=== PATIENT | male | born 1945 | race American Indian/Alaskan Native ===

== ENCOUNTER 2017-07-09 09:11 | Day surgery (SDC) | payer MEDICARE ==
--- NOTE | 2017-07-09 09:22 | Short Stay Summary ---
Short Stay Documentation Date of service: 07/09/17 Narrative H&P: 71 year old presents for colonoscopy for average risk colon screening. - History Principal diagnosis: colon screening H&P: obtained from office Past Medical History: cancer (prostate), diabetes, hypertension, stroke Past Surgical History: Other (prostate surgery, colonoscopy ~2006) Social history: other (chews tobacco) - Allergies and Medications Current Medications: Allergies No Known Allergies Allergy (Verified 07/06/17 11:30) Home Medications Medication Instructions Recorded Confirmed Last Taken Type Adult Low Dose Aspirin EC 81 mg PO DAILY 07/06/17 07/06/17 Unknown History AtorvaSTATin 1 tab PO DAILY 07/06/17 07/06/17 Unknown History Carvedilol 1 tab PO DAILY 07/06/17 07/06/17 Unknown History Latanoprost 0.005% 1 drop INTRAOCULA DAILY 07/06/17 07/06/17 Unknown History Lisinopril 1 tab PO DAILY 07/06/17 07/06/17 Unknown History amLODIPine 1 tab PO DAILY 07/06/17 07/06/17 Unknown History metFORMIN 500 mg PO DAILY 07/06/17 07/06/17 Unknown History - Physical exam General appearance: no acute distress, well-nourished Integumentary: no rash HEENT: PERRLA, EOMI Lungs: Clear to auscultation Heart: Regular rate, Normal S1, Normal S2 Gastrointestinal: normal Neurological: Normal speech - Hospital course Hospital course: Unsuccessful colonoscopy due to poor prep. - Disposition Condition at discharge: Good Disposition: DC-01 TO HOME OR SELFCARE - Discharge Diagnoses (1) Encounter for screening colonoscopy for [id number] patient Status: Acute Short Stay Discharge Plan Activity: other (no driving today) Diet: other (may resume usual diet) Additional Instructions: Patient to call to reschedule colonoscopy using an enhanced prep. Follow up with: EDINSON TOWNSEND MD [Primary Care Provider] - 7 Days
--- NOTE | 2017-07-09 11:15 | Anesthesia Day of Surgery ---
Anesthesia Day of Surgery - Day of Surgery Patient Examined: Yes Patient H&P Reviewed: Yes Patient is NPO: Yes
--- NOTE | 2017-07-09 11:15 | Anesthesia Consultation ---
Anesthesia Consult and Med Hx Date of service: 07/09/17 - Airway Anesthetic Teeth Evaluation: Poor ROM Head & Neck: Adequate Mental/Hyoid Distance: Adequate Mallampati Class: Class I Intubation Access Assessment: Good - Pulmonary Exam CTA: Yes - Cardiac Exam Cardiac Exam: RRR - Pre-Operative Health Status ASA Pre-Surgery Classification: ASA3 Proposed Anesthetic Plan: MAC - Cardiovascular System Hx Hypertension: Yes - Central Nervous System CVA: Yes (WITH LEFT SIDE WEAKNESS) - Endocrine Hx Non-Insulin Dependent Diabetes: Yes - Other Systems Hx Cancer: Yes
[2017-07-09] MEDS ORDERED: NACL 0.9% 1000 ML 1,000 ML IV SCH (12:00)
[2017-07-09] MEDS ORDERED: DIPRIVAN 10 MG/ML IV ONE (12:11)
--- NOTE | 2017-07-09 12:28 | Operative Report ---
Operative Report Operative Report: Date of procedure: 07/09/2017 Preprocedure diagnosis: Average risk colon screening Post procedure diagnosis: Inadequate prep Procedure name(s): Intended colonoscopy to the cecum, reduced to fiberoptic sigmoidoscopy Surgeon: Jamey Jason MD Anesthesia: Monitored anesthesia care EBL: None Procedure: The indications, techniques, potential complications and alternatives , had been discussed in full detail prior to the date of the exam, and once again on the day of the exam. Questions were encouraged and answered, and consent was thereby obtained. The patient was placed in the left lateral decubitus position, and was medicated by anesthesia services. See the anesthesia records for details. The anal sphincter was digitally dilated. The digital exam was unremarkable. The tip of a [employer] video colonoscope was inserted through the anal sphincter and into the rectal vault. It was then advanced proximally under continuous visualization of the lumen with the intention of it advancing to the cecum. However, the rfectum and distal sigmoid colon contained copious opaque stool flowing down from above and completely coating all mucosa, with no visible mucosa. It was elected to terminate the procedure at this point as the likelihood of being able to sufficiently lavage the colon to obtain an adequate exam was minimal. The instrument was therefore withdrawn. The abbreviated procedure was well-tolerated. He was then monitored in the recovery area of the GI lab to ensure stability prior to his release. See the outpatient record for details regarding instructions to patient, medications, and plans for follow -up which include instruction to the patient to contact the office to reschedule colonoscopy using an enhanced prep. Final diagnosis: Inadequate prep, unable to perform colonoscopy Colon screening information: Previous colonoscopy approximately 10 years ago. Jamey Jason M.D. Dictated 07/09/2017 at 12:25 PM
[2017-07-09 13:00] VITALS: BP 170/99
--- NOTE | 2017-07-09 13:04 | Post Anesthesia Evaluation ---
- Post Anesthesia Evaluation Patient Participated: Yes Airway Patent: Yes Stable Respiratory Function: Yes Temp > 96.8F: Yes Pain Manageable: Yes Adequeate Hydration: Yes Anesthesia Complications: No
[2017-07-09] MEDS ORDERED: XYLOCAINE MPF 2% ONE (13:30)
== END 2017-07-09 09:12 | disposition home or self-care (01) ==
LOC: GIO 09:11
PROVIDERS: ATTEND Internal Medicine Gastroenterology
DX: Z12.11 Encounter for screening for malignant neoplasm of colon (principal); I10 Essential (primary) hypertension; E11.9 Type 2 diabetes mellitus without complications; F17.220 Nicotine dependence, chewing tobacco, uncomplicated; Z79.899 Other long term (current) drug therapy; Z79.82 Long term (current) use of aspirin; Z85.46 Personal history of malignant neoplasm of prostate; Z86.73 Personal history of transient ischemic attack (TIA), and cerebral infarction without residual deficits; Z98.890 Other specified postprocedural states
CPT/HCPCS: 82962; G0104; J2704; J7030

== ENCOUNTER 2017-10-22 08:28 | Day surgery (SDC) | payer MEDICARE ==
[~2017-10-22 08:28] MED LIST: WATER FOR IRRIG STERILE IR ONE
[2017-10-22] MEDS ORDERED: NACL 0.9% 1000 ML 1,000 ML IV SCH (09:00)
--- NOTE | 2017-10-22 09:03 | Anesthesia Consultation ---
Anesthesia Consult and Med Hx Date of service: 10/22/17 - Airway Anesthetic Teeth Evaluation: Poor (multiple missing teeth) ROM Head & Neck: Adequate Mental/Hyoid Distance: Adequate Mallampati Class: Class II Intubation Access Assessment: Probably Good - Pre-Operative Health Status ASA Pre-Surgery Classification: ASA3 Proposed Anesthetic Plan: MAC - Cardiovascular System Hx Hypertension: Yes Hx Angina: No (high cholesterol) - Central Nervous System CVA: Yes (left side weakness) Hx Psychiatric Problems: Yes (dementia) - Endocrine Hx Non-Insulin Dependent Diabetes: Yes - Other Systems Hx Cancer: Yes (prostate CA)
--- NOTE | 2017-10-22 09:03 | Anesthesia Day of Surgery ---
Anesthesia Day of Surgery - Day of Surgery Patient Examined: Yes Patient H&P Reviewed: Yes Patient is NPO: Yes Beta Blockers: Yes
--- NOTE | 2017-10-22 09:16 | Short Stay Summary ---
Short Stay Documentation Date of service: 10/22/17 Narrative H&P: 72 year old presents for colonoscopy for colon screening. Attempt at colonoscopy 06/2017 was unsuccessful due to poor prep. - History Principal diagnosis: colon screening Past Medical History: diabetes, hypertension, stroke Past Surgical History: Other (prostate, colonoscopy > 10 years ago) - Allergies and Medications Current Medications: Allergies No Known Allergies Allergy (Verified 07/06/17 11:30) Home Medications Medication Instructions Recorded Confirmed Last Taken Type Adult Low Dose Aspirin EC 81 mg PO DAILY 07/06/17 07/09/17 07/07/17 History AtorvaSTATin 1 tab PO DAILY 07/06/17 07/09/17 07/07/17 History Carvedilol 1 tab PO BID 07/06/17 07/09/17 07/07/17 History Latanoprost 0.005% 1 drop INTRAOCULA DAILY 07/06/17 07/09/17 07/07/17 History Lisinopril 1 tab PO DAILY 07/06/17 07/06/17 Unknown History amLODIPine 1 tab PO DAILY 07/06/17 07/09/17 07/09/17 History metFORMIN 500 mg PO BID 07/06/17 07/09/17 07/07/17 History Active Medications Sodium Chloride (Nacl 0.9% 1000 Ml) 1,000 mls @ 50 mls/hr IV DIRECT ALLEN Last Admin: 10/22/17 09:05 Dose: 50 mls/hr - Physical exam General appearance: no acute distress, well-nourished HEENT: PERRLA, EOMI Lungs: Clear to auscultation Heart: Regular rate, Normal S1, Normal S2 Gastrointestinal: normal Neurological: Normal speech - Hospital course Hospital course: Unsuccessful attempt at colonoscopy again, due to poor prep. - Disposition Condition at discharge: Good Disposition: DC-01 TO HOME OR SELFCARE - Discharge Diagnoses (1) Encounter for screening colonoscopy for [id number] patient Status: Acute Short Stay Discharge Plan Activity: other (no driving today) Diet: other (may resume usual diet) Additional Instructions: If patient so desires, attempt colonoscopy again using enhanced prep with full compliance. Have discussed with patient and his accompanying responsible family member. If he does not wish to pursue colonoscopy for a third time, consider Cologuard, or virtual colonography. He should discuss with his primary physician. Follow up with: EDINSON TOWNSEND MD [Primary Care Provider] - 7 Days
[2017-10-22] MEDS ORDERED: DIPRIVAN 10 MG/ML IV ONE (09:17)
--- NOTE | 2017-10-22 09:56 | Operative Report ---
Operative Report Operative Report: `Date of procedure: 10/22/2017 Preprocedure diagnosis: Average risk colon screening Post procedure diagnosis: Inadequate prep Procedure name(s): Intended colonoscopy, reduced to fiberoptic sigmoidoscopy Surgeon: Jamey Jason MD Anesthesia: Monitored anesthesia care EBL: None Procedure: The indications, techniques, potential complications and alternatives , had been discussed in full detail prior to the date of the exam, and once again on the day of the exam. Questions were encouraged and answered, and consent was thereby obtained. The patient was placed in the left lateral decubitus position, and was medicated by anesthesia services. See the anesthesia records for details. The anal sphincter was digitally dilated. The digital exam was unremarkable. The tip of a [employer] [facility] adult video colonoscope was inserted through the anal sphincter and into the rectal vault. The entire rectal mucosa was coated with thick opaque retained stool extending several centimeters into the distal sigmoid at which point the instrument was withdrawn. Retained content was diffuse and too thick to enable successful lavage to adequately reveal underlying mucosa. The abbreviated procedure was well-tolerated. Post-procedure he was monitored in the recovery area of the GI lab to ensure stability prior to his release. See the outpatient record for details regarding instructions to patient, medications and plans for follow-up. His last colonoscopy was ~2006. His June 2017 attempt at colonoscopy was unsuccessful due to poor prep. As this is his second failed attempt at colonoscopy because of inadequate prep, I discussed with him and his daughter Sandie in detail the need to comply with enhanced prep instructions in order to obtain adequate cleansing to permit mucosal visualization. From discussion with his daughter, he did not follow the instructions for enhanced prep prior to today's procedure. He is to contact us if he wishes to reschedule; if he does, then his daughter or another family member will need to be clearly instructed in enhanced prep and supervise Mr. Navarro to ensure compliance. If he decides not to go through another bowel prep to attempt colonoscopy, he will discuss with his primary physician non-endoscopic means of colon screening ( Cologuard, virtual colonography, etc.) Both he and his daughter expressed a good understanding of this discussion. Final diagnosis: []
[2017-10-22 10:13] VITALS: BP 152/80
== END 2017-10-22 10:19 | disposition home or self-care (01) ==
LOC: GIO 08:28
PROVIDERS: ATTEND Internal Medicine Gastroenterology
DX: Z12.11 Encounter for screening for malignant neoplasm of colon (principal); I10 Essential (primary) hypertension; E11.9 Type 2 diabetes mellitus without complications; Z86.73 Personal history of transient ischemic attack (TIA), and cerebral infarction without residual deficits; Z79.899 Other long term (current) drug therapy; Z79.84 Long term (current) use of oral hypoglycemic drugs
CPT/HCPCS: 82962; G0121; J2704; J7030

== ENCOUNTER 2018-07-18 07:32 | Day surgery (SDC) | payer MEDICARE ==
[~2018-07-18 07:32] MED LIST changes: +TETRACAINE 0.5% OD PRN; -WATER FOR IRRIG STERILE IR ONE
[2018-07-18] MEDS: VIGAMOX OD SCH ×3 (08:15→08:25)
[2018-07-18] MEDS: MYDRIACYL OD SCH ×3 (08:15→08:25)
[2018-07-18] MEDS: AK-Dilate OD SCH ×3 (08:15→08:25)
[2018-07-18] MEDS ORDERED: VERSED ONE ×2 (09:41→10:07)
[2018-07-18] MEDS ORDERED: SUBLIMAZE ONE ×2 (09:41→10:07)
[2018-07-18] MEDS ORDERED: TETRACAINE 0.5% OS ONE ×2 (09:43)
[2018-07-18] MEDS ORDERED: LOPRESSOR IV ONE (10:00)
[2018-07-18] MEDS ORDERED: DIAMOX PO ONE (10:00)
[2018-07-18] MEDS ORDERED: PRED FORTE 1% OS SCH (10:00)
--- NOTE | 2018-07-18 10:28 | Operative Report ---
Operative Report Operative Report: PATIENT'S NAME: DATE OF : DATE OF SURGERY: 07/18/2018 PREOPERATIVE DIAGNOSIS: Cataract left eye POSTOPERATIVE DIAGNOSIS: Same OPERATIVE PROCEDURE: Phacoemulsification with intraocular lens implantation, left eye SURGEON: Etelvina eDng M.D. STAFFING CONSULTANT SURGEON: Henry Lens: [id number] 20.0 D ANESTHESIA: Monitored anesthesia care in combination with topical and intracameral anesthesia because of the established specific risk of reflux, arrhythmias, or anxiety attacks associated with ocular manipulation, as well as the difficulty of the secretary specialist to manage such potentially catastrophic events while simultaneously attempting to complete the surgical procedure and was deemed necessary for the patient's safety to have an Main Line Assembler present during the procedure whenever possible. An Main Line Assembler was utilized to regulate the intravenous sedation of the patient so the patient was cooperative yet not asleep in order for the patient to successfully maintain fixation of the eye on the operating light of the microscope. COMPLICATIONS: No surgical complications No blood loss. ALLERGIES: No known drug allergies PROGNOSIS: Excellent INDICATIONS FOR SURGERY: The patient is undergoing surgery in the hopes of eliminating or improving these visual difficulties. PROCEDURE: After arriving at the surgery center, the patient was given topical anesthetic and dilating drops, as noted in the record. The patient was then taken into the operating room and given more anesthetic drops. The eyelids, lashes, and lid margins were scrubbed with Betadine solution, and the patient was draped. The Nurse Main Line Assembler administered IV sedation and monitored the patient during the procedure. The eye was then fixated with a 0.12, and a stab incision was made in the peripheral clear cornea into the anterior chamber. This was made on my left side. Viscoelastic was next used to fill the anterior chamber. The eye was once again fixated with the 0.12 forceps and a keratome was used make an incision in clear cornea peripherally on my right hand side temporally. The capsule forceps were used to open the central anterior capsule and then make a continuous round capsulotomy. Hydrodissection was carried out utilizing a cannula and balanced salt solution to delineate the cortical material from the capsule and the nucleus from the cortical material. The phaco tip was introduced into the eye and used to remove the anterior cortical material in the area of the capsulotomy. Then the phaco tip was buried into the nucleus, and a chopping instrument was introduced into the eye and used to provide countertraction in the nucleus between this instrument and the phaco tip fracturing the nucleus. This procedure was repeated multiple times, providing multiple small segments of the lens, and then the phaco tip was used to remove each of these segments. An I/A tip was then used to remove the remaining cortex. The anterior chamber was refilled with viscoelastic. An one-piece, acrylic intraocular lens was then placed into an inserting cartridge. The tip of the inserting cartridge was introduced into the keratome incision and into the anterior chamber. The implant was gently advanced through the cartridge and into the eye, where it unfolded, and both haptics were placed in the capsular bag, where it centered nicely and appeared to be well fixated. After placement of the intraocular lens, the I~and~A handpiece was placed back into the eye and used to remove the viscoelastic, including viscoelastic that was behind the optic of the intraocular lens. The anterior chamber was then filled with balanced salt solution, and hydration of the wound was used to cause swelling of the wound and more appropriate watertight closure. When the wound was found to be firm, the patient was asked to comment on how bright the light was. If there was no light perception at all or if the light was substantially dimmer than during the rest of the surgery, the amount of fluid in the eye was decompressed to lower the intraocular pressure until the patient could see the bright light again. This was done to avoid any damage or decreased blood flow to the optic nerve. MEDICATIONS APPLIED AT END OF SURGERY: One drop of Pred Forte and Vigamox The patient was given a shield to wear at night and was instructed not to rub or push on the eye. DISCHARGE SUMMARY: The patient was released in stable condition. The patient and those with the patient were given a written sheet of postoperative instructions and counseling on any abnormal laboratory studies. The patient is to see us tomorrow for follow-up in the office and is to call immediately for any difficulties. Etelvina Deng M.D. Date
--- NOTE | 2018-07-18 10:29 | Short Stay Summary ---
Short Stay Documentation Date of service: 07/18/18 - History H&P: obtained from office - Allergies and Medications Current Medications: Allergies No Known Allergies Allergy (Verified 07/10/18 08:17) Home Medications Medication Instructions Recorded Confirmed Last Taken Type AtorvaSTATin 1 tab PO DAILY 07/06/17 07/10/18 10/21/17 History Latanoprost 0.005% 1 drop INTRAOCULA DAILY 07/06/17 07/10/18 10/21/17 History Lisinopril 1 tab PO DAILY 07/06/17 07/10/18 10/21/17 History metFORMIN 500 mg PO BID 07/06/17 07/10/18 10/21/17 History Active Medications Moxifloxacin HCl (Vigamox) 1 drops OD Q5M ALLEN Phenylephrine HCl (Ak-Dilate) 1 drops OD Q5M ALLEN Prednisolone Acetate (Pred Forte 1%) 1 drops OS QID ALLEN Tetracaine HCl (Tetracaine 0.5%) 1 drops OD Q5M PRN PRN Reason: analgesia Tropicamide (Mydriacyl) 1 drops OD Q5M ALLEN - Brief post op/procedure progress note Date of procedure: 07/18/18 Pre-op diagnosis: left cataract Post-op diagnosis: same Procedure: Phacoemulsification with intraocular lens insertion left eye Anesthesia: MAC, local Surgeon: MAINOR DAMON Estimated blood loss: none Pathology: none Specimen disposition: to lab Condition: stable - Disposition Condition at discharge: Good Disposition: DC-01 TO HOME OR SELFCARE - Discharge Diagnoses (1) Cortical age-related cataract of left eye Status: Resolved Short Stay Discharge Plan Follow up with: EDINSON TOWNSEND MD [Primary Care Provider] - 7 Days
[2018-07-18 11:46] VITALS: BP 148/86
--- NOTE | 2018-07-18 12:35 | Anesthesia Consultation ---
Anesthesia Consult and Med Hx Date of service: 07/18/18 - Airway Anesthetic Teeth Evaluation: Poor ROM Head & Neck: Adequate Mental/Hyoid Distance: Adequate Mallampati Class: Class III Intubation Access Assessment: Possibly Difficult - Pulmonary Exam CTA: Yes - Cardiac Exam Cardiac Exam: RRR - Pre-Operative Health Status ASA Pre-Surgery Classification: ASA3 Proposed Anesthetic Plan: MAC - Cardiovascular System Hx Hypertension: Yes Hx Coronary Artery Disease: Yes Hx Angina: No (high cholesterol) - Central Nervous System CVA: Yes (2017) Hx Psychiatric Problems: No - Endocrine Hx Non-Insulin Dependent Diabetes: Yes - Other Systems Hx Cancer: Yes
--- NOTE | 2018-07-18 12:35 | Anesthesia Day of Surgery ---
Anesthesia Day of Surgery - Day of Surgery Patient Examined: Yes Patient H&P Reviewed: Yes Patient is NPO: Yes
--- NOTE | 2018-07-18 12:36 | Post Anesthesia Evaluation ---
- Post Anesthesia Evaluation Patient Participated: Yes Airway Patent: Yes Stable Respiratory Function: Yes Nausea/Vomiting: No Temp > 96.8F: Yes Pain Manageable: Yes Adequeate Hydration: Yes Anesthesia Complications: No
== END 2018-07-18 07:33 | disposition home or self-care (01) ==
LOC: OR 07:32
DX: H25.012 Cortical age-related cataract, left eye (principal); I25.10 Atherosclerotic heart disease of native coronary artery without angina pectoris; E78.00 Pure hypercholesterolemia, unspecified; I10 Essential (primary) hypertension; E11.39 Type 2 diabetes mellitus with other diabetic ophthalmic complication; H40.9 Unspecified glaucoma; Z98.890 Other specified postprocedural states; Z85.89 Personal history of malignant neoplasm of other organs and systems; Z87.891 Personal history of nicotine dependence; Z79.84 Long term (current) use of oral hypoglycemic drugs; Z79.899 Other long term (current) drug therapy; Z98.49 Cataract extraction status, unspecified eye; Z85.46 Personal history of malignant neoplasm of prostate; Z86.73 Personal history of transient ischemic attack (TIA), and cerebral infarction without residual deficits
CPT/HCPCS: 66984; 82962; J2250; J3010; V2632

== ENCOUNTER 2018-08-15 06:10 | Inpatient (IN) | payer MEDICARE ==
[2018-08-15] MEDS ORDERED: NACL 0.9% 500 ML 500 ML IV ONE (08:04)
[2018-08-15 08:30] LABS: Basophils % (Auto) 0.4 % (0.0-1.8); Eosinophils % (Auto) 0.3 % (0.0-4.3); Hematocrit 31.9 % (35.5-45.6); Hemoglobin 10.4 gm/dl (11.8-15.2); Lymphocytes # (Auto) 1.4 K/mm3 (1.2-5.4); Lymphocytes % (Auto) 14.1 % (13.4-35.0); Mean Corpuscular HGB Conc 32 % (32-34); Mean Corpuscular Volume 88 fl (84-94); Monocytes % (Auto) 9.8 % (0.0-7.3); Platelet Count 392 K/mm3 (140-440); Red Blood Count 3.65 M/mm3 (3.65-5.03); Red Cell Distribution Width 13.4 % (13.2-15.2)
[2018-08-15 08:44] LABS: Albumin 3.2 g/dL (3.9-5); Calcium 9.4 mg/dL (8.4-10.2)
[2018-08-15] MEDS: CLEOCIN 600 MG/50 mL 600 MG/50 ML BAG IV SCH ×4 (09:05→21:40)
--- NOTE | 2018-08-15 09:32 | XRay Report ---
AP CHEST: HISTORY: Cough AP view of the chest demonstrates a normal mediastinal and cardiac contour with clear lungs and normal bony and soft tissue structures. IMPRESSION: Unremarkable AP chest.
--- NOTE | 2018-08-15 09:41 | XRay Report ---
LEFT FEMUR, ONE VIEW RIGHT FEMUR, ONE VIEW LEFT FOOT, 2 VIEWS History: Pain, wound. Findings: Mild osteopenia is suspected. The bilateral femurs are intact on one view. No evidence for fracture or bony lesion. Anatomic articulation of the hips and knees. Vascular stent is noted the left thigh soft tissues, correlate with history. Views of the left foot demonstrate a moderate sized area of soft tissue ulceration on the heel of the foot which nearly extends to the calcaneal surface. There is no obvious bony destruction or periostitis on x-ray. Mild arthritic changes are noted throughout the left foot. Mild soft tissue swelling is also noted. IMPRESSION: Osteopenia. Unremarkable femurs. Soft tissue ulceration on the heel of the foot as described. No obvious findings of osteomyelitis on x-ray. If further evaluation is needed MRI with contrast or triple phase bone scan could be obtained.
--- NOTE | 2018-08-15 10:52 | Emergency Department Report ---
ED General Adult HPI - General Chief complaint: Fall Stated complaint: LEG PAIN Time Seen by Provider: 08/15/18 07:32 Source: patient, family Mode of arrival: Wheelchair Limitations: Physical Limitation - History of Present Illness Initial comments: Patient presents to emergency department with his daughter for bilateral leg pain status post a fall yesterday. Patient states he tripped on something and did not pass out. Patient also denies hitting his head or been on blood thinners. Patient is also concerned about an ulcer of the left heal -: Sudden Location: lower extremity Radiation: non-radiation Severity scale (0 -10): 3 Quality: aching Consistency: constant Improves with: none Worsens with: none Associated Symptoms: denies other symptoms Treatments Prior to Arrival: none - Related Data Home Medications Medication Instructions Recorded Confirmed Last Taken AtorvaSTATin 1 tab PO DAILY 07/06/17 07/18/18 07/17/18 09:00 Latanoprost 0.005% 1 drop INTRAOCULA DAILY 07/06/17 07/18/18 07/17/18 09:00 Lisinopril 1 tab PO DAILY 07/06/17 07/18/18 07/17/18 09:00 metFORMIN 500 mg PO BID 07/06/17 07/18/18 07/17/18 17:00 Allergies Allergy/AdvReac Type Severity Reaction Status Date / Time No Known Allergies Allergy Verified 07/10/18 08:17 ED Review of Systems ROS: Stated complaint: LEG PAIN Other details as noted in HPI Comment: All other systems reviewed and negative Constitutional: denies: chills, fever Eyes: denies: eye pain, eye discharge, vision change ENT: denies: ear pain, throat pain Respiratory: denies: cough, shortness of breath, wheezing Cardiovascular: denies: chest pain, palpitations Endocrine: no symptoms reported Gastrointestinal: denies: abdominal pain, nausea, diarrhea Genitourinary: denies: urgency, dysuria Musculoskeletal: denies: back pain, joint swelling, arthralgia Skin: other (foot ulcer). denies: rash, lesions Neurological: denies: headache, weakness, paresthesias Psychiatric: denies: anxiety, depression Hematological/Lymphatic: denies: easy bleeding, easy bruising ED Past Medical Hx - Past Medical History Previous Medical History?: Yes Hx Hypertension: Yes Hx CVA: Yes (2017 left side deficits) Hx Diabetes: Yes Additional medical history: prostate CA - Surgical History Past Surgical History?: Yes Additional Surgical History: catarack - Social History Smoking Status: Never Smoker Substance Use Type: None - Medications Home Medications: Home Medications Medication Instructions Recorded Confirmed Last Taken Type AtorvaSTATin 1 tab PO DAILY 07/06/17 07/18/18 07/17/18 09:00 History Latanoprost 0.005% 1 drop INTRAOCULA DAILY 07/06/17 07/18/18 07/17/18 09:00 History Lisinopril 1 tab PO DAILY 07/06/17 07/18/18 07/17/18 09:00 History metFORMIN 500 mg PO BID 07/06/17 07/18/18 07/17/18 17:00 History ED Physical Exam - General Limitations: Physical Limitation General appearance: alert, in no apparent distress - Head Head exam: Present: atraumatic, normocephalic - Eye Eye exam: Present: normal appearance, PERRL, EOMI - ENT ENT exam: Present: mucous membranes moist - Neck Neck exam: Present: normal inspection - Respiratory Respiratory exam: Present: normal lung sounds bilaterally. Absent: respiratory distress, wheezes, rales - Cardiovascular Cardiovascular Exam: Present: regular rate, normal rhythm. Absent: systolic murmur, diastolic murmur, rubs, gallop - GI/Abdominal GI/Abdominal exam: Present: soft, normal bowel sounds. Absent: distended, tenderness - Rectal Rectal exam: Present: deferred - Extremities Exam Extremities exam: Present: normal inspection - Back Exam Back exam: Present: normal inspection - Neurological Exam Neurological exam: Present: alert, oriented X3, CN II-XII intact. Absent: motor sensory deficit - Psychiatric Psychiatric exam: Present: normal affect, normal mood - Skin Skin exam: Present: warm, dry, intact, other (patient has a left heel ulcer with surrounding cellulitis that is malodorous). Absent: rash ED Course Vital Signs 08/15/18 08/15/18 08/15/18 06:13 06:57 10:30 Temperature 98.5 F 97.7 F Pulse Rate 103 H 102 H 89 Respiratory 18 19 16 Rate Blood Pressure 92/52 144/91 Blood Pressure 141/80 [Left] O2 Sat by Pulse 97 100 100 Oximetry 08/15/18 08/15/18 11:30 11:38 Temperature Pulse Rate 92 H Respiratory 11 L 17 Rate Blood Pressure 143/84 Blood Pressure [Left] O2 Sat by Pulse 100 100 Oximetry ED Medical Decision Making - Lab Data Result diagrams: 08/15/18 08:13 08/15/18 08:58 Lab Results 08/15/18 08/15/18 08/15/18 Range/Units 08:13 08:13 08:13 WBC 10.1 (4.5-11.0) K/mm3 RBC 3.65 (3.65-5.03) M/mm3 Hgb 10.4 L (11.8-15.2) gm/dl Hct 31.9 L (35.5-45.6) % MCV 88 (84-94) fl MCH 28 (28-32) pg MCHC 32 (32-34) % RDW 13.4 (13.2-15.2) % Plt Count 392 (140-440) K/mm3 Lymph % (Auto) 14.1 (13.4-35.0) % [place] % (Auto) 9.8 H (0.0-7.3) % Eos % (Auto) 0.3 (0.0-4.3) % Baso % (Auto) 0.4 (0.0-1.8) % Lymph # 1.4 (1.2-5.4) K/mm3 [place] # 1.0 H (0.0-0.8) K/mm3 Eos # 0.0 (0.0-0.4) K/mm3 Baso # 0.0 (0.0-0.1) K/mm3 Seg Neutrophils % 75.4 H (40.0-70.0) % Seg Neutrophils # 7.6 (1.8-7.7) K/mm3 APTT (24.2-36.6) Sec. Sodium 135 L (137-145) mmol/L Potassium 6.2 H* (3.6-5.0) mmol/L Chloride 97.4 L (98-107) mmol/L Carbon Dioxide 25 (22-30) mmol/L Anion Gap 19 mmol/L BUN 29 H (9-20) mg/dL Creatinine 1.8 H (0.8-1.5) mg/dL Estimated GFR 45 ml/min BUN/Creatinine Ratio 16 % Glucose 257 H (75-100) mg/dL Lactic Acid 0.90 (0.7-2.0) mmol/L Calcium 9.4 (8.4-10.2) mg/dL Total Bilirubin 0.40 (0.1-1.2) mg/dL AST 56 H (5-40) units/L ALT 20 (7-56) units/L Alkaline Phosphatase 82 (35-129) units/L Total Protein 8.3 H (6.3-8.2) g/dL Albumin 3.2 L (3.9-5) g/dL Albumin/Globulin Ratio 0.6 % 08/15/18 08/15/18 Range/Units 08:13 08:58 WBC (4.5-11.0) K/mm3 RBC (3.65-5.03) M/mm3 Hgb (11.8-15.2) gm/dl Hct (35.5-45.6) % MCV (84-94) fl MCH (28-32) pg MCHC (32-34) % RDW (13.2-15.2) % Plt Count (140-440) K/mm3 Lymph % (Auto) (13.4-35.0) % [place] % (Auto) (0.0-7.3) % Eos % (Auto) (0.0-4.3) % Baso % (Auto) (0.0-1.8) % Lymph # (1.2-5.4) K/mm3 [place] # (0.0-0.8) K/mm3 Eos # (0.0-0.4) K/mm3 Baso # (0.0-0.1) K/mm3 Seg Neutrophils % (40.0-70.0) % Seg Neutrophils # (1.8-7.7) K/mm3 APTT 31.5 (24.2-36.6) Sec. Sodium (137-145) mmol/L Potassium 5.1 H (3.6-5.0) mmol/L Chloride (98-107) mmol/L Carbon Dioxide (22-30) mmol/L Anion Gap mmol/L BUN (9-20) mg/dL Creatinine (0.8-1.5) mg/dL Estimated GFR ml/min BUN/Creatinine Ratio % Glucose (75-100) mg/dL Lactic Acid (0.7-2.0) mmol/L Calcium (8.4-10.2) mg/dL Total Bilirubin (0.1-1.2) mg/dL AST (5-40) units/L ALT (7-56) units/L Alkaline Phosphatase (35-129) units/L Total Protein (6.3-8.2) g/dL Albumin (3.9-5) g/dL Albumin/Globulin Ratio % - Radiology Data Radiology results: report reviewed Critical care attestation.: If time is entered above; I have spent that time in minutes in the direct care of this critically ill patient, excluding procedure time. ED Disposition Clinical Impression: Foot ulcer, Cellulitis Disposition: OP ADMIT IP TO THIS HOSP Is pt being admited?: Yes Does the pt Need Aspirin: No Condition: Stable Referrals: QUINTON ARIZMENDI MD [Primary Care Provider] - 3-5 Days
[2018-08-15] MEDS ORDERED: TYLENOL PO PRN (12:24)
[2018-08-15] MEDS ORDERED: ZOFRAN IV PRN (12:24)
[2018-08-15] MEDS ORDERED: PERCOCET 5/325 PO PRN (12:24)
[2018-08-15] MEDS ORDERED: PROVENTIL IH PRN (12:24)
--- NOTE | 2018-08-15 12:24 | History and Physical Report ---
History of Present Illness Chief complaint: My foot hurts History of present illness: 73 YO Male with DM, CVA with Dysarthria and LHP, HTN, CaP presents to ED for evaluation. Pt states that he has experienced leg pain over the past several months. Pt acknowledges burning sensation in his feet and legs. Pt acknowledges left foot pain with ambulation. Pt acknowledges tripping and falling down today. Pt transported to [facility] for further care and evaluation. Pt seen and evaluated in ED and found to have Left foot cellulitis complicated by a diabetic foot ulcer. Pt admitted to medical floor. wound care consulted in ED. Pt denies fever, chills, CP, palpitations, NVD, Trauma, BRBPR, unintentional weight loss, unilateral leg swelling, calf pain, or recent ill contacts. Past History Past Medical History: cancer, diabetes, hypertension, stroke Past Surgical History: cataract removal Social history: single. denies: smoking, alcohol abuse, prescription drug abuse Family history: diabetes, hypertension Medications and Allergies Allergies Allergy/AdvReac Type Severity Reaction Status Date / Time No Known Allergies Allergy Verified 07/10/18 08:17 Home Medications Medication Instructions Recorded Confirmed Last Taken Type Amlodipine Besylate [Norvasc] 5 mg PO DAILY 08/15/18 08/15/18 Unknown History Atorvastatin Calcium [Lipitor] 40 mg PO DAILY 08/15/18 08/15/18 Unknown History Calcium Carbonate [Ban-Acid] 300 mg PO DAILY 08/15/18 08/15/18 Unknown History Lisinopril [Zestril TAB] 2.5 mg PO QDAY 08/15/18 08/15/18 Unknown History metFORMIN [Glucophage] 500 mg PO QDAY 08/15/18 08/15/18 Unknown History Active Meds: Active Medications Clindamycin HCl (Cleocin 600 Mg/50 Ml) 600 mg in 50 mls @ 100 mls/hr IV Q8HR [facility]; Protocol Last Admin: 08/15/18 09:05 Dose: 100 mls/hr Documented by: Review of Systems Constitutional: no weight loss, no weight gain, no fever, no chills Ears, nose, mouth and throat: no ear pain, no ear discharge, no tinnitis, no decreased hearing, no nose pain Cardiovascular: no chest pain, no orthopnea, no palpitations, no rapid/irregular heart beat, no edema Respiratory: no cough, no cough with sputum, no excessive sputum, no hemoptysis Gastrointestinal: no nausea, no vomiting, no diarrhea, no constipation Genitourinary Male: no hematuria, no flank pain, no discharge, no urinary frequency, no urinary hesitancy Rectal: no pain, no incontinence, no bleeding Musculoskeletal: no neck stiffness, no neck pain, no shooting arm pain, no arm numbness/tingling Integumentary: no rash, no pruritis, no redness, no sores, no wounds Neurological: no transient paralysis, no paralysis, no weakness, no parathesias, no numbness, no tingling Psychiatric: no anxiety, no memory loss, no change in sleep habits, no sleep disturbances, no hypersomnia, no change in appetite, no change in libido Endocrine: no cold intolerance, no heat intolerance, no polyphagia, no excessive thirst, no polydipsia, no polyuria Hematologic/Lymphatic: no easy bruising, no easy bleeding, no lymphadenopathy, no lymphedema Allergic/Immunologic: no urticaria, no allergic rhinitis, no wheezing, no persistent infections, no anaphylaxis Exam - Constitutional Vitals: Temp Pulse Resp BP Pulse Ox 97.7 F 92 H 17 143/84 100 08/15/18 06:57 08/15/18 11:30 08/15/18 11:38 08/15/18 11:30 08/15/18 11:38 General appearance: Present: mild distress - EENT Eyes: Present: PERRL ENT: hearing intact, clear oral mucosa - Neck Neck: Present: supple, normal ROM - Respiratory Respiratory effort: normal Respiratory: bilateral: CTA - Cardiovascular Heart Sounds: Present: S1 & S2. Absent: rub, click - Extremities Extremities: pulses symmetrical Extremity abnormal: edema, ulceration, tenderness, other (Left heel) Peripheral Pulses: within normal limits - Abdominal General gastrointestinal: Present: soft, non-tender, non-distended, normal bowel sounds Male genitourinary: Present: normal - Integumentary Integumentary: Present: clear, warm, dry - Musculoskeletal Musculoskeletal: gait normal, strength equal bilaterally - Psychiatric Psychiatric: appropriate mood/affect, intact judgment & insight - Neurologic Neurologic: CNII-XII intact, moves all extremities Results - Labs CBC & Chem 7: 08/15/18 08:13 08/15/18 08:58 Labs: Abnormal lab results 08/15/18 08/15/18 08/15/18 Range/Units 08:13 08:13 08:58 Hgb 10.4 L (11.8-15.2) gm/dl Hct 31.9 L (35.5-45.6) % [place] % (Auto) 9.8 H (0.0-7.3) % [place] # 1.0 H (0.0-0.8) K/mm3 Seg Neutrophils % 75.4 H (40.0-70.0) % Sodium 135 L (137-145) mmol/L Potassium 6.2 H* 5.1 H (3.6-5.0) mmol/L Chloride 97.4 L (98-107) mmol/L BUN 29 H (9-20) mg/dL Creatinine 1.8 H (0.8-1.5) mg/dL Glucose 257 H (75-100) mg/dL AST 56 H (5-40) units/L Total Protein 8.3 H (6.3-8.2) g/dL Albumin 3.2 L (3.9-5) g/dL Assessment and Plan - Patient Problems (1) Cellulitis Current Visit: Yes Status: Acute Qualifiers: Site of cellulitis of extremity: lower extremity Laterality: left Plan to address problem: Admit to surgical floor, IV antibiotics, IVF resuscitation, pain control, wound care consulted, MRI LLE to evaluate for osteo. (2) Diabetes Current Visit: Yes Status: Acute Plan to address problem: ADA diet, insulin, accu check (3) HTN (hypertension) Current Visit: Yes Status: Acute Qualifiers: Hypertension type: essential hypertension Qualified Code(s): I10 - Essential (primary) hypertension Plan to address problem: Monitor bp q shift, continue medical management (4) Foot ulcer Current Visit: Yes Status: Acute Plan to address problem: MRI LLE, wound care, X ray left foot, (5) DVT prophylaxis Current Visit: Yes Status: Acute Plan to address problem: SCD to BLE while in bed.
[2018-08-15] MEDS ORDERED: VANCOMYCIN/NS 1 GM/250 ML 1 GM/250 ML BAG IV ONE (12:26)
[2018-08-15] MEDS ORDERED: VANCOMYCIN PHARMACY TO DOSE IV SCH (13:00)
[2018-08-15 13:23] LABS: Bilirubin,Urine NEG (Negative); Blood,Urine MOD (Negative); Color,Urine Yellow (Yellow); Mucus,Urine FEW /HPF
[2018-08-15] MEDS: VANCOMYCIN 1,250 MG in NACL 0.9% 250ML 250 ML IV SCH (14:30)
[2018-08-15] MEDS: SODIUM CHLORIDE FLUSH SYRINGE 10 ML IV PRN (14:38)
[2018-08-15] MEDS: HumaLOG SUB-Q SCH ×2 (17:08→22:40)
[2018-08-15] MEDS: SODIUM CHLORIDE FLUSH SYRINGE 10 ML IV SCH (21:42)
[2018-08-15] MEDS: DAKIN'S FULL STRENGTH TP SCH (21:42)
[2018-08-16] MEDS: CLEOCIN 600 MG/50 mL 600 MG/50 ML BAG IV SCH ×3 (06:32→21:31)
[2018-08-16] MEDS: DAKIN'S FULL STRENGTH TP SCH ×3 (07:13→21:33)
[2018-08-16] MEDS: SODIUM CHLORIDE FLUSH SYRINGE 10 ML IV SCH ×2 (09:27→21:33)
[2018-08-16] MEDS: HumaLOG SUB-Q SCH ×4 (09:27→22:51)
[2018-08-16 10:53] LABS: BUN/Creatinine Ratio 20; Blood Urea Nitrogen 26 mg/dL (9-20); Calcium 9.1 mg/dL (8.4-10.2); Hemolysis Index 2
--- NOTE | 2018-08-16 12:55 | Vascular Lab Report ---
FINAL REPORT EXAM: VL VENOUS DUPLEX LE LT HISTORY: dvt TECHNIQUE: Chang scale with color flow and spectral waveform Doppler imaging of left lower extremity veins. PRIORS: None. FINDINGS: There is no evidence of deep venous thrombosis in the left lower extremity. Flow is demonstrated by color flow and spectral waveform Doppler imaging. There is appropriate augmentation and wall compression. Left GSV is patent without evidence of superficial venous thrombus. There is also no DVT seen in the right groin area. There remainder of right lower extremity not evalu ated. IMPRESSION: There is no evidence for DVT in the left lower extremity.
[2018-08-16] MEDS ORDERED: KIONEX PO NR (13:22)
--- NOTE | 2018-08-16 13:30 | Progress Note ---
Assessment and Plan Assessment and plan: 73 YO Male with DM, CVA with Dysarthria and LHP, HTN, CaP presents to ED for evaluation. Pt states that he has experienced leg pain over the past several months. Pt acknowledges burning sensation in his feet and legs. Pt acknowledges left foot pain with ambulation. Pt acknowledges tripping and falling down today. Pt transported to [facility] for further care and evaluation. Pt seen and evaluated in ED and found to have Left foot cellulitis complicated by a diabetic foot ulcer. Pt admitted to medical floor. wound care consulted in ED. Pt denies fever, chills, CP, palpitations, NVD, Trauma, BRBPR, unintentional weight loss, unilateral leg swelling, calf pain, or recent ill contacts. Cellulitis Current Visit: Yes Status: Acute Qualifiers: Site of cellulitis of extremity: lower extremity Laterality: left Plan to address problem: Continue supportive care IV antibiotics, IVF resuscitation, pain control, wound care consulted, MRI LLE to evaluate for osteo. Acute kidney injury on chronic kidney disease attributed to visible deformity Continue gentle hydration monitor for renal improvement. Recurrent falls PT OT evaluate and treat Diabetes Mellitus Current Visit: Yes Status: Acute Plan to address problem: ADA diet, insulin, accu check HTN (hypertension) Current Visit: Yes Status: Acute Qualifiers: Hypertension type: essential hypertension Qualified Code(s): I10 - Essential (primary) hypertension Plan to address problem: Monitor bp q shift, continue medical management Foot ulcer Current Visit: Yes Status: Acute Plan to address problem: MRI LLE, wound care, X ray left foot, Anemia of chronic disease Stable continue to monitor Hyperkalemia We'll give a dose of Kayexalate and monitor DVT prophylaxis Current Visit: Yes Status: Acute Plan to address problem: SCD to BLE while in bed. Patient will likely benefit from Rehab on discharge considering falls. History Interval history: Patient is seen today for: Left heel ulcer repeated falls Seen and examined at bedside; 24hour events reviewed; nursing staff ; no adverse overnight events reported to me; Denies any chest pain, nausea, vomiting, diarrhea. Complains of pain of the left heel area. No fever noted blood pressure controlled Hospitalist Physical - Physical exam Narrative exam: VITAL SIGNS: Reviewed. GENERAL: The patient appeared well nourished and normally developed. Vital signs as documented. HEAD: No signs of head trauma. EYES: Pupils are equal. Extraocular motions intact. EARS: Hearing grossly intact. MOUTH: Oropharynx is normal. NECK: No adenopathy, no JVD. CHEST: Chest with clear breath sounds bilaterally. No wheezes, rales, or rhonchi. CARDIAC: Regular rate and rhythm. S1 and S2, without murmurs, gallops, or rubs. VASCULAR: No Edema. Peripheral pulses normal and equal in all extremities. ABDOMEN: Soft, without detectable tenderness. No sign of distention. No rebound or guarding, and no masses palpated. Bowel Sounds normal. MUSCULOSKELETAL: Good range of motion of all major joints. Extremities without clubbing, cyanosis or edema. NEUROLOGIC EXAM: Alert and oriented x 3. No focal sensory or strength deficits. Speech normal. Follows commands. PSYCHIATRIC: Mood normal. SKIN: Left heel ulceration with edema and erythema. - Constitutional Vitals: Temp Pulse Resp BP Pulse Ox 98.5 F 85 18 152/94 99 08/16/18 07:43 08/16/18 07:43 08/16/18 07:43 08/16/18 07:43 08/16/18 07:43 General appearance: Present: mild distress Results - Labs CBC & Chem 7: 08/15/18 08:13 08/16/18 09:58 Labs: Laboratory Last Values WBC 10.1 K/mm3 (4.5-11.0) 08/15/18 08:13 RBC 3.65 M/mm3 (3.65-5.03) 08/15/18 08:13 Hgb 10.4 gm/dl (11.8-15.2) L 08/15/18 08:13 Hct 31.9 % (35.5-45.6) L 08/15/18 08:13 MCV 88 fl (84-94) 08/15/18 08:13 MCH 28 pg (28-32) 08/15/18 08:13 MCHC 32 % (32-34) 08/15/18 08:13 RDW 13.4 % (13.2-15.2) 08/15/18 08:13 Plt Count 392 K/mm3 (140-440) 08/15/18 08:13 Lymph % (Auto) 14.1 % (13.4-35.0) 08/15/18 08:13 [place] % (Auto) 9.8 % (0.0-7.3) H 08/15/18 08:13 Eos % (Auto) 0.3 % (0.0-4.3) 08/15/18 08:13 Baso % (Auto) 0.4 % (0.0-1.8) 08/15/18 08:13 Lymph # 1.4 K/mm3 (1.2-5.4) 08/15/18 08:13 [place] # 1.0 K/mm3 (0.0-0.8) H 08/15/18 08:13 Eos # 0.0 K/mm3 (0.0-0.4) 08/15/18 08:13 Baso # 0.0 K/mm3 (0.0-0.1) 08/15/18 08:13 Seg Neutrophils % 75.4 % (40.0-70.0) H 08/15/18 08:13 Seg Neutrophils # 7.6 K/mm3 (1.8-7.7) 08/15/18 08:13 APTT 31.5 Sec. (24.2-36.6) 08/15/18 08:13 Sodium 136 mmol/L (137-145) L 08/16/18 09:58 Potassium 5.3 mmol/L (3.6-5.0) H 08/16/18 09:58 Chloride 99.6 mmol/L (98-107) 08/16/18 09:58 Carbon Dioxide 25 mmol/L (22-30) 08/16/18 09:58 Anion Gap 17 mmol/L 08/16/18 09:58 BUN 26 mg/dL (9-20) H 08/16/18 09:58 Creatinine 1.3 mg/dL (0.8-1.5) 08/16/18 09:58 Estimated GFR > 60 ml/min 08/16/18 09:58 BUN/Creatinine Ratio 20 % 08/16/18 09:58 Glucose 244 mg/dL (75-100) H 08/16/18 09:58 POC Glucose 185 (70-105) H 08/16/18 07:43 Lactic Acid 0.90 mmol/L (0.7-2.0) 08/15/18 08:13 Calcium 9.1 mg/dL (8.4-10.2) 08/16/18 09:58 Total Bilirubin 0.40 mg/dL (0.1-1.2) 08/15/18 08:13 AST 56 units/L (5-40) H 08/15/18 08:13 ALT 20 units/L (7-56) 08/15/18 08:13 Alkaline Phosphatase 82 units/L (35-129) 08/15/18 08:13 Total Protein 8.3 g/dL (6.3-8.2) H 08/15/18 08:13 Albumin 3.2 g/dL (3.9-5) L 08/15/18 08:13 Albumin/Globulin Ratio 0.6 % 08/15/18 08:13 Urine Color Yellow (Yellow) 08/15/18 13:02 Urine Turbidity Clear (Clear) 08/15/18 13:02 Urine pH 5.0 (5.0-7.0) 08/15/18 13:02 Ur Specific [place] 1.016 (1.003-1.030) 08/15/18 13:02 Urine Protein 30 mg/dl mg/dL (Negative) 08/15/18 13:02 Urine Glucose (UA) 150 mg/dL (Negative) 08/15/18 13:02 Urine Ketones Tr mg/dL (Negative) 08/15/18 13:02 Urine Blood Mod (Negative) 08/15/18 13:02 Urine Nitrite Neg (Negative) 08/15/18 13:02 Urine Bilirubin Neg (Negative) 08/15/18 13:02 Urine Urobilinogen 2.0 mg/dL (<2.0) 08/15/18 13:02 Ur Leukocyte Esterase Neg (Negative) 08/15/18 13:02 Urine WBC (Auto) 8.0 /HPF (0.0-6.0) H 08/15/18 13:02 Urine RBC (Auto) 4.0 /HPF (0.0-6.0) 08/15/18 13:02 U Epithel Cells (Auto) 1.0 /HPF (0-13.0) 08/15/18 13:02 Urine Mucus Few /HPF 08/15/18 13:02 - Imaging and Cardiology Imaging and Cardiology: Fluids x-ray with cellulitis and no evidence of osteomyelitis.
[2018-08-16] MEDS: VANCOMYCIN 1,250 MG in NACL 0.9% 250ML 250 ML IV SCH (13:50)
--- NOTE | 2018-08-16 20:15 | Magnetic Resonance Report ---
FINAL REPORT PROCEDURE: MR LE NONJOINT LT WO/W CON TECHNIQUE: Magnetic resonance imaging of the LEFT foot was performed using standard pulse sequences before and after the IV injection of paramagnetic contrast. HISTORY: left heel ulcerinpatientMultihance 16mL COMPARISON: No prior studies are available for comparison. FINDINGS: There is a large ulceration of the soft tissues at the plantar surface of the calcaneus. There is sub cutaneous edema of the surrounding soft tissues indicating cellulitis. There is no discrete abscess. The There are destructive changes of the inferior aspect of the calcaneus with bone marrow edema and cyst ic changes consistent with osteomyelitis. There is no evidence of fracture. There is degenerative arthrosis of the tibiotalar joint and the tarsal joints. There is no fracture o r malalignment. The Achilles tendon is intact. The anterior posterior tibial tendons, the peroneus longus brevis tendons and ligaments are intact. IMPRESSION: Ulceration of the soft tissues along the plantar surface of the calcaneus with surrounding cellulitis . There is no soft tissue abscess. There are destructive changes and bone marrow edema of the inferio r aspect of the calcaneus consistent with osteomyelitis. There are no acute fractures or malalignments. There is no acute ligamentous or tendinous injury.
[2018-08-16] MEDS: NACL 0.9% 1000 ML 1,000 ML IV SCH (21:46)
[2018-08-17] MEDS: CLEOCIN 600 MG/50 mL 600 MG/50 ML BAG IV SCH ×3 (06:00→22:59)
[2018-08-17] MEDS: HumaLOG SUB-Q SCH ×3 (07:58→16:57)
[2018-08-17] MEDS: DAKIN'S FULL STRENGTH TP SCH ×2 (09:23→23:00)
[2018-08-17] MEDS: SODIUM CHLORIDE FLUSH SYRINGE 10 ML IV SCH ×2 (09:23→23:01)
--- NOTE | 2018-08-17 11:31 | Progress Note ---
Assessment and Plan Assessment and plan: 73 YO Male with DM, CVA with Dysarthria and LHP, HTN, CaP presents to ED for evaluation. Pt states that he has experienced leg pain over the past several months. Pt acknowledges burning sensation in his feet and legs. Pt acknowledges left foot pain with ambulation. Pt acknowledges tripping and falling down today. Pt transported to [facility] for further care and evaluation. Pt seen and evaluated in ED and found to have Left foot cellulitis complicated by a diabetic foot ulcer. Pt admitted to medical floor. wound care consulted in ED. Pt denies fever, chills, CP, palpitations, NVD, Trauma, BRBPR, unintentional weight loss, unilateral leg swelling, calf pain, or recent ill contacts. Cellulitis Current Visit: Yes Status: Acute Qualifiers: Site of cellulitis of extremity: lower extremity Laterality: left Plan to address problem: Continue supportive care IV antibiotics, IVF resuscitation, pain control, wound care consulted, MRI CONSISTENT WITH OSTEO OBTAIN ID CONSULT FOR DURATION OF ABX CONTINUE VANCOMYCIN Acute kidney injury on chronic kidney disease attributed to visible deformity Continue gentle hydration monitor for renal improvement. Resolved Recurrent falls PT OT evaluate and treat Diabetes Mellitus Current Visit: Yes Status: Acute Plan to address problem: ADA diet, insulin, accu check HTN (hypertension) Current Visit: Yes Status: Acute Qualifiers: Hypertension type: essential hypertension Qualified Code(s): I10 - Essential (primary) hypertension Plan to address problem: Monitor bp q shift, continue medical management Foot ulcer Current Visit: Yes Status: Acute Plan to address problem: MRI LLE, wound care, X ray left foot, Anemia of chronic disease Stable continue to monitor Hyperkalemia We'll give a dose of Kayexalate and monitor DVT prophylaxis Current Visit: Yes Status: Acute Plan to address problem: SCD to BLE while in bed. Patient will likely benefit from Rehab on discharge considering falls. History Interval history: Patient is seen today for: Left heel ulcer repeated falls Seen and examined at bedside; 24hour events reviewed; nursing staff ; no adverse overnight events reported to me; Denies any chest pain, nausea, vomiting, diarrhea. Complains of pain of the left heel area. NO ADDITIONAL COMPLAINTS. No fever noted blood pressure controlled Hospitalist Physical - Physical exam Narrative exam: VITAL SIGNS: Reviewed. GENERAL: The patient appeared well nourished and normally developed. Vital si gns as documented. HEAD: No signs of head trauma. EYES: Pupils are equal. Extraocular motions intact. EARS: Hearing grossly intact. MOUTH: Oropharynx is normal. NECK: No adenopathy, no JVD. CHEST: Chest with clear breath sounds bilaterally. No wheezes, rales, or rhonchi. CARDIAC: Regular rate and rhythm. S1 and S2, without murmurs, gallops, or rubs. VASCULAR: No Edema. Peripheral pulses normal and equal in all extremities. ABDOMEN: Soft, without detectable tenderness. No sign of distention. No rebound or guarding, and no masses palpated. Bowel Sounds normal. MUSCULOSKELETAL: Good range of motion of all major joints. Extremities without clubbing, cyanosis or edema. NEUROLOGIC EXAM: Alert and oriented x 3. No focal sensory or strength deficits. Speech normal. Follows commands. PSYCHIATRIC: Mood normal. SKIN: Left heel ulceration with edema and erythema. - Constitutional Vitals: Temp Pulse Resp BP Pulse Ox 98.9 F 83 20 151/92 100 08/17/18 07:40 08/17/18 10:00 08/17/18 10:00 08/17/18 07:40 08/17/18 10:00 General appearance: Present: mild distress Results - Labs CBC & Chem 7: 08/15/18 08:13 08/16/18 09:58 Labs: Laboratory Last Values WBC 10.1 K/mm3 (4.5-11.0) 08/15/18 08:13 RBC 3.65 M/mm3 (3.65-5.03) 08/15/18 08:13 Hgb 10.4 gm/dl (11.8-15.2) L 08/15/18 08:13 Hct 31.9 % (35.5-45.6) L 08/15/18 08:13 MCV 88 fl (84-94) 08/15/18 08:13 MCH 28 pg (28-32) 08/15/18 08:13 MCHC 32 % (32-34) 08/15/18 08:13 RDW 13.4 % (13.2-15.2) 08/15/18 08:13 Plt Count 392 K/mm3 (140-440) 08/15/18 08:13 Lymph % (Auto) 14.1 % (13.4-35.0) 08/15/18 08:13 [place] % (Auto) 9.8 % (0.0-7.3) H 08/15/18 08:13 Eos % (Auto) 0.3 % (0.0-4.3) 08/15/18 08:13 Baso % (Auto) 0.4 % (0.0-1.8) 08/15/18 08:13 Lymph # 1.4 K/mm3 (1.2-5.4) 08/15/18 08:13 [place] # 1.0 K/mm3 (0.0-0.8) H 08/15/18 08:13 Eos # 0.0 K/mm3 (0.0-0.4) 08/15/18 08:13 Baso # 0.0 K/mm3 (0.0-0.1) 08/15/18 08:13 Seg Neutrophils % 75.4 % (40.0-70.0) H 08/15/18 08:13 Seg Neutrophils # 7.6 K/mm3 (1.8-7.7) 08/15/18 08:13 APTT 31.5 Sec. (24.2-36.6) 08/15/18 08:13 Sodium 136 mmol/L (137-145) L 08/16/18 09:58 Potassium 5.3 mmol/L (3.6-5.0) H 08/16/18 09:58 Chloride 99.6 mmol/L (98-107) 08/16/18 09:58 Carbon Dioxide 25 mmol/L (22-30) 08/16/18 09:58 Anion Gap 17 mmol/L 08/16/18 09:58 BUN 26 mg/dL (9-20) H 08/16/18 09:58 Creatinine 1.3 mg/dL (0.8-1.5) 08/16/18 09:58 Estimated GFR > 60 ml/min 08/16/18 09:58 BUN/Creatinine Ratio 20 % 08/16/18 09:58 Glucose 244 mg/dL (75-100) H 08/16/18 09:58 POC Glucose 135 (70-105) H 08/17/18 07:51 Lactic Acid 0.90 mmol/L (0.7-2.0) 08/15/18 08:13 Calcium 9.1 mg/dL (8.4-10.2) 08/16/18 09:58 Total Bilirubin 0.40 mg/dL (0.1-1.2) 08/15/18 08:13 AST 56 units/L (5-40) H 08/15/18 08:13 ALT 20 units/L (7-56) 08/15/18 08:13 Alkaline Phosphatase 82 units/L (35-129) 08/15/18 08:13 Total Protein 8.3 g/dL (6.3-8.2) H 08/15/18 08:13 Albumin 3.2 g/dL (3.9-5) L 08/15/18 08:13 Albumin/Globulin Ratio 0.6 % 08/15/18 08:13 Urine Color Yellow (Yellow) 08/15/18 13:02 Urine Turbidity Clear (Clear) 08/15/18 13:02 Urine pH 5.0 (5.0-7.0) 08/15/18 13:02 Ur Specific [place] 1.016 (1.003-1.030) 08/15/18 13:02 Urine Protein 30 mg/dl mg/dL (Negative) 08/15/18 13:02 Urine Glucose (UA) 150 mg/dL (Negative) 08/15/18 13:02 Urine Ketones Tr mg/dL (Negative) 08/15/18 13:02 Urine Blood Mod (Negative) 08/15/18 13:02 Urine Nitrite Neg (Negative) 08/15/18 13:02 Urine Bilirubin Neg (Negative) 08/15/18 13:02 Urine Urobilinogen 2.0 mg/dL (<2.0) 08/15/18 13:02 Ur Leukocyte Esterase Neg (Negative) 08/15/18 13:02 Urine WBC (Auto) 8.0 /HPF (0.0-6.0) H 08/15/18 13:02 Urine RBC (Auto) 4.0 /HPF (0.0-6.0) 08/15/18 13:02 U Epithel Cells (Auto) 1.0 /HPF (0-13.0) 08/15/18 13:02 Urine Mucus Few /HPF 08/15/18 13:02
[2018-08-17] MEDS: NACL 0.9% 1000 ML 1,000 ML IV SCH (11:53)
[2018-08-17] MEDS: VANCOMYCIN 1,250 MG in NACL 0.9% 250ML 250 ML IV SCH (14:20)
[2018-08-18] MEDS: HumaLOG SUB-Q SCH ×5 (00:11→21:53)
[2018-08-18 04:52] LABS: Hematocrit 26.1 % (35.5-45.6); Hemoglobin 8.4 gm/dl (11.8-15.2); Mean Corpuscular HGB Conc 32 % (32-34); Mean Corpuscular Volume 86 fl (84-94); Platelet Count 342 K/mm3 (140-440); Red Blood Count 3.02 M/mm3 (3.65-5.03); Red Cell Distribution Width 13.4 % (13.2-15.2)
[2018-08-18 05:03] LABS: BUN/Creatinine Ratio 23; Blood Urea Nitrogen 18 mg/dL (9-20); Calcium 7.1 mg/dL (8.4-10.2); Hemolysis Index 0
[2018-08-18] MEDS: CLEOCIN 600 MG/50 mL 600 MG/50 ML BAG IV SCH (05:35)
[2018-08-18] MEDS ORDERED: APRESOLINE IV PRN (08:37)
--- NOTE | 2018-08-18 08:40 | Progress Note ---
Assessment and Plan Assessment and plan: 73 YO Male with DM, CVA with Dysarthria and LHP, HTN, CaP presents to ED for evaluation. Pt states that he has experienced leg pain over the past several months. Pt acknowledges burning sensation in his feet and legs. Pt acknowledges left foot pain with ambulation. Pt acknowledges tripping and falling down today. Pt transported to [facility] for further care and evaluation. Pt seen and evaluated in ED and found to have Left foot cellulitis complicated by a diabetic foot ulcer. Pt admitted to medical floor. wound care consulted in ED. Pt denies fever, chills, CP, palpitations, NVD, Trauma, BRBPR, unintentional weight loss, unilateral leg swelling, calf pain, or recent ill contacts. Cellulitis-Left Continue supportive care IV antibiotics, IVF resuscitation, pain control, wound care consulted, MRI CONSISTENT WITH OSTEO OBTAIN ID CONSULT FOR DURATION OF ABX CONTINUE VANCOMYCIN Acute kidney injury on chronic kidney disease attributed to visible deformity Continue gentle hydration monitor for renal improvement.-Change fluids to KVO Resolved Recurrent falls PT OT evaluate and treat Diabetes Mellitus Current Visit: Yes Status: Acute Plan to address problem: ADA diet, insulin, accu check HTN (hypertension)-Urgency Monitor bp q shift, continue medical management Start Hydralazine PRN Discussed with NURSING STAFF to obtain appropriate home meds Foot ulcer Current Visit: Yes Status: Acute Plan to address problem: MRI LLE, - Osteomylitis Wound care, X ray left foot, Anemia of chronic disease Stable continue to monitor Hyperkalemia Resolved DVT prophylaxis Current Visit: Yes Status: Acute Plan to address problem: SCD to BLE while in bed. Patient will likely benefit from Rehab on discharge considering falls. History Interval history: Patient is seen today for: Left heel ulcer repeated falls Seen and examined at bedside; 24hour events reviewed; nursing staff ; no adverse overnight events reported to me; Denies any chest pain, nausea, vomiting, diarrhea. Complains of pain of the left heel area. Family at bedside, updated. No fever noted blood pressure controlled Hospitalist Physical - Physical exam Narrative exam: VITAL SIGNS: Reviewed. GENERAL: The patient appeared well nourished and normally developed. Vital signs as documented. HEAD: No signs of head trauma. EYES: Pupils are equal. Extraocular motions intact. EARS: Hearing grossly intact. MOUTH: Oropharynx is normal. NECK: No adenopathy, no JVD. CHEST: Chest with clear breath sounds bilaterally. No wheezes, rales, or rhonchi. CARDIAC: Regular rate and rhythm. S1 and S2, without murmurs, gallops, or rubs. VASCULAR: No Edema. Peripheral pulses normal and equal in all extremities. ABDOMEN: Soft, without detectable tenderness. No sign of distention. No rebound or guarding, and no masses palpated. Bowel Sounds normal. MUSCULOSKELETAL: Good range of motion of all major joints. Extremities without clubbing, cyanosis or edema. NEUROLOGIC EXAM: Alert and oriented x 3. No focal sensory or strength deficits. Speech normal. Follows commands. PSYCHIATRIC: Mood normal. SKIN: Left heel ulceration with edema and erythema. dressing in place. - Constitutional Vitals: Temp Pulse Resp BP Pulse Ox 98.7 F 83 18 171/107 99 08/18/18 07:12 08/18/18 07:12 08/18/18 07:12 08/18/18 07:12 08/18/18 07:12 General appearance: Present: mild distress Results - Labs CBC & Chem 7: 08/18/18 04:25 08/18/18 04:25 Labs: Laboratory Last Values WBC 8.2 K/mm3 (4.5-11.0) 08/18/18 04:25 RBC 3.02 M/mm3 (3.65-5.03) L 08/18/18 04:25 Hgb 8.4 gm/dl (11.8-15.2) L 08/18/18 04:25 Hct 26.1 % (35.5-45.6) L 08/18/18 04:25 MCV 86 fl (84-94) 08/18/18 04:25 MCH 28 pg (28-32) 08/18/18 04:25 MCHC 32 % (32-34) 08/18/18 04:25 RDW 13.4 % (13.2-15.2) 08/18/18 04:25 Plt Count 342 K/mm3 (140-440) 08/18/18 04:25 Lymph % (Auto) 14.1 % (13.4-35.0) 08/15/18 08:13 [place] % (Auto) 9.8 % (0.0-7.3) H 08/15/18 08:13 Eos % (Auto) 0.3 % (0.0-4.3) 08/15/18 08:13 Baso % (Auto) 0.4 % (0.0-1.8) 08/15/18 08:13 Lymph # 1.4 K/mm3 (1.2-5.4) 08/15/18 08:13 [place] # 1.0 K/mm3 (0.0-0.8) H 08/15/18 08:13 Eos # 0.0 K/mm3 (0.0-0.4) 08/15/18 08:13 Baso # 0.0 K/mm3 (0.0-0.1) 08/15/18 08:13 Seg Neutrophils % 75.4 % (40.0-70.0) H 08/15/18 08:13 Seg Neutrophils # 7.6 K/mm3 (1.8-7.7) 08/15/18 08:13 APTT 31.5 Sec. (24.2-36.6) 08/15/18 08:13 Sodium 134 mmol/L (137-145) L 08/18/18 04:25 Potassium 3.8 mmol/L (3.6-5.0) D 08/18/18 04:25 Chloride 107.0 mmol/L (98-107) 08/18/18 04:25 Carbon Dioxide 21 mmol/L (22-30) L 08/18/18 04:25 Anion Gap 10 mmol/L 08/18/18 04:25 BUN 18 mg/dL (9-20) 08/18/18 04:25 Creatinine 0.8 mg/dL (0.8-1.5) 08/18/18 04:25 Estimated GFR > 60 ml/min 08/18/18 04:25 BUN/Creatinine Ratio 23 % 08/18/18 04:25 Glucose 108 mg/dL (75-100) H 08/18/18 04:25 POC Glucose 122 (70-105) H 08/18/18 07:17 Lactic Acid 0.90 mmol/L (0.7-2.0) 08/15/18 08:13 Calcium 7.1 mg/dL (8.4-10.2) L D 08/18/18 04:25 Total Bilirubin 0.40 mg/dL (0.1-1.2) 08/15/18 08:13 AST 56 units/L (5-40) H 08/15/18 08:13 ALT 20 units/L (7-56) 08/15/18 08:13 Alkaline Phosphatase 82 units/L (35-129) 08/15/18 08:13 Total Protein 8.3 g/dL (6.3-8.2) H 08/15/18 08:13 Albumin 3.2 g/dL (3.9-5) L 08/15/18 08:13 Albumin/Globulin Ratio 0.6 % 08/15/18 08:13 Urine Color Yellow (Yellow) 08/15/18 13:02 Urine Turbidity Clear (Clear) 08/15/18 13:02 Urine pH 5.0 (5.0-7.0) 08/15/18 13:02 Ur Specific [place] 1.016 (1.003-1.030) 08/15/18 13:02 Urine Protein 30 mg/dl mg/dL (Negative) 08/15/18 13:02 Urine Glucose (UA) 150 mg/dL (Negative) 08/15/18 13:02 Urine Ketones Tr mg/dL (Negative) 08/15/18 13:02 Urine Blood Mod (Negative) 08/15/18 13:02 Urine Nitrite Neg (Negative) 08/15/18 13:02 Urine Bilirubin Neg (Negative) 08/15/18 13:02 Urine Urobilinogen 2.0 mg/dL (<2.0) 08/15/18 13:02 Ur Leukocyte Esterase Neg (Negative) 08/15/18 13:02 Urine WBC (Auto) 8.0 /HPF (0.0-6.0) H 08/15/18 13:02 Urine RBC (Auto) 4.0 /HPF (0.0-6.0) 08/15/18 13:02 U Epithel Cells (Auto) 1.0 /HPF (0-13.0) 08/15/18 13:02 Urine Mucus Few /HPF 08/15/18 13:02
[2018-08-18] MEDS: ZESTRIL PO SCH (09:04)
[2018-08-18] MEDS: NORVASC PO SCH (09:05)
[2018-08-18] MEDS: SODIUM CHLORIDE FLUSH SYRINGE 10 ML IV SCH ×2 (09:06→21:34)
[2018-08-18] MEDS: VANCOMYCIN/NS 1 GM/250 ML 1 GM/250 ML BAG IV SCH ×2 (09:41→21:33)
--- NOTE | 2018-08-18 09:42 | Consultation ---
History of Present Illness - Reason for Consult Consult date: 08/18/18 Lower extremity Osteomylitis Requesting physician: KELSI CAMPBELL - History of Present Illness This patient is a 73 yearold males with a past medical history of DM, CVA with dysarthia and LHP, HTN and CAP presents in the ED on 08/15/18, c/o left foot pain with ambulation. He acknowledges tripping and falling down. Upon further evaluation, he was found to have left foot cellulitis, complicated by a diabetic foot ulcer. On admission WBC 10.1, HGB 8.4, Creatinie 1.8, Temperature 98.5, HR 103, BP 92/52, U/A was inconsitent with a UTI, Chest xray show no consolidation, Lower extremity MRI shows ulceration of the soft tissue along the plantar surface of the calcaneous with surrounding cellulitis. There are also destructive changes and bone marrow edema of the inferior aspect of the ca lcaneous consistent with osteomylitis. Duplex scan of the lower extremity artery shows no evidence fpr DVT. Patient states that he noticed an wound on his heel 2 years ago that has gotten progressively worse. He lives with his daughter. Denies alcohol, tobacco or substance abuse. Review of Systems: General: no fever, +chills, nightsweats, unintentional weight change, or change in appetite Cutaneous: no rash, pruritus Head: no headaches or injury Eyes: no changes in vision, eye pain, double vision Ears: no ear pain, ear discharge, ringing or hearing loss Nose: no nose bleeding, stuffiness Mouth & throat: no bleeding gums, no horseness, no dental problems, or swollen glands Neck: no pain, node enlargement/lumps, tyroid enlargement or tenderness Respiratory: no cough, wheezing, sputum, hemoptysis, pleuritic chest pain Cardiovascular: no chest pain, leg edema, cyanosis, [place], orthopnea Musculoskeletal: Left heel ulceration, +odor Gastrointestinal: no nausea, vomiting, hematemesis, diarrhea, constipation, melena, bright red blood in stools, fecal incontinence, jaundice Genitourinary/Reproductive: + frequent urination. + condom cath Neurogical: no seizures, no headaches, no weakness, Left foot neuropathy Psychiatric: stable mood; no excessive anxiety, sadness or moodiness Past History Past Medical History: cancer, diabetes, hypertension, stroke Past Surgical History: cataract removal Social history: single. denies: smoking, alcohol abuse, prescription drug abuse Family history: diabetes, hypertension Medications and Allergies Allergies Allergy/AdvReac Type Severity Reaction Status Date / Time No Known Allergies Allergy Verified 07/10/18 08:17 Home Medications Medication Instructions Recorded Confirmed Last Taken Type Amlodipine Besylate [Norvasc] 5 mg PO DAILY 08/15/18 08/18/18 08/12/18 09:00 History Atorvastatin Calcium [Lipitor] 40 mg PO DAILY 08/15/18 08/18/18 08/12/18 09:00 History Calcium Carbonate [Ban-Acid] 300 mg PO DAILY 08/15/18 08/18/18 08/12/18 09:00 History Lisinopril [Zestril TAB] 2.5 mg PO QDAY 08/15/18 08/18/18 08/12/18 09:00 History metFORMIN [Glucophage] 500 mg PO QDAY 08/15/18 08/18/18 08/12/18 History Active Meds: Active Medications Acetaminophen (Tylenol) 650 mg PO Q4H PRN PRN Reason: Pain MILD(1-3)/Fever >100.5/[place] Albuterol (Proventil) 2.5 mg IH Q4HRT PRN PRN Reason: Shortness Of Breath Amlodipine Besylate (Norvasc) 5 mg PO DAILY [facility] Last Admin: 08/18/18 09:05 Dose: 5 mg Documented by: Atorvastatin Calcium (Lipitor) 40 mg PO DAILY [facility] Last Admin: 08/18/18 09:05 Dose: 40 mg Documented by: Hydralazine HCl (Apresoline) 10 mg IV Q4HR PRN PRN Reason: Hypertension Vancomycin HCl (Vancomycin/Ns 1 Gm/250 Ml) 1 gm in 250 mls @ 166.667 mls/hr IV Q12HR [facility] Insulin Human Lispro (Humalog) 0 unit SUB-Q ACHS [facility]; Protocol Last Admin: 08/18/18 08:17 Dose: Not Given Documented by: Lisinopril (Zestril) 2.5 mg PO QDAY [facility] Last Admin: 08/18/18 09:04 Dose: 2.5 mg Documented by: Ondansetron HCl (Zofran) 4 mg IV Q8H PRN PRN Reason: Nausea And Vomiting Oxycodone/Acetaminophen (Percocet 5/325) 1 tab PO Q6H PRN PRN Reason: Pain, Moderate (4-6) Sodium Chloride (Sodium Chloride Flush Syringe 10 Ml) 10 ml IV BID [facility] Last Admin: 08/18/18 09:06 Dose: 10 ml Documented by: Sodium Chloride (Sodium Chloride Flush Syringe 10 Ml) 10 ml IV PRN PRN PRN Reason: LINE FLUSH Last Admin: 08/15/18 14:38 Dose: 10 ml Documented by: Sodium Hypochlorite (Dakin's Full Strength) 1 applic TP Q12H [facility] Last Admin: 08/17/18 23:00 Dose: 1 applicatio Documented by: Physical Examination - Physical Exam Narrative exam: Constitutional: Alert, cooperative. No acute distress Head, Ears, Nose: Normocephalic, atraumatic. External ears, nose normal Eyes: Conjunctivae/corneas clear. No icterus. No ptosis. Neck: Supple, no meningeal signs Oral: dentition poor. no thrush Cardiovascular: S1, S2 normal. Respiratory: Good air entry, clear to auscultation bilaterally GI: Soft, non-tender; bowel sounds normal. No peritoneal signs Musculoskeletal: left plantar, heel ulceration , Skin: Left heel + eschar, +drainage, + warmth Hem/Lymphatic: No palpable cervical or supraclavicular nodes. No lymphangitis Psych: Mood ok. Affect normal Neurological: Awake, alert, oriented. - Constitutional Vitals: Vital Signs Temp Pulse Resp BP Pulse Ox 98.7 F 83 18 171/107 99 08/18/18 07:12 08/18/18 09:05 08/18/18 07:12 08/18/18 09:05 08/18/18 07:12 Temperature -Last 24 Hours Temperature 98.7 F Temperature 98.1 F Temperature 98.7 F Temperature 97.6 F Results - Labs CBC & Chem 7: 08/18/18 04:25 08/18/18 04:25 Labs: Abnormal lab results 08/17/18 08/17/18 08/17/18 Range/Units 11:29 16:29 21:45 RBC (3.65-5.03) M/mm3 Hgb (11.8-15.2) gm/dl Hct (35.5-45.6) % Sodium (137-145) mmol/L Carbon Dioxide (22-30) mmol/L Glucose (75-100) mg/dL POC Glucose 198 H 193 H 249 H (70-105) Calcium (8.4-10.2) mg/dL 08/18/18 08/18/18 08/18/18 Range/Units 04:25 04:25 07:17 RBC 3.02 L (3.65-5.03) M/mm3 Hgb 8.4 L (11.8-15.2) gm/dl Hct 26.1 L (35.5-45.6) % Sodium 134 L (137-145) mmol/L Carbon Dioxide 21 L (22-30) mmol/L Glucose 108 H (75-100) mg/dL POC Glucose 122 H (70-105) Calcium 7.1 L D (8.4-10.2) mg/dL - Imaging and Cardiology Chest x-ray: report reviewed (No consolidation) Assessment and Plan Cultures 08/15/2018 Blood: CcNS 1 out of 4 bottles 08/15/2018: Urine: less than 10,00 Cfu/ml A/P: 73--year-old resident with a histoy of medical history of DM, CVA with dysarthia and LHP, HTN and CAP. admitted with: 1. Left diabetic Foot ulcer: with surrounding cellulitis and left calcaneous osteomyelitis On exam left plantar surface heel, eschar, warm with purulent drainage and odor. 1+ pulses. wound culutre collected. Currently being treated with Vancomycin. -Lower Extremity MRI: uulceration of the sof tissues along the plantar surface of the calcaneous with surrounding celluliti. No soft tissue abscess. There are destructive changes and bone marrow edema of the inferior aspect of the calcaneous consistent with osteomylitis -Duplex scan of lower extremity artery show no evidence of DVT. 2. CoNS Bacteremia; 1 out of 4 bottles, likely containment. No prostatic or implants, +condom cath. 3. Type 2 DM- Uncontrolled 4. [place]: on admission, now resolved. - Plan -Contnue Vancomycin -order CRP and ESR -Wound culture obtained and sent -Surgical consult -Start Cefepime and Flagyl -Arterial duplex doppler ordered [facility] M: [phone] O:[phone] -
[2018-08-18] MEDS: DAKIN'S FULL STRENGTH TP SCH ×2 (09:54→21:38)
[2018-08-18] MEDS: MAXIPIME/NS 2 GM/100 ML 2 GM/100 ML BAG IV SCH (15:16)
[2018-08-18] MEDS: FLAGYL PO SCH (21:32)
[2018-08-19] MEDS: MAXIPIME/NS 2 GM/100 ML 2 GM/100 ML BAG IV SCH ×2 (02:39→14:13)
[2018-08-19] MEDS: FLAGYL PO SCH ×3 (05:42→21:30)
[2018-08-19 06:28] LABS: Hematocrit 26.9 % (35.5-45.6); Hemoglobin 8.9 gm/dl (11.8-15.2); Mean Corpuscular HGB Conc 33 % (32-34); Mean Corpuscular Volume 86 fl (84-94); Platelet Count 365 K/mm3 (140-440); Red Blood Count 3.15 M/mm3 (3.65-5.03); Red Cell Distribution Width 13.2 % (13.2-15.2)
[2018-08-19] MEDS: HumaLOG SUB-Q SCH ×4 (07:46→22:19)
--- NOTE | 2018-08-19 08:33 | Progress Note ---
Assessment and Plan Assessment and plan: 73 YO Male with DM, CVA with Dysarthria and LHP, HTN, CaP presents to ED for evaluation. Pt states that he has experienced leg pain over the past several months. Pt acknowledges burning sensation in his feet and legs. Pt acknowledges left foot pain with ambulation. Pt acknowledges tripping and falling down today. Pt transported to [facility] for further care and evaluation. Pt seen and evaluated in ED and found to have Left foot cellulitis complicated by a diabetic foot ulcer. Pt admitted to medical floor. wound care consulted in ED. Pt denies fever, chills, CP, palpitations, NVD, Trauma, BRBPR, unintentional weight loss, unilateral leg swelling, calf pain, or recent ill contacts. * MRI Imaging studies concerning for osteomylitis. ID consulted. Vancomycin continued with addition of cefepime and flagyl * Vascular consulted due to concern for PVD/PAD and high risk of limb loss * wound cultures pending Cellulitis-Left- with osteomylitis. SEPSIS SECONDARY TO ABOVE. Continue supportive care IV antibiotics, IVF resuscitation, pain control, wound care consulted, MRI CONSISTENT WITH OSTEO ID input noted CONTINUE VANCOMYCIN Vascular studies pending Acute kidney injury on chronic kidney disease attributed to vasomotor nephropathy Continue gentle hydration monitor for renal improvement.-Changed fluids to KVO Resolved Recurrent falls PT OT evaluate and treat Discussed placement for Rehab with family and they are agreeable if needed Diabetes Mellitus Current Visit: Yes Status: Acute Plan to address problem: ADA diet, insulin, accu check HTN (hypertension)-Urgency Monitor bp q shift, continue medical management Continue Hydralazine PRN Discussed with NURSING STAFF to obtain appropriate home meds Foot ulcer Current Visit: Yes Status: Acute Plan to address problem: MRI LLE, - Osteomylitis Wound care, X ray left foot, Anemia of chronic disease Stable continue to monitor Hyperkalemia Resolved DVT prophylaxis Current Visit: Yes Status: Acute Plan to address problem: SCD to BLE while in bed. Patient will likely benefit from Rehab on discharge considering falls. History Interval history: Patient is seen today for: Left heel ulcer repeated falls Seen and examined at bedside; 24hour events reviewed; nursing staff ; no adverse overnight events reported to me; Denies any chest pain, nausea, vomiting, diarrhea. Complains of pain of the left heel area, No fever noted blood pressure controlled Hospitalist Physical - Physical exam Narrative exam: VITAL SIGNS: Reviewed. GENERAL: The patient appeared well nourished and normally developed. Vital signs as documented. HEAD: No signs of head trauma. EYES: Pupils are equal. Extraocular motions intact. EARS: Hearing grossly intact. MOUTH: Oropharynx is normal. NECK: No adenopathy, no JVD. CHEST: Chest with clear breath sounds bilaterally. No wheezes, rales, or rhonchi. CARDIAC: Regular rate and rhythm. S1 and S2, without murmurs, gallops, or rubs. VASCULAR: No Edema. Peripheral pulses normal and equal in all extremities. ABDOMEN: Soft, without detectable tenderness. No sign of distention. No rebound or guarding, and no masses palpated. Bowel Sounds normal. MUSCULOSKELETAL: Good range of motion of all major joints. Extremities without clubbing, cyanosis or edema. NEUROLOGIC EXAM: Alert and oriented x 3. No focal sensory or strength deficits. Speech normal. Follows commands. PSYCHIATRIC: Mood normal. SKIN: Left heel ulceration with edema and erythema. dressing in place. - Constitutional Vitals: Temp Pulse Resp BP Pulse Ox 97.8 F 80 20 141/78 99 08/19/18 07:18 08/19/18 05:42 08/19/18 07:18 08/19/18 07:18 08/19/18 05:42 General appearance: Present: mild distress Results - Labs CBC & Chem 7: 08/19/18 05:00 08/18/18 04:25 Labs: Laboratory Last Values WBC 7.7 K/mm3 (4.5-11.0) 08/19/18 05:00 RBC 3.15 M/mm3 (3.65-5.03) L 08/19/18 05:00 Hgb 8.9 gm/dl (11.8-15.2) L 08/19/18 05:00 Hct 26.9 % (35.5-45.6) L 08/19/18 05:00 MCV 86 fl (84-94) 08/19/18 05:00 MCH 28 pg (28-32) 08/19/18 05:00 MCHC 33 % (32-34) 08/19/18 05:00 RDW 13.2 % (13.2-15.2) 08/19/18 05:00 Plt Count 365 K/mm3 (140-440) 08/19/18 05:00 Lymph % (Auto) 14.1 % (13.4-35.0) 08/15/18 08:13 [place] % (Auto) 9.8 % (0.0-7.3) H 08/15/18 08:13 Eos % (Auto) 0.3 % (0.0-4.3) 08/15/18 08:13 Baso % (Auto) 0.4 % (0.0-1.8) 08/15/18 08:13 Lymph # 1.4 K/mm3 (1.2-5.4) 08/15/18 08:13 [place] # 1.0 K/mm3 (0.0-0.8) H 08/15/18 08:13 Eos # 0.0 K/mm3 (0.0-0.4) 08/15/18 08:13 Baso # 0.0 K/mm3 (0.0-0.1) 08/15/18 08:13 Seg Neutrophils % 75.4 % (40.0-70.0) H 08/15/18 08:13 Seg Neutrophils # 7.6 K/mm3 (1.8-7.7) 08/15/18 08:13 ESR 85 mm/Hr (0-20) 08/19/18 00:34 APTT 31.5 Sec. (24.2-36.6) 08/15/18 08:13 Sodium 134 mmol/L (137-145) L 08/18/18 04:25 Potassium 3.8 mmol/L (3.6-5.0) D 08/18/18 04:25 Chloride 107.0 mmol/L (98-107) 08/18/18 04:25 Carbon Dioxide 21 mmol/L (22-30) L 08/18/18 04:25 Anion Gap 10 mmol/L 08/18/18 04:25 BUN 18 mg/dL (9-20) 08/18/18 04:25 Creatinine 0.8 mg/dL (0.8-1.5) 08/18/18 04:25 Estimated GFR > 60 ml/min 08/18/18 04:25 BUN/Creatinine Ratio 23 % 08/18/18 04:25 Glucose 108 mg/dL (75-100) H 08/18/18 04:25 POC Glucose 146 (70-105) H 08/19/18 07:22 Lactic Acid 0.90 mmol/L (0.7-2.0) 08/15/18 08:13 Calcium 7.1 mg/dL (8.4-10.2) L D 08/18/18 04:25 Total Bilirubin 0.40 mg/dL (0.1-1.2) 08/15/18 08:13 AST 56 units/L (5-40) H 08/15/18 08:13 ALT 20 units/L (7-56) 08/15/18 08:13 Alkaline Phosphatase 82 units/L (35-129) 08/15/18 08:13 C-Reactive Protein 4.00 mg/dL (0.00-1.30) H 08/19/18 00:34 Total Protein 8.3 g/dL (6.3-8.2) H 08/15/18 08:13 Albumin 3.2 g/dL (3.9-5) L 08/15/18 08:13 Albumin/Globulin Ratio 0.6 % 08/15/18 08:13 Urine Color Yellow (Yellow) 08/15/18 13:02 Urine Turbidity Clear (Clear) 08/15/18 13:02 Urine pH 5.0 (5.0-7.0) 08/15/18 13:02 Ur Specific [place] 1.016 (1.003-1.030) 08/15/18 13:02 Urine Protein 30 mg/dl mg/dL (Negative) 08/15/18 13:02 Urine Glucose (UA) 150 mg/dL (Negative) 08/15/18 13:02 Urine Ketones Tr mg/dL (Negative) 08/15/18 13:02 Urine Blood Mod (Negative) 08/15/18 13:02 Urine Nitrite Neg (Negative) 08/15/18 13:02 Urine Bilirubin Neg (Negative) 08/15/18 13:02 Urine Urobilinogen 2.0 mg/dL (<2.0) 08/15/18 13:02 Ur Leukocyte Esterase Neg (Negative) 08/15/18 13:02 Urine WBC (Auto) 8.0 /HPF (0.0-6.0) H 08/15/18 13:02 Urine RBC (Auto) 4.0 /HPF (0.0-6.0) 08/15/18 13:02 U Epithel Cells (Auto) 1.0 /HPF (0-13.0) 08/15/18 13:02 Urine Mucus Few /HPF 08/15/18 13:02
[2018-08-19] MEDS: NORVASC PO SCH (09:20)
[2018-08-19] MEDS: ZESTRIL PO SCH (09:21)
[2018-08-19] MEDS: SODIUM CHLORIDE FLUSH SYRINGE 10 ML IV SCH ×2 (09:22→21:30)
[2018-08-19] MEDS: VANCOMYCIN/NS 1 GM/250 ML 1 GM/250 ML BAG IV SCH (09:23)
[2018-08-19] MEDS: DAKIN'S FULL STRENGTH TP SCH ×2 (10:10→21:29)
--- NOTE | 2018-08-19 12:51 | Consultation ---
History of Present Illness - Reason for Consult Consult date: 08/19/18 PVD with left heel ulcer - History of Present Illness Patient with a history of peripheral vascular disease who presented following a fall with a complaint of leg pain. He was noted to have a heel ulcer on his left foot. 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 His left foot is warm with nonpalpable pulses. His right foot is cool with nonpalpable pulses. It is non-ambulatory and uses a wheelchair for mobility Past History Past Medical History: cancer, diabetes, hypertension, stroke Past Surgical History: cataract removal Social history: single. denies: smoking, alcohol abuse, prescription drug abuse Family history: diabetes, hypertension Medications and Allergies Allergies Allergy/AdvReac Type Severity Reaction Status Date / Time No Known Allergies Allergy Verified 07/10/18 08:17 Home Medications Medication Instructions Recorded Confirmed Last Taken Type Amlodipine Besylate [Norvasc] 5 mg PO DAILY 08/15/18 08/18/18 08/12/18 09:00 History Atorvastatin Calcium [Lipitor] 40 mg PO DAILY 08/15/18 08/18/18 08/12/18 09:00 History Calcium Carbonate [Ban-Acid] 300 mg PO DAILY 08/15/18 08/18/18 08/12/18 09:00 History Lisinopril [Zestril TAB] 2.5 mg PO QDAY 08/15/18 08/18/18 08/12/18 09:00 History metFORMIN [Glucophage] 500 mg PO QDAY 08/15/18 08/18/18 08/12/18 History Active Meds: Active Medications Acetaminophen (Tylenol) 650 mg PO Q4H PRN PRN Reason: Pain MILD(1-3)/Fever >100.5/[place] Albuterol (Proventil) 2.5 mg IH Q4HRT PRN PRN Reason: Shortness Of Breath Amlodipine Besylate (Norvasc) 5 mg PO DAILY ON LICENSE OF [facility] Last Admin: 08/19/18 09:20 Dose: 5 mg Documented by: Atorvastatin Calcium (Lipitor) 40 mg PO DAILY ON LICENSE OF [facility] Last Admin: 08/19/18 09:20 Dose: 40 mg Documented by: Hydralazine HCl (Apresoline) 10 mg IV Q4HR PRN PRN Reason: Hypertension Vancomycin HCl (Vancomycin/Ns 1 Gm/250 Ml) 1 gm in 250 mls @ 166.667 mls/hr IV Q12HR ON LICENSE OF [facility] Last Admin: 08/19/18 09:23 Dose: 166.667 mls/hr Documented by: Cefepime HCl (Maxipime/Ns 2 Gm/100 Ml) 2 gm in 100 mls @ 200 mls/hr IV Q12H ON LICENSE OF [facility]; Protocol Last Admin: 08/19/18 02:39 Dose: 200 mls/hr Documented by: Insulin Human Lispro (Humalog) 0 unit SUB-Q ACHS ON LICENSE OF [facility]; Protocol Last Admin: 08/19/18 12:00 Dose: 3 unit Documented by: Lisinopril (Zestril) 2.5 mg PO QDAY ON LICENSE OF [facility] Last Admin: 08/19/18 09:21 Dose: 2.5 mg Documented by: Metronidazole (Flagyl) 500 mg PO Q8HR ON LICENSE OF [facility]; Protocol Last Admin: 08/19/18 05:42 Dose: 500 mg Documented by: Ondansetron HCl (Zofran) 4 mg IV Q8H PRN PRN Reason: Nausea And Vomiting Oxycodone/Acetaminophen (Percocet 5/325) 1 tab PO Q6H PRN PRN Reason: Pain, Moderate (4-6) Sodium Chloride (Sodium Chloride Flush Syringe 10 Ml) 10 ml IV BID ON LICENSE OF [facility] Last Admin: 08/19/18 09:22 Dose: 10 ml Documented by: Sodium Chloride (Sodium Chloride Flush Syringe 10 Ml) 10 ml IV PRN PRN PRN Reason: LINE FLUSH Last Admin: 08/15/18 14:38 Dose: 10 ml Documented by: Sodium Hypochlorite (Dakin's Full Strength) 1 applic TP Q12H ON LICENSE OF [facility] Last Admin: 08/19/18 10:10 Dose: 1 1000units Documented by: Review of Systems All systems: negative Exam - Constitutional Vitals: Temp Pulse Resp BP Pulse Ox 97.8 F 81 20 141/78 98 08/19/18 08:00 08/19/18 10:00 08/19/18 10:00 08/19/18 09:21 08/19/18 10:00 General appearance: Present: no acute distress - EENT Eyes: Present: PERRL ENT: hearing intact - Neck Neck: Present: supple, normal ROM - Respiratory Respiratory effort: normal - Extremities Extremities: abnormal - Abdominal General gastrointestinal: Present: deferred Male genitourinary: Present: deferred - Rectal Rectal Exam: deferred - Psychiatric Psychiatric: cooperative Results - Labs CBC & Chem 7: 08/19/18 05:00 08/18/18 04:25 Labs: Abnormal lab results 08/18/18 08/18/18 08/19/18 Range/Units 16:36 20:42 00:34 RBC (3.65-5.03) M/mm3 Hgb (11.8-15.2) gm/dl Hct (35.5-45.6) % POC Glucose 145 H 266 H (70-105) C-Reactive Protein 4.00 H (0.00-1.30) mg/dL 08/19/18 08/19/18 08/19/18 Range/Units 05:00 07:22 11:47 RBC 3.15 L (3.65-5.03) M/mm3 Hgb 8.9 L (11.8-15.2) gm/dl Hct 26.9 L (35.5-45.6) % POC Glucose 146 H 218 H (70-105) C-Reactive Protein (0.00-1.30) mg/dL - Imaging and Cardiology MRI - abdomen: image reviewed (MRI of the foot) Assessment and Plan Patient with nonpalpable pedal ulcers and a left heel wound with calcaneal oste omyelitis. We will initially evaluate with arterial ultrasound. The patient may benefit from revascularization of his leg to assist in wound healing however, the patient may ultimately require an [id number] amputation on the left given his nonambulatory status.
--- NOTE | 2018-08-19 14:12 | Progress Note ---
Assessment and Plan Cultures 08/15/2018 Blood: CcNS 1 out of 4 bottles 08/15/2018: Urine: less than 10,00 Cfu/ml 08/15/2018 MRSA culture negative 08/18/2018 Wound culture GNR A/P: 73--year-old resident with a histoy of medical history of DM, CVA with dysarthia and LHP, HTN and CAP. admitted with: 1. Left diabetic Foot ulcer: with surrounding cellulitis and left calcaneous osteomyelitis. On exam left plantar surface heel, eschar, warm with purulent drainage and odor. 1+ pulses. wound culture GNR. -Lower Extremity MRI: ulceration of the sof tissues along the plantar surface of the calcaneous with surrounding cellulitis. No soft tissue abscess. There are destructive changes and bone marrow edema of the inferior aspect of the calcaneous consistent with osteomylitis -Duplex scan of lower extremity venous show no evidence of DVT. -CRP=4 2. CoNS Bacteremia; 1 out of 4 bottles, likely containment. No prostatic or implants, +condom cath. 3. Type 2 DM- Uncontrolled 4. [place]: on admission, now resolved. 5. Cough: initial CXR neg Plan -stop Vancomycin -Surgical consult Dr Salas called -Continue Cefepime and Flagyl for now -f/u wound culture -Arterial duplex doppler - pending -Vascular on board -repeat CXR in light of persistent cough Discussed with Dr Sendy Mcgarry MD Subjective Date of service: 08/19/18 Principal diagnosis: left diabetic foot infection Interval history: Patient feels ok, no fever, still cough. ROS: unable to obtain. Objective - Exam Narrative Exam: Constitutional: Alert, cooperative. No acute distress Head, Ears, Nose: Normocephalic, atraumatic. External ears, nose normal Eyes: Conjunctivae/corneas clear. No icterus. No ptosis. Neck: Supple, no meningeal signs Oral: dentition poor. no thrush Cardiovascular: S1, S2 normal. Respiratory: Good air entry, clear to auscultation bilaterally GI: Soft, non-tender; bowel sounds normal. No peritoneal signs Musculoskeletal: left plantar, heel ulceration , Skin: Left heel + eschar, +drainage, + warmth per wound care - Wound measured at 7.0x6.0x1.5. Small serous sanguineous drainage noticed to the wound. A extremely foul odor noticed to the wound. Hem/Lymphatic: No palpable cervical or supraclavicular nodes. No lymphangitis Psych: Mood ok. Affect normal Neurological: Awake, alert, oriented. - Constitutional Vitals: Vital Signs Temp Pulse Resp BP Pulse Ox 97.8 F 81 20 141/78 98 08/19/18 08:00 08/19/18 10:00 08/19/18 10:00 08/19/18 09:21 08/19/18 10:00 Temperature -Last 24 Hours Temperature 97.8 F Temperature 97.8 F Temperature 98.9 F - Labs CBC & Chem 7: 08/19/18 05:00 08/18/18 04:25 Labs: Abnormal lab results 08/18/18 08/18/18 08/19/18 Range/Units 16:36 20:42 00:34 RBC (3.65-5.03) M/mm3 Hgb (11.8-15.2) gm/dl Hct (35.5-45.6) % POC Glucose 145 H 266 H (70-105) C-Reactive Protein 4.00 H (0.00-1.30) mg/dL 08/19/18 08/19/18 08/19/18 Range/Units 05:00 07:22 11:47 RBC 3.15 L (3.65-5.03) M/mm3 Hgb 8.9 L (11.8-15.2) gm/dl Hct 26.9 L (35.5-45.6) % POC Glucose 146 H 218 H (70-105) C-Reactive Protein (0.00-1.30) mg/dL
[2018-08-19] MEDS: SODIUM CHLORIDE FLUSH SYRINGE 10 ML IV PRN (14:13)
--- NOTE | 2018-08-19 21:22 | XRay Report ---
FINAL REPORT EXAM: XR CHEST ROUTINE 2V HISTORY: persistent [facility] eval for pneumonia TECHNIQUE: Frontal and lateral views of the chest Comparison: None FINDINGS: There is bilateral hypoinflation. There is no definite evidence of focal infiltrate and no evidence of pneumothorax or pleural fluid co llection. The cardiac silhouette appears to be normal size. The thoracic aorta is mildly tortuous. The bony structures are notable for the appearance of mild compression fractures of lower thoracic ve rtebra of indeterminate age. IMPRESSION: 1. Hypoinflation. 2. No definite evidence of an acute pulmonary process. 3. Mild compression fractures of lower thoracic vertebra of indeterminate age. If further imaging is required, CT chest may be helpful.
[2018-08-20] MEDS: MAXIPIME/NS 2 GM/100 ML 2 GM/100 ML BAG IV SCH ×2 (02:59→15:17)
[2018-08-20 05:00] LABS: Hematocrit 27.6 % (35.5-45.6); Hemoglobin 9.2 gm/dl (11.8-15.2); Mean Corpuscular HGB Conc 34 % (32-34); Mean Corpuscular Volume 85 fl (84-94); Platelet Count 364 K/mm3 (140-440); Red Blood Count 3.24 M/mm3 (3.65-5.03); Red Cell Distribution Width 13.4 % (13.2-15.2)
[2018-08-20] MEDS: FLAGYL PO SCH ×3 (05:04→21:40)
[2018-08-20 06:28] LABS: BUN/Creatinine Ratio 20; Blood Urea Nitrogen 22 mg/dL (9-20); Calcium 8.3 mg/dL (8.4-10.2); Hemolysis Index 0
--- NOTE | 2018-08-20 08:13 | Progress Note ---
Assessment and Plan Assessment and plan: 73 YO Male with DM, CVA with Dysarthria and LHP, HTN, CaP presents to ED for evaluation. Pt states that he has experienced leg pain over the past several months. Pt acknowledges burning sensation in his feet and legs. Pt acknowledges left foot pain with ambulation. Pt acknowledges tripping and falling down today. Pt transported to [facility] for further care and evaluation. Pt seen and evaluated in ED and found to have Left foot cellulitis complicated by a diabetic foot ulcer. Pt admitted to medical floor. wound care consulted in ED. Pt denies fever, chills, CP, palpitations, NVD, Trauma, BRBPR, unintentional weight loss, unilateral leg swelling, calf pain, or recent ill contacts. MRI Imaging studies concerning for osteomylitis. ID consulted. Patient is on IV cefepime and flagyl Vascular consulted due to concern for PVD/PAD and high risk of limb loss; patient needs arterial doppler Cellulitis-Left- with osteomylitis. SEPSIS SECONDARY TO ABOVE. Continue supportive care IV antibiotics, IVF resuscitation, pain control, wound care consulted, MRI CONSISTENT WITH OSTEO Dr. Salas consulted, patient needs left AKA; sister doesn't want amputation per Dr Salas note, arterial doppler. Acute kidney injury on chronic kidney disease attributed to vasomotor nephropathy; resolved with Recurrent falls; PT OT evaluate and treat Diabetes Mellitus Current Visit: Yes Status: Acute Plan to address problem: ADA diet, insulin, accu check HTN (hypertension)-Urgency - Controlled Continue Hydralazine PRN Anemia of chronic disease Stable continue to monitor SCD to BLE while in bed. Patient will likely benefit from Rehab on discharge considering falls. History Interval history: Patient was seen and evaluated this morning by the bedside, no new complaints. Patient has dementia. Hospitalist Physical - Physical exam Narrative exam: Not in cardiopulmonary distress. The patient appeared well nourished and normally developed. Vital signs as documented. Head exam is unremarkable. No scleral icterus . Neck is without jugular venous distension, thyromegaly, or carotid bruits. Lungs are clear to auscultation. Cardiac exam reveals regular rate and Rhythm. Abdominal exam reveals normal bowel sounds, no masses, no organomegaly and no aortic enlargement. Extremities left lower extremity wound. EDGE BANDER HAND: Alert and orientedx2. Left sided hemiparesis. - Constitutional Vitals: Temp Pulse Resp BP Pulse Ox 98.4 F 78 20 116/67 98 08/20/18 01:34 08/20/18 01:34 08/20/18 01:34 08/20/18 01:34 08/20/18 01:34 General appearance: Present: mild distress Results - Labs CBC & Chem 7: 08/20/18 04:33 08/20/18 04:33 Labs: Laboratory Last Values WBC 7.7 K/mm3 (4.5-11.0) 08/20/18 04:33 RBC 3.24 M/mm3 (3.65-5.03) L 08/20/18 04:33 Hgb 9.2 gm/dl (11.8-15.2) L 08/20/18 04:33 Hct 27.6 % (35.5-45.6) L 08/20/18 04:33 MCV 85 fl (84-94) 08/20/18 04:33 MCH 29 pg (28-32) 08/20/18 04:33 MCHC 34 % (32-34) 08/20/18 04:33 RDW 13.4 % (13.2-15.2) 08/20/18 04:33 Plt Count 364 K/mm3 (140-440) 08/20/18 04:33 Lymph % (Auto) 14.1 % (13.4-35.0) 08/15/18 08:13 [place] % (Auto) 9.8 % (0.0-7.3) H 08/15/18 08:13 Eos % (Auto) 0.3 % (0.0-4.3) 08/15/18 08:13 Baso % (Auto) 0.4 % (0.0-1.8) 08/15/18 08:13 Lymph # 1.4 K/mm3 (1.2-5.4) 08/15/18 08:13 [place] # 1.0 K/mm3 (0.0-0.8) H 08/15/18 08:13 Eos # 0.0 K/mm3 (0.0-0.4) 08/15/18 08:13 Baso # 0.0 K/mm3 (0.0-0.1) 08/15/18 08:13 Seg Neutrophils % 75.4 % (40.0-70.0) H 08/15/18 08:13 Seg Neutrophils # 7.6 K/mm3 (1.8-7.7) 08/15/18 08:13 ESR 85 mm/Hr (0-20) 08/19/18 00:34 APTT 31.5 Sec. (24.2-36.6) 08/15/18 08:13 Sodium 135 mmol/L (137-145) L 08/20/18 04:33 Potassium 4.5 mmol/L (3.6-5.0) 08/20/18 04:33 Chloride 102.6 mmol/L (98-107) 08/20/18 04:33 Carbon Dioxide 22 mmol/L (22-30) 08/20/18 04:33 Anion Gap 15 mmol/L 08/20/18 04:33 BUN 22 mg/dL (9-20) H 08/20/18 04:33 Creatinine 1.1 mg/dL (0.8-1.5) 08/20/18 04:33 Estimated GFR > 60 ml/min 08/20/18 04:33 BUN/Creatinine Ratio 20 % 08/20/18 04:33 Glucose 148 mg/dL (75-100) H 08/20/18 04:33 POC Glucose 151 (70-105) H 08/20/18 07:49 Lactic Acid 0.90 mmol/L (0.7-2.0) 08/15/18 08:13 Calcium 8.3 mg/dL (8.4-10.2) L D 08/20/18 04:33 Total Bilirubin 0.40 mg/dL (0.1-1.2) 08/15/18 08:13 AST 56 units/L (5-40) H 08/15/18 08:13 ALT 20 units/L (7-56) 08/15/18 08:13 Alkaline Phosphatase 82 units/L (35-129) 08/15/18 08:13 C-Reactive Protein 4.00 mg/dL (0.00-1.30) H 08/19/18 00:34 Total Protein 8.3 g/dL (6.3-8.2) H 08/15/18 08:13 Albumin 3.2 g/dL (3.9-5) L 08/15/18 08:13 Albumin/Globulin Ratio 0.6 % 08/15/18 08:13 Urine Color Yellow (Yellow) 08/15/18 13:02 Urine Turbidity Clear (Clear) 08/15/18 13:02 Urine pH 5.0 (5.0-7.0) 08/15/18 13:02 Ur Specific [place] 1.016 (1.003-1.030) 08/15/18 13:02 Urine Protein 30 mg/dl mg/dL (Negative) 08/15/18 13:02 Urine Glucose (UA) 150 mg/dL (Negative) 08/15/18 13:02 Urine Ketones Tr mg/dL (Negative) 08/15/18 13:02 Urine Blood Mod (Negative) 08/15/18 13:02 Urine Nitrite Neg (Negative) 08/15/18 13:02 Urine Bilirubin Neg (Negative) 08/15/18 13:02 Urine Urobilinogen 2.0 mg/dL (<2.0) 08/15/18 13:02 Ur Leukocyte Esterase Neg (Negative) 08/15/18 13:02 Urine WBC (Auto) 8.0 /HPF (0.0-6.0) H 08/15/18 13:02 Urine RBC (Auto) 4.0 /HPF (0.0-6.0) 08/15/18 13:02 U Epithel Cells (Auto) 1.0 /HPF (0-13.0) 08/15/18 13:02 Urine Mucus Few /HPF 08/15/18 13:02
[2018-08-20] MEDS: HumaLOG SUB-Q SCH ×4 (08:17→22:35)
[2018-08-20] MEDS: ZESTRIL PO SCH (09:25)
[2018-08-20] MEDS: NORVASC PO SCH (09:26)
[2018-08-20] MEDS: DAKIN'S FULL STRENGTH TP SCH ×2 (09:28→21:40)
[2018-08-20] MEDS: SODIUM CHLORIDE FLUSH SYRINGE 10 ML IV SCH ×2 (09:28→21:41)
--- NOTE | 2018-08-20 10:00 | Consultation ---
History of Present Illness Consult date: 08/20/18 Reason for consult: other (Left heel ulcer) - History of present illness History of present illness: 73 yo diabetic male with a chronic left heel ulcer. He has had previous bone debridement per the pt's daughter. He has been non-ambulatory since 2017 secondary to a CVA. Past History Past Medical History: cancer, diabetes, hypertension, stroke Past Surgical History: cataract removal Social history: single. denies: smoking, alcohol abuse, prescription drug abuse Family history: diabetes, hypertension Medications and Allergies Allergies Allergy/AdvReac Type Severity Reaction Status Date / Time No Known Allergies Allergy Verified 07/10/18 08:17 Home Medications Medication Instructions Recorded Confirmed Last Taken Type Amlodipine Besylate [Norvasc] 5 mg PO DAILY 08/15/18 08/18/18 08/12/18 09:00 History Atorvastatin Calcium [Lipitor] 40 mg PO DAILY 08/15/18 08/18/18 08/12/18 09:00 History Calcium Carbonate [Ban-Acid] 300 mg PO DAILY 08/15/18 08/18/18 08/12/18 09:00 History Lisinopril [Zestril TAB] 2.5 mg PO QDAY 08/15/18 08/18/18 08/12/18 09:00 History metFORMIN [Glucophage] 500 mg PO QDAY 08/15/18 08/18/18 08/12/18 History Active Meds: Active Medications Acetaminophen (Tylenol) 650 mg PO Q4H PRN PRN Reason: Pain MILD(1-3)/Fever >100.5/[place] Albuterol (Proventil) 2.5 mg IH Q4HRT PRN PRN Reason: Shortness Of Breath Amlodipine Besylate (Norvasc) 5 mg PO DAILY [facility] Last Admin: 08/19/18 09:20 Dose: 5 mg Documented by: Atorvastatin Calcium (Lipitor) 40 mg PO DAILY [facility] Last Admin: 08/19/18 09:20 Dose: 40 mg Documented by: Hydralazine HCl (Apresoline) 10 mg IV Q4HR PRN PRN Reason: Hypertension Cefepime HCl (Maxipime/Ns 2 Gm/100 Ml) 2 gm in 100 mls @ 200 mls/hr IV Q12H [facility]; Protocol Last Infusion: 08/20/18 03:29 Dose: Infused Documented by: Insulin Human Lispro (Humalog) 0 unit SUB-Q ACHS [facility]; Protocol Last Admin: 08/20/18 08:17 Dose: Not Given Documented by: Lisinopril (Zestril) 2.5 mg PO QDAY [facility] Last Admin: 08/19/18 09:21 Dose: 2.5 mg Documented by: Metronidazole (Flagyl) 500 mg PO Q8HR [facility]; Protocol Last Admin: 08/20/18 05:04 Dose: 500 mg Documented by: Ondansetron HCl (Zofran) 4 mg IV Q8H PRN PRN Reason: Nausea And Vomiting Oxycodone/Acetaminophen (Percocet 5/325) 1 tab PO Q6H PRN PRN Reason: Pain, Moderate (4-6) Sodium Chloride (Sodium Chloride Flush Syringe 10 Ml) 10 ml IV BID [facility] Last Admin: 08/20/18 09:28 Dose: 10 ml Documented by: Sodium Chloride (Sodium Chloride Flush Syringe 10 Ml) 10 ml IV PRN PRN PRN Reason: LINE FLUSH Last Admin: 08/19/18 14:13 Dose: 10 ml Documented by: Sodium Hypochlorite (Dakin's Full Strength) 1 applic TP Q12H [facility] Last Admin: 08/20/18 09:28 Dose: 1 1000units Documented by: Review of Systems ROS unobtainable: due to mental status Exam Vital Signs Temp Pulse Resp BP Pulse Ox 98.5 F 103 H 18 92/52 97 08/15/18 06:13 08/15/18 06:13 08/15/18 06:13 08/15/18 06:13 08/15/18 06:13 - General physical appearance Positive: well developed, well nourished, no distress - Eyes Positive: PERRL, normal occular movement - ENT Positive: normal pinna, normal nares, normal mucosa, no hearing loss, no congestion - Neck Positive: no masses, no bruits, trachea midline, no venous distension - Respiratory Positive: normal expansion, normal respiratory effort, clear to auscultation - Cardiovascular Rhythm: regular Heart Sounds: Present: S1 & S2. Absent: rub, click - Extremities Extremities: No edema, normal temperature - Breasts Breasts: deferred - Abdomen Abdomen: Present: soft, bowel sounds normal. Absent: tender, distended Hernia: none - Genitourinary Male Genitourinary: deferred - Integumentary other (There is a 7 X 7 X 1 cm stage 4 pressure ulcer of his left heel with exposed, necrotic bone. There is also necrotic skin and SQ tissue as well. This ulcer appears well drained.) - Neurologic Neurologic: other (Not oriented to year) - Psychiatric Psychiatric: cooperative Results - Labs 08/20/18 04:33 08/20/18 04:33 Abnormal lab results 08/19/18 08/19/18 08/19/18 Range/Units 11:47 17:14 21:30 RBC (3.65-5.03) M/mm3 Hgb (11.8-15.2) gm/dl Hct (35.5-45.6) % Sodium (137-145) mmol/L BUN (9-20) mg/dL Glucose (75-100) mg/dL POC Glucose 218 H 109 H 236 H (70-105) Calcium (8.4-10.2) mg/dL 08/20/18 08/20/18 08/20/18 Range/Units 04:33 04:33 07:49 RBC 3.24 L (3.65-5.03) M/mm3 Hgb 9.2 L (11.8-15.2) gm/dl Hct 27.6 L (35.5-45.6) % Sodium 135 L (137-145) mmol/L BUN 22 H (9-20) mg/dL Glucose 148 H (75-100) mg/dL POC Glucose 151 H (70-105) Calcium 8.3 L D (8.4-10.2) mg/dL Diabetes panel 08/20/18 Range/Units 04:33 Sodium 135 L (137-145) mmol/L Potassium 4.5 (3.6-5.0) mmol/L Chloride 102.6 (98-107) mmol/L Carbon Dioxide 22 (22-30) mmol/L BUN 22 H (9-20) mg/dL Creatinine 1.1 (0.8-1.5) mg/dL Glucose 148 H (75-100) mg/dL Calcium 8.3 L D (8.4-10.2) mg/dL Calcium panel 08/20/18 Range/Units 04:33 Calcium 8.3 L D (8.4-10.2) mg/dL Pituitary panel 08/20/18 Range/Units 04:33 Sodium 135 L (137-145) mmol/L Potassium 4.5 (3.6-5.0) mmol/L Chloride 102.6 (98-107) mmol/L Carbon Dioxide 22 (22-30) mmol/L BUN 22 H (9-20) mg/dL Creatinine 1.1 (0.8-1.5) mg/dL Glucose 148 H (75-100) mg/dL Calcium 8.3 L D (8.4-10.2) mg/dL Adrenal panel 08/20/18 Range/Units 04:33 Sodium 135 L (137-145) mmol/L Potassium 4.5 (3.6-5.0) mmol/L Chloride 102.6 (98-107) mmol/L Carbon Dioxide 22 (22-30) mmol/L BUN 22 H (9-20) mg/dL Creatinine 1.1 (0.8-1.5) mg/dL Glucose 148 H (75-100) mg/dL Calcium 8.3 L D (8.4-10.2) mg/dL Assessment and Plan - Patient Problems (1) Pressure ulcer of left heel, stage 4 Current Visit: Yes Status: Acute Plan to address problem: 1) Arterial dopplers 2) MRI, LLE 3) I discussed the pt's situation with his daughter, Sandie Cross. She does not want to consider amputation at this point. Pt will therefore need 6-8 weeks of IV antibiotics and at least 8 weeks of HBOT. 4) I will debride his ulcer at the bedside tomorrow.
--- NOTE | 2018-08-20 10:27 | Progress Note ---
Assessment and Plan Cultures 08/15/2018 Blood: CcNS 1 out of 4 bottles 08/15/2018: Urine: less than 10,00 Cfu/ml 08/15/2018 MRSA culture negative 08/18/2018 Wound culture Proteus/GNR A/P: 73--year-old resident with a histoy of medical history of DM, CVA with dysarthia and LHP, HTN and CAP. admitted with: 1. Left diabetic Foot ulcer: with surrounding cellulitis and left calcaneous osteomyelitis. On exam left plantar surface heel, eschar, warm with purulent drainage and odor. 1+ pulses. wound culture GNR. -Lower Extremity MRI: ulceration of the sof tissues along the plantar surface of the calcaneous with surrounding cellulitis. No soft tissue abscess. There are destructive changes and bone marrow edema of the inferior aspect of the calcaneous consistent with osteomylitis -Duplex scan of lower extremity venous show no evidence of DVT. -CRP=4 2. CoNS Bacteremia; 1 out of 4 bottles, likely containment. No prostatic or implants, +condom cath. 3. Type 2 DM- Uncontrolled 4. CAMILLE: on admission, now resolved. 5. Cough: initial CXR neg, repeat CXR neg Plan - Dr Salas discussed the pt's situation with his daughter, Sandie Cross. She does not want to consider amputation at this point. Recommends 6-8 weeks of IV antibiotics and at least 8 weeks of HBOT. -bedside ulcer debridement tomorrow - Continue Cefepime and Flagyl for now - f/u wound culture ID and MICs - Arterial duplex doppler - pending - Vascular on board - upon discharge will do ceftriaxone 2 g IV qday and flagyl 500 mg PO TID total 6 weeks until 10/02/2018 - needs PICC will follow Diana Mcgarry MD Subjective Date of service: 08/20/18 Principal diagnosis: left diabetic foot infection Interval history: Patient feels ok, no fever. Confused ROS: unable to obtain. Objective - Exam Narrative Exam: Constitutional: Alert, cooperative. No acute distress Head, Ears, Nose: Normocephalic, atraumatic. External ears, nose normal Eyes: Conjunctivae/corneas clear. No icterus. No ptosis. Neck: Supple, no meningeal signs Oral: dentition poor. no thrush Cardiovascular: RRR Respiratory: Good air entry, clear to auscultation bilaterally GI: Soft, non-tender; bowel sounds normal. No peritoneal signs Musculoskeletal: left plantar, heel ulceration , Skin: Left heel + eschar, +drainage, + warmth per wound care - Wound measured at 7.0x6.0x1.5. Small serous sanguineous drainage noticed to the wound. A extremely foul odor noticed to the wound. Hem/Lymphatic: No palpable cervical or supraclavicular nodes. No lymphangitis Psych: Mood ok. Affect normal Neurological: Awake, alert, oriented. - Constitutional Vitals: Vital Signs Temp Pulse Resp BP Pulse Ox 98.1 F 86 20 112/71 97 08/20/18 07:48 08/20/18 08:35 08/20/18 08:22 08/20/18 07:48 08/20/18 08:22 Temperature -Last 24 Hours Temperature 98.1 F Temperature 98.4 F Temperature 98.7 F Temperature 98.9 F - Labs CBC & Chem 7: 08/20/18 04:33 08/20/18 04:33 Labs: Abnormal lab results 08/19/18 08/19/18 08/19/18 Range/Units 11:47 17:14 21:30 RBC (3.65-5.03) M/mm3 Hgb (11.8-15.2) gm/dl Hct (35.5-45.6) % Sodium (137-145) mmol/L BUN (9-20) mg/dL Glucose (75-100) mg/dL POC Glucose 218 H 109 H 236 H (70-105) Calcium (8.4-10.2) mg/dL 08/20/18 08/20/18 08/20/18 Range/Units 04:33 04:33 07:49 RBC 3.24 L (3.65-5.03) M/mm3 Hgb 9.2 L (11.8-15.2) gm/dl Hct 27.6 L (35.5-45.6) % Sodium 135 L (137-145) mmol/L BUN 22 H (9-20) mg/dL Glucose 148 H (75-100) mg/dL POC Glucose 151 H (70-105) Calcium 8.3 L D (8.4-10.2) mg/dL
--- NOTE | 2018-08-20 13:52 | Progress Note ---
Assessment and Plan left heel ulcer awaiting arterial duplex/ABIs may need revascularisation Subjective Date of service: 08/20/18 Principal diagnosis: left diabetic foot infection Interval history: doing well Objective - Exam Narrative Exam: left foot warm, dressing c/d/i - Constitutional Vitals: Vital Signs - 12hr 08/20/18 08/20/18 08/20/18 07:48 08:22 08:35 Temperature 98.1 F Pulse Rate 86 Respiratory 20 20 Rate Blood Pressure 112/71 O2 Sat by Pulse 97 Oximetry 08/20/18 08/20/18 08/20/18 09:25 09:26 13:04 Temperature 97.8 F Pulse Rate 86 86 96 H Respiratory 20 Rate Blood Pressure 112/71 112/71 134/82 O2 Sat by Pulse 98 Oximetry - Labs CBC & Chem 7: 08/20/18 04:33 08/20/18 04:33 Labs: Abnormal lab results 08/19/18 08/19/18 08/20/18 Range/Units 17:14 21:30 04:33 RBC 3.24 L (3.65-5.03) M/mm3 Hgb 9.2 L (11.8-15.2) gm/dl Hct 27.6 L (35.5-45.6) % Sodium (137-145) mmol/L BUN (9-20) mg/dL Glucose (75-100) mg/dL POC Glucose 109 H 236 H (70-105) Hemoglobin A1c (4-6) % Calcium (8.4-10.2) mg/dL 08/20/18 08/20/18 08/20/18 Range/Units 04:33 07:49 10:49 RBC (3.65-5.03) M/mm3 Hgb (11.8-15.2) gm/dl Hct (35.5-45.6) % Sodium 135 L (137-145) mmol/L BUN 22 H (9-20) mg/dL Glucose 148 H (75-100) mg/dL POC Glucose 151 H (70-105) Hemoglobin A1c 11.2 H (4-6) % Calcium 8.3 L D (8.4-10.2) mg/dL 08/20/18 Range/Units 11:29 RBC (3.65-5.03) M/mm3 Hgb (11.8-15.2) gm/dl Hct (35.5-45.6) % Sodium (137-145) mmol/L BUN (9-20) mg/dL Glucose (75-100) mg/dL POC Glucose 146 H (70-105) Hemoglobin A1c (4-6) % Calcium (8.4-10.2) mg/dL Medications & Allergies - Medications Allergies/Adverse Reactions: Allergies No Known Allergies Allergy (Verified 07/10/18 08:17) Home Medications: Home Medications Medication Instructions Recorded Confirmed Last Taken Type Amlodipine Besylate [Norvasc] 5 mg PO DAILY 08/15/18 08/18/18 08/12/18 09:00 History Atorvastatin Calcium [Lipitor] 40 mg PO DAILY 08/15/18 08/18/18 08/12/18 09:00 History Calcium Carbonate [Ban-Acid] 300 mg PO DAILY 08/15/18 08/18/18 08/12/18 09:00 History Lisinopril [Zestril TAB] 2.5 mg PO QDAY 08/15/18 08/18/18 08/12/18 09:00 History metFORMIN [Glucophage] 500 mg PO QDAY 08/15/18 08/18/18 08/12/18 History Active Medications: Generic Name Dose Route Start Last Admin Trade Name Freq PRN Reason Stop Dose Admin Acetaminophen 650 mg 08/15/18 12:24 Tylenol PO Q4H PRN Pain MILD(1-3)/Fever >100.5/[place] Albuterol 2.5 mg 08/15/18 12:24 Proventil IH Q4HRT PRN Shortness Of Breath Amlodipine Besylate 5 mg 08/18/18 10:00 08/20/18 09:26 Norvasc PO Not Given DAILY [facility] Atorvastatin Calcium 40 mg 08/18/18 10:00 08/20/18 09:25 Lipitor PO Not Given DAILY [facility] Hydralazine HCl 10 mg 08/18/18 08:37 Apresoline IV Q4HR PRN Hypertension Cefepime HCl 2 gm in 100 mls @ 200 mls/hr 08/18/18 15:00 08/20/18 03:29 Maxipime/Ns 2 Gm/100 Ml IV Infused Q12H [facility] Infusion Protocol Insulin Human Lispro 0 unit 08/15/18 17:00 08/20/18 11:34 Humalog SUB-Q Not Given ACHS [facility] Protocol Lisinopril 2.5 mg 08/18/18 10:00 08/20/18 09:25 Zestril PO Not Given QDAY [facility] Metronidazole 500 mg 08/18/18 22:00 08/20/18 05:04 Flagyl PO 500 mg Q8HR [facility] Administration Protocol Ondansetron HCl 4 mg 08/15/18 12:24 Zofran IV Q8H PRN Nausea And Vomiting Oxycodone/Acetaminophen 1 tab 08/15/18 12:24 Percocet 5/325 PO Q6H PRN Pain, Moderate (4-6) Sodium Chloride 10 ml 08/15/18 22:00 08/20/18 09:28 Sodium Chloride Flush Syringe 10 Ml IV 10 ml BID [facility] Administration Sodium Chloride 10 ml 08/15/18 12:24 08/19/18 14:13 Sodium Chloride Flush Syringe 10 Ml IV 10 ml PRN PRN Administration LINE FLUSH Sodium Hypochlorite 1 applic 08/16/18 22:00 08/20/18 09:28 Dakin's Full Strength TP 1 1000units Q12H [facility] Administration
[2018-08-20] MEDS: SODIUM CHLORIDE FLUSH SYRINGE 10 ML IV PRN (15:17)
--- NOTE | 2018-08-20 16:04 | XRay Report ---
FINAL REPORT EXAM: XR CHEST 1V AP HISTORY: R arm PICC placement TECHNIQUE: Frontal chest x-ray Comparison: 08/19/2018 FINDINGS: Semi erect portable chest x-ray was performed. There has been placement of a right PICC line with tip in the region of the superior vena cava/right atrial junction. Lung volumes are extremely low on the current exam. Heart size is mildly enlarged. Patchy right infra hilar infiltrate may be developing versus atelectasis. Aorta is poorly delineated. IMPRESSION: Right PICC line tip projects in the region of the superior vena cava/atrial junction. Low volume exam.
--- NOTE | 2018-08-20 20:09 | Vascular Lab Report ---
FINAL REPORT EXAM: VL ARTERIAL DUPLEX LE BILAT HISTORY: left heel ulcer with osteomyelitis TECHNIQUE: Real-time color duplex sonography was performed of the bilateral lower extremity arterial systems and images are submitted for interpretation PRIORS: None. FINDINGS: Right: A stent is in place in the mid to distal superficial femoral artery that appears patent. Peak systolic velocity in the stent is 217 cm/second with a biphasic flow pattern. There is scattered calc ified atherosclerotic plaque in the common and superficial femoral and popliteal arteries. Velocities: Distal iliac artery: Peak systolic 114 cm/s, triphasic flow Common femoral artery: Peak systolic 144 cm/s, biphasic flow Proximal superficial femoral artery: Peak systolic 84 cm/s, triphasic flow Deep femoral artery: Peak systolic 94 cm/s, biphasic flow Mid superficial femoral arteries: Peak systolic 123 cm/s, triphasic flow Distal superficial femoral artery: Peak systolic 53 cm/s, triphasic flow Popliteal artery: Peak systolic 66 cm/s, biphasic flow Posterior tibialis artery: Peak systolic 46 cm/s, biphasic flow Anterior tibialis artery: Peak systolic 33 cm/s, monophasic flow Left: There is diffuse atherosclerotic calcification throughout. Velocities: Distal iliac artery: Peak systolic 109 cm/s, triphasic flow, triphasic flow Common femoral artery: Peak systolic 85 cm/s, triphasic flow Proximal superficial femoral artery: Peak systolic 102 cm/s, triphasic flow Deep femoral artery: Peak systolic 132 cm/s, biphasic flow Mid superficial femoral arteries: Peak systolic 217 cm/s, biphasic flow Distal superficial femoral artery: Peak systolic 81 cm/s, monophasic flow Popliteal artery: Peak systolic 58 cm/s, monophasic flow Posterior tibialis artery: Peak systolic 73 cm/s, monophasic flow Anterior tibialis artery: Peak systolic 43 cm/s, monophasic flow IMPRESSION: 1. Right superficial femoral artery stent is patent 2. Diffuse atherosclerotic disease of the right lower extremity without significant stenosis. 3. Diffuse atherosclerotic disease of the left lower extremity with diminished flow in the posterior and anterior tibialis arteries.
[2018-08-21] MEDS: MAXIPIME/NS 2 GM/100 ML 2 GM/100 ML BAG IV SCH ×3 (03:31→15:00)
[2018-08-21] MEDS: FLAGYL PO SCH ×3 (05:02→22:17)
[2018-08-21] MEDS: HumaLOG SUB-Q SCH ×4 (07:30→22:16)
[2018-08-21] MEDS: NORVASC PO SCH (09:57)
[2018-08-21] MEDS: DAKIN'S FULL STRENGTH TP SCH ×2 (09:57→22:18)
[2018-08-21] MEDS: SODIUM CHLORIDE FLUSH SYRINGE 10 ML IV SCH ×2 (09:58→22:19)
[2018-08-21] MEDS: ZESTRIL PO SCH (09:58)
--- NOTE | 2018-08-21 10:02 | Progress Note ---
Assessment and Plan Patient will be scheduled for revascularization of his left leg tomorrow. Subjective Date of service: 08/21/18 Principal diagnosis: left diabetic foot infection Interval history: Patient with left heel ulcer with calcaneal osteomyelitis. Vascular ultrasound reviewed. The patient has a previously placed stent in the SFA. He has elevated velocities within the stent. Additionally, the patient has tibial disease. The patient ambulates around the house however, for long distances will use a wheelchair. Working with physical therapy at time of examination. The patient does not yet have a heel offloading shoe. Objective - Constitutional Vitals: Vital Signs - 12hr 08/21/18 08/21/18 08/21/18 07:51 09:57 09:58 Temperature 97.9 F Pulse Rate 79 79 49 L Respiratory 18 Rate Blood Pressure 143/84 143/84 143/84 O2 Sat by Pulse 100 Oximetry General appearance: Present: no acute distress - EENT Eyes: EOM intact ENT: hearing intact - Neck Neck: supple, normal ROM - Respiratory Respiratory effort: normal - Breasts Breasts: deferred Extremities: abnormal Extremity abnormal: pulses diminished - Gastrointestinal General gastrointestinal: Present: deferred Rectal Exam: deferred - Genitourinary Male genitourinary: deferred - Psychiatric Psychiatric: cooperative - Labs CBC & Chem 7: 08/20/18 04:33 08/20/18 04:33 Labs: Abnormal lab results 08/20/18 08/20/18 08/20/18 Range/Units 10:49 11:29 17:31 POC Glucose 146 H 216 H (70-105) Hemoglobin A1c 11.2 H (4-6) % 08/20/18 08/21/18 Range/Units 21:39 07:55 POC Glucose 189 H 141 H (70-105) Hemoglobin A1c (4-6) % Medications & Allergies - Medications Allergies/Adverse Reactions: Allergies No Known Allergies Allergy (Verified 07/10/18 08:17) Home Medications: Home Medications Medication Instructions Recorded Confirmed Last Taken Type Amlodipine Besylate [Norvasc] 5 mg PO DAILY 08/15/18 08/18/18 08/12/18 09:00 History Atorvastatin Calcium [Lipitor] 40 mg PO DAILY 08/15/18 08/18/18 08/12/18 09:00 History Calcium Carbonate [Ban-Acid] 300 mg PO DAILY 08/15/18 08/18/18 08/12/18 09:00 History Lisinopril [Zestril TAB] 2.5 mg PO QDAY 08/15/18 08/18/18 08/12/18 09:00 History metFORMIN [Glucophage] 500 mg PO QDAY 08/15/18 08/18/18 08/12/18 History Active Medications: Generic Name Dose Route Start Last Admin Trade Name Freq PRN Reason Stop Dose Admin Acetaminophen 650 mg 08/15/18 12:24 Tylenol PO Q4H PRN Pain MILD(1-3)/Fever >100.5/[place] Albuterol 2.5 mg 08/15/18 12:24 Proventil IH Q4HRT PRN Shortness Of Breath Amlodipine Besylate 5 mg 08/18/18 10:00 08/21/18 09:57 Norvasc PO 5 mg DAILY [facility] Administration Atorvastatin Calcium 40 mg 08/18/18 10:00 08/21/18 09:57 Lipitor PO 40 mg DAILY [facility] Administration Hydralazine HCl 10 mg 08/18/18 08:37 Apresoline IV Q4HR PRN Hypertension Cefepime HCl 2 gm in 100 mls @ 200 mls/hr 08/18/18 15:00 08/21/18 04:01 Maxipime/Ns 2 Gm/100 Ml IV Infused Q12H [facility] Infusion Protocol Insulin Human Lispro 0 unit 08/15/18 17:00 08/21/18 07:30 Humalog SUB-Q Not Given ACHS [facility] Protocol Lisinopril 2.5 mg 08/18/18 10:00 08/21/18 09:58 Zestril PO 2.5 mg QDAY [facility] Administration Metronidazole 500 mg 08/18/18 22:00 08/21/18 05:02 Flagyl PO 500 mg Q8HR [facility] Administration Protocol Ondansetron HCl 4 mg 08/15/18 12:24 Zofran IV Q8H PRN Nausea And Vomiting Oxycodone/Acetaminophen 1 tab 08/15/18 12:24 Percocet 5/325 PO Q6H PRN Pain, Moderate (4-6) Sodium Chloride 10 ml 08/15/18 22:00 08/21/18 09:58 Sodium Chloride Flush Syringe 10 Ml IV 10 ml BID [facility] Administration Sodium Chloride 10 ml 08/15/18 12:24 08/20/18 15:17 Sodium Chloride Flush Syringe 10 Ml IV 10 ml PRN PRN Administration LINE FLUSH Sodium Hypochlorite 1 applic 08/16/18 22:00 08/21/18 09:57 Dakin's Full Strength TP 1 1000units Q12H [facility] Administration
--- NOTE | 2018-08-21 12:51 | Procedure Note ---
Date of procedure: 08/21/18 Pre-op diagnosis: Stage 4 left heel pressure ulcer with necrotic skin, SQ and bone Post-op diagnosis: same Procedure: Debridement of left heel ulcer of necrotic skin, SQ and bone with final wound measurements of 7 X 7.5 X 1.5 cm Description of procedure: Pt was supine in his bed. His left foot was propped up on pillows. The left heel area was prepped and draped. Necrotic skin, SQ tissue and bone were surgically, excisionally debrided with forceps and a #15 scalpel. Bleeding was minimal and was controlled with pressure. Pt experienced minimal to no pain. Dry 4 X 4's were applied followed by a Kerlix wrap. Pt tolerated the procedure well. Anesthesia: none Surgeon: JOSE AVILA Estimated blood loss: minimal Pathology: none Specimen disposition: discarded Condition: stable Disposition: no change
--- NOTE | 2018-08-21 14:06 | Progress Note ---
Assessment and Plan Cultures 08/15/2018 Blood: CcNS 1 out of 4 bottles 08/15/2018: Urine: less than 10,00 Cfu/ml 08/15/2018 MRSA culture negative 08/18/2018 Wound culture Proteus/GNR A/P: 73--year-old resident with a histoy of medical history of DM, CVA with dysarthia and LHP, HTN and CAP. admitted with: 1. Left diabetic Foot ulcer: with surrounding cellulitis and left calcaneous osteomyelitis. On exam left plantar surface heel, eschar, warm with purulent drainage and odor. 1+ pulses. wound culture GNR. -Lower Extremity MRI: ulceration of the sof tissues along the plantar surface of the calcaneous with surrounding cellulitis. No soft tissue abscess. There are destructive changes and bone marrow edema of the inferior aspect of the calcaneous consistent with osteomylitis -Duplex scan of lower extremity venous show no evidence of DVT. -CRP=4 -S/P debridement of left heel ulcer of necrotic skin, SQ and bone with final wound measurements of 7 X 7.5 X 1.5 cm on 08/21 2. CoNS Bacteremia; 1 out of 4 bottles, likely containment. No prostatic or implants, +condom cath. 3. Type 2 DM- Uncontrolled, A1C=11 4. CAMILLE: on admission, now resolved. 5. Cough: initial CXR neg, repeat CXR neg 6. PVD: Art US showed Right superficial femoral artery stent is patent. Diffuse atherosclerotic disease of the right lower extremity without significant stenosis. Diffuse atherosclerotic disease of the left lower extremity with diminished flow in the posterior and anterior tibialis arteries. Plan - patient scheduled for revascularization of his left leg tomorrow. - Dr Salas recommends 6-8 weeks of IV antibiotics and at least 8 weeks of HBOT. - Continue Cefepime and Flagyl for now until GNR are ID - f/u wound culture ID and MICs - upon discharge will do ceftriaxone 2 g IV qday and flagyl 500 mg PO TID total 6 weeks until 10/02/2018 will follow Diana Mcgarry MD Subjective Date of service: 08/21/18 Principal diagnosis: left diabetic foot infection Interval history: Patient feels ok, no fever. ROS: unable to obtain. Objective - Exam Narrative Exam: Constitutional: Alert, cooperative. No acute distress Head, Ears, Nose: Normocephalic, atraumatic. External ears, nose normal Eyes: Conjunctivae/corneas clear. No icterus. No ptosis. Neck: Supple, no meningeal signs Oral: dentition poor. no thrush Cardiovascular: RRR Respiratory: Good air entry, clear to auscultation bilaterally GI: Soft, non-tender; bowel sounds normal. No peritoneal signs Musculoskeletal: left plantar, heel ulceration , Skin: Left foot with surg dressings Hem/Lymphatic: No palpable cervical or supraclavicular nodes. No lymphangitis Psych: Mood ok. Affect normal Neurological: Awake, alert, oriented. - Constitutional Vitals: Vital Signs Temp Pulse Resp BP Pulse Ox 97.6 F 94 H 18 128/84 99 08/21/18 13:27 08/21/18 13:27 08/21/18 13:27 08/21/18 13:27 08/21/18 13:27 Temperature -Last 24 Hours Temperature 97.6 F Temperature 97.9 F Temperature 98.6 F - Labs CBC & Chem 7: 08/20/18 04:33 08/20/18 04:33 Labs: Abnormal lab results 08/20/18 08/20/18 08/21/18 Range/Units 17:31 21:39 07:55 POC Glucose 216 H 189 H 141 H (70-105) 08/21/18 Range/Units 11:42 POC Glucose 215 H (70-105)
--- NOTE | 2018-08-21 14:08 | Progress Note ---
Assessment and Plan Assessment and plan: 73 YO Male with DM, CVA with Dysarthria and LHP, HTN, CaP presents to ED for evaluation. Pt states that he has experienced leg pain over the past several months. Pt acknowledges burning sensation in his feet and legs. Pt acknowledges left foot pain with ambulation. Pt acknowledges tripping and falling down today. Pt transported to [facility] for further care and evaluation. Pt seen and evaluated in ED and found to have Left foot cellulitis complicated by a diabetic foot ulcer. Pt admitted to medical floor. wound care consulted in ED. Pt denies fever, chills, CP, palpitations, NVD, Trauma, BRBPR, unintentional weight loss, unilateral leg swelling, calf pain, or recent ill contacts. MRI Imaging studies concerning for osteomylitis. ID consulted. Patient is on IV cefepime and flagyl Vascular consulted due to concern for PVD/PAD and high risk of limb loss; patient needs arterial doppler Cellulitis-Left- with osteomylitis. SEPSIS SECONDARY TO ABOVE. Continue supportive care IV antibiotics, IVF resuscitation, pain control, wound care consulted, MRI CONSISTENT WITH OSTEO Dr. Salas consulted, patient needs left AKA; sister doesn't want amputation per Dr Salas note, arterial doppler. Acute kidney injury on chronic kidney disease attributed to vasomotor nephropathy; resolved with Recurrent falls; PT OT evaluate and treat Diabetes Mellitus Current Visit: Yes Status: Acute Plan to address problem: ADA diet, insulin, accu check HTN (hypertension)-Urgency - Controlled Continue Hydralazine PRN Anemia of chronic disease Stable continue to monitor SCD to BLE while in bed. Vascular was consulted to do revascularization tomorrow. Antibiotics and SNF are arranged Would be discharged tomorrow for the procedure. Discussed with case management. History Interval history: Patient was seen and evaluated this morning by the bedside, no new complaints. Patient had wound debridement today. Hospitalist Physical - Physical exam Narrative exam: Not in cardiopulmonary distress. The patient appeared well nourished and normally developed. Vital signs as documented. Head exam is unremarkable. No scleral icterus . Neck is without jugular venous distension, thyromegaly, or carotid bruits. Lungs are clear to auscultation. Cardiac exam reveals regular rate and Rhythm. Abdominal exam reveals normal bowel sounds, no masses, no organomegaly and no aortic enlargement. Extremities left lower extremity wound. 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 Left sided hemiparesis. - Constitutional Vitals: Temp Pulse Resp BP Pulse Ox 97.9 F 79 18 143/84 100 08/21/18 07:51 08/21/18 10:00 08/21/18 07:51 08/21/18 09:58 08/21/18 07:51 General appearance: Present: no acute distress Results - Labs CBC & Chem 7: 08/20/18 04:33 08/20/18 04:33 Labs: Laboratory Last Values WBC 7.7 K/mm3 (4.5-11.0) 08/20/18 04:33 RBC 3.24 M/mm3 (3.65-5.03) L 08/20/18 04:33 Hgb 9.2 gm/dl (11.8-15.2) L 08/20/18 04:33 Hct 27.6 % (35.5-45.6) L 08/20/18 04:33 MCV 85 fl (84-94) 08/20/18 04:33 MCH 29 pg (28-32) 08/20/18 04:33 MCHC 34 % (32-34) 08/20/18 04:33 RDW 13.4 % (13.2-15.2) 08/20/18 04:33 Plt Count 364 K/mm3 (140-440) 08/20/18 04:33 Lymph % (Auto) 14.1 % (13.4-35.0) 08/15/18 08:13 [place] % (Auto) 9.8 % (0.0-7.3) H 08/15/18 08:13 Eos % (Auto) 0.3 % (0.0-4.3) 08/15/18 08:13 Baso % (Auto) 0.4 % (0.0-1.8) 08/15/18 08:13 Lymph # 1.4 K/mm3 (1.2-5.4) 08/15/18 08:13 [place] # 1.0 K/mm3 (0.0-0.8) H 08/15/18 08:13 Eos # 0.0 K/mm3 (0.0-0.4) 08/15/18 08:13 Baso # 0.0 K/mm3 (0.0-0.1) 08/15/18 08:13 Seg Neutrophils % 75.4 % (40.0-70.0) H 08/15/18 08:13 Seg Neutrophils # 7.6 K/mm3 (1.8-7.7) 08/15/18 08:13 ESR 85 mm/Hr (0-20) 08/19/18 00:34 APTT 31.5 Sec. (24.2-36.6) 08/15/18 08:13 Sodium 135 mmol/L (137-145) L 08/20/18 04:33 Potassium 4.5 mmol/L (3.6-5.0) 08/20/18 04:33 Chloride 102.6 mmol/L (98-107) 08/20/18 04:33 Carbon Dioxide 22 mmol/L (22-30) 08/20/18 04:33 Anion Gap 15 mmol/L 08/20/18 04:33 BUN 22 mg/dL (9-20) H 08/20/18 04:33 Creatinine 1.1 mg/dL (0.8-1.5) 08/20/18 04:33 Estimated GFR > 60 ml/min 08/20/18 04:33 BUN/Creatinine Ratio 20 % 08/20/18 04:33 Glucose 148 mg/dL (75-100) H 08/20/18 04:33 POC Glucose 215 (70-105) H 08/21/18 11:42 Hemoglobin A1c 11.2 % (4-6) H 08/20/18 10:49 Lactic Acid 0.90 mmol/L (0.7-2.0) 08/15/18 08:13 Calcium 8.3 mg/dL (8.4-10.2) L D 08/20/18 04:33 Total Bilirubin 0.40 mg/dL (0.1-1.2) 08/15/18 08:13 AST 56 units/L (5-40) H 08/15/18 08:13 ALT 20 units/L (7-56) 08/15/18 08:13 Alkaline Phosphatase 82 units/L (35-129) 08/15/18 08:13 C-Reactive Protein 4.00 mg/dL (0.00-1.30) H 08/19/18 00:34 Total Protein 8.3 g/dL (6.3-8.2) H 08/15/18 08:13 Albumin 3.2 g/dL (3.9-5) L 08/15/18 08:13 Albumin/Globulin Ratio 0.6 % 08/15/18 08:13 Urine Color Yellow (Yellow) 08/15/18 13:02 Urine Turbidity Clear (Clear) 08/15/18 13:02 Urine pH 5.0 (5.0-7.0) 08/15/18 13:02 Ur Specific [place] 1.016 (1.003-1.030) 08/15/18 13:02 Urine Protein 30 mg/dl mg/dL (Negative) 08/15/18 13:02 Urine Glucose (UA) 150 mg/dL (Negative) 08/15/18 13:02 Urine Ketones Tr mg/dL (Negative) 08/15/18 13:02 Urine Blood Mod (Negative) 08/15/18 13:02 Urine Nitrite Neg (Negative) 08/15/18 13:02 Urine Bilirubin Neg (Negative) 08/15/18 13:02 Urine Urobilinogen 2.0 mg/dL (<2.0) 08/15/18 13:02 Ur Leukocyte Esterase Neg (Negative) 08/15/18 13:02 Urine WBC (Auto) 8.0 /HPF (0.0-6.0) H 08/15/18 13:02 Urine RBC (Auto) 4.0 /HPF (0.0-6.0) 08/15/18 13:02 U Epithel Cells (Auto) 1.0 /HPF (0-13.0) 08/15/18 13:02 Urine Mucus Few /HPF 08/15/18 13:02
[2018-08-22] MEDS: MAXIPIME/NS 2 GM/100 ML 2 GM/100 ML BAG IV SCH ×2 (03:04→14:31)
[2018-08-22] MEDS: FLAGYL PO SCH ×4 (06:31→21:25)
[2018-08-22] MEDS: HumaLOG SUB-Q SCH ×4 (07:30→21:48)
--- NOTE | 2018-08-22 08:17 | Progress Note ---
Assessment and Plan Cultures 08/15/2018 Blood: CcNS 1 out of 4 bottles 08/15/2018: Urine: less than 10,00 Cfu/ml 08/15/2018 MRSA culture negative 08/18/2018 Wound culture Proteus/GNR A/P: 73--year-old resident with a histoy of medical history of DM, CVA with dysarthia and LHP, HTN and CAP. admitted with: 1. Left diabetic Foot ulcer: with surrounding cellulitis and left calcaneous osteomyelitis. On exam left plantar surface heel, eschar, warm with purulent drainage and odor. 1+ pulses. wound culture GNR. -Lower Extremity MRI: ulceration of the sof tissues along the plantar surface of the calcaneous with surrounding cellulitis. No soft tissue abscess. There are destructive changes and bone marrow edema of the inferior aspect of the calcaneous consistent with osteomylitis -Duplex scan of lower extremity venous show no evidence of DVT. -CRP=4 -S/P debridement of left heel ulcer of necrotic skin, SQ and bone with final wound measurements of 7 X 7.5 X 1.5 cm on 08/21 2. CoNS Bacteremia; 1 out of 4 bottles, likely containment. No prostatic or implants, +condom cath. 3. Type 2 DM- Uncontrolled, A1C=11 4. CAMIL[place]: on admission, now resolved. 5. Cough: initial CXR neg, repeat CXR neg 6. PVD: Art US showed Right superficial femoral artery stent is patent. Diffuse atherosclerotic disease of the right lower extremity without significant stenosis. Diffuse atherosclerotic disease of the left lower extremity with diminished flow in the posterior and anterior tibialis arteries. Plan - revascularization of his left leg today. - Dr Salas recommends 6-8 weeks of IV antibiotics and at least 8 weeks of HBOT. - upon discharge will do ceftriaxone 2 g IV qday and flagyl 500 mg PO TID total 6 weeks until 10/02/2018 -order placed with case management [facility] M: [phone] O:[phone] - Subjective Date of service: 08/22/18 Principal diagnosis: left diabetic foot infection Interval history: Patient seen and examined. Denied pain , SOB or rashes. Stated that he was feeling somewhat better, leaving for revascularization procedure. Family not a bedside. Objective - Exam Narrative Exam: Constitutional: Alert, cooperative. No acute distress Head, Ears, Nose: Normocephalic, atraumatic. External ears, nose normal Eyes: Conjunctivae/corneas clear. No icterus. No ptosis. Neck: Supple, no meningeal signs Oral: dentition poor. no thrush Cardiovascular: RRR Respiratory: Good air entry, clear to auscultation bilaterally GI: Soft, non-tender; bowel sounds normal. No peritoneal signs Musculoskeletal: left plantar, heel ulceration , Skin: Left foot with surg dressings Hem/Lymphatic: No palpable cervical or supraclavicular nodes. No lymphangitis Psych: Mood ok. Affect normal Neurological: Awake, alert, oriented. - Constitutional Vitals: Vital Signs Temp Pulse Resp BP Pulse Ox 98.3 F 82 18 141/84 99 08/22/18 07:34 08/22/18 07:34 08/22/18 07:34 08/22/18 07:34 08/22/18 07:34 Temperature -Last 24 Hours Temperature 98.3 F Temperature 98.7 F Temperature 97.8 F Temperature 97.6 F - Labs CBC & Chem 7: 08/20/18 04:33 08/20/18 04:33 Labs: Abnormal lab results 08/21/18 08/21/18 08/21/18 Range/Units 11:42 16:31 21:58 POC Glucose 215 H 236 H 212 H (70-105) 08/22/18 Range/Units 07:37 POC Glucose 133 H (70-105)
[2018-08-22] MEDS: DAKIN'S FULL STRENGTH TP SCH ×2 (09:48→21:26)
[2018-08-22] MEDS: SODIUM CHLORIDE FLUSH SYRINGE 10 ML IV SCH ×2 (09:50→21:26)
[2018-08-22] MEDS: NORVASC PO SCH (09:51)
[2018-08-22] MEDS: ZESTRIL PO SCH (09:51)
--- NOTE | 2018-08-22 11:43 | Progress Note ---
Assessment and Plan - Patient Problems (1) Pressure ulcer of left heel, stage 4 Current Visit: Yes Status: Acute Plan to address problem: 1) Continue off loading 2) Continue local wound care 3) Continue 6-8 weeks of IV antibiotics 4) For revascularization of LLE today 5) HBOT as an outpt 6) Pt can be discharged from my perspective. Subjective Date of service: 08/22/18 Patient Reports: Positive: no new complaints Objective Vital Signs - 12hr 08/22/18 08/22/18 08/22/18 02:24 04:50 07:34 Temperature 98.7 F 98.3 F Pulse Rate 80 91 H 82 Respiratory 20 18 Rate Blood Pressure 127/74 141/84 O2 Sat by Pulse 99 99 Oximetry - Labs 08/20/18 04:33 08/20/18 04:33
--- NOTE | 2018-08-22 14:20 | Progress Note ---
Assessment and Plan Assessment and plan: 73 YO Male with DM, CVA with Dysarthria and LHP, HTN, CaP presents to ED for evaluation. Pt states that he has experienced leg pain over the past several months. Pt acknowledges burning sensation in his feet and legs. Pt acknowledges left foot pain with ambulation. Pt acknowledges tripping and falling down today. Pt transported to [facility] for further care and evaluation. Pt seen and evaluated in ED and found to have Left foot cellulitis complicated by a diabetic foot ulcer. Pt admitted to medical floor. wound care consulted in ED. Pt denies fever, chills, CP, palpitations, NVD, Trauma, BRBPR, unintentional weight loss, unilateral leg swelling, calf pain, or recent ill contacts. MRI Imaging studies concerning for osteomylitis. ID consulted. Patient is on IV cefepime and flagyl Vascular consulted due to concern for PVD/PAD and high risk of limb loss; patient needs arterial doppler Cellulitis-Left- with osteomylitis. SEPSIS SECONDARY TO ABOVE. Continue supportive care IV antibiotics, IVF resuscitation, pain control, wound care consulted, MRI CONSISTENT WITH OSTEO Dr. Salas consulted, patient needs left AKA; sister doesn't want amputation per Dr Salas note, arterial doppler. Acute kidney injury on chronic kidney disease attributed to vasomotor nephropathy; resolved with Recurrent falls; PT OT evaluate and treat Diabetes Mellitus Current Visit: Yes Status: Acute Plan to address problem: ADA diet, insulin, accu check HTN (hypertension)-Urgency - Controlled Continue Hydralazine PRN Anemia of chronic disease Stable continue to monitor SCD to BLE while in bed. Antibiotics and SNF are arranged Will have revascularization today. History Interval history: Patient was seen and evaluated this morning by the bedside, no new complaints. Patient had wound debridement yesterday and will have revascularization today. Hospitalist Physical - Physical exam Narrative exam: Not in cardiopulmonary distress. The patient appeared well nourished and normally developed. Vital signs as documented. Head exam is unremarkable. No scleral icterus . Neck is without jugular venous distension, thyromegaly, or carotid bruits. Lungs are clear to auscultation. Cardiac exam reveals regular rate and Rhythm. Abdominal exam reveals normal bowel sounds, no masses, no organomegaly and no aortic enlargement. Extremities left lower extremity wound. 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 Left sided hemiparesis. - Constitutional Vitals: Temp Pulse Resp BP Pulse Ox 98.3 F 82 18 141/84 99 08/22/18 07:34 08/22/18 10:00 08/22/18 07:34 08/22/18 07:34 08/22/18 07:34 General appearance: Present: no acute distress Results - Labs CBC & Chem 7: 08/20/18 04:33 08/20/18 04:33 Labs: Laboratory Last Values WBC 7.7 K/mm3 (4.5-11.0) 08/20/18 04:33 RBC 3.24 M/mm3 (3.65-5.03) L 08/20/18 04:33 Hgb 9.2 gm/dl (11.8-15.2) L 08/20/18 04:33 Hct 27.6 % (35.5-45.6) L 08/20/18 04:33 MCV 85 fl (84-94) 08/20/18 04:33 MCH 29 pg (28-32) 08/20/18 04:33 MCHC 34 % (32-34) 08/20/18 04:33 RDW 13.4 % (13.2-15.2) 08/20/18 04:33 Plt Count 364 K/mm3 (140-440) 08/20/18 04:33 Lymph % (Auto) 14.1 % (13.4-35.0) 08/15/18 08:13 [place] % (Auto) 9.8 % (0.0-7.3) H 08/15/18 08:13 Eos % (Auto) 0.3 % (0.0-4.3) 08/15/18 08:13 Baso % (Auto) 0.4 % (0.0-1.8) 08/15/18 08:13 Lymph # 1.4 K/mm3 (1.2-5.4) 08/15/18 08:13 [place] # 1.0 K/mm3 (0.0-0.8) H 08/15/18 08:13 Eos # 0.0 K/mm3 (0.0-0.4) 08/15/18 08:13 Baso # 0.0 K/mm3 (0.0-0.1) 08/15/18 08:13 Seg Neutrophils % 75.4 % (40.0-70.0) H 08/15/18 08:13 Seg Neutrophils # 7.6 K/mm3 (1.8-7.7) 08/15/18 08:13 ESR 85 mm/Hr (0-20) 08/19/18 00:34 APTT 31.5 Sec. (24.2-36.6) 08/15/18 08:13 Sodium 135 mmol/L (137-145) L 08/20/18 04:33 Potassium 4.5 mmol/L (3.6-5.0) 08/20/18 04:33 Chloride 102.6 mmol/L (98-107) 08/20/18 04:33 Carbon Dioxide 22 mmol/L (22-30) 08/20/18 04:33 Anion Gap 15 mmol/L 08/20/18 04:33 BUN 22 mg/dL (9-20) H 08/20/18 04:33 Creatinine 1.1 mg/dL (0.8-1.5) 08/20/18 04:33 Estimated GFR > 60 ml/min 08/20/18 04:33 BUN/Creatinine Ratio 20 % 08/20/18 04:33 Glucose 148 mg/dL (75-100) H 08/20/18 04:33 POC Glucose 143 (70-105) H 08/22/18 11:31 Hemoglobin A1c 11.2 % (4-6) H 08/20/18 10:49 Lactic Acid 0.90 mmol/L (0.7-2.0) 08/15/18 08:13 Calcium 8.3 mg/dL (8.4-10.2) L D 08/20/18 04:33 Total Bilirubin 0.40 mg/dL (0.1-1.2) 08/15/18 08:13 AST 56 units/L (5-40) H 08/15/18 08:13 ALT 20 units/L (7-56) 08/15/18 08:13 Alkaline Phosphatase 82 units/L (35-129) 08/15/18 08:13 C-Reactive Protein 4.00 mg/dL (0.00-1.30) H 08/19/18 00:34 Total Protein 8.3 g/dL (6.3-8.2) H 08/15/18 08:13 Albumin 3.2 g/dL (3.9-5) L 08/15/18 08:13 Albumin/Globulin Ratio 0.6 % 08/15/18 08:13 Urine Color Yellow (Yellow) 08/15/18 13:02 Urine Turbidity Clear (Clear) 08/15/18 13:02 Urine pH 5.0 (5.0-7.0) 08/15/18 13:02 Ur Specific [place] 1.016 (1.003-1.030) 08/15/18 13:02 Urine Protein 30 mg/dl mg/dL (Negative) 08/15/18 13:02 Urine Glucose (UA) 150 mg/dL (Negative) 08/15/18 13:02 Urine Ketones Tr mg/dL (Negative) 08/15/18 13:02 Urine Blood Mod (Negative) 08/15/18 13:02 Urine Nitrite Neg (Negative) 08/15/18 13:02 Urine Bilirubin Neg (Negative) 08/15/18 13:02 Urine Urobilinogen 2.0 mg/dL (<2.0) 08/15/18 13:02 Ur Leukocyte Esterase Neg (Negative) 08/15/18 13:02 Urine WBC (Auto) 8.0 /HPF (0.0-6.0) H 08/15/18 13:02 Urine RBC (Auto) 4.0 /HPF (0.0-6.0) 08/15/18 13:02 U Epithel Cells (Auto) 1.0 /HPF (0-13.0) 08/15/18 13:02 Urine Mucus Few /HPF 08/15/18 13:02
--- NOTE | 2018-08-22 16:23 | Event Note ---
Date: 08/22/18 Pt was scheduled for elective revascularization procedure today. Unfortunately this will need to be rescheduled for tomorrow, due to an emergent procedure that has been added on to the physician's schedule. Discussed with the pt. His diet has been resumed, and he will be made NPO after midnight (except meds).
[2018-08-23] MEDS: MAXIPIME/NS 2 GM/100 ML 2 GM/100 ML BAG IV SCH ×2 (02:46→15:33)
[2018-08-23] MEDS: FLAGYL PO SCH ×3 (05:43→21:22)
[2018-08-23] MEDS: HumaLOG SUB-Q SCH ×4 (07:36→22:46)
[2018-08-23] MEDS: SODIUM CHLORIDE FLUSH SYRINGE 10 ML IV SCH ×2 (09:18→21:29)
[2018-08-23] MEDS: DAKIN'S FULL STRENGTH TP SCH ×3 (09:19→21:28)
[2018-08-23] MEDS: NORVASC PO SCH (09:37)
[2018-08-23] MEDS: ZESTRIL PO SCH (09:38)
--- NOTE | 2018-08-23 09:58 | Progress Note ---
Assessment and Plan Cultures 08/15/2018 Blood: CcNS 1 out of 4 bottles 08/15/2018: Urine: less than 10,00 Cfu/ml 08/15/2018 MRSA culture negative 08/18/2018 Wound culture Proteus/Klebsiella and Staph aureus A/P: 73--year-old resident with a histoy of medical history of DM, CVA with dysarthia and LHP, HTN and CAP. admitted with: 1. Left diabetic Foot ulcer: with surrounding cellulitis and left calcaneous osteomyelitis. On exam left plantar surface heel, eschar, warm with purulent drainage and odor. 1+ pulses. wound culture 08/18/2018 Proteus/Klebsiella and Staph aureus -Lower Extremity MRI: ulceration of the sof tissues along the plantar surface of the calcaneous with surrounding cellulitis. No soft tissue abscess. There are destructive changes and bone marrow edema of the inferior aspect of the calcaneous consistent with osteomylitis -Duplex scan of lower extremity venous show no evidence of DVT. -CRP=4 -S/P debridement of left heel ulcer of necrotic skin, SQ and bone with final wound measurements of 7 X 7.5 X 1.5 cm on 08/21 2. CoNS Bacteremia; 1 out of 4 bottles, likely containment. No prostatic or implants, +condom cath. 3. Type 2 DM- Uncontrolled, A1C=11 4. CAMILLE: on admission, now resolved. 5. Cough: initial CXR neg, repeat CXR neg 6. PVD: Art US showed Right superficial femoral artery stent is patent. Diffuse atherosclerotic disease of the right lower extremity without significant stenosis. Diffuse atherosclerotic disease of the left lower extremity with diminished flow in the posterior and anterior tibialis arteries. Plan - noted Staph aureus growing in wound culture, MICs pending ? MRSA - add vancomycin until MRSA is r/o - patient scheduled for revascularization of his left leg today, canceled yesterday - Continue Cefepime and Flagyl for now - upon discharge will do ceftriaxone 2 g IV qday and flagyl 500 mg PO TID total 6 weeks until 10/02/2018. May need to be adjusted due to growth of Staph will follow Diana Mcgarry MD Subjective Date of service: 08/23/18 Principal diagnosis: left diabetic foot infection Interval history: Patient feels ok, no fever. Awaiting for vascular procedure. ROS: unable to obtain. Objective - Exam Narrative Exam: Constitutional: Alert, cooperative. No acute distress Head, Ears, Nose: Normocephalic, atraumatic. External ears, nose normal Eyes: Conjunctivae/corneas clear. No icterus. No ptosis. Neck: Supple, no meningeal signs Oral: dentition poor. no thrush Cardiovascular: RRR Respiratory: Good air entry, clear to auscultation bilaterally GI: Soft, non-tender; bowel sounds normal. No peritoneal signs Musculoskeletal: left plantar, heel ulceration , Skin: Left foot with surg dressings Hem/Lymphatic: No palpable cervical or supraclavicular nodes. No lymphangitis Psych: Mood ok. Affect normal Neurological: Awake, alert, oriented. - Constitutional Vitals: Vital Signs Temp Pulse Resp BP Pulse Ox 98.2 F 86 18 148/81 99 08/23/18 07:27 08/23/18 09:38 08/23/18 08:08 08/23/18 09:38 08/23/18 08:08 Temperature -Last 24 Hours Temperature 98.2 F Temperature 97.7 F Temperature 98.6 F Temperature 97.7 F - Labs CBC & Chem 7: 08/20/18 04:33 08/20/18 04:33 Labs: Abnormal lab results 08/22/18 08/22/18 08/22/18 Range/Units 11:31 16:05 21:32 POC Glucose 143 H 214 H 238 H (70-105) 08/23/18 Range/Units 07:27 POC Glucose 112 H (70-105)
[2018-08-23] MEDS ORDERED: .VANCOMYCIN VIAL 1,000 MG in NACL 0.9% 100 ML IV SCH (10:00)
[2018-08-23] MEDS ORDERED: HEPARIN/NS 5000 UNIT/500ML(CATH LAB) 1,000 ML IR ONE (12:20)
[2018-08-23] MEDS ORDERED: NACL 0.9% 500 ML 500 ML ONE (12:36)
[2018-08-23] MEDS: VERSED ONE ×4 (12:37→14:15)
[2018-08-23] MEDS: SUBLIMAZE ONE ×4 (12:37→14:15)
[2018-08-23] MEDS: XYLOCAINE 2% INFILTRATI ONE ×3 (12:38→14:34)
[2018-08-23] MEDS ORDERED: ANCEF/STERILE WATER 2 GM/20 ML 2 GM/20 ML SYRINGE IV ONE (12:54)
[2018-08-23] MEDS: HEPARIN 10,000 UNITS/10 ML ONE ×2 (13:16→14:16)
[2018-08-23] MEDS ORDERED: HEPARIN/NS 5000 UNIT/500ML(CATH LAB) 500 ML IR ONE (13:29)
[2018-08-23] MEDS ORDERED: NACL 0.9% 500 ML 1,000 ML ONE (14:11)
[2018-08-23] MEDS ORDERED: TRIDIL DRIP 50MG/250ML 50 MG/250 ML BOTTLE ONE (14:11)
[2018-08-23] MEDS ORDERED: CALAN ONE (14:11)
--- NOTE | 2018-08-23 14:22 | Progress Note ---
Assessment and Plan Assessment and plan: 73 YO Male with DM, CVA with Dysarthria and LHP, HTN, CaP presents to ED for evaluation. Pt states that he has experienced leg pain over the past several months. Pt acknowledges burning sensation in his feet and legs. Pt acknowledges left foot pain with ambulation. Pt acknowledges tripping and falling down today. Pt transported to [facility] for further care and evaluation. Pt seen and evaluated in ED and found to have Left foot cellulitis complicated by a diabetic foot ulcer. Pt admitted to medical floor. wound care consulted in ED. Pt denies fever, chills, CP, palpitations, NVD, Trauma, BRBPR, unintentional weight loss, unilateral leg swelling, calf pain, or recent ill contacts. MRI Imaging studies concerning for osteomylitis. ID consulted. Patient is on IV cefepime and flagyl Vascular consulted due to concern for PVD/PAD and high risk of limb loss; patient needs arterial doppler Cellulitis-Left- with osteomylitis. SEPSIS SECONDARY TO ABOVE; improved Continue supportive care IV antibiotics, wound care MRI consistent with osteo Dr. Salas consulted, patient needs left AKA; sister doesn't want amputation per Dr Salas note. Acute kidney injury on chronic kidney disease attributed to vasomotor nephropathy; resolved with IV fluids Recurrent falls; PT OT evaluate and treat Diabetes Mellitus - ADA diet, insulin, accu check HTN (hypertension)-Urgency - Controlled Continue Hydralazine PRN Anemia of chronic disease Stable continue to monitor SCD to BLE while in bed. Will have revascularization today. discussed with vascular Patient wound culture grew staph and sensitivity is pending; I have discussed with Dr Mcgarry and she said patient need to be here until we get the sensitivity of the staph. It will change the management. History Interval history: Patient was seen and evaluated this morning by the bedside, no new complaints. Patient had wound debridement and will have revascularization today. Hospitalist Physical - Physical exam Narrative exam: Not in cardiopulmonary distress. The patient appeared well nourished and normally developed. Vital signs as documented. Head exam is unremarkable. No scleral icterus . Neck is without jugular venous distension, thyromegaly, or carotid bruits. Lungs are clear to auscultation. Cardiac exam reveals regular rate and Rhythm. Abdominal exam reveals normal bowel sounds, no masses, no organomegaly and no aortic enlargement. Extremities left lower extremity wound. HEALTH TECH: Alert and orientedx3. Left sided hemiparesis. - Constitutional Vitals: Temp Pulse Resp BP Pulse Ox 98.2 F 72 18 148/81 99 08/23/18 07:27 08/23/18 10:00 08/23/18 10:00 08/23/18 09:38 08/23/18 10:00 General appearance: Present: no acute distress Results - Labs CBC & Chem 7: 08/20/18 04:33 08/20/18 04:33 Labs: Laboratory Last Values WBC 7.7 K/mm3 (4.5-11.0) 08/20/18 04:33 RBC 3.24 M/mm3 (3.65-5.03) L 08/20/18 04:33 Hgb 9.2 gm/dl (11.8-15.2) L 08/20/18 04:33 Hct 27.6 % (35.5-45.6) L 08/20/18 04:33 MCV 85 fl (84-94) 08/20/18 04:33 MCH 29 pg (28-32) 08/20/18 04:33 MCHC 34 % (32-34) 08/20/18 04:33 RDW 13.4 % (13.2-15.2) 08/20/18 04:33 Plt Count 364 K/mm3 (140-440) 08/20/18 04:33 Lymph % (Auto) 14.1 % (13.4-35.0) 08/15/18 08:13 [place] % (Auto) 9.8 % (0.0-7.3) H 08/15/18 08:13 Eos % (Auto) 0.3 % (0.0-4.3) 08/15/18 08:13 Baso % (Auto) 0.4 % (0.0-1.8) 08/15/18 08:13 Lymph # 1.4 K/mm3 (1.2-5.4) 08/15/18 08:13 [place] # 1.0 K/mm3 (0.0-0.8) H 08/15/18 08:13 Eos # 0.0 K/mm3 (0.0-0.4) 08/15/18 08:13 Baso # 0.0 K/mm3 (0.0-0.1) 08/15/18 08:13 Seg Neutrophils % 75.4 % (40.0-70.0) H 08/15/18 08:13 Seg Neutrophils # 7.6 K/mm3 (1.8-7.7) 08/15/18 08:13 ESR 85 mm/Hr (0-20) 08/19/18 00:34 APTT 31.5 Sec. (24.2-36.6) 08/15/18 08:13 Sodium 135 mmol/L (137-145) L 08/20/18 04:33 Potassium 4.5 mmol/L (3.6-5.0) 08/20/18 04:33 Chloride 102.6 mmol/L (98-107) 08/20/18 04:33 Carbon Dioxide 22 mmol/L (22-30) 08/20/18 04:33 Anion Gap 15 mmol/L 08/20/18 04:33 BUN 22 mg/dL (9-20) H 08/20/18 04:33 Creatinine 1.1 mg/dL (0.8-1.5) 08/20/18 04:33 Estimated GFR > 60 ml/min 08/20/18 04:33 BUN/Creatinine Ratio 20 % 08/20/18 04:33 Glucose 148 mg/dL (75-100) H 08/20/18 04:33 POC Glucose 126 (70-105) H 08/23/18 11:21 Hemoglobin A1c 11.2 % (4-6) H 08/20/18 10:49 Lactic Acid 0.90 mmol/L (0.7-2.0) 08/15/18 08:13 Calcium 8.3 mg/dL (8.4-10.2) L D 08/20/18 04:33 Total Bilirubin 0.40 mg/dL (0.1-1.2) 08/15/18 08:13 AST 56 units/L (5-40) H 08/15/18 08:13 ALT 20 units/L (7-56) 08/15/18 08:13 Alkaline Phosphatase 82 units/L (35-129) 08/15/18 08:13 C-Reactive Protein 4.00 mg/dL (0.00-1.30) H 08/19/18 00:34 Total Protein 8.3 g/dL (6.3-8.2) H 08/15/18 08:13 Albumin 3.2 g/dL (3.9-5) L 08/15/18 08:13 Albumin/Globulin Ratio 0.6 % 08/15/18 08:13 Urine Color Yellow (Yellow) 08/15/18 13:02 Urine Turbidity Clear (Clear) 08/15/18 13:02 Urine pH 5.0 (5.0-7.0) 08/15/18 13:02 Ur Specific [place] 1.016 (1.003-1.030) 08/15/18 13:02 Urine Protein 30 mg/dl mg/dL (Negative) 08/15/18 13:02 Urine Glucose (UA) 150 mg/dL (Negative) 08/15/18 13:02 Urine Ketones Tr mg/dL (Negative) 08/15/18 13:02 Urine Blood Mod (Negative) 08/15/18 13:02 Urine Nitrite Neg (Negative) 08/15/18 13:02 Urine Bilirubin Neg (Negative) 08/15/18 13:02 Urine Urobilinogen 2.0 mg/dL (<2.0) 08/15/18 13:02 Ur Leukocyte Esterase Neg (Negative) 08/15/18 13:02 Urine WBC (Auto) 8.0 /HPF (0.0-6.0) H 08/15/18 13:02 Urine RBC (Auto) 4.0 /HPF (0.0-6.0) 08/15/18 13:02 U Epithel Cells (Auto) 1.0 /HPF (0-13.0) 08/15/18 13:02 Urine Mucus Few /HPF 08/15/18 13:02 Nutrition/Malnutrition Assess - Dietary Evaluation Nutrition/Malnutrition Findings: Nutrition Notes Start: 08/22/18 15:46 Freq: Status: Active Protocol: Document 08/22/18 15:46 RM (Rec: 08/22/18 15:57 RM [email or web address]) Nutrition Notes Need for Assessment generated from: LOS Initial or Follow up Assessment Current Diagnosis Diabetes Hypertension Other Pertinent Diagnosis L foot diabetic wound,Hx CVA w /dysarthria Current Diet NPO after midnight Labs/Tests No recent labs Pertinent Medications Reviewed Height 5 ft 11 in Weight 70.5 kg [place] Body Weight (kg) 78.18 BMI 21.7 Subjective/Other Information Pt screened for LOS. Pt NPO for revascularization. Pt not in room at time of visit. Per tech pt eats all of his meals. Burn Absent Trauma Absent #1 Nutrition Diagnosis Increased nutrient needs ( specify in comment below) Comments: protein Etiology wound healing As Evidenced by Signs and Symptoms L foot diabetic wound Is patient on ventilator? No Is Patient Ambulatory and/or Out of Bed No REE-([facility]-confined to bed) 5827.097 Calculation Used for Recommendations [facility] Additional Notes Protein Needs: 85-92g (1.2-1. 3g/kg) Fluid Needs:1 ml/kcal Nutrition Intervention Change Diet Order: Advance diet when medically able Add Supplement/Snack (indicate name/kcal Start Gregg BID if pt amenable /protein ) to it Goal #1 Meet ate least 75% of calorie and protein needs Goal #2 Wound healing Anticipated Discharge Needs: Unable to determine at this time Follow-Up By: 08/23/18 Additional Comments Follow for PO intakes, offer gregg, need for ONS
[2018-08-23] MEDS ORDERED: PLAVIX ONE (15:09)
[2018-08-23] MEDS ORDERED: ALUM-MAG HYDROX-SIMETH 200-200-20MG/5ML ONE (15:10)
[2018-08-23] MEDS ORDERED: BABY ASPIRIN ONE (15:10)
--- NOTE | 2018-08-23 15:30 | Operative Report ---
Operative Report Operative Report: EXAM: 1. Ultrasound-guided access of the right common femoral artery. 2. Angiography of the right lower extremity. 3. Selection of the abdominal aorta with angiography 4. Selection of the left external iliac artery, superficial femoral artery, and popliteal artery with angiography of the left lower extremity. 5. Fluoroscopic-guided placement of a 5 mm spider embolic protection device the left [id number] popliteal artery 6. Atherectomy of the left mid and distal superficial femoral artery and mid popliteal artery with a Hawkone LS device 7. Angioplasty of the left popliteal artery with a 5 mm x 150 mm iNPACT DCB 8. Angioplasty of the left mid and distal superficial femoral artery with a 6 mm x 150 mm iNPACT DCB 9. Fluoroscopic-guided removal of the spider embolic protection device 10. Selection of the left dorsalis pedis with angiography 11. Atherectomy of the left anterior tibial artery with a 1.25 micro CSI atherectomy device 12. Angioplasty of the left anterior tibial artery with a 2.5 mm x 220 mm Hema angioplasty below 13. Closure of the right common femoral artery with 6 [place] Pro-glide DATE: 08/23/18 CHIEF OF PARTY: QUINTON ARRIAZA MD INDICATION: Critical limb ischemia of the left lower extremity/heel. MEDICATIONS: Please see nursing report for full details. CONTRAST: 80 mls of nonionic contrast PROCEDURE: The risks, benefits, and alternatives were discussed with the patient and his daughter; written informed consent was obtained. The patient's groins were prepped and draped in a sterile fashion. The right common frontal artery was evaluated with ultrasound was patent. Under direct ultrasound guidance, a 21-gauge micro-puncture needle was passed to the common femoral artery. 0.018 inch wire was passed into the aorta. Needle was exchanged for transitional dilator. Wire was exchanged for a 0.035 inch wire. Transitional dilator was exchanged for a 5 [place] sheath. Digital subtraction angiography was performed demonstrating an appropriate puncture, above the bifurcation and below the inferior epigastric artery. The right external iliac artery, common femoral artery, proximal superficial femoral artery, and proximal profunda femoral artery were patent. The abdominal aorta was selected and tissue subtraction angiography was performed of ensuring patency of the abdominal aorta, bilateral external iliac arteries, bilateral common iliac arteries, and bilateral internal iliac arteries. Negotiating the bifurcation was difficult and required various wires and catheters. Phillips catheter was ultimately placed a left external iliac artery, left superficial femoral artery, and left popliteal artery and digital subtraction angiography was performed. The left proximal superficial femoral artery had less than 20% narrowing. The left mid and distal superficial femoral artery had 70% in-stent restenosis and 70% narrowing respectively. The left popliteal artery had 95% narrowing in the mid popliteal artery. The below the knee popliteal arteries all had critical stenoses, and had small areas of intermittent occlusion. The flow into the foot was provided solely by the dorsalis pedis and the flow into the heel was from collaterals from the dorsalis pedis. The patient was heparinized. Sheath was exchanged for a 7 [place] 65 cm [place] destination positioned in the left proximal to mid superficial femoral artery. 5 mm spider embolic protection device was deployed in the left below the knee popliteal artery. Atherectomy was performed of the left mid, distal, and popliteal artery using a Jun Groupkone device and the device had to be cleaned multiple times. Digital subtraction angiography demonstrated less than 30% residual narrowing all the lesions. 5 mm x 150 mm iNPACT DCB was deployed in the distal superficial femoral artery and popliteal artery. 6 mm x 150 mm iNPACT DCB was deployed in the left mid and distal superficial femoral artery. Digital subtraction angiography demonstrated no residual narrowing of the left superficial femoral artery at its mid and distal portion with 20% residual narrowing in the left mid popliteal artery. There was debris within the embolic protection device which was then retrieved with a guide catheter. Digital subtraction angiography was performed demonstrating unchanged runoff. M ultiple wires and catheters were used to catheterize the left anterior tibial artery and a 0.018 inch support catheter was placed in the anterior tibial artery. Digital subtraction angiography was performed confirming position. Viperwire was passed into the dorsalis pedis and atherectomy was performed of the anterior tibial artery with a 1.25 micron CSI atherectomy device. 2.5 mm x 220 mm angioplasty balloon was then used to perform angioplasty of the anterior tibial artery throughout its course. Digital subtraction angiography demonstrated less than 10% residual narrowing of the anterior tibial artery with prompt flow into the dorsalis pedis and the collaterals that supply the heel. All wires, catheters, and she's with an retracted into the right external iliac artery. Sheath was exchanged for 6 [place] Pro-glide which we she is to close the arteriotomy achieving near immediate hemostasis. Sterile dressing applied. Pressure bandage applied. She tolerated the procedure well. No immediate postprocedural complication. The patient reported that his rest pain resolved after the procedure. FINDINGS: Please see procedure note above. IMPRESSION: 1. Successful atherectomy and angioplasty of the left superficial femoral artery and popliteal artery. 2. Successful atherectomy and angioplasty of the left anterior tibial artery. 3. Successful bilateral lower extremity angiogram and angiography of the abdominal aorta. 4. Successful ultrasound-guided access and closure of the right common femoral artery.
--- NOTE | 2018-08-23 15:31 | Event Note ---
Date: 08/23/18 Patient tolerated the procedure well. His rest pain resolved after the procedure. Needs to be on aspirin and Plavix (dual antiplatelet therapy) likely for life. Remove pressure dressing on 08/24/18 in a.m. Follow-up in 2 weeks in the office.
[2018-08-23] MEDS: SODIUM CHLORIDE FLUSH SYRINGE 10 ML IV PRN (15:34)
[2018-08-23] MEDS: VANCOMYCIN 1,500 MG in NACL 0.9% 500 ML 500 ML IV SCH (16:26)
[2018-08-24] MEDS: MAXIPIME/NS 2 GM/100 ML 2 GM/100 ML BAG IV SCH ×2 (02:42→14:32)
[2018-08-24] MEDS: FLAGYL PO SCH ×3 (05:40→21:14)
[2018-08-24] MEDS: PLAVIX PO SCH (11:31)
[2018-08-24] MEDS: HALFPRIN EC PO SCH (11:31)
[2018-08-24] MEDS: NORVASC PO SCH (11:32)
[2018-08-24] MEDS: ZESTRIL PO SCH (11:32)
[2018-08-24] MEDS: SODIUM CHLORIDE FLUSH SYRINGE 10 ML IV SCH ×2 (11:33→21:15)
[2018-08-24] MEDS: DAKIN'S FULL STRENGTH TP SCH ×2 (11:34→21:59)
[2018-08-24] MEDS: HumaLOG SUB-Q SCH ×4 (11:35→23:39)
--- NOTE | 2018-08-24 12:08 | Progress Note ---
Assessment and Plan - Osteomyelitis of the left foot wound culture 08/18/2018 Proteus/Klebsiella and Staph aureus MRI left foot consistent with osteomylitis. ID consulted. Patient is on IV cefepime and flagyl - PVD/PAD and high risk of limb loss; A vascular surgical input appreciated Had successful atherectomy and angioplasty of the left superficial femoral artery and popliteal artery. Successful atherectomy and angioplasty of the left anterior tibial artery. - Diabetic left foot ulcer Dr. Salas consulted, patient needs left AKA; sister doesn't want amputation per Dr Salas note. Status post debridement of left heel ulcer, skin and subcutaneous tissue and nicotine scan Local wound care IV antibiotics per ID - SEPSIS SECONDARY OSTEOMYELITIS AND CELLULITIS OF THE LEFT foot Continue supportive care IV antibiotics, wound care - Acute kidney injury on chronic kidney disease attributed to vasomotor nephropathy; resolved with IV fluids - ADA diet, insulin, accu check A1c 11% Continue with consistent carbohydrate diet Sliding scale insulin - Recurrent falls; PT OT evaluate and treat - HTN (hypertension)-Urgency Controlled Continue Hydralazine PRN - Anemia of chronic disease Stable continue to monitor - SCD to BLE while in bed. Subjective Date of service: 08/24/18 Principal diagnosis: left diabetic foot infection, osteomyelitis left foot, T2DM Interval history: Patient [place] in bed in no distress. Denies any fever. Pain on the left foot well controlled. Objective - Exam Narrative Exam: Constitutional: Well-nourished well-developed. In no distress Head: Normocephalic atraumatic Eyes: Pupils are equal round and reactive to light Nose: No enlarged turbinates, no septal deviation. Mouth: Moist mucous membranes. Neck: Supple no thyromegaly. No bruit. No JVD Heart: Regular rate and rhythm, S1-S2 normal. No rubs murmurs or gallop Lungs: Clear to auscultation bilaterally. no rales or rhonchi Abdomen: Soft, nontender. Bowel sound are present. Extremities: Dry wound dressing left foot . Neuro: Alert oriented Oriented x3. No focal sensory or motor deficit. Skin: Left foot cellulitis Musculoskeletal system: No joint pain or swelling Hematological: No petechia or subcutanous hemorrhages. Immunological: No multiple septic spots on the skin Lymphatic: No generalized lymphadenopathy Psychiatry: Euthymic. Calm. - Constitutional Vitals: Vital Signs - 12hr 0208/24/18 08/24/18 01:59 07:54 11:32 Temperature 98.0 F Pulse Rate 97 H Respiratory 20 Rate Blood Pressure 118/76 144/97 144/97 O2 Sat by Pulse 100 Oximetry - Labs CBC & Chem 7: 08/20/18 04:33 08/20/18 04:33 Labs: Abnormal lab results 08/23/18 08/23/18 08/24/18 Range/Units 16:26 22:37 11:52 POC Glucose 147 H 187 H 206 H (70-105)
--- NOTE | 2018-08-24 16:16 | Progress Note ---
Assessment and Plan - Patient Problems (1) Atherosclerotic PVD with ulceration Current Visit: Yes Status: Chronic Qualifiers: Peripheral atherosclerosis location: lower extremity Peripheral atherosclerosis artery type: [place] artery Laterality: left Lower extremity ulceration location: heel Qualified Code(s): I70.244 - Atherosclerosis of n ative arteries of left leg with ulceration of heel and midfoot Plan to address problem: blood flow improved after atherectomy and angioplasty. to continue plavix as DCB was used. Wound care can continue as outpatient wonce cultures are back and appropriate antibiotics selected. Subjective Date of service: 08/24/18 Principal diagnosis: left diabetic foot infection Interval history: extensive revasc yesterday- SFA and Tibials- rest pain resolved. foot still fels better. pressure bandage removed right groin. Objective - Exam Narrative Exam: foot warm dopper signals present. right groin with out swelling. - Constitutional Vitals: Vital Signs - 12hr 08/24/18 08/24/18 08/24/18 07:54 11:32 14:26 Temperature 98.0 F 98.0 F Pulse Rate 97 H 87 Respiratory 20 20 Rate Blood Pressure 144/97 144/97 119/74 O2 Sat by Pulse 100 100 Oximetry - Labs CBC & Chem 7: 08/20/18 04:33 08/20/18 04:33 Labs: Abnormal lab results 08/23/18 08/23/18 08/24/18 Range/Units 16:26 22:37 11:52 POC Glucose 147 H 187 H 206 H (70-105) Medications & Allergies - Medications Allergies/Adverse Reactions: Allergies No Known Allergies Allergy (Verified 07/10/18 08:17) Home Medications: Home Medications Medication Instructions Recorded Confirmed Last Taken Type Amlodipine Besylate [Norvasc] 5 mg PO DAILY 08/15/18 08/18/18 08/12/18 09:00 History Atorvastatin Calcium [Lipitor] 40 mg PO DAILY 08/15/18 08/18/18 08/12/18 09:00 History Calcium Carbonate [Ban-Acid] 300 mg PO DAILY 08/15/18 08/18/18 08/12/18 09:00 History Lisinopril [Zestril TAB] 2.5 mg PO QDAY 08/15/18 08/18/18 08/12/18 09:00 History metFORMIN [Glucophage] 500 mg PO QDAY 0108/18/18 08/12/18 History Active Medications: Generic Name Dose Route Start Last Admin Trade Name Freq PRN Reason Stop Dose Admin Acetaminophen 650 mg 08/15/18 12:24 Tylenol PO Q4H PRN Pain MILD(1-3)/Fever >100.5/MONTEJO Albuterol 2.5 mg 08/15/18 12:24 Proventil IH Q4HRT PRN Shortness Of Breath Amlodipine Besylate 5 mg 08/18/18 10:00 08/24/18 11:32 Norvasc PO 5 mg DAILY ALLEN Administration Aspirin 81 mg 08/24/18 10:00 08/24/18 11:31 Halfprin Ec PO 81 mg QDAY ALLEN Administration Atorvastatin Calcium 40 mg 08/18/18 10:00 08/24/18 11:31 Lipitor PO 40 mg DAILY ALLEN Administration Clopidogrel Bisulfate 75 mg 08/24/18 10:00 08/24/18 11:31 Plavix PO 75 mg QDAY ALLEN Administration Hydralazine HCl 10 mg 08/18/18 08:37 Apresoline IV Q4HR PRN Hypertension Cefepime HCl 2 gm in 100 mls @ 200 mls/hr 08/18/18 15:00 08/24/18 14:32 Maxipime/Ns 2 Gm/100 Ml IV 10/02/18 15:29 100 mls/hr Q12H ALLEN Administration Protocol Vancomycin HCl 1,500 mg/ 530 mls @ 265 mls/hr 08/23/18 16:00 08/23/18 16:26 Sodium Chloride IV 265 mls/hr Q24H ALLEN Administration Insulin Human Lispro 0 unit 08/15/18 17:00 08/24/18 11:50 Humalog SUB-Q 3 unit ACHS ALLEN Administration Protocol Lisinopril 2.5 mg 08/18/18 10:00 08/24/18 11:32 Zestril PO 2.5 mg QDAY ALLEN Administration Metronidazole 500 mg 08/18/18 22:00 08/24/18 13:18 Flagyl PO 10/02/18 22:01 500 mg Q8HR ALLEN Administration Protocol Ondansetron HCl 4 mg 08/15/18 12:24 Zofran IV Q8H PRN Nausea And Vomiting Oxycodone/Acetaminophen 1 tab 08/15/18 12:24 Percocet 5/325 PO Q6H PRN Pain, Moderate (4-6) Sodium Chloride 10 ml 08/15/18 22:00 08/24/18 11:33 Sodium Chloride Flush Syringe 10 Ml IV 10 ml BID ALLEN Administration Sodium Chloride 10 ml 08/15/18 12:24 08/23/18 15:34 Sodium Chloride Flush Syringe 10 Ml IV 10 ml PRN PRN Administration LINE FLUSH Sodium Hypochlorite 1 applic 08/16/18 22:00 08/24/18 11:34 Dakin's Full Strength TP 1 1000units Q12H ALLEN Administration
[2018-08-24] MEDS: VANCOMYCIN 1,500 MG in NACL 0.9% 500 ML 500 ML IV SCH (18:33)
[2018-08-25] MEDS: MAXIPIME/NS 2 GM/100 ML 2 GM/100 ML BAG IV SCH ×2 (02:33→16:30)
[2018-08-25] MEDS: FLAGYL PO SCH ×3 (05:41→21:06)
--- NOTE | 2018-08-25 09:55 | Progress Note ---
<JAYNA BELLO - Last Filed: 08/25/18 14:57> Objective - Constitutional Vitals: Vital Signs Temp Pulse Resp BP Pulse Ox 98.3 F 88 18 131/79 99 08/25/18 02:02 08/25/18 10:00 08/25/18 08:27 08/25/18 10:18 08/25/18 02:02 Temperature -Last 24 Hours Temperature 98.3 F Temperature 97.6 F - Labs CBC & Chem 7: 08/20/18 04:33 08/20/18 04:33 Labs: Abnormal lab results 08/24/18 08/25/18 08/25/18 Range/Units 16:41 08:32 11:05 POC Glucose 185 H 128 H 192 H (70-105) <SARAH SAMANIEGO - Last Filed: 08/25/18 16:43> Assessment and Plan Cultures 08/15/2018 Blood: CcNS 1 out of 4 bottles 08/15/2018: Urine: less than 10,00 Cfu/ml 08/15/2018 MRSA culture negative 08/18/2018 Wound culture Proteus/Klebsiella and Staph aureus A/P: 73--year-old resident with a histoy of medical history of DM, CVA with dysarthia and LHP, HTN and CAP. admitted with: 1. Left diabetic Foot ulcer: with surrounding cellulitis and left calcaneous osteomyelitis. On exam left plantar surface heel, eschar, warm with purulent drainage and odor. 1+ pulses. wound culture 08/18/2018 Proteus/Klebsiella and Staph aureus -Lower Extremity MRI: ulceration of the sof tissues along the plantar surface of the calcaneous with surrounding cellulitis. No soft tissue abscess. There are destructive changes and bone marrow edema of the inferior aspect of the calcaneous consistent with osteomylitis -Duplex scan of lower extremity venous show no evidence of DVT. -CRP=4 -S/P debridement of left heel ulcer of necrotic skin, SQ and bone with final wound measurements of 7 X 7.5 X 1.5 cm on 08/21 2. CoNS Bacteremia; 1 out of 4 bottles, likely containment. No prostatic or implants, +condom cath. 3. Type 2 DM- Uncontrolled, A1C=11 4. CAMILLE: on admission, now resolved. 5. Cough: initial CXR neg, repeat CXR neg 6. PVD: Art US showed Right superficial femoral artery stent is patent. Diffuse atherosclerotic disease of the right lower extremity without significant sten osis. Diffuse atherosclerotic disease of the left lower extremity with diminished flow in the posterior and anterior tibialis arteries. s/p Revascularzation 08/23/18 Plan: - discontinue vancomycin - Staph Aureus - Continue Cefepime and Flagyl for now - upon discharge will do ceftriaxone 2 g IV qday and flagyl 500 mg PO TID total 6 weeks until 10/02/2018. [facility] M: [phone] O:[phone] - Subjective Date of service: 08/25/18 Principal diagnosis: left diabetic foot infection, osteomyelitis left foot, T2DM Interval history: Patient seen and examined. Denied pain , SOB or rashes. Siting up in the wheel chair, stated that he is feeling better. No family at bedside. Objective - Exam Narrative Exam: Constitutional: Alert, cooperative. No acute distress Head, Ears, Nose: Normocephalic, atraumatic. External ears, nose normal Eyes: Conjunctivae/corneas clear. No icterus. No ptosis. Neck: Supple, no meningeal signs Oral: dentition poor. no thrush Cardiovascular: RRR Respiratory: Good air entry, clear to auscultation bilaterally GI: Soft, non-tender; bowel sounds normal. No peritoneal signs Musculoskeletal: left plantar, heel ulceration , Skin: Left foot with surg dressings Hem/Lymphatic: No palpable cervical or supraclavicular nodes. No lymphangitis Psych: Mood ok. Affect normal Neurological: Awake, alert, oriented. - Constitutional Vitals: Vital Signs Temp Pulse Resp BP Pulse Ox 98.3 F 81 18 123/72 99 08/25/18 02:02 08/25/18 08:27 08/25/18 08:27 08/25/18 02:02 08/25/18 02:02 Temperature -Last 24 Hours Temperature 98.3 F Temperature 97.6 F Temperature 98.0 F - Labs CBC & Chem 7: 08/20/18 04:33 08/20/18 04:33 Labs: Abnormal lab results 08/24/18 08/24/18 Range/Units 11:52 16:41 POC Glucose 206 H 185 H (70-105)
[2018-08-25] MEDS: NORVASC PO SCH (10:17)
[2018-08-25] MEDS: HALFPRIN EC PO SCH (10:17)
[2018-08-25] MEDS: PLAVIX PO SCH (10:17)
[2018-08-25] MEDS: SODIUM CHLORIDE FLUSH SYRINGE 10 ML IV SCH ×2 (10:18→23:59)
[2018-08-25] MEDS: ZESTRIL PO SCH (10:18)
[2018-08-25] MEDS: DAKIN'S FULL STRENGTH TP SCH ×2 (10:21→21:58)
--- NOTE | 2018-08-25 11:33 | Progress Note ---
Assessment and Plan - Osteomyelitis of the left foot wound culture 08/18/2018 Proteus/Klebsiella and Staph aureus MRI left foot consistent with osteomylitis. ID consulted. Patient is on IV cefepime and flagyl - PVD/PAD and high risk of limb loss; A vascular surgical input appreciated Had successful atherectomy and angioplasty of the left superficial femoral artery and popliteal artery. Successful atherectomy and angioplasty of the left anterior tibial artery. - Diabetic left foot ulcer Dr. Salas consulted, patient needs left AKA; sister doesn't want amputation per Dr Salas note. Status post debridement of left heel ulcer, skin and subcutaneous tissue and nicotine scan Local wound care IV antibiotics per ID - SEPSIS SECONDARY OSTEOMYELITIS AND CELLULITIS OF THE LEFT foot - resolving Continue supportive care IV antibiotics, wound care - Acute kidney injury on chronic kidney disease attributed to vasomotor nephropathy; resolved with IV fluids - ADA diet, insulin, accu check A1c 11% Continue with consistent carbohydrate diet Sliding scale insulin - Recurrent falls; PT OT evaluate and treat - HTN (hypertension)-Urgency Controlled Continue Hydralazine PRN - Anemia of chronic disease Stable continue to monitor - SCD to BLE while in bed. DIsposition: on mitali iv antibiotic for 6 weeks if pt and family not agreeable to recommendation of Dr. Salas Subjective Date of service: 08/25/18 Principal diagnosis: left diabetic foot infection, osteomyelitis left foot, T2DM Interval history: Patient Lying quietly in bed in no distress. Denies any fever. Pain on the left foot well controlled. Objective - Exam Narrative Exam: Constitutional: Well-nourished well-developed. In no distress Head: Normocephalic atraumatic Eyes: Pupils are equal round and reactive to light Nose: No enlarged turbinates, no septal deviation. Mouth: Moist mucous membranes. Neck: Supple no thyromegaly. No bruit. No JVD Heart: Regular rate and rhythm, S1-S2 normal. No rubs murmurs or gallop Lungs: Clear to auscultation bilaterally. no rales or rhonchi Abdomen: Soft, nontender. Bowel sound are present. Extremities: Dry wound dressing left foot . Neuro: Alert oriented Oriented x3. No focal sensory or motor deficit. Skin: Left foot cellulitis Musculoskeletal system: No joint pain or swelling Hematological: No petechia or subcutanous hemorrhages. Immunological: No multiple septic spots on the skin Lymphatic: No generalized lymphadenopathy Psychiatry: Euthymic. Calm. - Constitutional Vitals: Vital Signs - 12hr 08/25/18 08/25/18 08/25/18 02:02 08:27 10:17 Temperature 98.3 F Pulse Rate 75 Pulse Rate [ 81 From Monitor] Respiratory 20 18 Rate Blood Pressure 123/72 131/79 O2 Sat by Pulse 99 Oximetry 08/25/18 10:18 Temperature Pulse Rate Pulse Rate [ From Monitor] Respiratory Rate Blood Pressure 131/79 O2 Sat by Pulse Oximetry - Labs CBC & Chem 7: 08/20/18 04:33 08/20/18 04:33 Labs: Abnormal lab results 08/24/18 08/24/18 Range/Units 11:52 16:41 POC Glucose 206 H 185 H (70-105)
[2018-08-25] MEDS: HumaLOG SUB-Q SCH ×4 (12:20→23:14)
--- NOTE | 2018-08-25 17:15 | Event Note ---
Date: 08/25/18 Physician Attestation: Seen and examined with GLO[employer] RES[employer] DIRECTOR Jay. Agree with her documentation. Wound cx + MSSA. OK to continue ceftriaxone and flagyl as outpatient. Diana Mcgarry MD
[2018-08-26] MEDS: MAXIPIME/NS 2 GM/100 ML 2 GM/100 ML BAG IV SCH (04:23)
[2018-08-26] MEDS: FLAGYL PO SCH (05:10)
--- NOTE | 2018-08-26 08:13 | Progress Note ---
Assessment and Plan Cultures 08/15/2018 Blood: CcNS 1 out of 4 bottles 08/15/2018: Urine: less than 10,00 Cfu/ml 08/15/2018 MRSA culture negative 08/18/2018 Wound culture Proteus/Klebsiella and Staph aureus A/P: 73--year-old resident with a histoy of medical history of DM, CVA with dysarthia and LHP, HTN and CAP. admitted with: 1. Left diabetic Foot ulcer: with surrounding cellulitis and left calcaneous osteomyelitis. On exam left plantar surface heel, eschar, warm with purulent drainage and odor. 1+ pulses. wound culture 08/18/2018 Proteus/Klebsiella and Staph aureus -Lower Extremity MRI: ulceration of the sof tissues along the plantar surface of the calcaneous with surrounding cellulitis. No soft tissue abscess. There are destructive changes and bone marrow edema of the inferior aspect of the calcaneous consistent with osteomylitis -Duplex scan of lower extremity venous show no evidence of DVT. -CRP=4 -S/P debridement of left heel ulcer of necrotic skin, SQ and bone with final wound measurements of 7 X 7.5 X 1.5 cm on 08/21 2. CoNS Bacteremia; 1 out of 4 bottles, likely containment. No prostatic or implants, +condom cath. 3. Type 2 DM- Uncontrolled, A1C=11 4. CAMILLE: on admission, now resolved. 5. Cough: initial CXR neg, repeat CXR neg 6. PVD: Art US showed Right superficial femoral artery stent is patent. Diffuse atherosclerotic disease of the right lower extremity without significant stenosis. Diffuse atherosclerotic disease of the left lower extremity with diminished flow in the posterior and anterior tibialis arteries. s/p Revascularzation 08/24/18 - Atherosclerosis of [place] arteries of left leg with ulceration of heel and midfoot, Blood flow improved after atherectomy and angioplasty. Plan: - Continue Cefepime and Flagyl - upon discharge will do ceftriaxone 2 g IV qday and flagyl 500 mg PO TID total 6 weeks until 10/02/2018. -f/u in office 10/03/18 [facility] M: [phone] O:[phone] - Subjective Date of service: 08/26/18 Principal diagnosis: left diabetic foot infection, osteomyelitis left foot, T2DM Interval history: Patient seen and examined. Denied pain , SOB or rashes. Siting up in the wheel chair, stated that he is feeling better. Family at bedside. Objective - Exam Narrative Exam: Constitutional: Alert, cooperative. No acute distress Head, Ears, Nose: Normocephalic, atraumatic. External ears, nose normal Eyes: Conjunctivae/corneas clear. No icterus. No ptosis. Neck: Supple, no meningeal signs Oral: dentition poor. no thrush Cardiovascular: RRR Respiratory: Good air entry, clear to auscultation bilaterally GI: Soft, non-tender; bowel sounds normal. No peritoneal signs Musculoskeletal: left plantar, heel ulceration , Skin: Left foot with surg dressings, + odor Hem/Lymphatic: No palpable cervical or supraclavicular nodes. No lymphangitis Psych: Mood ok. Affect normal Neurological: Awake, alert, oriented. - Constitutional Vitals: Vital Signs Temp Pulse Resp BP Pulse Ox 97.8 F 71 20 112/73 99 08/25/18 19:43 08/26/18 02:38 08/25/18 19:43 08/25/18 19:43 08/26/18 02:38 Temperature -Last 24 Hours Temperature 97.8 F - Labs CBC & Chem 7: 08/20/18 04:33 08/20/18 04:33 Labs: Abnormal lab results 08/25/18 08/25/18 08/25/18 Range/Units 08:32 11:05 16:15 POC Glucose 128 H 192 H 193 H (70-105) 08/25/18 08/25/18 Range/Units 16:32 21:39 POC Glucose 180 H 242 H (70-105)
[2018-08-26] MEDS: HumaLOG SUB-Q SCH (08:28)
[2018-08-26] MEDS: ZESTRIL PO SCH (09:38)
[2018-08-26] MEDS: PLAVIX PO SCH (09:39)
[2018-08-26] MEDS: HALFPRIN EC PO SCH (09:39)
[2018-08-26] MEDS: DAKIN'S FULL STRENGTH TP SCH (09:40)
[2018-08-26] MEDS: NORVASC PO SCH (09:44)
--- NOTE | 2018-08-26 11:28 | Discharge Summary ---
Providers - Providers Date of Admission: 08/15/18 12:24 Attending physician: ROSY ALFONSO MD 08/15/18 12:25 Consult to Wound/ET Nurse [CONS] Routine Reason For Exam: wound eval 08/15/18 16:10 Physical Therapy Evaluation and Treat [CONS] Routine Comment: Reason For Exam: Fall 08/17/18 10:41 Consult to Physician [CONS] Routine Comment: THE[place]ORE Consulting Provider: ZOYA MUNIZ Physician Instructions: CONSULT WAS CALLED TO /ANDRES Reason For Exam: lower ext osteomylitis 08/19/18 08:32 Consult to Physician [CONS] Routine Comment: Consulting Provider: QUINTON ARRIAZA Physician Instructions: Reason For Exam: NON HEALING LEFT ANKLE WOUND ?PAD/PVD 08/19/18 11:49 Consult to PICC Line RN [CONS] 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 Send results to [phone] Diana Mcgarry MD 08/20/18 10:38 Consult to PICC Line RN [CONS] Stat Reason For Exam: IV antibiotics-ceftriaxone x 6 weeks Type Line:: PICC Primary care physician: QUINTON ARIZMENDI Hospitalization Condition: Stable Pertinent studies: Left foot MRI IMPRESSION: Ulceration of the soft tissues along the plantar surface of the calcaneus with surrounding cellulitis. There is no soft tissue abscess. There are destructive changes and bone marrow edema of the inferior aspect of the calcaneus consistent with osteomyelitis. There are no acute fractures or malalignments. There is no acute ligamentous or tendinous injury. Hospital course: 73 YO Male with DM, CVA with Dysarthria and LHP, HTN, CaP presents to ED for evaluation. Pt states that he has experienced leg pain over the past several months. Pt acknowledges burning sensation in his feet and legs. Pt acknowledges left foot pain with ambulation. Pt acknowledges tripping and falling down today. Pt transported to [facility] for further care and evaluation. Pt seen and evaluated in ED and found to have Left foot cellulitis complicated by a diabetic foot ulcer. Pt admitted to medical floor. wound care consulted in ED. Pt denies fever, chills, CP, palpitations, NVD, Trauma, BRBPR, unintentional weight loss, unilateral leg swelling, calf pain, or recent ill contacts. MRI Imaging studies show osteomylitis. ID consulted. Patient was treated with IV cefepime and flagylas inpatient and discharged to continue with the IV antibiotics for the next 6 weeks. ID arrange O/P antibiotics and followup in coordination with case management. Vascular consulted due to concern for PVD/PAD and high risk of limb loss; vascular did atherectomy and angioplasty and his blood flow improved. Dr. Salas consulted, patient needs left AKA; sister doesn't want amputation per Dr Salas note. Acute kidney injury on chronic kidney disease attributed to vasomotor nephropathy; resolved with IV fluids Recurrent falls; PT OT and rehab. Patient was discharged to SNF. Disposition: DC/[place]-03 SNF [facility] Time spent for discharge: 32 minutes - Discharge Diagnoses (1) Osteomyelitis of left foot Status: Acute (2) History of CVA with residual deficit Status: Acute (3) Diabetes Status: Acute (4) Foot ulcer Status: Acute (5) HTN (hypertension) Status: Acute Qualifiers: Hypertension type: essential hypertension Qualified Code(s): I10 - Essential (primary) hypertension Core Measure Documentation - Palliative Care Palliative Care/ Comfort Measures: Not Applicable - Core Measures Any of the following diagnoses?: none Exam - Physical Exam Narrative exam: Not in cardiopulmonary distress. The patient appeared well nourished and normally developed. Vital signs as documented. Head exam is unremarkable. No scleral icterus . Neck is without jugular venous distension, thyromegaly, or carotid bruits. Lungs are clear to auscultation. Cardiac exam reveals regular rate and Rhythm. Abdominal exam reveals normal bowel sounds, no masses, no organomegaly and no aortic enlargement. Extremities left lower extremity wound. 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 Left sided hemiparesis. - Constitutional Vitals: Temp Pulse Resp BP Pulse Ox 98.6 F 75 18 134/79 99 08/26/18 08:06 08/26/18 09:44 08/26/18 08:06 08/26/18 09:44 08/26/18 08:06 Plan Activity: advance as tolerated Weight Bearing Status: Weight Bear as Tolerated Diet: low salt, diabetic Follow up with: QUINTON ARIZMENDI MD [Primary Care Provider] - 10 Days
[2018-08-26 17:39] VITALS: BP 102/66
--- NOTE | 2018-09-29 05:49 | Vascular Lab Report ---
PROCEDURE: VL MILY EVALUATION TECHNIQUE: Blood pressure measurement at the arm and ankles were performed. HISTORY: left heel ulcer with osteomyelitis COMPARISONS: FINDINGS: Ankle blood pressures could not be obtained. Ankle-brachial indices could not be obtained. Right brac hial pressure is 142. Left brachial pressure is 139. IMPRESSION: Noncompressible vessels at the ankles. ABIs could not be calculated.. This document is electronically signed by Marlon Diaz MD., September 29 2018 05:46:51 AM ET
== END 2018-08-26 13:25 | DRG 853 ==
LOC: ED 06:10 → 2B-ACE 12:24
PROVIDERS: ADMIT Internal Medicine; ATTEND Internal Medicine
PROC: 04CL3ZZ Extirpation of Matter from Left Femoral Artery, Percutaneous Approach (ICD-10-PCS; principal; 2018-08-23)
PROC: 04CN3ZZ Extirpation of Matter from Left Popliteal Artery, Percutaneous Approach (ICD-10-PCS; 2018-08-23)
PROC: 02HV33Z Insertion of Infusion Device into Superior Vena Cava, Percutaneous Approach (ICD-10-PCS; 2018-08-23)
PROC: 04CQ3ZZ Extirpation of Matter from Left Anterior Tibial Artery, Percutaneous Approach (ICD-10-PCS; 2018-08-23)
PROC: 047L3Z1 Dilation of Left Femoral Artery using Drug-Coated Balloon, Percutaneous Approach (ICD-10-PCS; 2018-08-23)
PROC: 047N3Z1 Dilation of Left Popliteal Artery using Drug-Coated Balloon, Percutaneous Approach (ICD-10-PCS; 2018-08-23)
PROC: 047Q3Z1 Dilation of Left Anterior Tibial Artery using Drug-Coated Balloon, Percutaneous Approach (ICD-10-PCS; 2018-08-23)
PROC: B4101ZZ Fluoroscopy of Abdominal Aorta using Low Osmolar Contrast (ICD-10-PCS; 2018-08-23)
PROC: B41F1ZZ Fluoroscopy of Right Lower Extremity Arteries using Low Osmolar Contrast (ICD-10-PCS; 2018-08-23)
PROC: B41G1ZZ Fluoroscopy of Left Lower Extremity Arteries using Low Osmolar Contrast (ICD-10-PCS; 2018-08-23)
DX: A41.9 Sepsis, unspecified organism (principal); L89.624 Pressure ulcer of left heel, stage 4; N17.0 Acute kidney failure with tubular necrosis; L03.116 Cellulitis of left lower limb; M86.8X7 Other osteomyelitis, ankle and foot; E11.621 Type 2 diabetes mellitus with foot ulcer; E11.65 Type 2 diabetes mellitus with hyperglycemia; I16.0 Hypertensive urgency; E87.5 Hyperkalemia; D63.8 Anemia in other chronic diseases classified elsewhere; I12.9 Hypertensive chronic kidney disease with stage 1 through stage 4 chronic kidney disease, or unspecified chronic kidney disease; N18.9 Chronic kidney disease, unspecified; E11.22 Type 2 diabetes mellitus with diabetic chronic kidney disease; B96.4 Proteus (mirabilis) (morganii) as the cause of diseases classified elsewhere; B95.62 Methicillin resistant Staphylococcus aureus infection as the cause of diseases classified elsewhere; B96.1 Klebsiella pneumoniae [K. pneumoniae] as the cause of diseases classified elsewhere; E11.51 Type 2 diabetes mellitus with diabetic peripheral angiopathy without gangrene; I70.201 Unspecified atherosclerosis of native arteries of extremities, right leg; Z82.49 Family history of ischemic heart disease and other diseases of the circulatory system; Z83.3 Family history of diabetes mellitus; Z79.899 Other long term (current) drug therapy; Z85.46 Personal history of malignant neoplasm of prostate; I69.398 Other sequelae of cerebral infarction; Z98.49 Cataract extraction status, unspecified eye
CPT/HCPCS: 36415; 37225; 37229; 71045; 71046; 75625; 75716; 76937; 80048; 80053; 81001; 82140; 82962; 83036; 84132; 85025; 85027; 85652; 85730; 86140; 87040; 87076; 87086; 87116; 87186; 93922; 93925; G0378; A9270-GY; A9577; C1714; C1724; C1725; C1760; C1769; C1887; C2623; J0690; J0692; J1644; J1815; J2250; J3010; J3370; J7030; J7040; J7050; Q9967

== ENCOUNTER 2019-11-22 12:58 | Inpatient (IN) | payer MEDICARE ==
--- NOTE | 2019-11-22 13:45 | Emergency Department Report ---
<BERONICA RAMÍREZ - Last Filed: 11/22/19 16:23> - General Chief complaint: Weakness Stated complaint: WEAKNESS Time Seen by Provider: 11/22/19 13:21 - Related Data Home Medications Medication Instructions Recorded Confirmed Last Taken Amlodipine Besylate [Norvasc] 5 mg PO DAILY 08/15/18 08/18/18 08/12/18 09:00 Atorvastatin Calcium [Lipitor] 40 mg PO DAILY 08/15/18 08/18/18 08/12/18 09:00 Calcium Carbonate [Ban-Acid 300MG 300 mg PO DAILY 08/15/18 08/18/18 08/12/18 09:00 CHEW] Lisinopril [Zestril TAB] 2.5 mg PO QDAY 08/15/18 08/18/18 08/12/18 09:00 metFORMIN [Glucophage] 500 mg PO QDAY 08/15/18 08/18/18 08/12/18 Previous Rx's Medication Instructions Recorded Last Taken Type Acetaminophen [Acetaminophen TAB] 650 mg PO Q4H PRN tablet 08/26/18 Unknown Rx Aspirin EC [Halfprin EC] 81 mg PO QDAY tablet 08/26/18 Unknown Rx Clopidogrel [Plavix] 75 mg PO QDAY tablet 08/26/18 Unknown Rx Allergies Allergy/AdvReac Type Severity Reaction Status Date / Time No Known Allergies Allergy Verified 11/22/19 13:13 ED Past Medical Hx - Medications Home Medications: Home Medications Medication Instructions Recorded Confirmed Last Taken Type Amlodipine Besylate [Norvasc] 5 mg PO DAILY 08/15/18 08/18/18 08/12/18 09:00 History Atorvastatin Calcium [Lipitor] 40 mg PO DAILY 08/15/18 08/18/18 08/12/18 09:00 History Calcium Carbonate [Ban-Acid 300MG 300 mg PO DAILY 08/15/18 08/18/18 08/12/18 09:00 History CHEW] Lisinopril [Zestril TAB] 2.5 mg PO QDAY 08/15/18 08/18/18 08/12/18 09:00 History metFORMIN [Glucophage] 500 mg PO QDAY 08/15/18 08/18/18 08/12/18 History Acetaminophen [Acetaminophen TAB] 650 mg PO Q4H PRN tablet 08/26/18 Unknown Rx Aspirin EC [Halfprin EC] 81 mg PO QDAY tablet 08/26/18 Unknown Rx Clopidogrel [Plavix] 75 mg PO QDAY tablet 08/26/18 Unknown Rx ED Course - Reevaluation(s) Reevaluation #1: 11/22/19 16:24 CT scan of the abdomen pelvis is reviewed and appreciated. Blood cultures, antibiotics, lactic acid ordered. Case presented to hospital physician, Dr. Ch, who accepts the patient to the medical service. ED Medical Decision Making - Lab Data Result diagrams: 11/22/19 13:55 11/22/19 13:55 Vital Signs 11/22/19 11/22/19 11/22/19 13:13 13:30 13:42 Temperature 97.7 F 97.4 F L Pulse Rate 90 88 87 Pulse Rate [ Bases] Respiratory 18 9 L 10 L Rate Respiratory Rate [Bases] Blood Pressure 129/86 138/88 Blood Pressure 138/88 [Left] O2 Sat by Pulse 100 99 100 Oximetry 11/22/19 15:47 Temperature Pulse Rate Pulse Rate [ 82 Bases] Respiratory Rate Respiratory 15 Rate [Bases] Blood Pressure Blood Pressure [Left] O2 Sat by Pulse Oximetry Lab Results 11/22/19 11/22/19 11/22/19 Range/Units 13:55 13:55 13:55 WBC 6.4 (4.5-11.0) K/mm3 RBC 3.54 L (3.65-5.03) M/mm3 Hgb 9.8 L (11.8-15.2) gm/dl Hct 30.7 L (35.5-45.6) % MCV 87 (84-94) fl MCH 28 (28-32) pg MCHC 32 (32-34) % RDW 21.0 H (13.2-15.2) % Plt Count 223 (140-440) K/mm3 Lymph % (Auto) 21.0 (13.4-35.0) % Armstrong % (Auto) 11.0 H (0.0-7.3) % Eos % (Auto) 0.6 (0.0-4.3) % Baso % (Auto) 0.5 (0.0-1.8) % Lymph # 1.3 (1.2-5.4) K/mm3 Armstrong # 0.7 (0.0-0.8) K/mm3 Eos # 0.0 (0.0-0.4) K/mm3 Baso # 0.0 (0.0-0.1) K/mm3 Seg Neutrophils % 66.9 (40.0-70.0) % Seg Neutrophils # 4.3 (1.8-7.7) K/mm3 Sodium 143 (137-145) mmol/L Potassium 5.7 H (3.6-5.0) mmol/L Chloride 104.3 (98-107) mmol/L Carbon Dioxide 24 (22-30) mmol/L Anion Gap 20 mmol/L BUN 98 H (9-20) mg/dL Creatinine 6.5 H (0.8-1.5) mg/dL Estimated GFR 10 ml/min BUN/Creatinine Ratio 15 % Glucose 215 H (75-100) mg/dL POC Glucose (70-105) Calcium 9.7 (8.4-10.2) mg/dL Total Bilirubin 0.30 (0.1-1.2) mg/dL AST 12 (5-40) units/L ALT 6 L (7-56) units/L Alkaline Phosphatase 88 (35-129) units/L Troponin T 0.079 H (0.00-0.029) ng/mL Total Protein 7.6 (6.3-8.2) g/dL Albumin 3.2 L (3.9-5) g/dL Albumin/Globulin Ratio 0.7 % Triglycerides 62 (2-149) mg/dL Cholesterol 129 (50-199) mg/dL LDL Cholesterol Direct 58 (50-130) mg/dL HDL Cholesterol 60 H (40-59) mg/dL Cholesterol/HDL Ratio 2.15 % Lipase (13-60) units/L TSH 0.678 (0.270-4.200) mlU/mL Free T4 1.28 (0.76-1.46) ng/dL Urine Color (Yellow) Urine Turbidity (Clear) Urine pH (5.0-7.0) Ur Specific [place] (1.003-1.030) Urine Protein (Negative) mg/dL Urine Glucose (UA) (Negative) mg/dL Urine Ketones (Negative) mg/dL Urine Blood (Negative) Urine Nitrite (Negative) Urine Bilirubin (Negative) Urine Urobilinogen (<2.0) mg/dL Ur Leukocyte Esterase (Negative) Urine WBC (Auto) (0.0-6.0) /HPF Urine RBC (Auto) (0.0-6.0) /HPF U Epithel Cells (Auto) (0-13.0) /HPF Urine Bacteria (Auto) (Negative) /HPF Urine Mucus /HPF 11/22/19 11/22/19 11/22/19 Range/Units 13:55 14:14 15:35 WBC (4.5-11.0) K/mm3 RBC (3.65-5.03) M/mm3 Hgb (11.8-15.2) gm/dl Hct (35.5-45.6) % MCV (84-94) fl MCH (28-32) pg MCHC (32-34) % RDW (13.2-15.2) % Plt Count (140-440) K/mm3 Lymph % (Auto) (13.4-35.0) % Armstrong % (Auto) (0.0-7.3) % Eos % (Auto) (0.0-4.3) % Baso % (Auto) (0.0-1.8) % Lymph # (1.2-5.4) K/mm3 Armstrong # (0.0-0.8) K/mm3 Eos # (0.0-0.4) K/mm3 Baso # (0.0-0.1) K/mm3 Seg Neutrophils % (40.0-70.0) % Seg Neutrophils # (1.8-7.7) K/mm3 Sodium (137-145) mmol/L Potassium (3.6-5.0) mmol/L Chloride (98-107) mmol/L Carbon Dioxide (22-30) mmol/L Anion Gap mmol/L BUN (9-20) mg/dL Creatinine (0.8-1.5) mg/dL Estimated GFR ml/min BUN/Creatinine Ratio % Glucose (75-100) mg/dL POC Glucose 230 H (70-105) Calcium (8.4-10.2) mg/dL Total Bilirubin (0.1-1.2) mg/dL AST (5-40) units/L ALT (7-56) units/L Alkaline Phosphatase (35-129) units/L Troponin T (0.00-0.029) ng/mL Total Protein (6.3-8.2) g/dL Albumin (3.9-5) g/dL Albumin/Globulin Ratio % Triglycerides (2-149) mg/dL Cholesterol (50-199) mg/dL LDL Cholesterol Direct (50-130) mg/dL HDL Cholesterol (40-59) mg/dL Cholesterol/HDL Ratio % Lipase 53 (13-60) units/L TSH (0.270-4.200) mlU/mL Free T4 (0.76-1.46) ng/dL Urine Color Yellow (Yellow) Urine Turbidity Clear (Clear) Urine pH 6.0 (5.0-7.0) Ur Specific [place] 1.014 (1.003-1.030) Urine Protein <15 mg/dl (Negative) mg/dL Urine Glucose (UA) 50 (Negative) mg/dL Urine Ketones Neg (Negative) mg/dL Urine Blood Neg (Negative) Urine Nitrite Neg (Negative) Urine Bilirubin Neg (Negative) Urine Urobilinogen < 2.0 (<2.0) mg/dL Ur Leukocyte Esterase Neg (Negative) Urine WBC (Auto) 4.0 (0.0-6.0) /HPF Urine RBC (Auto) 2.0 (0.0-6.0) /HPF U Epithel Cells (Auto) < 1.0 (0-13.0) /HPF Urine Bacteria (Auto) 1+ (Negative) /HPF Urine Mucus Few /HPF - Radiology Data Radiology results: report reviewed, image reviewed Print Report Referring Physician: BROOKE SALAS Patient Name: COOPER BENNETT Date of : 1945 Sex: Male Report Date: 2019-11-22 Report Status: [place] [address] Cat Scan Report Signed Patient: COOPER BENNETT MR#: [id number] : 1945 Acct:[id number] Age/Sex: 74 / M ADM Date: 11/22/19 Loc: ED Attending Dr: Ordering Physician: BROOKE SALAS MD Date of Service: 11/22/19 Procedure(s): CT abdomen pelvis wo con Accession Number(s): [id number] cc: BROOKE SALAS MD CT abdomen pelvis wo con INDICATION / CLINICAL INFORMATION: MAIN: n,v acute renal failure, hx of prostate cancer WO CONTRAST. TECHNIQUE: Routine CT of the abdomen and pelvis without IV contrast. All CT scans at this location are performed using CT dose reduction for ALARA by means of automated exposure control. COMPARISON: None available. FINDINGS: Abdomen and pelvis: Review of the lower chest demonstrate some faint bronchopneumonia within the medial aspect of the right lower lobe. The liver, spleen adrenal glands appear unremarkable within the limits of the noncontrast technique. Gallstones noted within the gallbladder lumen. Large stool burden identified throughout the colon. There is a low- density fairly well-circumscribed 1.4 cm lesion within the body of the pancreas. There is a nonobstructive stone within the right mid kidney. The left kidney is unremarkable. No free air free fluid. Large stool burden identified throughout the colon. Urinary bladder is partially collapsed by Obando catheter. No significant free pelvic fluid Moderate thoracolumbar degenerative changes present throughout the thoracolumbar spine noted. IMPRESSION: 1. Mild bronchopneumonia within the right lower lobe. 2. Large stool burden identified throughout the colon concerning for at least moderate constipation. 3. Cholelithiasis and nonobstructive nephrolithiasis, as above. 4. No hydronephrosis appreciated. Signer Name: Peter Hartley MD Signed: 11/22/2019 4:02 PM Workstation Name: [id number] Transcribed By: BC Dictated By: Peter Hartley MD Electronically Authenticated By: Peter Hartley MD Signed Date/Time: 11/22/19 1602 DD/ 1545 TD/TT: ED Disposition Clinical Impression: Acute renal failure, Diabetes, History of CVA with residual deficit, Pressure ulcer of left ankle, stage 3, Hyperkalemia, Dehydration Pneumonia Qualifiers: Laterality: right Lung location: lower lobe of lung Disposition: DC-09 OP ADMIT IP TO THIS HOSP Is pt being admited?: Yes Condition: Serious <BROOKE SALAS - Last Filed: 11/23/19 07:18> - General Source: patient Mode of arrival: Stretcher Limitations: No Limitations - History of Present Illness Initial comments: 74-year-old male with a past medical history of previous CVA with residual left- sided weakness, diabetes, prostate cancer, and hypertension presents to hospital complains of generalized weakness and decreased p.o. intake for the past 4 days. Patient states that he has vomiting when he tries to eat food. He has been drinking fluids. Denies abdominal pain, chest pain, or shortness of breath, fever, or dysuria. Patient is a chronic left heel ulcer. ED Review of Systems ROS: Stated complaint: WEAKNESS Other details as noted in HPI ED Past Medical Hx - Past Medical History Hx Hypertension: Yes Hx CVA: Yes (2017 left side deficits) Hx Diabetes: Yes Hx Deep Vein Thrombosis: No Hx HIV: No Additional medical history: prostate CA - Surgical History Hx Pacemaker: No Hx Internal Defibrillator: No Additional Surgical History: catarack - Social History Smoking Status: Never Smoker Substance Use Type: None ED Physical Exam - General Limitations: No Limitations - Other Other exam information: General: No acute distress Head: Atraumatic Eyes: normal appearance ENT: Moist mucous membranes Neck: Normal appearance, no midline tenderness Chest: Clear to auscultation bilaterally CV: Regular rate and rhythm Abdomen: Soft, normal bowel sounds,midline vertical suprapubic surgical scar, nontender, nondistended, no rebound or guarding Back: Normal inspection Extremity: Normal inspection, full range of motion Neuro: Alert O x 2 (not to year, states year is 2001), slurred speech, left sided 4/5 upper and lower extremity strength, right sided 5/5 upper and lower extremity strength Psych: Appropriate behavior Skin: left heel ulcer 7x6 cm stage 3. no signs of drainage, odor, or infection ED Course Vital Signs 11/22/19 11/22/19 11/22/19 13:13 13:30 13:42 Temperature 97.7 F 97.4 F L Pulse Rate 90 88 87 Pulse Rate [ Bases] Respiratory 18 9 L 10 L Rate Respiratory Rate [Bases] Blood Pressure 129/86 138/88 Blood Pressure 138/88 [Left] O2 Sat by Pulse 100 99 100 Oximetry 11/22/19 11/22/19 11/22/19 13:46 14:00 14:16 Temperature Pulse Rate 85 83 84 Pulse Rate [ Bases] Respiratory 10 L 10 L 11 L Rate Respiratory Rate [Bases] Blood Pressure 138/88 150/93 150/93 Blood Pressure [Left] O2 Sat by Pulse 100 100 100 Oximetry 11/22/19 11/22/19 11/22/19 14:30 14:46 15:00 Temperature Pulse Rate 82 82 83 Pulse Rate [ Bases] Respiratory 10 L 11 L 10 L Rate Respiratory Rate [Bases] Blood Pressure 150/93 150/93 136/91 Blood Pressure [Left] O2 Sat by Pulse 100 100 100 Oximetry 11/22/19 11/22/19 11/22/19 15:22 15:30 15:46 Temperature Pulse Rate 84 90 86 Pulse Rate [ Bases] Respiratory 11 L 12 11 L Rate Respiratory Rate [Bases] Blood Pressure 127/82 127/82 127/82 Blood Pressure [Left] O2 Sat by Pulse 100 100 100 Oximetry 11/22/19 11/22/19 11/22/19 15:47 16:00 16:16 Temperature Pulse Rate 88 95 H Pulse Rate [ 82 Bases] Respiratory 10 L 10 L Rate Respiratory 15 Rate [Bases] Blood Pressure 135/82 135/82 Blood Pressure [Left] O2 Sat by Pulse 100 100 Oximetry 11/22/19 11/22/19 11/22/19 16:30 16:46 17:00 Temperature Pulse Rate 102 H 106 H 107 H Pulse Rate [ Bases] Respiratory 12 11 L 12 Rate Respiratory Rate [Bases] Blood Pressure 135/82 135/82 105/67 Blood Pressure [Left] O2 Sat by Pulse 100 100 100 Oximetry 11/22/19 11/22/19 11/22/19 17:16 17:30 17:40 Temperature Pulse Rate 108 H 105 H 104 H Pulse Rate [ Bases] Respiratory 18 10 L 11 L Rate Respiratory Rate [Bases] Blood Pressure 105/67 105/67 105/67 Blood Pressure [Left] O2 Sat by Pulse 100 100 100 Oximetry - Consultations Consultation #1: 11/22/19 15:38 Case discussed with on-call mortgage loan officer originator Dr. Vargas. Recommend continued IV hydration and will evaluate patient during admission ED Medical Decision Making - Lab Data Result diagrams: 11/22/19 13:55 11/22/19 13:55 - EKG Data -: EKG Interpreted by Vt EKG shows normal: sinus rhythm, ST-T waves (no stemi) Rate: normal - Medical Decision Making Patient presents with renal insufficiency which is worse compared to previous value on record from July 2018. Significant uremia as well. Symptoms could be due to dehydration. Obando catheter placed with over 300 mL of urine initial output. UA sent to rule out infection. Case discussed with on-call mortgage loan officer originator who will evaluate patient and recommends continued IV hydration. Patient received meds for hyperkalemia including insulin, glucose, calcium gluconate, and albuterol. Bicarb was not provided given lack of acidosis. Lasix not provided given dehydration, and Kayexalate not provided given GI symptoms. In the ED patient received 1 dose of p.o. aspirin for mild elevation in troponin which is likely secondary to renal insufficiency. Nurse reports that patient had difficulty swallowing aspirin and has some gagging and therefore may need some additional swallowing evaluation in house. Patient was placed on n.p.o. orders for now. - Differential Diagnosis Infection, dehydration, gastritis, uti, obstruction Critical Care Time: No Critical care attestation.: If time is entered above; I have spent that time in minutes in the direct care of this critically ill patient, excluding procedure time.
[2019-11-22] MEDS ORDERED: SODIUM CHLORIDE 0.9% 1000 ML 1,000 ML IV ONE (13:46)
[2019-11-22 14:14] LABS: Basophils % (Auto) 0.5 % (0.0-1.8); Eosinophils % (Auto) 0.6 % (0.0-4.3); Hematocrit 30.7 % (35.5-45.6); Hemoglobin 9.8 gm/dl (11.8-15.2); Lymphocytes # (Auto) 1.3 K/mm3 (1.2-5.4); Mean Corpuscular HGB Conc 32 % (32-34); Mean Corpuscular Volume 87 fl (84-94); Monocytes # (Auto) 0.7 K/mm3 (0.0-0.8); Platelet Count 223 K/mm3 (140-440); Red Blood Count 3.54 M/mm3 (3.65-5.03)
[2019-11-22] MEDS ORDERED: ONDANSETRON 4 MG/2 ML INJ IV ONE (14:25)
[2019-11-22] MEDS ORDERED: ASPIRIN 325 MG TAB PO ONE (14:37)
[2019-11-22 14:38] LABS: Albumin 3.2 g/dL (3.9-5); Calcium 9.7 mg/dL (8.4-10.2)
[2019-11-22 14:45] LABS: Free T4 (Free Thyroxine) 1.28 ng/dL (0.76-1.46)
[2019-11-22] MEDS ORDERED: ALBUTEROL 2.5 MG/3 ML NEBU IH ONE (14:52)
[2019-11-22] MEDS ORDERED: INSULIN REGULAR, HUMAN 100 UNITS/1 ML IV ONE (14:53)
[2019-11-22] MEDS ORDERED: DEXTROSE 50% IN WATER (25GM) 50 ML SYRINGE IV ONE (15:00)
[2019-11-22 15:15] LABS: Chol/HDL Ratio 2.15 %
[2019-11-22] MEDS ORDERED: CALCIUM GLUCONATE 1,000 MG in SODIUM CHLORIDE 0.9% 100 ML IV ONE (15:30)
[2019-11-22 16:04] LABS: Bacteria,Urine 1+ /HPF (Negative); Bilirubin,Urine NEG (Negative); Blood,Urine NEG (Negative); Color,Urine Yellow (Yellow); Mucus,Urine FEW /HPF; Protein,Urine <15 mg/dL mg/dL (Negative); Urobilinogen,Urine < 2.0 mg/dL (<2.0)
--- NOTE | 2019-11-22 16:06 | Cat Scan Report ---
CT abdomen pelvis wo con INDICATION / CLINICAL INFORMATION: MAIN: n,v acute renal failure, hx of prostate cancer WO CONTRAST. TECHNIQUE: Routine CT of the abdomen and pelvis without IV contrast. All CT scans at this location are performed using CT dose reduction for ALARA by means of automated exposure control. COMPARISON: None available. FINDINGS: Abdomen and pelvis: Review of the lower chest demonstrate some faint bronchopneumonia within the medial aspect of the rig ht lower lobe. The liver, spleen adrenal glands appear unremarkable within the limits of the noncontrast technique. Gallstones noted within the gallbladder lumen. Large stool burden identified throughout the colon. Th ere is a low-density fairly well-circumscribed 1.4 cm lesion within the body of the pancreas. There is a nonobstructive stone within the right mid kidney. The left kidney is unremarkable. No free air free fluid. Large stool burden identified throughout the colon. Urinary bladder is partia lly collapsed by Obando catheter. No significant free pelvic fluid Moderate thoracolumbar degenerative changes present throughout the thoracolumbar spine noted. IMPRESSION: 1. Mild bronchopneumonia within the right lower lobe. 2. Large stool burden identified throughout the colon concerning for at least moderate constipation. 3. Cholelithiasis and nonobstructive nephrolithiasis, as above. 4. No hydronephrosis appreciated. Signer Name: Peter Hartley MD Signed: 11/22/2019 4:02 PM Workstation Name: [id number]
[2019-11-22] MEDS ORDERED: cefTRIAXone/NS 1 GM/50 ML 1 GM/50 ML BAG IV ONE ×2 (16:23→17:23)
--- NOTE | 2019-11-22 16:26 | History and Physical Report ---
History of Present Illness Chief complaint: I do not feel like myself I just feel sick History of present illness: 74 YO Male with DM, CVA with Dysarthria and LHP, HTN, CaP, Severe Malnutrition presents to ED for evaluation. Pt states that he has experienced generalized weakness, loss of appetite over the past 4 days with progressively worsening symptoms over the same timeframe. Patient states that he currently feels unable to get out of bed due to his weakness, and requires increased assistance with activities of daily living. EMS notified and upon arrival the patient was found to be in distress and subsequently transported to [facility] for further care and evaluation. Patient seen and evaluated in the emergency department. Lab and imaging studies reviewed. Chest x-ray revealed evidence of right lower lobe pneumonia, patient also found to have acute kidney injury and severe malnutrition. Patient admitted to [facility] unit and initiated on pneumonia protocol due to increased risk of decompensation. Patient denies fever, chills, chest pain, palpitation, productive cough, skin rash, known ill contacts, or known exposure to COVID-19. Prior admission on 08/15/2018 reviewed. All medication listed at time of admission has been reconciled. Advanced care planning conducted in the emergency department. Past History Past Medical History: diabetes, hypertension, stroke, other (See HPI) Past Surgical History: cataract removal Social history: single. denies: smoking, alcohol abuse, prescription drug abuse Family history: diabetes, hypertension Medications and Allergies Allergies Allergy/AdvReac Type Severity Reaction Status Date / Time No Known Allergies Allergy Verified 11/22/19 13:13 Home Medications Medication Instructions Recorded Confirmed Last Taken Type Amlodipine Besylate [Norvasc] 5 mg PO DAILY 08/15/18 08/18/18 08/12/18 09:00 History Atorvastatin Calcium [Lipitor] 40 mg PO DAILY 08/15/18 08/18/18 08/12/18 09:00 History Calcium Carbonate [Ban-Acid 300MG 300 mg PO DAILY 08/15/18 08/18/18 08/12/18 09:00 History CHEW] Lisinopril [Zestril TAB] 2.5 mg PO QDAY 08/15/18 08/18/18 08/12/18 09:00 History metFORMIN [Glucophage] 500 mg PO QDAY 08/15/18 08/18/18 08/12/18 History Acetaminophen [Acetaminophen TAB] 650 mg PO Q4H PRN tablet 08/26/18 Unknown Rx Aspirin EC [Halfprin EC] 81 mg PO QDAY tablet 08/26/18 Unknown Rx Clopidogrel [Plavix] 75 mg PO QDAY tablet 08/26/18 Unknown Rx Active Meds: Active Medications Sodium Chloride (Nacl 0.9% 1000 Ml) 1,000 mls @ 250 mls/hr IV ONCE ONE Stop: 11/22/19 17:45 Last Admin: 11/22/19 15:22 Dose: 250 mls/hr Documented by: Ceftriaxone Sodium (Rocephin/Ns 1 Gm/50 Ml) 1 gm in 50 mls @ 100 mls/hr IV ONCE ONE; Protocol Stop: 11/22/19 16:52 Review of Systems Constitutional: fatigue, weakness, malaise, no fever, no chills, no sweats Ears, nose, mouth and throat: no ear pain, no ear discharge, no tinnitis, no decreased hearing, no nose pain Cardiovascular: no chest pain, no orthopnea, no palpitations, no rapid/irregular heart beat, no edema Respiratory: no cough, no excessive sputum, no hemoptysis, no shortness of breath, no dyspnea on exertion Gastrointestinal: no nausea, no vomiting, no diarrhea, no constipation Genitourinary Male: urinary frequency, urinary hesitancy, no hematuria, no flank pain, no discharge Rectal: no pain, no incontinence, no bleeding Musculoskeletal: no neck stiffness, no neck pain, no shooting arm pain, no arm numbness/tingling Integumentary: no rash, no wounds, no boils Neurological: no head injury, no transient paralysis, no paralysis, no numbness, no ataxia Psychiatric: no anxiety, no memory loss, no change in sleep habits, no hypersomnia, no change in appetite, no disorientation, no hallucinations Endocrine: no cold intolerance, no heat intolerance, no polyphagia, no polydipsia, no polyuria Hematologic/Lymphatic: no easy bruising, no easy bleeding, no lymphadenopathy, no lymphedema Allergic/Immunologic: no urticaria, no persistent infections, no anaphylaxis Exam - Constitutional Vitals: Temp Pulse Resp BP Pulse Ox 97.4 F L 82 15 138/88 100 11/22/19 13:42 11/22/19 15:47 11/22/19 15:47 11/22/19 13:42 11/22/19 13:42 General appearance: Present: mild distress, cachectic - EENT Eyes: Present: PERRL ENT: hearing intact, clear oral mucosa - Neck Neck: Present: supple, normal ROM - Respiratory Respiratory effort: normal Respiratory: right: diminished - Cardiovascular Heart Sounds: Present: S1 & S2. Absent: rub, click - Extremities Extremities: pulses symmetrical, No edema Peripheral Pulses: within normal limits - Abdominal General gastrointestinal: Present: soft, non-tender, non-distended, normal bowel sounds Male genitourinary: Present: normal - Integumentary Integumentary: Present: clear, warm, dry - Musculoskeletal Musculoskeletal: strength equal bilaterally, generalized weakness - Psychiatric Psychiatric: appropriate mood/affect, intact judgment & insight - Neurologic Neurologic: CNII-XII intact, moves all extremities Results - Labs CBC & Chem 7: 11/22/19 13:55 11/22/19 13:55 Labs: Abnormal lab results 11/22/19 11/22/19 11/22/19 Range/Units 13:55 13:55 14:14 RBC 3.54 L (3.65-5.03) M/mm3 Hgb 9.8 L (11.8-15.2) gm/dl Hct 30.7 L (35.5-45.6) % RDW 21.0 H (13.2-15.2) % [place] % (Auto) 11.0 H (0.0-7.3) % Potassium 5.7 H (3.6-5.0) mmol/L BUN 98 H (9-20) mg/dL Creatinine 6.5 H (0.8-1.5) mg/dL Glucose 215 H (75-100) mg/dL POC Glucose 230 H (70-105) ALT 6 L (7-56) units/L Troponin T 0.079 H (0.00-0.029) ng/mL Albumin 3.2 L (3.9-5) g/dL HDL Cholesterol 60 H (40-59) mg/dL Assessment and Plan - Patient Problems (1) Pneumonia Current Visit: Yes Status: Acute Qualifiers: Laterality: right Lung location: lower lobe of lung Plan to address problem: Pneumonia protocol: CBC, CMP, chest x-ray, IV antibiotic therapy, blood culture, supplemental oxygen, pulse oximetry, nebulizer therapy. (2) Acute kidney injury Current Visit: Yes Status: Acute Plan to address problem: IV fluid resuscitation therapy, monitor urine output every shift. Suspect secondary to urinary outlet obstruction due to enlarged prostate. (3) Urinary obstruction due to nodular prostate Current Visit: Yes Status: Acute Plan to address problem: Obando catheter placed, monitor urine output every shift, outpatient urology follow-up. (4) Pressure ulcer of ankle Current Visit: Yes Status: Acute Qualifiers: Laterality: left Plan to address problem: Supportive care, wound care consulted. (5) HTN (hypertension) Current Visit: No Status: Acute Qualifiers: Hypertension type: essential hypertension Qualified Code(s): I10 - Essential (primary) hypertension Plan to address problem: Monitor blood pressure every shift, continue medical management. (6) DVT prophylaxis Current Visit: Yes Status: Acute Plan to address problem: SCD to bilateral lower extremities while in bed, patient is ambulatory (7) Advance care planning Current Visit: Yes Status: Acute Plan to address problem: Disease education conducted in ED, patient is full code, patient acknowledges understanding and agreement with care plan, +30 minutes.
[2019-11-22] MEDS ORDERED: ACETAMINOPHEN 325 MG TAB PO PRN ×2 (16:28→16:29)
[2019-11-22] MEDS ORDERED: ONDANSETRON 4 MG/2 ML INJ IV PRN (16:28)
--- NOTE | 2019-11-22 17:02 | XRay Report ---
CHEST 1 VIEW INDICATION: weakness, rll pna COMPARISON: None FINDINGS: Support devices: None Heart: Normal Lungs/Pleura: No acute pulmonary or pleural findings. IMPRESSION: 1. No acute disease. Signer Name: Ulisses Jason MD Signed: 11/22/2019 4:57 PM Workstation Name: [id number]
[2019-11-22] MEDS ORDERED: HEPARIN 5,000 UNIT/1 ML VIAL SUB-Q SCH (22:00)
[2019-11-22] MEDS: SODIUM CHLORIDE 0.9% 1000 ML 1,000 ML IV SCH (23:18)
[2019-11-22] MEDS: INSULIN LISPRO 100 UNIT/ML SUB-Q SCH (23:18)
[2019-11-23] MEDS: INSULIN LISPRO 100 UNIT/ML SUB-Q SCH ×4 (08:15→23:11)
[2019-11-23] MEDS: CLOPIDOGREL 75 MG TAB PO SCH (09:33)
[2019-11-23] MEDS: amLODIPine 5 MG TAB PO SCH (09:33)
[2019-11-23] MEDS: cefTRIAXone/NS 2 GM/100 ML 2 GM/100 ML BAG IV SCH (09:34)
[2019-11-23] MEDS: CALCIUM CARBONATE 300 MG PO SCH (09:34)
[2019-11-23] MEDS: ASPIRIN EC 81 MG TAB PO SCH (09:34)
[2019-11-23] MEDS ORDERED: NON-FORMULARY EACH (Lisinopril [Zestril Tab] 2.5 MG) PO SCH (10:00)
[2019-11-23] MEDS ORDERED: AZITHROMYCIN 500 MG in SODIUM CHLORIDE 0.9% 250ML 250 ML IV SCH (10:00)
[2019-11-23] MEDS ORDERED: LISINOPRIL 5 MG TAB PO SCH (10:00)
--- NOTE | 2019-11-23 12:44 | Consultation ---
History of Present Illness - Reason for Consult Consult date: 11/23/19 acute renal failure Requesting physician: BROOKE SALAS - History of Present Illness 74 YO Male with DM, CVA with Dysarthria and LHP, HTN, CaP, Severe Malnutrition presents to ED for evaluation. Pt states that he has experienced generalized weakness, loss of appetite over the past 4 days with progressively worsening symptoms over the same timeframe. He has been having some nausea and vomiting f or the past few weeks as well. Patient states that he currently feels unable to get out of bed due to his weakness, and requires increased assistance with activities of daily living. EMS notified and upon arrival the patient was found to be in distress and subsequently transported to [facility] for further care and evaluation. Lab and imaging studies reviewed. Chest x-ray revealed evidence of right lower lobe pneumonia, patient also found to have acute kidney injury and severe malnutrition. Patient admitted to [facility] unit and initiated on pneumonia protocol due to increased risk of decompensation. Patient denies fever, chills, chest pain, palpitation, productive cough, skin rash, known ill contacts, or known exposure to COVID-19. Prior admission on 08/15/2018 reviewed. His serum creatinine was approximately 1.0 at that time. Patient denies any significant nonsteroidal use. Past History Past Medical History: diabetes, hypertension, stroke, other (See HPI) Past Surgical History: cataract removal Social history: single. denies: smoking, alcohol abuse, prescription drug abuse Family history: diabetes, hypertension Medications and Allergies Allergies Allergy/AdvReac Type Severity Reaction Status Date / Time No Known Allergies Allergy Verified 11/22/19 13:13 Home Medications Medication Instructions Recorded Confirmed Last Taken Type Amlodipine Besylate [Norvasc] 5 mg PO DAILY 08/15/18 11/23/19 08/12/18 09:00 History Atorvastatin Calcium [Lipitor] 40 mg PO DAILY 08/15/18 11/23/19 08/12/18 09:00 History Calcium Carbonate [Ban-Acid 300MG 300 mg PO DAILY 08/15/18 11/23/19 08/12/18 09:00 History CHEW] Lisinopril [Zestril TAB] 2.5 mg PO QDAY 08/15/18 11/23/19 08/12/18 09:00 History metFORMIN [Glucophage] 500 mg PO QDAY 08/15/18 11/23/1919 History Acetaminophen [Acetaminophen TAB] 650 mg PO Q4H PRN tablet 08/26/18 11/23/19 Unknown Rx Aspirin EC [Halfprin EC] 81 mg PO QDAY tablet 08/26/18 11/23/19 Unknown Rx Clopidogrel [Plavix] 75 mg PO QDAY tablet 08/26/18 11/23/19 Unknown Rx Active Meds: Active Medications Acetaminophen (Tylenol) 650 mg PO Q4H PRN PRN Reason: Pain MILD(1-3)/Fever >100.5/MONTEJO Amlodipine Besylate (Amlodipine) 5 mg PO DAILY [facility] Last Admin: 11/23/19 09:33 Dose: 5 mg Documented by: Aspirin (Halfprin Ec) 81 mg PO QDAY [facility] Last Admin: 11/23/19 09:34 Dose: 81 mg Documented by: Atorvastatin Calcium (Lipitor) 40 mg PO DAILY [facility] Last Admin: 11/23/19 09:33 Dose: 40 mg Documented by: Azithromycin (Zithromax) 500 mg PO QDAY [facility] Stop: 11/27/19 10:01 Clopidogrel Bisulfate (Plavix) 75 mg PO QDAY [facility] Last Admin: 11/23/19 09:33 Dose: 75 mg Documented by: Ceftriaxone Sodium (Rocephin/Ns 2 Gm/100 Ml) 2 gm in 100 mls @ 200 mls/hr IV Q24HR [facility]; Protocol Last Admin: 11/23/19 09:34 Dose: 200 mls/hr Documented by: Sodium Chloride (Nacl 0.9% 1000 Ml) 1,000 mls @ 100 mls/hr IV DIRECT [facility] Last Admin: 11/22/19 23:18 Dose: 100 mls/hr Documented by: Insulin Human Lispro (Humalog) 0 unit SUB-Q ACHS [facility]; Protocol Last Admin: 11/23/19 11:43 Dose: Not Given Documented by: Lisinopril (Zestril) 2.5 mg PO QDAY [facility] Last Admin: 11/23/19 09:33 Dose: 2.5 mg Documented by: Miscellaneous Medication (Calcium Carbonate [Ban-Acid 300mg Chew]) 300 mg PO DAILY [facility] Last Admin: 11/23/19 09:34 Dose: Not Given Documented by: Ondansetron HCl (Zofran) 4 mg IV Q8H PRN PRN Reason: Nausea And Vomiting Sodium Chloride (Sodium Chloride Flush Syringe 10 Ml) 10 ml IV BID ALLEN Last Admin: 11/23/19 09:35 Dose: 10 ml Documented by: Sodium Chloride (Sodium Chloride Flush Syringe 10 Ml) 10 ml IV PRN PRN PRN Reason: LINE FLUSH Review of Systems All systems: negative (Negative except as noted above) Exam - Vital Signs Vital signs: Vital Signs Temp Pulse Resp BP Pulse Ox 97.7 F 90 18 129/86 100 11/22/19 13:13 11/22/19 13:13 11/22/19 13:13 11/22/19 13:13 11/22/19 13:13 - General Appearance General appearance: well-developed, well-nourished, appears stated age EENT: PERRL, mucous membranes moist Neck: Present: neck supple, trachea midline. Absent: JVD/HJR, Masses Respiratory: Clear to Ascultation Heart: regular, normal heart rate, S1S2, no murmurs Gastrointestinal: Present: normal, normoactive bowel sounds Integumentary: no rash, other (No edema) Results - Lab Results 11/22/19 13:55 11/22/19 13:55 Most recent lab results Calcium 9.7 mg/dL (8.4-10.2) 11/22/19 13:55 Assessment and Plan Impression * Acute renal failure * Hyperkalemia * Hypertension * Diabetes * History of CVA Recommendations * Suspect patient has a component of prerenal acidemia to account for his CAMILLE. Baseline creatinine approximately 1.0. * Check a UA as well as a fractional excretion of sodium * Check vasculitis work-up as well * CT scan of abdomen showing a nonobstructing stone in the right side. No hydronephrosis. * Continue IV hydration * Discontinue lisinopril as well as metformin for now * Avoid nephrotoxins * Monitor fluid status and electrolytes closely. Patient is currently nonoliguric and has an indwelling Obando catheter in place * No urgent indication for dialysis today * Thank you very much for the consultation. Shall follow along with you
--- NOTE | 2019-11-23 15:06 | Progress Note ---
Assessment and Plan - Patient Problems (1) Pneumonia Current Visit: Yes Status: Acute Qualifiers: Laterality: right Lung location: lower lobe of lung Plan to address problem: Pneumonia protocol: CBC, CMP, chest x-ray, IV antibiotic therapy, blood culture, supplemental oxygen, pulse oximetry, nebulizer therapy. (2) Acute kidney injury Current Visit: Yes Status: Acute Plan to address problem: IV fluid resuscitation therapy, monitor urine output every shift. Suspect secondary to urinary outlet obstruction due to enlarged prostate. (3) Urinary obstruction due to nodular prostate Current Visit: Yes Status: Acute Plan to address problem: Lopez catheter placed, monitor urine output every shift. discharge home with lopez leg bag and with lopez catheter in place. (4) Pressure ulcer of ankle Current Visit: Yes Status: Acute Qualifiers: Laterality: left Plan to address problem: Supportive care, wound care consulted. (5) HTN (hypertension) Current Visit: No Status: Acute Qualifiers: Hypertension type: essential hypertension Qualified Code(s): I10 - Essential (primary) hypertension Plan to address problem: Monitor blood pressure every shift, continue medical management. (6) DVT prophylaxis Current Visit: Yes Status: Acute Plan to address problem: SCD to bilateral lower extremities while in bed, patient is ambulatory (7) Advance care planning Current Visit: Yes Status: Acute Plan to address problem: Disease education conducted in ED, patient is full code, patient acknowledges understanding and agreement with care plan, +30 minutes. History Interval history: 74 YO Male HD #2 with Pneumonia, CAMILLE secondary to Urinary Obstruction due to CaP. Discussed care plan with daughter. Pt is currently on hospice care. Pt daughter declines further testing and evaluation. Pt medically optimized. Discharge planning in AM home under hospice care. Hospice care team notified and awaiting patient return home. Hospitalist Physical - Constitutional Vitals: Temp Pulse Resp BP Pulse Ox 97.4 F L 87 18 119/78 100 11/23/19 13:29 11/23/19 13:29 11/23/19 13:29 11/23/19 13:29 11/23/19 13:29 General appearance: Present: mild distress, cachectic - EENT Eyes: Present: PERRL ENT: hearing decreased - Neck Neck: Present: supple - Respiratory Respiratory: bilateral: diminished - Cardiovascular Rhythm: regular Heart Sounds: Present: S1 & S2 - Extremities Extremities: no ischemia Peripheral Pulses: within normal limits - Abdominal General gastrointestinal: soft, non-tender, non-distended - Integumentary Integumentary: Present: clear, warm, dry - Psychiatric Psychiatric: appropriate mood/affect, intact judgment & insight - Neurologic Neurologic: CNII-XII intact Results - Labs CBC & Chem 7: 11/22/19 13:55 11/22/19 13:55 Labs: Laboratory Last Values WBC 6.4 K/mm3 (4.5-11.0) 11/22/19 13:55 RBC 3.54 M/mm3 (3.65-5.03) L 11/22/19 13:55 Hgb 9.8 gm/dl (11.8-15.2) L 11/22/19 13:55 Hct 30.7 % (35.5-45.6) L 11/22/19 13:55 MCV 87 fl (84-94) 11/22/19 13:55 MCH 28 pg (28-32) 11/22/19 13:55 MCHC 32 % (32-34) 11/22/19 13:55 RDW 21.0 % (13.2-15.2) H 11/22/19 13:55 Plt Count 223 K/mm3 (140-440) 11/22/19 13:55 Lymph % (Auto) 21.0 % (13.4-35.0) 11/22/19 13:55 Drew % (Auto) 11.0 % (0.0-7.3) H 11/22/19 13:55 Eos % (Auto) 0.6 % (0.0-4.3) 11/22/19 13:55 Baso % (Auto) 0.5 % (0.0-1.8) 11/22/19 13:55 Lymph # 1.3 K/mm3 (1.2-5.4) 11/22/19 13:55 Drew # 0.7 K/mm3 (0.0-0.8) 11/22/19 13:55 Eos # 0.0 K/mm3 (0.0-0.4) 11/22/19 13:55 Baso # 0.0 K/mm3 (0.0-0.1) 11/22/19 13:55 Seg Neutrophils % 66.9 % (40.0-70.0) 11/22/19 13:55 Seg Neutrophils # 4.3 K/mm3 (1.8-7.7) 11/22/19 13:55 Sodium 143 mmol/L (137-145) 11/22/19 13:55 Potassium 5.7 mmol/L (3.6-5.0) H 11/22/19 13:55 Chloride 104.3 mmol/L (98-107) 11/22/19 13:55 Carbon Dioxide 24 mmol/L (22-30) 11/22/19 13:55 Anion Gap 20 mmol/L 11/22/19 13:55 BUN 98 mg/dL (9-20) H 11/22/19 13:55 Creatinine 6.5 mg/dL (0.8-1.5) H 11/22/19 13:55 Estimated GFR 10 ml/min 11/22/19 13:55 BUN/Creatinine Ratio 15 % 11/22/19 13:55 Glucose 215 mg/dL (75-100) H 11/22/19 13:55 POC Glucose 132 (70-105) H 11/23/19 11:29 Lactic Acid 1.80 mmol/L (0.7-2.0) 11/23/19 04:18 Calcium 9.7 mg/dL (8.4-10.2) 11/22/19 13:55 Total Bilirubin 0.30 mg/dL (0.1-1.2) 11/22/19 13:55 AST 12 units/L (5-40) 11/22/19 13:55 ALT 6 units/L (7-56) L 11/22/19 13:55 Alkaline Phosphatase 88 units/L (35-129) 11/22/19 13:55 Troponin T 0.079 ng/mL (0.00-0.029) H 11/22/19 13:55 Total Protein 7.6 g/dL (6.3-8.2) 11/22/19 13:55 Albumin 3.2 g/dL (3.9-5) L 11/22/19 13:55 Albumin/Globulin Ratio 0.7 % 11/22/19 13:55 Triglycerides 62 mg/dL (2-149) 11/22/19 13:55 Cholesterol 129 mg/dL (50-199) 11/22/19 13:55 LDL Cholesterol Direct 58 mg/dL (50-130) 11/22/19 13:55 HDL Cholesterol 60 mg/dL (40-59) H 11/22/19 13:55 Cholesterol/HDL Ratio 2.15 % 11/22/19 13:55 Lipase 53 units/L (13-60) 11/22/19 13:55 TSH 0.678 mlU/mL (0.270-4.200) 11/22/19 13:55 Free T4 1.28 ng/dL (0.76-1.46) 11/22/19 13:55 Urine Color Yellow (Yellow) 11/22/19 15:35 Urine Turbidity Clear (Clear) 11/22/19 15:35 Urine pH 6.0 (5.0-7.0) 11/22/19 15:35 Ur Specific [place] 1.014 (1.003-1.030) 11/22/19 15:35 Urine Protein <15 mg/dl mg/dL (Negative) 11/22/19 15:35 Urine Glucose (UA) 50 mg/dL (Negative) 11/22/19 15:35 Urine Ketones Neg mg/dL (Negative) 11/22/19 15:35 Urine Blood Neg (Negative) 11/22/19 15:35 Urine Nitrite Neg (Negative) 11/22/19 15:35 Urine Bilirubin Neg (Negative) 11/22/19 15:35 Urine Urobilinogen < 2.0 mg/dL (<2.0) 11/22/19 15:35 Ur Leukocyte Esterase Neg (Negative) 11/22/19 15:35 Urine WBC (Auto) 4.0 /HPF (0.0-6.0) 11/22/19 15:35 Urine RBC (Auto) 2.0 /HPF (0.0-6.0) 11/22/19 15:35 U Epithel Cells (Auto) < 1.0 /HPF (0-13.0) 11/22/19 15:35 Urine Bacteria (Auto) 1+ /HPF (Negative) 11/22/19 15:35 Urine Mucus Few /HPF 11/22/19 15:35 Microbiology: Microbiology 11/22/19 16:57 Peripheral/Venous Blood Culture - Preliminary Culture in Progress 11/22/19 16:49 Peripheral/Venous Blood Culture - Preliminary Culture in Progress Lopez/IV: Voiding Method Indwelling Catheter IV Catheter Type [Right INT / Saline Lock Antecubital] IV Catheter Type [Right Upper INT / Saline Lock arm] Active Medications - Current Medications Current Medications: Generic Name Dose Route Start Last Admin Trade Name Freq PRN Reason Stop Dose Admin Acetaminophen 650 mg 11/22/19 16:28 Tylenol PO Q4H PRN Pain MILD(1-3)/Fever >100.5/MONTEJO Amlodipine Besylate 5 mg 11/23/19 10:00 11/23/19 09:33 Amlodipine PO 5 mg DAILY ALLEN Administration Aspirin 81 mg 11/23/19 10:00 11/23/19 09:34 Halfprin Ec PO 81 mg QDAY ALLEN Administration Atorvastatin Calcium 40 mg 11/23/19 10:00 11/23/19 09:33 Lipitor PO 40 mg DAILY ALLEN Administration Azithromycin 500 mg 11/24/19 10:00 Zithromax PO 11/27/19 10:01 QDAY ALLEN Clopidogrel Bisulfate 75 mg 11/23/19 10:00 11/23/19 09:33 Plavix PO 75 mg QDAY ALLEN Administration Ceftriaxone Sodium 2 gm in 100 mls @ 200 mls/hr 11/23/19 10:00 11/23/19 09:34 Rocephin/Ns 2 Gm/100 Ml IV 200 mls/hr Q24HR ALLEN Administration Protocol Sodium Chloride 1,000 mls @ 125 mls/hr 11/22/19 22:45 11/22/19 23:18 Nacl 0.9% 1000 Ml IV 100 mls/hr DIRECT ALLEN Administration Insulin Human Lispro 0 unit 11/22/19 23:00 11/23/19 11:43 Humalog SUB-Q Not Given ACHS ALLEN Protocol Miscellaneous Medication 300 mg 11/23/19 10:00 11/23/19 09:34 Calcium Carbonate [Ban-Acid 300mg Chew] PO Not Given DAILY ALLEN Ondansetron HCl 4 mg 11/22/19 16:28 Zofran IV Q8H PRN Nausea And Vomiting Sodium Chloride 10 ml 11/22/19 22:00 11/23/19 09:35 Sodium Chloride Flush Syringe 10 Ml IV 10 ml BID ALLEN Administration Sodium Chloride 10 ml 11/22/19 16:28 Sodium Chloride Flush Syringe 10 Ml IV PRN PRN LINE FLUSH
[2019-11-23 15:17] LABS: Calcium 9.2 mg/dL (8.4-10.2)
[2019-11-23 15:21] LABS: Hepatitis B Surface Antigen Non-Reactive (Negative); Hepatitis C Virus Antibody Non-Reactive (NonReactive)
[2019-11-23 15:30] LABS: Creatinine,Urine 54.3 mg/dL (0.1-20.0); Fractional Sodium Excretion 6.8
[2019-11-23 15:42] LABS: Bacteria,Urine 1+ /HPF (Negative); Bilirubin,Urine NEG (Negative); Blood,Urine MOD (Negative); Color,Urine Yellow (Yellow); Mucus,Urine FEW /HPF; Protein,Urine <15 mg/dL mg/dL (Negative); Urobilinogen,Urine < 2.0 mg/dL (<2.0)
[2019-11-23] MEDS: SODIUM CHLORIDE 0.9% 1000 ML 1,000 ML IV SCH (23:13)
[2019-11-24] MEDS: INSULIN LISPRO 100 UNIT/ML SUB-Q SCH ×2 (08:29→12:30)
--- NOTE | 2019-11-24 08:42 | Progress Note ---
Subjective Interval history: Patient was seen today for follow-up of multiple renal related issues patient is feeling much better he denies having any nausea vomiting creatinine is currently improving Interdisciplinary notes that also reviewed Events of 24 hours vitals labs intake output medications were reviewed Past medical history: Reviewed Family history: Reviewed Social history: Reviewed Allergies: Reviewed Physical examination: Vitals: Reviewed HEENT: No pallor or icterus oral mucosa moist Neck: Supple no JVD no thyromegaly Chest: Bilateral clear to auscultation anteriorly Heart: Regular rate and rhythm S1-S2 heard no S3-S4 Abdomen: Soft nontender no voluntary guarding rigidity rebound Extremity: Dry skin less than 1+ peripheral edema Psychiatric: No evidence of agitation and aggression noted Dermatology: No petechial rashes Labs and x-rays: Reviewed from today Assessment and plan acute kidney injury: Creatinine appears to be improving, increase oral hydration and follow-up on intake and output patient appears to be asymptomatic in terms of any nausea vomiting continue to monitor renal function, noted to have obstructive uropathy, patient has been adequately counseled and educated regarding all the renal related issues will need follow-up labs tomorrow morning We'll continue to follow and make recommendation for renal standpoint Objective - Vital Signs Vital signs: Vital Signs - 12hr 11/24/19 11/24/19 11/24/19 00:50 02:41 07:42 Temperature 98.3 F 98.5 F Pulse Rate 88 83 Pulse Rate [ 79 Right Brachial] Respiratory 18 20 18 Rate Blood Pressure 110/67 140/79 O2 Sat by Pulse 100 99 100 Oximetry - Lab 11/22/19 13:55 11/23/19 14:51 Most recent lab results Calcium 9.2 mg/dL (8.4-10.2) 11/23/19 13:05 Urine Creatinine 54.3 mg/dL (0.1-20.0) H 11/23/19 15:15 Urine Sodium 96 mmol/L 11/23/19 15:15 Medications & Allergies - Medications Allergies/Adverse Reactions: Allergies No Known Allergies Allergy (Verified 11/22/19 13:13) Home Medications: Home Medications Medication Instructions Recorded Confirmed Last Taken Type Amlodipine Besylate [Norvasc] 5 mg PO DAILY 08/15/18 11/23/19 08/12/18 09:00 History Atorvastatin Calcium [Lipitor] 40 mg PO DAILY 08/15/18 11/23/1908/12/19 09:00 History Calcium Carbonate [Ban-Acid 300MG 300 mg PO DAILY 08/15/18 11/23/19 08/12/18 09:00 History CHEW] Lisinopril [Zestril TAB] 2.5 mg PO QDAY 08/15/18 11/23/19 08/12/18 09:00 History metFORMIN [Glucophage] 500 mg PO QDAY 08/15/18 11/23/19 08/12/18 History Acetaminophen [Acetaminophen TAB] 650 mg PO Q4H PRN tablet 08/26/18 11/23/19 Unknown Rx Aspirin EC [Halfprin EC] 81 mg PO QDAY tablet 08/26/18 11/23/19 Unknown Rx Clopidogrel [Plavix] 75 mg PO QDAY tablet 08/26/18 11/23/19 Unknown Rx Ciprofloxacin HCl [Ciprofloxacin 500 mg PO Q12HR #14 tab 11/23/19 Unknown Rx TAB] Active Medications: Generic Name Dose Route Start Last Admin Trade Name Freq PRN Reason Stop Dose Admin Acetaminophen 650 mg 11/22/19 16:28 Tylenol PO Q4H PRN Pain MILD(1-3)/Fever >100.5/MONTEJO Amlodipine Besylate 5 mg 11/23/19 10:00 11/23/19 09:33 Amlodipine PO 5 mg DAILY ALLEN Administration Aspirin 81 mg 11/23/19 10:00 11/23/19 09:34 Halfprin Ec PO 81 mg QDAY ALLEN Administration Atorvastatin Calcium 40 mg 11/23/19 10:00 11/23/19 09:33 Lipitor PO 40 mg DAILY ALLEN Administration Azithromycin 500 mg 11/24/19 10:00 Zithromax PO 11/27/19 10:01 QDAY ALLEN Clopidogrel Bisulfate 75 mg 11/23/19 10:00 11/23/19 09:33 Plavix PO 75 mg QDAY ALLEN Administration Ceftriaxone Sodium 2 gm in 100 mls @ 200 mls/hr 11/23/19 10:00 11/23/19 09:34 Rocephin/Ns 2 Gm/100 Ml IV 200 mls/hr Q24HR ALLEN Administration Protocol Sodium Chloride 1,000 mls @ 125 mls/hr 11/22/19 22:45 11/23/19 23:13 Nacl 0.9% 1000 Ml IV 100 mls/hr DIRECT ALLEN Administration Insulin Human Lispro 0 unit 11/22/19 23:00 11/23/19 23:11 Humalog SUB-Q Not Given ACHS [facility] Protocol Miscellaneous Medication 300 mg 11/23/19 10:00 11/23/19 09:34 Calcium Carbonate [Ban-Acid 300mg Chew] PO Not Given DAILY [facility]EN Ondansetron HCl 4 mg 11/22/19 16:28 Zofran IV Q8H PRN Nausea And Vomiting Sodium Chloride 10 ml 11/22/19 22:00 11/23/19 23:12 Sodium Chloride Flush Syringe 10 Ml IV 10 ml BID ALLEN Administration Sodium Chloride 10 ml 11/22/19 16:28 Sodium Chloride Flush Syringe 10 Ml IV PRN PRN LINE FLUSH
[2019-11-24] MEDS: SODIUM CHLORIDE 0.9% 1000 ML 1,000 ML IV SCH (09:22)
[2019-11-24] MEDS: ASPIRIN EC 81 MG TAB PO SCH (09:22)
[2019-11-24] MEDS: CLOPIDOGREL 75 MG TAB PO SCH (09:25)
[2019-11-24] MEDS: amLODIPine 5 MG TAB PO SCH (09:25)
[2019-11-24] MEDS ORDERED: AZITHROMYCIN 250 MG TAB PO SCH (10:00)
[2019-11-24] MEDS: cefTRIAXone/NS 2 GM/100 ML 2 GM/100 ML BAG IV SCH (10:56)
[2019-11-24] MEDS: CALCIUM CARBONATE 300 MG PO SCH (10:59)
[2019-11-24 11:12] VITALS: BP 134/82
--- NOTE | 2019-11-24 12:11 | Discharge Summary ---
Providers - Providers Date of Admission: 11/22/19 16:28 Attending physician: LOLI TERRY 11/22/19 15:37 Consult to Physician [CONS] Urgent Comment: DR MARITZA SHAHID W/DR KING @[id number] Consulting Provider: KRISTEN KING Physician Instructions: Reason For Exam: arf Speech Therapy Evaluation and Treat [CONS] Routine Reason For Exam: Failed swallow study 11/23/19 02:37 Consult to Wound/ET Nurse [CONS] Routine Reason For Exam: wound eval Primary care physician: PROPAGATOR [employer]ER Hospitalization Condition: Serious Hospital course: 74 YO Male with DM, CVA with Dysarthria and LHP, HTN, CaP, Severe Malnutrition presents to ED for evaluation. Pt states that he has experienced generalized weakness, loss of appetite over the past 4 days with progressively worsening symptoms over the same timeframe. Patient states that he currently feels unable to get out of bed due to his weakness, and requires increased assistance with activities of daily living. EMS notified and upon arrival the patient was found to be in distress and subsequently transported to [facility] for further care and evaluation. Patient seen and evaluated in the emergency department. Lab and imaging studies reviewed. Chest x-ray revealed evidence of right lower lobe pneumonia suspected secondary to aspiration, patient also found to have acute kidney injury and severe malnutrition. Patient admitted to [facility] unit and initiated on pneumonia protocol due to increased risk of decompensation. Patient initiated on pneumonia protocol with mild improvement in symptoms. Patient also found to have urinary retention and a Obando catheter was placed. Patient medically optimized and subsequently discharged home to hospice care. Advanced care planning conducted. Patient daughter acknowledges understanding patient prognosis. Patient daughter requested patient be discharged back to hospice care. 35 minutes dedicated to patient discharge. An additional 30 minutes dedicated to advance care planning. Patient seen and evaluated prior to discharge but no significant physical exam findings. Patient discharged home under the care of the hospice certified medical records coder. Disposition: DC-50 TO HOSPICE (HOME) - Discharge Diagnoses (1) Pneumonia Status: Acute Qualifiers: Laterality: right Lung location: lower lobe of lung (2) Acute kidney injury Status: Acute (3) Urinary obstruction due to nodular prostate Status: Acute (4) Pressure ulcer of ankle Status: Acute Qualifiers: Laterality: left (5) HTN (hypertension) Status: Acute Qualifiers: Hypertension type: essential hypertension Qualified Code(s): I10 - Essential (primary) hypertension (6) DVT prophylaxis Status: Acute (7) Advance care planning Status: Acute Core Measure Documentation - Palliative Care Palliative Care/ Comfort Measures: Hospice Care Exam - Constitutional Vitals: Temp Pulse Resp BP Pulse Ox 98.9 F 83 20 134/82 100 11/24/19 11:01 11/24/19 11:01 11/24/19 11:01 11/24/19 11:01 11/24/19 11:01 General appearance: Present: no acute distress, cachectic - EENT Eyes: Present: PERRL ENT: hearing intact, clear oral mucosa, hearing decreased - Neck Neck: Present: supple, normal ROM - Respiratory Respiratory: bilateral: diminished - Cardiovascular Heart Sounds: Present: S1 & S2. Absent: rub, click - Extremities Extremities: pulses symmetrical, No edema Peripheral Pulses: within normal limits - Abdominal General gastrointestinal: Present: soft, non-tender, non-distended, normal bowel sounds Male genitourinary: Present: normal - Integumentary Integumentary: Present: clear, warm, dry - Musculoskeletal Musculoskeletal: generalized weakness - Psychiatric Psychiatric: appropriate mood/affect, no memory intact - Neurologic Neurologic: CNII-XII intact, no focal deficits, moves all extremities, no gait normal Plan Activity: advance as tolerated Diet: advance as tolerated Special Instructions: home hospice Follow up with: PRIMARY CARE, [Primary Care Provider] - 3-5 Days Forms: Work/School Release Form Prescriptions: Ciprofloxacin HCl [Ciprofloxacin TAB] 500 mg PO Q12HR #14 tab
== END 2019-11-24 14:25 | disposition home or self-care (01) | DRG 177 ==
LOC: ED 12:58 → 2B-ACE 16:28 → 4A 11-23 21:28
PROVIDERS: ADMIT Internal Medicine; ATTEND Internal Medicine
DX: J69.0 Pneumonitis due to inhalation of food and vomit (principal); L89.523 Pressure ulcer of left ankle, stage 3; E43 Unspecified severe protein-calorie malnutrition; N17.9 Acute kidney failure, unspecified; N13.8 Other obstructive and reflux uropathy; I69.354 Hemiplegia and hemiparesis following cerebral infarction affecting left non-dominant side; Z68.1 Body mass index [BMI] 19.9 or less, adult; E87.5 Hyperkalemia; E11.9 Type 2 diabetes mellitus without complications; R47.1 Dysarthria and anarthria; I10 Essential (primary) hypertension; R33.9 Retention of urine, unspecified; N40.1 Benign prostatic hyperplasia with lower urinary tract symptoms; E86.0 Dehydration; Z82.49 Family history of ischemic heart disease and other diseases of the circulatory system; Z83.3 Family history of diabetes mellitus; Z85.46 Personal history of malignant neoplasm of prostate
CPT/HCPCS: 36415; 71045; 74176; 80048; 80053; 80061; 80074; 81001; 82140; 82565; 82570; 82962; 83690; 83970; 84100; 84295; 84300; 84439; 84443; 84484; 85025; 86021; 86038; 86160; 86225; 86334; 87040; 87086; 87641; 89050; 93005; 94644; G0378; A9270-GY; J0456; J0610; J0696; J1815; J2405; J3246; J7030; J7050

== ENCOUNTER 2021-01-03 11:31 | Inpatient (IN) | payer MEDICARE ==
[2021-01-03] MEDS ORDERED: VANCOMYCIN 1,000 MG in SODIUM CHLORIDE 0.9% 500 ML 500 ML IV ONE (12:14)
[2021-01-03] MEDS ORDERED: LACTATED RINGERS 1000 ML IV SOLN IV ONE (12:14)
[2021-01-03] MEDS ORDERED: CEFEPIME/NS 2 GM/100 ML 2 GM/100 ML BAG IV ONE (12:14)
--- NOTE | 2021-01-03 12:26 | Emergency Department Report ---
ED General Adult HPI - General Chief complaint: Altered Mental Status Stated complaint: failure to thrive PUI?: No Time Seen by Provider: 01/03/21 12:02 Source: EMS (Verbal report received from emergency medical services. EMS documentation not available at time of chart dictation ), RN notes reviewed, old records reviewed Mode of arrival: Stretcher Limitations: Altered Mental Status, Physical Limitation - History of Present Illness Initial comments: The patient was evaluated in the emergency department for symptoms described in the history of present illness. He/she was evaluated in the context of the global COVID-19 pandemic, which necessitated consideration that the patient might be at risk for infection with the virus that causes COVID-19. Institutional protocols and algorithms that pertain to the evaluation of p atients at risk for COVID-19 are in a state of rapid change based on information released by regulatory bodies including the CDC and federal and state organizations. These policies and algorithms were followed during the patient's care in the emergency department. Please note that these policies, procedures and recommendations changed on a rapid basis. This is a 75-year-old gentleman. I have evaluated this patient in the past. His past medical history includes diabetes, stroke, dysarthria, left-sided hemiparesis, hypertension, malnutrition, community-acquired pneumonia. This patient also has a history of urinary obstruction with nodular prostate, hypertension, heel ulcers, immobility, and aspiration pneumonia. This patient was admitted to this hospital last year for aspiration pneumonia. Today, the patient is brought to the hospital by emergency medical services with a complaint of weakness. EMS reports that the patient has been coughing, and weak, and apparently family called 911 for coughing, weakness and failure to thrive. His last known well time is not explicitly known. The patient himself is nonverbal, but awake, and is able to move his arms and his legs, but does not describe the qualitative nature of his symptoms, exacerbating factors, relieving factors, or aggravating factors. EMS reports the patient was hypotensive in the field, with a blood pressure in the 70s, and they started fluids. They do report that after fluids were initiated, blood pressure improved to the mid to high 90s. Patient not accompanied by friends or family for additional information or collateral information at this time. No additional history is available at this time. This patient was admitted to this medical service in 2019 for similar symptoms. He is found to have a history of peripheral artery disease with stent in lower extremity, as well as heel ulcer. He is coughing quite a bit in the emergency room. -: unknown Radiation: other Quality: other Consistency: other Improves with: other Worsens with: other Associated Symptoms: other Treatments Prior to Arrival: other - Related Data Home Medications Medication Instructions Recorded Confirmed Last Taken Amlodipine Besylate [Norvasc] 5 mg PO DAILY 08/15/18 11/23/19 08/12/18 09:00 Atorvastatin Calcium [Lipitor] 40 mg PO DAILY 08/15/18 11/23/19 08/12/18 09:00 Calcium Carbonate [Ban-Acid 300MG 300 mg PO DAILY 08/15/18 11/23/19 08/12/18 09:00 CHEW] Lisinopril [Zestril TAB] 2.5 mg PO QDAY 08/15/18 11/23/19 08/12/18 09:00 metFORMIN [Glucophage] 500 mg PO QDAY 08/15/18 11/23/19 08/12/18 Previous Rx's Medication Instructions Recorded Last Taken Type Acetaminophen [Acetaminophen TAB] 650 mg PO Q4H PRN tablet 08/26/18 Unknown Rx Aspirin EC [Halfprin EC] 81 mg PO QDAY tablet 08/26/18 Unknown Rx Clopidogrel [Plavix] 75 mg PO QDAY tablet 08/26/18 Unknown Rx Ciprofloxacin HCl [Ciprofloxacin 500 mg PO Q12HR #14 tab 11/23/19 Unknown Rx TAB] Allergies Allergy/AdvReac Type Severity Reaction Status Date / Time No Known Allergies Allergy Verified 11/22/19 13:13 ED Review of Systems ROS: Stated complaint: POSSIBLE SEPSIS Other details as noted in HPI Comment: Unobtainable due to pts medical conditions (Dementia, poor historian, no family members available at this time for collateral history) ED Past Medical Hx - Past Medical History Previous Medical History?: Yes Hx Hypertension: Yes Hx CVA: Yes (2017 left side deficits) Hx Diabetes: Yes Hx Deep Vein Thrombosis: No Hx HIV: No Additional medical history: prostate CA - Surgical History Past Surgical History?: Yes Hx Pacemaker: No Hx Internal Defibrillator: No Additional Surgical History: catarack - Social History Smoking Status: Never Smoker Substance Use Type: None - Medications Home Medications: Home Medications Medication Instructions Recorded Confirmed Last Taken Type Amlodipine Besylate [Norvasc] 5 mg PO DAILY 08/15/18 11/23/19 08/12/18 09:00 History Atorvastatin Calcium [Lipitor] 40 mg PO DAILY 08/15/18 11/23/19 08/12/18 09:00 History Calcium Carbonate [Ban-Acid 300MG 300 mg PO DAILY 08/15/18 11/23/19 08/12/18 09:00 History CHEW] Lisinopril [Zestril TAB] 2.5 mg PO QDAY 08/15/18 11/23/19 08/12/18 09:00 History metFORMIN [Glucophage] 500 mg PO QDAY 08/15/18 11/23/19 08/12/18 History Acetaminophen [Acetaminophen TAB] 650 mg PO Q4H PRN tablet 08/26/18 11/23/19 Unknown Rx Aspirin EC [Halfprin EC] 81 mg PO QDAY tablet 08/26/18 11/23/19 Unknown Rx Clopidogrel [Plavix] 75 mg PO QDAY tablet 08/26/18 11/23/19 Unknown Rx Ciprofloxacin HCl [Ciprofloxacin 500 mg PO Q12HR #14 tab 11/23/19 Unknown Rx TAB] ED Physical Exam - General Limitations: Altered Mental Status General appearance: in distress (Mild respiratory distress) - Head Head exam: Present: atraumatic, normocephalic - Eye Eye exam: Present: normal appearance - ENT ENT exam: Present: normal orophraynx, mucous membranes dry, normal external ear exam - Neck Neck exam: Present: normal inspection, full ROM. Absent: tenderness, meningismus - Respiratory Respiratory exam: Present: respiratory distress, rhonchi. Absent: stridor - Cardiovascular Cardiovascular Exam: Present: normal rhythm, tachycardia, normal heart sounds. Absent: bradycardia, systolic murmur, diastolic murmur, rubs, gallop - GI/Abdominal GI/Abdominal exam: Present: soft, other (Scaphoid abdomen is noted). Absent: distended, tenderness, guarding, rebound, rigid, pulsatile mass - Rectal Rectal exam: Present: normal inspection, other (Chaperoned by nurse Maryann Mccloud). Absent: black stool, bloody stool - exam: Present: normal inspection, other (Obando catheter in place draining murky cloudy dark brown/yellow urine) - Extremities Exam Extremities exam: Present: other (2+ pulses noted in the bilateral femoral distribution. 1+ pulses noted in the bilateral radial distribution. Not able to appreciate pulses in the dorsalis pedis or posterior tibial distribution). Absent: normal inspection (There is a necrotic appearing heel ulcer noted on the right foot. It is approximately 4 x 5 cm.) - Back Exam Back exam: Present: normal inspection. Absent: tenderness, CVA tenderness (R), paraspinal tenderness, vertebral tenderness - Neurological Exam Neurological exam: Present: altered (The patient is awake. The patient is coughing quite a bit. The patient does move 4 extremities.) - Psychiatric Psychiatric exam: Present: other (Patient is nonverbal) - Skin Skin exam: Present: warm, other (Necrotic skin wound and ulcer noted to the right heel/calcaneus) ED Course Vital Signs 01/03/21 01/03/21 01/03/21 11:56 12:01 12:31 Temperature Pulse Rate 102 H 98 H 98 H Respiratory 16 19 Rate Blood Pressure 98/68 102/59 O2 Sat by Pulse 100 Oximetry 01/03/21 01/03/21 01/03/21 13:01 13:26 13:29 Temperature Pulse Rate 94 H 98 H Respiratory 24 8 L Rate Blood Pressure 97/63 97/63 O2 Sat by Pulse 87 98 Oximetry 01/03/21 01/03/21 01/03/21 13:31 13:45 14:01 Temperature Pulse Rate 99 H 97 H 99 H Respiratory 18 14 25 H Rate Blood Pressure 97/63 97/63 97/63 O2 Sat by Pulse 99 96 96 Oximetry 01/03/21 01/03/21 14:15 14:27 Temperature 98.2 F Pulse Rate 99 H Respiratory 11 L Rate Blood Pressure 97/63 O2 Sat by Pulse 97 Oximetry - Reevaluation(s) Reevaluation #1: 01/03/21 12:35 Differential diagnosis, including but not limited to: Aspiration pneumonia, pneumonitis, toxic encephalopathy, metabolic encephalopathy, dehydration, malnutrition, urinary tract infection, peripheral artery disease, infected necrotic right heel ulcer, dysphagia Assessment and plan: 75-year-old gentleman, with multiple medical issues, known history of dysphagia, stroke, heel ulcer peripheral artery disease, and aspiration pneumonia. Patient started on sepsis protocol empirically, vancomycin and cefepime ordered. Obtain noncontrast CT scan of the brain, appropriate laboratory studies, noncontrast CT scan of the chest, replace Obando catheter, and obtain clean urine sample/stress urine sample. Prior vascular duplex appreciated from 2019, repeat duplex study at this time. Obtain vascular surgery consultation for infected right heel wound. Admit patient to the medical service once initial diagnostics have resulted. Prognosis is guarded. 01/03/21 13:17 Laboratory studies demonstrate leukocytosis, chronic normocytic anemia, azotemia, metabolic acidosis, dehydration, chronically elevated troponin, likely type II troponin leak. Contacted vascular surgery on-call, Dr. Mccarthy, have discussed the patient's history, physical, laboratory studies, imaging studies and plan of care. His group will follow in consultation. 01/03/21 13:34 Discussed history, physical, pertinent laboratory studies, pending imaging studies, overall clinical impression, and my plan of care, with nephrology on- call, Dr. Elisa Ortega He is in agreement with the plan of care, and the nephrology team will follow in consultation. Suspect prerenal azotemia. 01/03/21 13:47 hospital physician, Dr. Ch, to admit to the medical service. Noncontrast CT scan of the brain negative for acute findings. ED Medical Decision Making - Lab Data Result diagrams: 01/03/21 12:42 01/03/21 12:42 Lab Results 01/03/21 01/03/21 01/03/21 Range/Units 12:42 12:42 12:42 WBC 13.9 H (4.5-11.0) K/mm3 RBC 3.26 L (3.65-5.03) M/mm3 Hgb 9.7 L (11.8-15.2) gm/dl Hct 29.4 L (35.5-45.6) % MCV 90 (84-94) fl MCH 30 (28-32) pg MCHC 33 (32-34) % RDW 13.5 (13.2-15.2) % Plt Count 329 (140-440) K/mm3 Lymph % (Auto) 14.5 (13.4-35.0) % [place] % (Auto) 9.5 H (0.0-7.3) % Eos % (Auto) 0.4 (0.0-4.3) % Baso % (Auto) 0.3 (0.0-1.8) % Lymph # (Auto) 2.0 (1.2-5.4) K/mm3 [place] # (Auto) 1.3 H (0.0-0.8) K/mm3 Eos # (Auto) 0.1 (0.0-0.4) K/mm3 Baso # (Auto) 0.0 (0.0-0.1) K/mm3 Seg Neutrophils % 75.3 H (40.0-70.0) % Seg Neutrophils # 10.4 H (1.8-7.7) K/mm3 ESR Cancelled PT 14.6 (12.2-14.9) Sec. INR 1.08 (0.87-1.13) APTT 33.2 (24.2-36.6) Sec. Sodium 139 (137-145) mmol/L Potassium 5.1 H (3.6-5.0) mmol/L Chloride 105.4 (98-107) mmol/L Carbon Dioxide 15 L (22-30) mmol/L Anion Gap 24 mmol/L BUN 79 H (9-20) mg/dL Glucose 148 H (75-100) mg/dL Calcium 9.5 (8.4-10.2) mg/dL Magnesium 2.60 H (1.7-2.3) mg/dL Total Bilirubin 0.20 (0.1-1.2) mg/dL AST 9 (5-40) units/L Alkaline Phosphatase 69 (35-129) units/L Total Creatine Kinase 142 (55-170) units/L Troponin T 0.088 H (0.00-0.029) ng/mL C-Reactive Protein 23.90 H (0.00-1.30) mg/dL Total Protein 7.7 (6.3-8.2) g/dL Albumin 3.1 L (3.9-5) g/dL Albumin/Globulin Ratio 0.7 % Vital Signs 01/03/21 01/03/21 01/03/21 11:56 12:01 12:31 Temperature Pulse Rate 102 H 98 H 98 H Respiratory 16 19 Rate Blood Pressure 98/68 102/59 O2 Sat by Pulse 100 Oximetry 01/03/21 01/03/21 01/03/21 13:01 13:26 13:29 Temperature Pulse Rate 94 H 98 H Respiratory 24 8 L Rate Blood Pressure 97/63 97/63 O2 Sat by Pulse 87 98 Oximetry 01/03/21 01/03/21 01/03/21 13:31 13:45 14:01 Temperature Pulse Rate 99 H 97 H 99 H Respiratory 18 14 25 H Rate Blood Pressure 97/63 97/63 97/63 O2 Sat by Pulse 99 96 96 Oximetry 01/03/21 01/03/21 14:15 14:27 Temperature 98.2 F Pulse Rate 99 H Respiratory 11 L Rate Blood Pressure 97/63 O2 Sat by Pulse 97 Oximetry - EKG Data -: EKG Interpreted by Mo EKG shows normal: sinus rhythm Rate: normal - EKG Data When compared to previous EKG there are: previous EKG unavailable 01/03/21 15:43 EKG interpreted at 14: 20 Sinus rhythm, 99 bpm, normal axis, QTC 456 ms, motion artifact, left ventricular hypertrophy. No STEMI. - Radiology Data Radiology results: pending, report reviewed, image reviewed [facility] [address] [place] [address] Vascular Lab Report Signed Patient: COOPER BENNETT MR#: [id number] : 1945 Acct:[id number] Age/Sex: 73 / M ADM Date: 08/15/18 Loc: 2B-[facility] B239-[address]: ROSY ALFONSO MD Ordering Physician: QUINTON DEGROOT MD Date of Service: 08/19/18 Procedure(s): arterial duplex LE BILAT Accession Number(s): [id number] cc: QUINTON DEGROOT MD FINAL REPORT EXAM: ARTERIAL DUPLEX LE BILAT HISTORY: left heel ulcer with osteomyelitis TECHNIQUE: Real- time color duplex sonography was performed of the bilateral lower extremity arterial systems and images are submitted for interpretation PRIORS: None. FINDINGS: Right: A stent is in place in the mid to distal superficial femoral a rtery that appears patent. Peak systolic velocity in the stent is 217 cm/second with a biphasic flow pattern. There is scatt ered calcified atherosclerotic plaque in the common and superficial femoral and popliteal arteries. Velocities: Distal iliac artery: Peak systolic 114 cm/s, triphasic flow Common femoral artery: Peak systolic 144 cm/s, biphasic flow Proximal superficial femoral artery: Peak systolic 84 cm/s, triphasic flow Deep femoral artery: Peak systolic 94 cm/s, biphasic flow Mid superficial femoral arteries: Peak systolic 123 cm/s, triphasic flow Distal superficial femoral artery: Peak systolic 53 cm/s, triphasic flow Popliteal artery: Peak systolic 66 cm/s, biphasic flow Posterior tibialis artery: Peak systolic 46 cm/s, biphasic flow Anterior tibialis artery: Peak systolic 33 cm/s, monophasic flow Left: There is diffuse atherosclerotic calcification throughout. Velocities: Distal iliac artery: Peak systolic 109 cm/s, triphasic flow, triphasic flow Common femoral artery: Peak systolic 85 cm/s, triphasic flow Proximal superficial femoral artery: Peak systolic 102 cm/s, triphasic flow Deep femoral artery: Peak systolic 132 cm/s, biphasic flow Mid superficial femoral arteries: Peak systolic 217 cm/s, biphasic flow Distal superficial femoral artery: Peak systolic 81 cm/s, monophasic flow Popliteal artery: Peak systolic 58 cm/s, monophasic flow Posterior tibialis artery: Peak systolic 73 cm/s, monophasic flow Anterior tibialis artery: Peak systolic 43 cm/s, monophasic flow IMPRESSION: 1. Right superficial femoral artery stent is patent 2. Diffuse atherosclerotic disease of the right lower extremity without significant stenosis. 3. Diffuse atherosclerotic disease of the left lower extremity with diminished flow in the posterior and anterior tibialis arteries. Transcribed By: MLG Dictated By: RONIT OVALLE MD Electronically Authenticated By: RONIT OVALLE MD Signed Date/Time: 09/21/181443 DD/ 11 TD/TT: 08/20/182011 [facility] [address] [place] [address] Cat Scan Report Signed Patient: COOPER BENNETT MR#: [id number] : 1945 Acct:[id number] Age/Sex: 75 / M ADM Date: 01/03/21 Loc: ED Attending Dr: Ordering Physician: BERONICA RAMÍREZ MD Date of Service: 01/03/21 Procedure(s): CT chest wo con Accession Number(s): [id number] cc: BERONICA RAMÍREZ MD CT CHEST WITHOUT CONTRAST INDICATION / CLINICAL INFORMATION: cough rhonchi, aspiration pna. TECHNIQUE: Axial CT images were obtained through the chest without contrast. All CT scans at this location are performed using CT dose reduction for ALARA by means of automated exposure control. COMPARISON: Chest radiograph from same day at 12:31 PM FINDINGS: THORACIC AORTA: Calcified atherosclerotic plaque is noted throughout the nonaneurysmal thoracic aorta and major braches, to include the coronary arteries. HEART: No significant abnormality. MEDIASTINUM / ASHLEY: No significant thoracic lymphadenopathy. TRACHEA/LUNGS/PLEURA: There is extensive debris throughout the right bronchial tree. Very mild tree-in-bud opacities are present within the posterior right upper lobe and posterior right lower lobe. Mild opacity is also seen within the superior segment left lower lobe. No focal airspace consolidation. No pleural effusion or pneumothorax. ADDITIONAL CHEST FINDINGS: None. UPPER ABDOMEN: Cholelithiasis noted. No acute findings in the upper abdomen. SKELETAL SYSTEM: No significant abnormality. IMPRESSION: Extensive debris within the right bronchial tree, consistent with aspiration. Very mild tree-in-bud opacities are present within the posterior right upper and right lower lobes, less so within the left lower lobe, suspicious for developing aspiration pneumonia. No focal lobar consolidation. No other acute findings in the chest. Signer Name: Armand Zurita MD Signed: 01/03/2021 1:44 PM Workstation Name: [id number] Transcribed By: JS Dictated By: ARMAND ZURITA MD Electronically Authenticated By: ARMAND ZURITA MD Signed Date/Time: 01/03/21 1344 DD/ 1338 [facility] [address] [place] [address] Cat Scan Report Signed Patient: COOPER BENNETT MR#: [id number] : 1945 Acc t:[id number] Age/Sex: 75 / M ADM Date: 01/03/21 Loc: ED Attending Dr: Ordering Physician: BERONICA RAMÍREZ MD Date of Service: 01/03/21 Procedure(s): CT head/brain wo con Accession Number(s): [id number] cc: BERONICA RAMÍREZ MD CT BRAIN: 01/03/2021 INDICATION / CLINICAL INFORMATION: ams. COMPARISON: None available. FINDINGS: BRAIN/INTRACRANIAL STRUCTURES: Unenhanced CT images of the brain demonstrate no evidence of acute abnormality. Ventricles and sulci are prominent in size, consistent with pronounced diffuse cerebral atrophy. Extensive diffuse chronic white matter hypoattenuation is present. Chronic lacunar changes are present in the basal ganglia and thalami bilaterally, as well as in the brainstem. There is no CT evidence of acute large vessel territory ischemic injury, hemorrhage, or mass. There are no abnormal extra- axial fluid collections. Atherosclerotic vascular calcifications are present in the distal internal carotid arteries and vertebral arteries. EXTRACRANIAL STRUCTURES: Unremarkable. IMPRESSION: No acute abnormality. Extensive chronic and age-related changes. All CT scans at this location are performed using dose reduction to ALARA by means of automated exposure control. Signer Name: Tomas Alvarado MD Signed: 01/03/2021 1:38 PM Workstation Name: [id number] Transcribed By: RAMON Dictated By: Tomas Alvarado MD Electronically Authenticated By: Tomas Alvarado MD Signed Date/Time: 01/03/211337 DD/ 35 TD/TT: [facility] [address] [place] [address] XRay Report Signed Patient: COOPER BENNETT MR#: [id number] : 1945 Acct:[id number] Age/Sex: 75 / M ADM Date: 01/03/21 Loc: ED Attending Dr: Ordering Physician: BERONICA RAMÍREZ MD Date of Service: 01/03/21 Procedure(s): XR foot 2V RT Accession Number(s): [id number] cc: BERONICA RAMÍREZ MD Fluoro Time In Minutes: RIGHT FOOT 2 VIEW(S) INDICATION / CLINICAL INFORMATION: septic right fooot wound COMPARISON: None available. FINDINGS: BONES / JOINT(S): No acute fracture or subluxation. Arthrosis is noted of the tibiotalar joint, subtalar joint, and midfoot. Minimal sclerosis noted posterior aspect of the calcaneus concerning for osteomyelitis. Diffuse osteopenia. SOFT TISSUES: Large soft tissue ulceration with surrounding swelling and edema noted over the heel. Romero calcifications are noted. ADDITIONAL FINDINGS: None. Signer Name: Ryan Lui MD Signed: 01/03/2021 2:18 PM Workstation Name: [id number] Transcribed By: Dictated By: RYAN LUI Electronically Authenticated By: RYAN LUI Signed Date/Time: 01/03/21 1418 DD/ 141 Critical Care Time: Yes Critical care time in (mins) excluding proc time.: 35 Critical care attestation.: If time is entered above; I have spent that time in minutes in the direct care of this critically ill patient, excluding procedure time. ED Disposition Clinical Impression: Failure to thrive, Wound of right foot, Necrosis, Dysphagia, Dehydration, Atherosclerotic PVD with ulceration, Metabolic acidosis, Acute kidney injury Disposition: 09 OP ADMIT IP TO THIS HOSP Is pt being admited?: Yes Does the pt Need Aspirin: No Condition: Poor
[2021-01-03 12:54] LABS: Basophils % (Auto) 0.3 % (0.0-1.8); Eosinophils # (Auto) 0.1 K/mm3 (0.0-0.4); Eosinophils % (Auto) 0.4 % (0.0-4.3); Hematocrit 29.4 % (35.5-45.6); Hemoglobin 9.7 gm/dl (11.8-15.2); Lymphocytes % (Auto) 14.5 % (13.4-35.0); Mean Corpuscular HGB Conc 33 % (32-34); Mean Corpuscular Volume 90 fl (84-94); Monocytes # (Auto) 1.3 K/mm3 (0.0-0.8); Monocytes % (Auto) 9.5 % (0.0-7.3); Platelet Count 329 K/mm3 (140-440); Red Blood Count 3.26 M/mm3 (3.65-5.03); Red Cell Distribution Width 13.5 % (13.2-15.2)
[2021-01-03] MEDS ORDERED: VANCOMYCIN PHARMACY TO DOSE IV SCH (13:00)
[2021-01-03] MEDS ORDERED: VANCOMYCIN/NS 1 GM/250 ML 1 GM/250 ML BAG IV ONE (13:00)
[2021-01-03 13:06] LABS: INR 1.08 (0.87-1.13)
[2021-01-03 13:07] LABS: Partial Thromboplastin Time 33.2 Sec. (24.2-36.6)
[2021-01-03 13:15] LABS: Albumin 3.1 g/dL (3.9-5); Blood Urea Nitrogen 79 mg/dL (9-20); Calcium 9.5 mg/dL (8.4-10.2); Hemolysis Index 7
[2021-01-03 13:25] LABS: Alanine Aminotransferase < 5 units/L (7-56); BUN/Creatinine Ratio 16
[2021-01-03 13:37] LABS: HDL Cholesterol 46 mg/dL (40-59); LDL Cholesterol,Direct 60 mg/dL (50-130)
--- NOTE | 2021-01-03 13:42 | Cat Scan Report ---
CT BRAIN: 01/03/2021 INDICATION / CLINICAL INFORMATION: ams. COMPARISON: None available. FINDINGS: BRAIN/INTRACRANIAL STRUCTURES: Unenhanced CT images of the brain demonstrate no evidence of acute abn ormality. Ventricles and sulci are prominent in size, consistent with pronounced diffuse cerebral atrophy. Extensive diffuse chronic white matter hypoattenuation is present. Chronic lacunar changes are presen t in the basal ganglia and thalami bilaterally, as well as in the brainstem. There is no CT evidence of acute large vessel territory ischemic injury, hemorrhage, or mass. There a re no abnormal extra-axial fluid collections. Atherosclerotic vascular calcifications are present in the distal internal carotid arteries and verte bral arteries. EXTRACRANIAL STRUCTURES: Unremarkable. IMPRESSION: No acute abnormality. Extensive chronic and age-related changes. All CT scans at this location are performed using dose reduction to ALARA by means of automated expos ure control. Signer Name: Tomas Alvarado MD Signed: 01/03/2021 1:38 PM Workstation Name: [id number]
--- NOTE | 2021-01-03 13:48 | Cat Scan Report ---
CT CHEST WITHOUT CONTRAST INDICATION / CLINICAL INFORMATION: cough rhonchi, aspiration pna. TECHNIQUE: Axial CT images were obtained through the chest without contrast. All CT scans at this location are p erformed using CT dose reduction for ALARA by means of automated exposure control. COMPARISON: Chest radiograph from same day at 12:31 PM FINDINGS: THORACIC AORTA: Calcified atherosclerotic plaque is noted throughout the nonaneurysmal thoracic aorta and major braches, to include the coronary arteries. HEART: No significant abnormality. MEDIASTINUM / ASHLEY: No significant thoracic lymphadenopathy. TRACHEA/LUNGS/PLEURA: There is extensive debris throughout the right bronchial tree. Very mild tree-i n-bud opacities are present within the posterior right upper lobe and posterior right lower lobe. Mil d opacity is also seen within the superior segment left lower lobe. No focal airspace consolidation. No pleural effusion or pneumothorax. ADDITIONAL CHEST FINDINGS: None. UPPER ABDOMEN: Cholelithiasis noted. No acute findings in the upper abdomen. SKELETAL SYSTEM: No significant abnormality. IMPRESSION: Extensive debris within the right bronchial tree, consistent with aspiration. Very mild tree-in-bud o pacities are present within the posterior right upper and right lower lobes, less so within the left lower lobe, suspicious for developing aspiration pneumonia. No focal lobar consolidation. No other acute findings in the chest. Signer Name: Moise Zurita MD Signed: 01/03/2021 1:44 PM Workstation Name: [id number]
--- NOTE | 2021-01-03 13:49 | History and Physical Report ---
History of Present Illness Chief complaint: He is not acting right History of present illness: 75 YO Male with DM, CVA with Dysarthria and LHP, HTN, CaP, Severe Malnutrition, BLE Heel Ulcers, presents to ED for evaluation. Pt is nonverbal and has diminished cognition at the time my evaluation is unable to provide history. Patient history taken from EMS staff, ED staff, as well as the patient daughter who was available by telephone for interview. As per daughter the patient has experienced increased confusion, increased weakness, decreased interaction with family over the past 1 week with persistently worsening symptoms over the same timeframe. Patient is currently nonverbal and is currently bedbound, nonam bulatory with a palliative performance score 30%. EMS was notified and upon arrival the patient was found to be in distress and subsequently transported to [facility] for further care and evaluation of the aforementioned symptoms. The patient was seen and evaluated in the emergency department. All lab and imaging studies reviewed. The patient was found to be hypotensive with a systolic blood pressure to 70s suspected secondary to sepsis complicated by pneumonia, and right heel cellulitis. Patient also found to have CAMILLE with ATN. Patient initiated on sepsis protocol and admitted to telemetry. No further history is obtainable. Prior admission on 11/22/2019 reviewed. All medication listed at ti me of admission has been reconciled. Advanced care planning conducted in ED. Vascular surgery team consulted in ED, nephrology team consulted in ED. Pt has diminished cognition at the time of my evaluation but has a positive gag reflex and is able to protect his airway without difficulty. Past History Past Medical History: diabetes, hypertension, stroke Past Surgical History: cataract removal Social history: single, lives with family. denies: smoking, alcohol abuse, prescription drug abuse Family history: diabetes, hypertension Medications and Allergies Allergies Allergy/AdvReac Type Severity Reaction Status Date / Time No Known Allergies Allergy Verified 11/22/19 13:13 Home Medications Medication Instructions Recorded Confirmed Last Taken Type Amlodipine Besylate [Norvasc] 5 mg PO DAILY 08/15/18 11/23/19 08/12/18 09:00 History Atorvastatin Calcium [Lipitor] 40 mg PO DAILY 08/15/18 11/23/19 08/12/18 09:00 History Calcium Carbonate [Ban-Acid 300MG 300 mg PO DAILY 08/15/18 11/23/19 08/12/18 09:00 History CHEW] Lisinopril [Zestril TAB] 2.5 mg PO QDAY 08/15/18 11/23/19 08/12/18 09:00 History metFORMIN [Glucophage] 500 mg PO QDAY 08/15/18 11/23/19 08/12/18 History Acetaminophen [Acetaminophen TAB] 650 mg PO Q4H PRN tablet 08/26/18 11/23/19 Unknown Rx Aspirin EC [Halfprin EC] 81 mg PO QDAY tablet 08/26/18 11/23/19 Unknown Rx Clopidogrel [Plavix] 75 mg PO QDAY tablet 08/26/18 11/23/19 Unknown Rx Ciprofloxacin HCl [Ciprofloxacin 500 mg PO Q12HR #14 tab 11/23/19 Unknown Rx TAB] Active Meds: Active Medications Vancomycin HCl (Vancomycin/Ns 1 Gm/250 Ml) 1 gm in 250 mls @ 166.667 mls/hr IV ONCE ONE Stop: 01/03/21 14:29 Review of Systems ROS unobtainable: due to mental status Exam - Constitutional Vitals: Temp Pulse Resp BP Pulse Ox 98 01/03/21 13:26 General appearance: Present: mild distress - EENT Eyes: Present: PERRL ENT: clear oral mucosa, hearing decreased - Neck Neck: Present: supple, normal ROM - Respiratory Respiratory effort: normal Respiratory: bilateral: CTA - Cardiovascular Rhythm: other (hypotensive) Heart Sounds: Present: S1 & S2. Absent: rub, click - Extremities Extremities: pulses symmetrical, No edema Peripheral Pulses: abnormal (capilarry refill greater than 3.5 seconds) - Abdominal General gastrointestinal: Present: soft, non-tender, non-distended, normal bowel sounds Male genitourinary: Present: normal - Integumentary Integumentary: Present: clear, warm, dry - Musculoskeletal Musculoskeletal: generalized weakness - Psychiatric Psychiatric: appropriate mood/affect, intact judgment & insight - Neurologic Neurologic: CNII-XII intact, moves all extremities, no gait normal HEART Score - HEART Score Troponin: Troponin T 0.088 ng/mL (0.00-0.029) H 01/03/21 12:42 Results - Labs CBC & Chem 7: 01/03/21 12:42 01/03/21 12:42 Labs: Abnormal lab results 01/03/21 01/03/21 Range/Units 12:42 12:42 WBC 13.9 H (4.5-11.0) K/mm3 RBC 3.26 L (3.65-5.03) M/mm3 Hgb 9.7 L (11.8-15.2) gm/dl Hct 29.4 L (35.5-45.6) % [place] % (Auto) 9.5 H (0.0-7.3) % [place] # (Auto) 1.3 H (0.0-0.8) K/mm3 Seg Neutrophils % 75.3 H (40.0-70.0) % Seg Neutrophils # 10.4 H (1.8-7.7) K/mm3 Potassium 5.1 H (3.6-5.0) mmol/L Carbon Dioxide 15 L (22-30) mmol/L BUN 79 H (9-20) mg/dL Creatinine 4.8 H (0.8-1.3) mg/dL Glucose 148 H (75-100) mg/dL Magnesium 2.60 H (1.7-2.3) mg/dL ALT < 5 L (7-56) units/L Troponin T 0.088 H (0.00-0.029) ng/mL C-Reactive Protein 23.90 H (0.00-1.30) mg/dL Albumin 3.1 L (3.9-5) g/dL Assessment and Plan - Patient Problems (1) Sepsis Current Visit: Yes Status: Acute Plan to address problem: Sepsis protocol: IVF resuscitation therapy, IV antibiotic therapy, serial lactic acid level, blood culture, maintain MAP greater than or equal to 65, monitor uop q shift, CBC, CMP, chest x ray, urinalysis, (2) Malnutrition Current Visit: Yes Status: Acute Plan to address problem: Increased protein intake, dietary supplementation (3) Acute kidney injury Current Visit: Yes Status: Acute Plan to address problem: Nephrology consulted, IVF resuscitation therapy, monitor uop q shift, (4) Wound of right foot Current Visit: Yes Status: Acute Plan to address problem: supportive care, vascular surgery consulted, (5) History of CVA with residual deficit Current Visit: No Status: Acute Plan to address problem: antiplatelet therapy, risk factor reduction (6) Diabetes Current Visit: Yes Status: Acute Plan to address problem: consistent carbohydrate diet, accu check, (7) DVT prophylaxis Current Visit: No Status: Acute Plan to address problem: SCD to BLE while in bed, prophylactic anticoagulation (8) Advance care planning Current Visit: Yes Status: Acute Plan to address problem: Pt is full code, diagnoses discussed, prognosis discussed, care plan discussed, Pt daughter acknowledges understanding and agreement with care plan. Sandie Higgins, Daughter . +30 minutes
[2021-01-03] MEDS ORDERED: ACETAMINOPHEN 325 MG TAB PO PRN ×2 (13:52→14:30)
--- NOTE | 2021-01-03 14:18 | XRay Report ---
CHEST 1 VIEW INDICATION: cough dysphagia COMPARISON: 11/22/2019 FINDINGS: SUPPORT DEVICES: None. HEART / MEDIASTINUM: No significant abnormality. LUNGS / PLEURA: No significant pulmonary or pleural abnormality. No pneumothorax. ADDITIONAL FINDINGS: IMPRESSION: 1. No acute cardiopulmonary disease Signer Name: Benson Prajapati MD Signed: 01/03/2021 2:14 PM Workstation Name: [id number]
--- NOTE | 2021-01-03 14:22 | XRay Report ---
RIGHT FOOT 2 VIEW(S) INDICATION / CLINICAL INFORMATION: septic right fooot wound COMPARISON: None available. FINDINGS: BONES / JOINT(S): No acute fracture or subluxation. Arthrosis is noted of the tibiotalar joint, subta lar joint, and midfoot. Minimal sclerosis noted posterior aspect of the calcaneus concerning for oste omyelitis. Diffuse osteopenia. SOFT TISSUES: Large soft tissue ulceration with surrounding swelling and edema noted over the heel. V assar calcifications are noted. ADDITIONAL FINDINGS: None. Signer Name: Ryan Fletcher MD Signed: 01/03/2021 2:18 PM Workstation Name: [id number]
[2021-01-03] MEDS ORDERED: ONDANSETRON 4 MG/2 ML INJ IV PRN (15:00)
[2021-01-03] MEDS ORDERED: HYDROmorphone 1 MG/1 ML INJ IV PRN (15:00)
[2021-01-03] MEDS ORDERED: ALBUTEROL 2.5 MG/3 ML NEBU IH PRN (16:00)
--- NOTE | 2021-01-03 17:51 | Consultation ---
History of Present Illness - Reason for Consult Consult date: 01/04/21 lower extremity gangrene Requesting physician: BERONICA RAMÍREZ - History of Present Illness 75 YO Male with DM, CVA with Dysarthria and LHP, HTN, CaP, Severe Malnutrition, BLE Heel Ulcers, presents to ED for evaluation. Pt is nonverbal and has diminished cognition at the time my evaluation is unable to provide history. Patient history taken from EMS staff, ED staff, as well as the patient daughter who was available by telephone for interview. As per daughter the patient has experienced increased confusion, increased weakness, decreased interaction with family over the past 1 week with persistently worsening symptoms over the same timeframe. Patient is currently bedbound, nonambulatory with a palliative performance score 30%. EMS was notified and upon arrival the patient was found to be in distress and subsequently transported to [facility] for further care and evaluation of the aforementioned symptoms. The patient was seen and evaluated in the emergency department. All lab and imaging studies reviewed. The patient was found to be hypotensive with a systolic blood pressure to 70s suspected secondary to sepsis complicated by pneumonia, and right heel cellulitis. Patient also found to have CAMILLE with ATN. Patient initiated on sepsis protocol and admitted to telemetry. No further history is obtainable. Prior admission on 11/22/2019 reviewed. All medication listed at time of admission has been reconciled. Advanced care planning conducted in ED. Vascular surgery team consulted in ED, nephrology team consulted in ED. Pt has diminished cognition at the time of my evaluation but has a positive gag reflex and is able to protect his airway without difficulty. Vascular consulted for evaluation. Patient has minimally verbal but can reply with yes and no answers. He reports that he is not in pain. His left heel is healed without ulceration. The right heel has a macerated area of gangrene. Nonpalpable pedal pulses noted. Past History Past Medical History: diabetes, hypertension, stroke Past Surgical History: cataract removal Social history: single, lives with family. denies: smoking, alcohol abuse, prescription drug abuse Family history: diabetes, hypertension Medications and Allergies Allergies Allergy/AdvReac Type Severity Reaction Status Date / Time No Known Allergies Allergy Verified 11/22/19 13:13 Home Medications Medication Instructions Recorded Confirmed Last Taken Type Amlodipine Besylate [Norvasc] 5 mg PO DAILY 08/15/18 11/23/19 08/12/18 09:00 History Atorvastatin Calcium [Lipitor] 40 mg PO DAILY 08/15/18 11/23/19 08/12/18 09:00 History Calcium Carbonate [Ban-Acid 300MG 300 mg PO DAILY 08/15/18 11/23/19 08/12/18 09:00 History CHEW] Lisinopril [Zestril TAB] 2.5 mg PO QDAY 08/15/18 11/23/19 08/12/18 09:00 History metFORMIN [Glucophage] 500 mg PO QDAY 08/15/18 11/23/19 08/12/18 History Acetaminophen [Acetaminophen TAB] 650 mg PO Q4H PRN tablet 08/26/18 11/23/19 Unknown Rx Aspirin EC [Halfprin EC] 81 mg PO QDAY tablet 08/26/18 11/23/19 Unknown Rx Clopidogrel [Plavix] 75 mg PO QDAY tablet 08/26/18 11/23/19 Unknown Rx Ciprofloxacin HCl [Ciprofloxacin 500 mg PO Q12HR #14 tab 11/23/19 Unknown Rx TAB] Active Meds: Active Medications Acetaminophen (Acetaminophen 325 Mg Tab) 650 mg PO Q4H PRN PRN Reason: Pain MILD(1-3)/Fever >100.5/MONTEJO Albuterol (Albuterol 2.5 Mg/3 Ml Nebu) 2.5 mg IH Q4HRT PRN PRN Reason: Shortness Of Breath Hydromorphone HCl (Hydromorphone 1 Mg/1 Ml Inj) 0.25 mg IV Q4H PRN PRN Reason: Pain, Moderate (4-6) Cefazolin Sodium 2 gm/ Sodium (Chloride) 100 mls @ 200 mls/hr IV Q8H ALLEN; Protocol Last Admin: 01/03/21 15:34 Dose: 200 mls/hr Documented by: Ondansetron HCl (Ondansetron 4 Mg/2 Ml Inj) 4 mg IV Q8H PRN PRN Reason: Nausea And Vomiting Sodium Chloride (Sodium Chloride 0.9% 10 Ml Flush Syringe) 10 ml IV BID ALLEN Sodium Chloride (Sodium Chloride 0.9% 10 Ml Flush Syringe) 10 ml IV PRN PRN PRN Reason: LINE FLUSH Review of Systems ROS unobtainable: due to mental status Exam - Constitutional Vitals: Temp Pulse Resp BP Pulse Ox 98.2 F 99 H 11 L 97/63 97 01/03/21 14:27 01/03/21 14:15 01/03/21 14:15 01/03/21 14:15 01/03/21 14:15 General appearance: Present: no acute distress - EENT Eyes: Present: EOM intact ENT: hearing intact - Neck Neck: Present: supple - Respiratory Respiratory effort: normal - Extremities Extremities: abnormal (Does not bear weight, partial amputation which is healed of the left calcaneus, macerated right heel ulcer) Extremity abnormal: pulses diminished (Nonpalpable pedal pulses) - Musculoskeletal Musculoskeletal: generalized weakness - Psychiatric Psychiatric: cooperative, other (Minimally responsive, answers in yes and no answers, can lift right leg against gravity) Results - Labs CBC & Chem 7: 01/04/21 05:22 01/04/21 05:22 Labs: Abnormal lab results 01/03/21 01/03/21 01/03/21 Range/Units 12:42 12:42 12:42 WBC 13.9 H (4.5-11.0) K/mm3 RBC 3.26 L (3.65-5.03) M/mm3 Hgb 9.7 L (11.8-15.2) gm/dl Hct 29.4 L (35.5-45.6) % [place] % (Auto) 9.5 H (0.0-7.3) % [place] # (Auto) 1.3 H (0.0-0.8) K/mm3 Seg Neutrophils % 75.3 H (40.0-70.0) % Seg Neutrophils # 10.4 H (1.8-7.7) K/mm3 Potassium 5.1 H (3.6-5.0) mmol/L Carbon Dioxide 15 L (22-30) mmol/L BUN 79 H (9-20) mg/dL Creatinine 4.8 H (0.8-1.3) mg/dL Glucose 148 H (75-100) mg/dL Magnesium 2.60 H (1.7-2.3) mg/dL ALT < 5 L (7-56) units/L Troponin T 0.088 H (0.00-0.029) ng/mL C-Reactive Protein 23.90 H (0.00-1.30) mg/dL Albumin 3.1 L (3.9-5) g/dL Salicylates 0.3 L (2.8-20.0) mg/dL Acetaminophen (10.0-30.0) ug/mL 01/03/21 Range/Units 13:09 WBC (4.5-11.0) K/mm3 RBC (3.65-5.03) M/mm3 Hgb (11.8-15.2) gm/dl Hct (35.5-45.6) % [place] % (Auto) (0.0-7.3) % [place] # (Auto) (0.0-0.8) K/mm3 Seg Neutrophils % (40.0-70.0) % Seg Neutrophils # (1.8-7.7) K/mm3 Potassium (3.6-5.0) mmol/L Carbon Dioxide (22-30) mmol/L BUN (9-20) mg/dL Creatinine (0.8-1.3) mg/dL Glucose (75-100) mg/dL Magnesium (1.7-2.3) mg/dL ALT (7-56) units/L Troponin T (0.00-0.029) ng/mL C-Reactive Protein (0.00-1.30) mg/dL Albumin (3.9-5) g/dL Salicylates (2.8-20.0) mg/dL Acetaminophen < 5.0 L (10.0-30.0) ug/mL Assessment and Plan 75 year old male with DM, CVA with Dysarthria and LHP, HTN, CaP, Severe Malnutrition, RLE Heel Ulcer, presents to ED for evaluation. Pt is verbally limited. Patient has CAMILLE. Presents with a healed LLE plantar ulcer and an active macerated right heel pressure ulcer. Nonpalpable pedal pulses noted. In the past the patient had a LLE ulcer and had endovascular revascularization in 2019 resulted in a healed wound with wound care. Patient is nonambulatory. Once patient medically improves, options include amputation versus endovascular revascularization and wound care. Unclear what family wishes are, but previously they declined amputation and I suspect they will again. Recommend consult with general surgery and wound care. Once acute kidney injury improves, can consider endovascular intervention if decided upon. Given nonambulatory status, above-knee amputation is certainly reasonable.
--- NOTE | 2021-01-03 18:58 | Consultation ---
History of Present Illness - Reason for Consult Consult date: 01/03/21 Requesting physician: BERONICA RAMÍREZ - History of Present Illness 75-year-old male brought to the hospital because of weakness, cough and failure to thrive. Blood pressure was in the 70s when he was seen by EMS. Patient was started on IV fluids with some improvement in blood pressure. Evaluation in the ER found to have a right heel ulcer and vascular surgery has also been consulted. BUN/creatinine are quite elevated at 70/4.8 mg/dL. Potassium is also high at 5.1 mmol/L and bicarbonate low at 15 mmol/L. Patient is unable to give a history. He mumbles incomprehensible words. Family is not available to give a history and so my history is obtained from review of the record. Past History Past Medical History: diabetes, hypertension, PVD, stroke, other (Aspiration pneumonia last year) Past Surgical History: cataract removal Social history: single, lives with family. denies: smoking, alcohol abuse, prescription drug abuse Family history: diabetes, hypertension Medications and Allergies Allergies Allergy/AdvReac Type Severity Reaction Status Date / Time No Known Allergies Allergy Verified 11/22/19 13:13 Home Medications Medication Instructions Recorded Confirmed Last Taken Type Amlodipine Besylate [Norvasc] 5 mg PO DAILY 08/15/18 11/23/19 08/12/18 09:00 History Atorvastatin Calcium [Lipitor] 40 mg PO DAILY 08/15/18 11/23/19 08/12/18 09:00 History Calcium Carbonate [Ban-Acid 300MG 300 mg PO DAILY 08/15/18 11/23/19 08/12/18 09:00 History CHEW] Lisinopril [Zestril TAB] 2.5 mg PO QDAY 08/15/18 11/23/19 08/12/18 09:00 History metFORMIN [Glucophage] 500 mg PO QDAY 08/15/18 11/23/19 08/12/18 History Acetaminophen [Acetaminophen TAB] 650 mg PO Q4H PRN tablet 08/26/18 11/23/19 Unknown Rx Aspirin EC [Halfprin EC] 81 mg PO QDAY tablet 08/26/18 11/23/19 Unknown Rx Clopidogrel [Plavix] 75 mg PO QDAY tablet 08/26/18 11/23/19 Unknown Rx Ciprofloxacin HCl [Ciprofloxacin 500 mg PO Q12HR #14 tab 11/23/19 Unknown Rx TAB] Active Meds: Active Medications Acetaminophen (Acetaminophen 325 Mg Tab) 650 mg PO Q4H PRN PRN Reason: Pain MILD(1-3)/Fever >100.5/MONTEJO Albuterol (Albuterol 2.5 Mg/3 Ml Nebu) 2.5 mg IH Q4HRT PRN PRN Reason: Shortness Of Breath Hydromorphone HCl (Hydromorphone 1 Mg/1 Ml Inj) 0.25 mg IV Q4H PRN PRN Reason: Pain, Moderate (4-6) Cefazolin Sodium 2 gm/ Sodium (Chloride) 100 mls @ 200 mls/hr IV Q8H ALLEN; Protocol Last Admin: 01/03/21 15:34 Dose: 200 mls/hr Documented by: Ondansetron HCl (Ondansetron 4 Mg/2 Ml Inj) 4 mg IV Q8H PRN PRN Reason: Nausea And Vomiting Sodium Chloride (Sodium Chloride 0.9% 10 Ml Flush Syringe) 10 ml IV BID ALLEN Sodium Chloride (Sodium Chloride 0.9% 10 Ml Flush Syringe) 10 ml IV PRN PRN PRN Reason: LINE FLUSH Review of Systems ROS unobtainable: due to mental status Exam - Vital Signs Vital signs: Vital Signs Pulse Pulse Ox 102 H 100 01/03/21 11:56 01/03/21 11:56 - Physical Exam Narrative exam: Elderly -[place] male lying in bed chronically ill looking in no acute distress. Coughing intermittently HEENT: NCAT, irregular pupils Neck: Supple, no venous distention CVS: S1S2 RRR with no murmur, rub or gallop Chest: Coarse breath sounds with low pitched rhonchi bilaterally Abdomen: Scaphoid, soft, nontender, no organomegaly, bowel sounds are present Extremities: No edema, muscle wasting, feet cool with dystrophic nails, right heel ulcer Genitourinary deferred Skin changes as noted above Neuro: Awake, mumbles incomprehensible words Results - Lab Results 01/03/21 12:42 01/03/21 12:42 Most recent lab results Calcium 9.5 mg/dL (8.4-10.2) 01/03/21 12:42 Magnesium 2.60 mg/dL (1.7-2.3) H 01/03/21 12:42 Assessment and Plan - Patient Problems (1) Acute renal failure Current Visit: No Status: Acute Plan to address problem: Acute kidney injury present as male versus acute tubular necrosis secondary to hypotension/sepsis. Also need to exclude obstruction. Get urine studies. Get renal ultrasound. Gentle volume expansion. Follow-up electrolytes and renal function. (2) Hyperkalemia Current Visit: No Status: Acute Plan to address problem: Medical management of hyperkalemia and follow-up levels. (3) Metabolic acidosis Current Visit: Yes Status: Acute Plan to address problem: Uremic acidosis. Follow-up bicarbonate. Start enteral replacement if patient is tolerating by mouth (4) Failure to thrive Current Visit: Yes Status: Acute Plan to address problem: Nutritional support. PT OT ST as Patient improves. (5) Ulcer of right heel Current Visit: Yes Status: Acute Plan to address problem: Wound care consult. Vascular surgery has also been consulted (6) Aspiration pneumonia Current Visit: Yes Status: Acute Plan to address problem: Continue broad-spectrum antibiotics. Follow-up cultures. Needs speech evaluation. (7) Anemia Current Visit: Yes Status: Acute Plan to address problem: Follow-up hemoglobin (8) HTN (hypertension) Current Visit: No Status: Acute Qualifiers: Hypertension type: essential hypertension Qualified Code(s): I10 - Ess ential (primary) hypertension Plan to address problem: Blood pressure is low. Continue to hold hypotensive medications. Continue to monitor patient on follow-up blood pressure (9) History of CVA with residual deficit Current Visit: No Status: Acute Plan to address problem: Continue antiplatelet agents
--- NOTE | 2021-01-03 20:08 | Vascular Lab Report ---
DUPLEX DOPPLER LOWER EXTREMITY ARTERIAL, BILATERAL INDICATION: pad, right heel wound. TECHNIQUE: Arterial duplex examination of both lower extremities performed using B-mode, color flow and spectral Doppler assessment. FINDINGS: RIGHT: Common Femoral Artery: PSV 137 cm/sec. Triphasic waveform. Proximal SFA: PSV 45 cm/sec. Triphasic waveform. Mid SFA: PSV 80 cm/sec. Triphasic waveform. Distal SFA: PSV 68 cm/sec. Triphasic waveform. Popliteal artery: PSV 182 cm/sec. Triphasic waveform. Posterior tibial artery: PSV 68 cm/sec. Triphasic waveform. Dorsalis Pedis Artery: PSV 32 cm/sec. Biphasic waveform. LEFT: Common Femoral Artery: PSV 106 cm/sec. Triphasic waveform. Proximal SFA: PSV 47 cm/sec. Triphasic waveform. Mid SFA: PSV 84 cm/sec. Biphasic waveform. Patent stent. Distal SFA: PSV 72 cm/sec. Biphasic waveform. Popliteal artery: PSV 52 cm/sec. Triphasic waveform. Posterior tibial artery: PSV 78 cm/sec. Triphasic waveform. Dorsalis Pedis Artery: PSV 15 cm/sec. Monophasic waveform. Distal anterior tibial artery: Occluded IMPRESSION: 1. 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 2. Waveforms and velocities as above. Ankle-Brachial Index (MILY): * Calcified arteries > 1.4 * Normal = 0.9-1.4 * Mild PAD = 0.7-0.89 * Moderate PAD = 0.51-0.69 * Severe PAD < 0.5 Doppler Waveform: * Triphasic is normal. * Biphasic is abnormal if clear transition from triphasic signal along vascular tree. * Monophasic is abnormal. Signer Name: Teofilo Simpson MD Signed: 01/03/2021 8:04 PM Workstation Name: [id number]
--- NOTE | 2021-01-03 21:08 | Ultrasound Report ---
ULTRASOUND RENAL INDICATION / CLINICAL INFORMATION: Acute kidney injury. COMPARISON: CT abdomen from 11/22/2019 FINDINGS: RIGHT KIDNEY: Length = 8.3 cm. [normal > 9 cm] - Parenchymal Thickness = 1.7 cm. [normal > 1.5 cm] - Echogenicity: Normal. - Hydronephrosis: None. - Cyst or mass: No significant abnormality. - Stones: None seen. LEFT KIDNEY: Length = 8.1 cm. [normal > 9 cm] - Parenchymal Thickness = 1.5 cm. [normal > 1.5 cm] - Echogenicity: Normal. - Hydronephrosis: None. - Cyst or mass: No significant abnormality. - Stones: None seen. URINARY BLADDER: No significant abnormality. FREE FLUID: None. ADDITIONAL FINDINGS: None. IMPRESSION: 1. No significant abnormality. Signer Name: Teofilo Simpson MD Signed: 01/03/2021 9:03 PM Workstation Name: [id number]
[2021-01-03] MEDS ORDERED: guaiFENesin/CODEINE 100-10MG ORAL LIQD 5 ML PO PRN (23:23)
[2021-01-04 05:45] LABS: Basophils % (Auto) 0.3 % (0.0-1.8); Eosinophils % (Auto) 0.3 % (0.0-4.3); Hematocrit 26.9 % (35.5-45.6); Lymphocytes # (Auto) 1.3 K/mm3 (1.2-5.4); Lymphocytes % (Auto) 11.6 % (13.4-35.0); Mean Corpuscular HGB Conc 33 % (32-34); Mean Corpuscular Volume 90 fl (84-94); Monocytes # (Auto) 1.4 K/mm3 (0.0-0.8); Monocytes % (Auto) 12.1 % (0.0-7.3); Platelet Count 267 K/mm3 (140-440); Red Blood Count 2.99 M/mm3 (3.65-5.03); Red Cell Distribution Width 13.2 % (13.2-15.2)
[2021-01-04 06:12] LABS: Blood Urea Nitrogen 76 mg/dL (9-20); Calcium 8.9 mg/dL (8.4-10.2); Hemolysis Index 6
[2021-01-04 06:14] LABS: Alanine Aminotransferase < 5 units/L (7-56); BUN/Creatinine Ratio 16
[2021-01-04 08:25] LABS: Bacteria,Urine 2+ /HPF (Negative); Bilirubin,Urine NEG (Negative); Blood,Urine MOD (Negative); Color,Urine Yellow (Yellow); Urobilinogen,Urine < 2.0 mg/dL (<2.0)
[2021-01-04 08:33] LABS: WBC,Urine > 182.0 /HPF (0.0-6.0)
--- NOTE | 2021-01-04 11:12 | Progress Note ---
Assessment and Plan - Patient Problems (1) Acute renal failure Current Visit: No Status: Acute Plan to address problem: Acute kidney injury present as male versus acute tubular necrosis secondary to hypotension/sepsis. Ultrasound did not show any obstruction. Follow-up studies. Continue gentle volume expansion. Follow-up electrolytes and renal fu nction. (2) Hyperkalemia Current Visit: No Status: Acute Plan to address problem: Potassium has improved with medical management. Follow-up levels. (3) Metabolic acidosis Current Visit: Yes Status: Acute Plan to address problem: Uremic acidosis. Follow-up bicarbonate. Start enteral replacement if patient is tolerating by mouth (4) Failure to thrive Current Visit: Yes Status: Acute Plan to address problem: Nutritional support. PT OT ST as Patient improves. (5) Ulcer of right heel Current Visit: Yes Status: Acute Plan to address problem: Wound care consult. Vascular surgery has also been consulted (6) Aspiration pneumonia Current Visit: Yes Status: Acute Plan to address problem: Continue broad-spectrum antibiotics. Follow-up cultures. Needs speech evaluation. (7) Anemia Current Visit: Yes Status: Acute Plan to address problem: Follow-up hemoglobin (8) HTN (hypertension) Current Visit: No Status: Acute Qualifiers: Hypertension type: essential hypertension Qualified Code(s): I10 - Essential (primary) hypertension Plan to address problem: Blood pressure is low. Continue to hold hypotensive medications. Continue to monitor patient on follow-up blood pressure (9) History of CVA with residual deficit Current Visit: No Status: Acute Plan to address problem: Continue antiplatelet agents Subjective Date of service: 01/04/21 Principal diagnosis: Acute kidney injury Interval history: Patient seen lying in bed. He is more awake today. No complaints Objective - Exam Narrative Exam: Elderly -[place] male lying in bed chronically ill looking in no acute distress. Coughing intermittently HEENT: NCAT, irregular pupils Neck: Supple, no venous distention CVS: S1S2 RRR with no murmur, rub or gallop Chest: Coarse breath sounds with low pitched rhonchi bilaterally Abdomen: Scaphoid, soft, nontender, no organomegaly, bowel sounds are present Extremities: No edema, muscle wasting, feet cool with dystrophic nails, right heel ulcer Genitourinary deferred Skin changes as noted above Neuro: Awake, more coherent today - Vital Signs Vital signs: Vital Signs - 12hr 01/04/21 01/04/21 01/04/21 03:30 05:13 07:04 Temperature 98.0 F 97.4 F L Pulse Rate 87 Respiratory 16 16 Rate Blood Pressure 120/71 119/70 O2 Sat by Pulse 99 96 Oximetry 01/04/21 01/04/21 08:29 09:30 Temperature Pulse Rate 83 Respiratory Rate Blood Pressure O2 Sat by Pulse 96 Oximetry - Lab 01/04/21 05:22 01/04/21 05:22 Most recent lab results Calcium 8.9 mg/dL (8.4-10.2) 01/04/21 05:22 Magnesium 2.60 mg/dL (1.7-2.3) H 01/03/21 12:42 Medications & Allergies - Medications Allergies/Adverse Reactions: Allergies No Known Allergies Allergy (Verified 11/22/19 13:13) Home Medications: Home Medications Medication Instructions Recorded Confirmed Last Taken Type Amlodipine Besylate [Norvasc] 5 mg PO DAILY 08/15/18 11/23/19 08/12/18 09:00 History Atorvastatin Calcium [Lipitor] 40 mg PO DAILY 08/15/18 11/23/19 08/12/18 09:00 History Calcium Carbonate [Ban-Acid 300MG 300 mg PO DAILY 08/15/18 11/23/19 08/12/18 09:00 History CHEW] Lisinopril [Zestril TAB] 2.5 mg PO QDAY 08/15/18 11/23/19 08/12/18 09:00 History metFORMIN [Glucophage] 500 mg PO QDAY 08/15/18 11/23/19 08/12/18 History Acetaminophen [Acetaminophen TAB] 650 mg PO Q4H PRN tablet 08/26/18 11/23/19 Unknown Rx Aspirin EC [Halfprin EC] 81 mg PO QDAY tablet 08/26/18 11/23/19 Unknown Rx Clopidogrel [Plavix] 75 mg PO QDAY tablet 08/26/18 11/23/19 Unknown Rx Ciprofloxacin HCl [Ciprofloxacin 500 mg PO Q12HR #14 tab 11/23/19 Unknown Rx TAB] Active Medications: Generic Name Dose Route Start Last Admin Trade Name Freq PRN Reason Stop Dose Admin Acetaminophen 650 mg 01/03/21 14:30 Acetaminophen 325 Mg Tab PO Q4H PRN Pain MILD(1-3)/Fever >100.5/MONTEJO Albuterol 2.5 mg 01/03/21 16:00 Albuterol 2.5 Mg/3 Ml Nebu IH Q4HRT PRN Shortness Of Breath Hydromorphone HCl 0.25 mg 01/03/21 15:00 Hydromorphone 1 Mg/1 Ml Inj IV Q4H PRN Pain, Moderate (4-6) Cefazolin Sodium 2 gm/ Sodium 100 mls @ 200 mls/hr 01/04/21 22:00 Chloride IV Q24H ALLEN Protocol Sodium Chloride 1,000 mls @ 75 mls/hr 01/04/21 11:15 Nacl 0.9% 1000 Ml IV DIRECT ALLEN Ondansetron HCl 4 mg 01/03/21 15:00 Ondansetron 4 Mg/2 Ml Inj IV Q8H PRN Nausea And Vomiting Pseudoephedrine/Acetam/Chlorphenir 10 ml 01/03/21 23:23 01/03/21 23:58 Guaifenesin/Codeine 100-10mg Oral Liqd 5 Ml PO 10 ml Q4H PRN Administration Cough Sodium Chloride 10 ml 01/03/21 22:00 01/03/21 23:57 Sodium Chloride 0.9% 10 Ml Flush Syringe IV 10 ml BID ALLEN Administration Sodium Chloride 10 ml 01/03/21 15:00 Sodium Chloride 0.9% 10 Ml Flush Syringe IV PRN PRN LINE FLUSH
--- NOTE | 2021-01-04 13:14 | Progress Note ---
Assessment and Plan 75 year old male with DM, CVA with Dysarthria and LHP, HTN, CaP, Severe Malnutrition, RLE Heel Ulcer, presents to ED for evaluation. Pt is verbally limited. Patient has CAMILLE. Has right heel macerated ulcer with eschar. Nonpalpable pedal pulses noted. Patient is nonambulatory. Once patient medically improves, options include amputation versus endovascular revascularization and wound care. Unclear what family wishes are, but previously they declined amputation and I suspect they will again. Recommend consult with general surgery and wound care. Once acute kidney injury improves, can consider endovascular intervention if decided upon. Given nonambulatory status, above-knee amputation is certainly reasonable. Subjective Date of service: 01/04/21 Principal diagnosis: Acute kidney injury Interval history: More responsive than yesterday, can respond yes and no answers. Denies pain. Objective - Constitutional Vitals: Vital Signs - 12hr 01/04/21 01/04/21 01/04/21 03:30 05:13 07:04 Temperature 98.0 F 97.4 F L Pulse Rate 87 Respiratory 16 16 Rate Blood Pressure 120/71 119/70 O2 Sat by Pulse 99 96 Oximetry 01/04/21 01/04/21 08:29 09:30 Temperature Pulse Rate 83 Respiratory Rate Blood Pressure O2 Sat by Pulse 96 Oximetry General appearance: Present: no acute distress - EENT Eyes: EOM intact ENT: hearing intact - Respiratory Respiratory effort: normal Extremities: abnormal (Macerated right heel ulcer with eschar) Extremity abnormal: pulses diminished - Gastrointestinal General gastrointestinal: Present: soft, non-tender - Psychiatric Psychiatric: cooperative, other (Responds with yes and no answers) - Labs CBC & Chem 7: 01/04/21 05:22 01/04/21 05:22 Labs: Abnormal lab results 01/03/21 01/03/21 01/03/21 Range/Units 12:42 12:42 13:09 WBC (4.5-11.0) K/mm3 RBC (3.65-5.03) M/mm3 Hgb (11.8-15.2) gm/dl Hct (35.5-45.6) % Lymph % (Auto) (13.4-35.0) % [place] % (Auto) (0.0-7.3) % [place] # (Auto) (0.0-0.8) K/mm3 Seg Neutrophils % (40.0-70.0) % Seg Neutrophils # (1.8-7.7) K/mm3 Potassium 5.1 H (3.6-5.0) mmol/L Chloride (98-107) mmol/L Carbon Dioxide 15 L (22-30) mmol/L BUN 79 H (9-20) mg/dL Creatinine 4.8 H (0.8-1.3) mg/dL Glucose 148 H (75-100) mg/dL POC Glucose (70-105) mg/dL Magnesium 2.60 H (1.7-2.3) mg/dL ALT < 5 L (7-56) units/L Troponin T 0.088 H (0.00-0.029) ng/mL C-Reactive Protein 23.90 H (0.00-1.30) mg/dL Albumin 3.1 L (3.9-5) g/dL Urine WBC (Auto) (0.0-6.0) /HPF Salicylates 0.3 L (2.8-20.0) mg/dL Acetaminophen < 5.0 L (10.0-30.0) ug/mL 01/03/21 01/04/21 01/04/21 Range/Units 22:31 05:22 05:22 WBC 11.3 H (4.5-11.0) K/mm3 RBC 2.99 L (3.65-5.03) M/mm3 Hgb 9.0 L (11.8-15.2) gm/dl Hct 26.9 L (35.5-45.6) % Lymph % (Auto) 11.6 L (13.4-35.0) % [place] % (Auto) 12.1 H (0.0-7.3) % [place] # (Auto) 1.4 H (0.0-0.8) K/mm3 Seg Neutrophils % 75.7 H (40.0-70.0) % Seg Neutrophils # 8.6 H (1.8-7.7) K/mm3 Potassium 5.1 H (3.6-5.0) mmol/L Chloride 109.5 H (98-107) mmol/L Carbon Dioxide 19 L (22-30) mmol/L BUN 76 H (9-20) mg/dL Creatinine 4.8 H (0.8-1.3) mg/dL Glucose 112 H (75-100) mg/dL POC Glucose 123 H (70-105) mg/dL Magnesium (1.7-2.3) mg/dL ALT < 5 L (7-56) units/L Troponin T (0.00-0.029) ng/mL C-Reactive Protein (0.00-1.30) mg/dL Albumin 3.0 L (3.9-5) g/dL Urine WBC (Auto) (0.0-6.0) /HPF Salicylates (2.8-20.0) mg/dL Acetaminophen (10.0-30.0) ug/mL 01/04/21 01/04/21 Range/Units 07:25 11:36 WBC (4.5-11.0) K/mm3 RBC (3.65-5.03) M/mm3 Hgb (11.8-15.2) gm/dl Hct (35.5-45.6) % Lymph % (Auto) (13.4-35.0) % [place] % (Auto) (0.0-7.3) % [place] # (Auto) (0.0-0.8) K/mm3 Seg Neutrophils % (40.0-70.0) % Seg Neutrophils # (1.8-7.7) K/mm3 Potassium (3.6-5.0) mmol/L Chloride (98-107) mmol/L Carbon Dioxide (22-30) mmol/L BUN (9-20) mg/dL Creatinine (0.8-1.3) mg/dL Glucose (75-100) mg/dL POC Glucose 125 H (70-105) mg/dL Magnesium (1.7-2.3) mg/dL ALT (7-56) units/L Troponin T (0.00-0.029) ng/mL C-Reactive Protein (0.00-1.30) mg/dL Albumin (3.9-5) g/dL Urine WBC (Auto) > 182.0 H (0.0-6.0) /HPF Salicylates (2.8-20.0) mg/dL Acetaminophen (10.0-30.0) ug/mL Medications & Allergies - Medications Allergies/Adverse Reactions: Allergies No Known Allergies Allergy (Verified 11/22/19 13:13) Home Medications: Home Medications Medication Instructions Recorded Confirmed Last Taken Type Amlodipine Besylate [Norvasc] 5 mg PO DAILY 08/15/18 11/23/19 08/12/18 09:00 History Atorvastatin Calcium [Lipitor] 40 mg PO DAILY 08/15/18 11/23/19 08/12/18 09:00 History Calcium Carbonate [Ban-Acid 300MG 300 mg PO DAILY 08/15/18 11/23/19 08/12/18 09:00 History CHEW] Lisinopril [Zestril TAB] 2.5 mg PO QDAY 08/15/18 11/23/19 08/12/18 09:00 History metFORMIN [Glucophage] 500 mg PO QDAY 08/15/18 11/23/19 08/12/18 History Acetaminophen [Acetaminophen TAB] 650 mg PO Q4H PRN tablet 08/26/18 11/23/19 Unknown Rx Aspirin EC [Halfprin EC] 81 mg PO QDAY tablet 08/26/18 11/23/19 Unknown Rx Clopidogrel [Plavix] 75 mg PO QDAY tablet 08/26/18 11/23/19 Unknown Rx Ciprofloxacin HCl [Ciprofloxacin 500 mg PO Q12HR #14 tab 11/23/19 Unknown Rx TAB] Active Medications: Generic Name Dose Route Start Last Admin Trade Name Freq PRN Reason Stop Dose Admin Acetaminophen 650 mg 01/03/21 14:30 Acetaminophen 325 Mg Tab PO Q4H PRN Pain MILD(1-3)/Fever >100.5/MONTEJO Albuterol 2.5 mg 01/03/21 16:00 Albuterol 2.5 Mg/3 Ml Nebu IH Q4HRT PRN Shortness Of Breath Hydromorphone HCl 0.25 mg 01/03/21 15:00 Hydromorphone 1 Mg/1 Ml Inj IV Q4H PRN Pain, Moderate (4-6) Cefazolin Sodium 2 gm/ Sodium 100 mls @ 200 mls/hr 01/04/21 22:00 Chloride IV Q24H ALLEN Protocol Sodium Chloride 1,000 mls @ 75 mls/hr 01/04/21 11:30 Nacl 0.9% 1000 Ml IV DIRECT ALLEN Ondansetron HCl 4 mg 01/03/21 15:00 Ondansetron 4 Mg/2 Ml Inj IV Q8H PRN Nausea And Vomiting Pseudoephedrine/Acetam/Chlorphenir 10 ml 01/03/21 23:23 01/03/21 23:58 Guaifenesin/Codeine 100-10mg Oral Liqd 5 Ml PO 10 ml Q4H PRN Administration Cough Sodium Chloride 10 ml 01/03/21 22:00 01/03/21 23:57 Sodium Chloride 0.9% 10 Ml Flush Syringe IV 10 ml BID ALLEN Administration Sodium Chloride 10 ml 01/03/21 15:00 Sodium Chloride 0.9% 10 Ml Flush Syringe IV PRN PRN LINE FLUSH HEART Score - HEART Score Troponin: Troponin T 0.088 ng/mL (0.00-0.029) H 01/03/21 12:42
[2021-01-04] MEDS: SODIUM CHLORIDE 0.9% 1000 ML 1,000 ML IV SCH (14:29)
[2021-01-04 15:30] LABS: Creatinine,Urine 122.1 mg/dL (0.1-20.0)
--- NOTE | 2021-01-04 15:59 | Progress Note ---
Assessment and Plan Assessment and plan: - Patient Problems Sepsis Sepsis protocol: IVF resuscitation therapy, IV antibiotic therapy, serial lactic acid level, blood culture, maintain MAP greater than or equal to 65, monitor uop q shift, CBC, CMP, chest x ray, urinalysis, Malnutrition Increased protein intake, dietary supplementation Acute kidney injury Nephrology consulted, IVF resuscitation therapy, monitor uop q shift, Infected ulcer right heel supportive care, vascular surgery consulted, History of CVA with residual deficit antiplatelet therapy, risk factor reduction Diabetes Melitus consistent carbohydrate diet, accu check, DVT prophylaxis SCD to BLE while in bed, prophylactic anticoagulation Advance care planning Pt is full code, diagnoses discussed, prognosis discussed, care plan discussed, Pt daughter acknowledges understanding and agreement with care plan. Sandie Higgins, Daughter . patient was on home hospice with [facility] 01/04 Patient seen and examined today. He has right heel ulcer. Patient was evaluated by [facility] Surgeon who recommends General surgeon to evaluate heel ulcers. Will consult Dr. Salas since he has been seeing him before. His CAMILLE is being managed by Nephrology History Interval history: Patient cannot give history Altered mental status right heel ulcer Hospitalist Physical - Physical exam Narrative exam: Gen: Not in acute distress, lying in bed HEENT: Normochephalic, atraumatic Neck:supple, No JVD Lungs:Clear to auscultation bilaterally, no rales, no wheeze Heart:S1 and S2 reg, no murmurs, rubs or gallop Abd: soft, non tender, non distended, normal bowel sounds Ext: Ulcer right heel Neuro: Lethargic, - Constitutional Vitals: Temp Pulse Resp BP Pulse Ox 97.4 F L 83 24 119/70 96 01/04/21 07:04 01/04/21 08:29 01/04/21 13:24 01/04/21 07:04 01/04/21 13:24 General appearance: Present: no acute distress HEART Score - HEART Score Troponin: Troponin T 0.088 ng/mL (0.00-0.029) H 01/03/21 12:42 Results - Labs CBC & Chem 7: 01/05/21 05:12 01/05/21 05:12 Labs: Laboratory Last Values WBC 11.3 K/mm3 (4.5-11.0) H 01/04/21 05:22 RBC 2.99 M/mm3 (3.65-5.03) L 01/04/21 05:22 Hgb 9.0 gm/dl (11.8-15.2) L 01/04/21 05:22 Hct 26.9 % (35.5-45.6) L 01/04/21 05:22 MCV 90 fl (84-94) 01/04/21 05:22 MCH 30 pg (28-32) 01/04/21 05:22 MCHC 33 % (32-34) 01/04/21 05:22 RDW 13.2 % (13.2-15.2) 01/04/21 05:22 Plt Count 267 K/mm3 (140-440) 01/04/21 05:22 Lymph % (Auto) 11.6 % (13.4-35.0) L 01/04/21 05:22 [place] % (Auto) 12.1 % (0.0-7.3) H 01/04/21 05:22 Eos % (Auto) 0.3 % (0.0-4.3) 01/04/21 05:22 Baso % (Auto) 0.3 % (0.0-1.8) 01/04/21 05:22 Lymph # (Auto) 1.3 K/mm3 (1.2-5.4) 01/04/21 05:22 [place] # (Auto) 1.4 K/mm3 (0.0-0.8) H 01/04/21 05:22 Eos # (Auto) 0.0 K/mm3 (0.0-0.4) 01/04/21 05:22 Baso # (Auto) 0.0 K/mm3 (0.0-0.1) 01/04/21 05:22 Seg Neutrophils % 75.7 % (40.0-70.0) H 01/04/21 05:22 Seg Neutrophils # 8.6 K/mm3 (1.8-7.7) H 01/04/21 05:22 ESR 140 mm/Hr (0-20) 01/03/21 14:33 PT 14.6 Sec. (12.2-14.9) 01/03/21 12:42 INR 1.08 (0.87-1.13) 01/03/21 12:42 APTT 33.2 Sec. (24.2-36.6) 01/03/21 12:42 Sodium 143 mmol/L (137-145) 01/04/21 05:22 Potassium 5.1 mmol/L (3.6-5.0) H 01/04/21 05:22 Chloride 109.5 mmol/L (98-107) H 01/04/21 05:22 Carbon Dioxide 19 mmol/L (22-30) L 01/04/21 05:22 Anion Gap 20 mmol/L 01/04/21 05:22 BUN 76 mg/dL (9-20) H 01/04/21 05:22 Creatinine 4.8 mg/dL (0.8-1.3) H 01/04/21 05:22 Estimated GFR 14 ml/min 01/04/21 05:22 BUN/Creatinine Ratio 16 % 01/04/21 05:22 Glucose 112 mg/dL (75-100) H 01/04/21 05:22 POC Glucose 109 mg/dL (70-105) H 01/04/21 15:43 Lactic Acid 1.50 mmol/L (0.7-2.0) 01/03/21 22:59 Calcium 8.9 mg/dL (8.4-10.2) 01/04/21 05:22 Magnesium 2.60 mg/dL (1.7-2.3) H 01/03/21 12:42 Total Bilirubin 0.20 mg/dL (0.1-1.2) 01/04/21 05:22 AST 10 units/L (5-40) 01/04/21 05:22 ALT < 5 units/L (7-56) L 01/04/21 05:22 Alkaline Phosphatase 63 units/L (35-129) 01/04/21 05:22 Total Creatine Kinase 142 units/L (55-170) 01/03/21 12:42 Troponin T 0.088 ng/mL (0.00-0.029) H 01/03/21 12:42 C-Reactive Protein 23.90 mg/dL (0.00-1.30) H 01/03/21 12:42 Total Protein 6.7 g/dL (6.3-8.2) 01/04/21 05:22 Albumin 3.0 g/dL (3.9-5) L 01/04/21 05:22 Albumin/Globulin Ratio 0.8 % 01/04/21 05:22 Triglycerides 77 mg/dL (2-149) 01/03/21 12:42 Cholesterol 120 mg/dL (50-199) 01/03/21 12:42 LDL Cholesterol Direct 60 mg/dL (50-130) 01/03/21 12:42 HDL Cholesterol 46 mg/dL (40-59) 01/03/21 12:42 Cholesterol/HDL Ratio 2.60 % 01/03/21 12:42 TSH 2.560 mlU/mL (0.270-4.200) 01/03/21 12:42 Urine Color Yellow (Yellow) 01/04/21 07:25 Urine Turbidity Cloudy (Clear) 01/04/21 07:25 Urine pH 5.0 (5.0-7.0) 01/04/21 07:25 Ur Specific [place] 1.013 (1.003-1.030) 01/04/21 07:25 Urine Protein 30 mg/dl mg/dL (Negative) 01/04/21 07:25 Urine Glucose (UA) Neg mg/dL (Negative) 01/04/21 07:25 Urine Ketones Tr mg/dL (Negative) 01/04/21 07:25 Urine Blood Mod (Negative) 01/04/21 07:25 Urine Nitrite Neg (Negative) 01/04/21 07:25 Urine Bilirubin Neg (Negative) 01/04/21 07:25 Urine Urobilinogen < 2.0 mg/dL (<2.0) 01/04/21 07:25 Ur Leukocyte Esterase Lg (Negative) 01/04/21 07:25 Urine WBC (Auto) > 182.0 /HPF (0.0-6.0) H 01/04/21 07:25 Urine RBC (Auto) 15.0 /HPF (0.0-6.0) 01/04/21 07:25 U Epithel Cells (Auto) 2.0 /HPF (0-13.0) 01/04/21 07:25 Urine Bacteria (Auto) 2+ /HPF (Negative) 01/04/21 07:25 Urine Creatinine 122.1 mg/dL (0.1-20.0) H 01/04/21 07:25 Urine Sodium 50 mmol/L 01/04/21 07:25 Urine Total Protein 49 mg/dL (5-11.8) H 01/04/21 07:25 Salicylates 0.3 mg/dL (2.8-20.0) L 01/03/21 12:42 Acetaminophen < 5.0 ug/mL (10.0-30.0) L 01/03/21 13:09 Blood Type B POSITIVE 01/03/21 14:33 Antibody Screen Negative 01/03/21 14:33 Microbiology: Microbiology 01/03/21 12:42 Peripheral/Venous Blood Culture - Preliminary NO GROWTH AFTER 24 HOURS 01/03/21 12:42 Peripheral/Venous Blood Culture - Preliminary NO GROWTH AFTER 24 HOURS [place]/IV: Voiding Method Condom Catheter Active Medications - Current Medications Current Medications: Generic Name Dose Route Start Last Admin Trade Name Freq PRN Reason Stop Dose Admin Acetaminophen 650 mg 01/03/21 14:30 Acetaminophen 325 Mg Tab PO Q4H PRN Pain MILD(1-3)/Fever >100.5/MONTEJO Albuterol 2.5 mg 01/03/21 16:00 Albuterol 2.5 Mg/3 Ml Nebu IH Q4HRT PRN Shortness Of Breath Hydromorphone HCl 0.25 mg 01/03/21 15:00 Hydromorphone 1 Mg/1 Ml Inj IV Q4H PRN Pain, Moderate (4-6) Cefazolin Sodium 2 gm/ Sodium 100 mls @ 200 mls/hr 01/04/21 22:00 Chloride IV Q24H ALLEN Protocol Sodium Chloride 1,000 mls @ 75 mls/hr 01/04/21 11:30 01/04/21 14:29 Nacl 0.9% 1000 Ml IV 75 mls/hr DIRECT ALLEN Administration Ondansetron HCl 4 mg 01/03/21 15:00 Ondansetron 4 Mg/2 Ml Inj IV Q8H PRN Nausea And Vomiting Pseudoephedrine/Acetam/Chlorphenir 10 ml 01/03/21 23:23 01/03/21 23:58 Guaifenesin/Codeine 100-10mg Oral Liqd 5 Ml PO 10 ml Q4H PRN Administration Cough Sodium Chloride 10 ml 01/03/21 22:00 01/04/21 14:30 Sodium Chloride 0.9% 10 Ml Flush Syringe IV 10 ml BID ALLEN Administration Sodium Chloride 10 ml 01/03/21 15:00 Sodium Chloride 0.9% 10 Ml Flush Syringe IV PRN PRN LINE FLUSH Nutrition/Malnutrition Assess - Dietary Evaluation Nutrition/Malnutrition Findings: Nutrition Notes Start: 01/04/21 12:41 Freq: Status: Active Protocol: Document 01/04/21 12:41 (Rec: 01/04/21 12:51 [id number]) Nutrition Notes Need for Assessment generated from: MD Order,set painter,MST,Low BMI Initial or Follow up Assessment Current Diagnosis Acute Kidney Injury,Diabetes, Hypertension,Malnutrition, Stroke Other Pertinent Diagnosis FTT, R heal ulcer, pneu Current Diet NPO Labs/Tests K 5.1 BUN 76 Cr 4.8 Pertinent Medications Reviewed Height 6 ft Weight 59.7 kg Usual Body Weight 70.45 kg [place] Body Weight (kg) 80.90 BMI 17.8 Weight change and time frame Pt reports being 175# at one point but unsure when. Per chart, pt was 70.45kg in 08/2018; 15% wt loss in 2+ years. Weight Status Emaciated Subjective/Other Information MD order for ONS. RN screen for skin risk, MST, and chewing difficulty. Screen for low BMI. Pt has severe muscle and fat wasting. Pt awaiting SUSTAINABILITY COORDINATOR re-eval tomorrow. If unable to reach his needs, TF if recommened. Burn Absent Trauma Absent Difficulty In Swallowing,Chewing Current % PO Negligible Minimum of two criteria Yes Body Fat Depletion Moderate depletion (severe) Muscle Mass Moderate Depletion (severe) #2 Nutrition Diagnosis Malnutrition Etiology advanced age, hx of CVA As Evidenced by Signs and Symptoms pt with severe muscle and fat loss #1 Nutrition Diagnosis Inadequate energy intake Etiology swallowing difficulty As Evidenced by Signs and Symptoms pt NPO awaiting swallow eval Is patient on ventilator? No Is Patient Ambulatory and/or Out of Bed No REE-([facility]-confined to bed) 1656.384 Kcal/Kg value to use for calculation 35 Approximate Energy Requirements Using 0 kcal/Kg Calculation Used for Recommendations [facility] Additional Notes Protein: (1.25-1.5g/kg) 75-90g Fluid: 1 ml/kcal Nutrition Intervention Change Diet Order: Diet advancement or start TF Goal #1 Diet advancement or TF Anticipated Discharge Needs: Unable to determine at this time Follow-Up By: 01/05/21 Additional Comments FU for plan of care
[2021-01-05 05:36] LABS: Hematocrit 27.5 % (35.5-45.6); Hemoglobin 9.3 gm/dl (11.8-15.2); Mean Corpuscular HGB Conc 34 % (32-34); Mean Corpuscular Volume 90 fl (84-94); Platelet Count 259 K/mm3 (140-440); Red Blood Count 3.06 M/mm3 (3.65-5.03); Red Cell Distribution Width 13.7 % (13.2-15.2)
[2021-01-05 06:00] LABS: Calcium 8.8 mg/dL (8.4-10.2)
--- NOTE | 2021-01-05 10:55 | Progress Note ---
Assessment and Plan - Patient Problems (1) Acute renal failure Current Visit: No Status: Acute Plan to address problem: Acute kidney injury present as male versus acute tubular necrosis secondary to hypotension/sepsis. Kidney function is improving. Ultrasound did not show any obstruction. Follow-up studies. Continue gentle volume expansion. Follow-up electrolytes and renal function. (2) Hyperkalemia Current Visit: No Status: Acute Plan to address problem: Potassium has improved with medical management. Follow-up levels. (3) Metabolic acidosis Current Visit: Yes Status: Acute Plan to address problem: Uremic acidosis. Follow-up bicarbonate. Start enteral replacement if patient is tolerating by mouth (4) Failure to thrive Current Visit: Yes Status: Acute Plan to address problem: Nutritional support. PT OT ST as Patient improves. (5) Ulcer of right heel Current Visit: Yes Status: Acute Plan to address problem: Wound care consult. Vascular surgery evaluation as appreciated (6) Aspiration pneumonia Current Visit: Yes Status: Acute (7) Anemia Current Visit: Yes Status: Acute Plan to address problem: Follow-up hemoglobin (8) HTN (hypertension) Current Visit: No Status: Acute Qualifiers: Qualified Code(s): I10 - Essential (primary) hypertension Plan to address problem: Blood pressure is now better. Continue to monitor patient on follow-up blood pressure (9) History of CVA with residual deficit Current Visit: No Status: Acute Plan to address problem: Continue antiplatelet agents Subjective Date of service: 01/05/21 Principal diagnosis: Acute kidney injury Interval history: Patient seen lying in bed. He is awake today. No complaints. No chest pain or shortness of breath. No nausea or vomiting Objective - Exam Narrative Exam: Elderly -[place] male lying in bed chronically ill looking in no acute distress. Coughing intermittently HEENT: NCAT, irregular pupils Neck: Supple, no venous distention CVS: S1S2 RRR with no murmur, rub or gallop Chest: Coarse breath sounds with low pitched rhonchi bilaterally Abdomen: Scaphoid, soft, nontender, no organomegaly, bowel sounds are present Extremities: No edema, muscle wasting, feet cool with dystrophic nails, right heel ulcer Genitourinary deferred Skin changes as noted above Neuro: Awake, more coherent today - Vital Signs Vital signs: Vital Signs - 12hr 01/05/21 01/05/21 01/05/21 03:26 07:36 09:10 Temperature 98.0 F 98.6 F Pulse Rate 89 91 H Respiratory 15 18 Rate Blood Pressure 142/73 136/79 O2 Sat by Pulse 98 100 99 Oximetry - Lab 01/05/21 05:12 01/05/21 05:12 Most recent lab results Calcium 8.8 mg/dL (8.4-10.2) 01/05/21 05:12 Phosphorus 3.90 mg/dL (2.5-4.5) 01/05/21 05:12 Magnesium 2.20 mg/dL (1.7-2.3) 01/05/21 05:12 Urine Creatinine 122.1 mg/dL (0.1-20.0) H 01/04/21 07:25 Urine Sodium 50 mmol/L 01/04/21 07:25 Urine Total Protein 49 mg/dL (5-11.8) H 01/04/21 07:25 Medications & Allergies - Medications Allergies/Adverse Reactions: Allergies No Known Allergies Allergy (Verified 11/22/19 13:13) Home Medications: Home Medications Medication Instructions Recorded Confirmed Last Taken Type Amlodipine Besylate [Norvasc] 5 mg PO DAILY 08/15/18 11/23/19 08/12/18 09:00 History Atorvastatin Calcium [Lipitor] 40 mg PO DAILY 08/15/18 11/23/19 08/12/18 09:00 History Calcium Carbonate [Ban-Acid 300MG 300 mg PO DAILY 08/15/18 11/23/19 08/12/18 09:00 History CHEW] Lisinopril [Zestril TAB] 2.5 mg PO QDAY 08/15/18 11/23/19 08/12/18 09:00 History metFORMIN [Glucophage] 500 mg PO QDAY 08/15/18 11/23/19 08/12/18 History Acetaminophen [Acetaminophen TAB] 650 mg PO Q4H PRN tablet 08/26/18 11/23/19 Unknown Rx Aspirin EC [Halfprin EC] 81 mg PO QDAY tablet 08/26/18 11/23/19 Unknown Rx Clopidogrel [Plavix] 75 mg PO QDAY tablet 08/26/18 11/23/19 Unknown Rx Ciprofloxacin HCl [Ciprofloxacin 500 mg PO Q12HR #14 tab 11/23/19 Unknown Rx TAB] Active Medications: Generic Name Dose Route Start Last Admin Trade Name Freq PRN Reason Stop Dose Admin Acetaminophen 650 mg 01/03/21 14:30 Acetaminophen 325 Mg Tab PO Q4H PRN Pain MILD(1-3)/Fever >100.5/MONTEJO Albuterol 2.5 mg 01/03/21 16:00 Albuterol 2.5 Mg/3 Ml Nebu IH Q4HRT PRN Shortness Of Breath Hydromorphone HCl 0.25 mg 01/03/21 15:00 Hydromorphone 1 Mg/1 Ml Inj IV Q4H PRN Pain, Moderate (4-6) Cefazolin Sodium 2 gm/ Sodium 100 mls @ 200 mls/hr 01/04/21 22:00 01/04/21 22:10 Chloride IV 200 mls/hr Q24H ALLEN Administration Protocol Sodium Chloride 1,000 mls @ 75 mls/hr 01/04/21 11:30 01/04/21 14:29 Nacl 0.9% 1000 Ml IV 75 mls/hr DIRECT ALLEN Administration Ondansetron HCl 4 mg 01/03/21 15:00 Ondansetron 4 Mg/2 Ml Inj IV Q8H PRN Nausea And Vomiting Pseudoephedrine/Acetam/Chlorphenir 10 ml 01/03/21 23:23 01/03/21 23:58 Guaifenesin/Codeine 100-10mg Oral Liqd 5 Ml PO 10 ml Q4H PRN Administration Cough Sodium Chloride 10 ml 01/03/21 22:00 01/05/21 09:17 Sodium Chloride 0.9% 10 Ml Flush Syringe IV 10 ml BID ALLEN Administration Sodium Chloride 10 ml 01/03/21 15:00 Sodium Chloride 0.9% 10 Ml Flush Syringe IV PRN PRN LINE FLUSH
--- NOTE | 2021-01-05 10:57 | Consultation ---
History of Present Illness Consult date: 01/05/21 Chief complaint: Right heel ulcer - History of present illness History of present illness: 75 yo male with DM, s/p CVA with dysarthria. Now with right heel ulcer. Pt only slowly responds with an occasional "yes" or "no". Past History Past Medical History: diabetes, hypertension, stroke, other Past Surgical History: cataract removal Social history: single, lives with family. denies: smoking, alcohol abuse, prescription drug abuse Family history: diabetes, hypertension Medications and Allergies Allergies Allergy/AdvReac Type Severity Reaction Status Date / Time No Known Allergies Allergy Verified 11/22/19 13:13 Home Medications Medication Instructions Recorded Confirmed Last Taken Type Amlodipine Besylate [Norvasc] 5 mg PO DAILY 08/15/18 11/23/19 08/12/18 09:00 History Atorvastatin Calcium [Lipitor] 40 mg PO DAILY 08/15/18 11/23/19 08/12/18 09:00 History Calcium Carbonate [Ban-Acid 300MG 300 mg PO DAILY 08/15/18 11/23/19 08/12/18 09:00 History CHEW] Lisinopril [Zestril TAB] 2.5 mg PO QDAY 08/15/18 11/23/19 08/12/18 09:00 History metFORMIN [Glucophage] 500 mg PO QDAY 08/15/18 11/23/19 08/12/18 History Acetaminophen [Acetaminophen TAB] 650 mg PO Q4H PRN tablet 08/26/18 11/23/19 Unknown Rx Aspirin EC [Halfprin EC] 81 mg PO QDAY tablet 08/26/18 11/23/19 Unknown Rx Clopidogrel [Plavix] 75 mg PO QDAY tablet 08/26/18 11/23/19 Unknown Rx Ciprofloxacin HCl [Ciprofloxacin 500 mg PO Q12HR #14 tab 11/23/19 Unknown Rx TAB] Active Meds: Active Medications Acetaminophen (Acetaminophen 325 Mg Tab) 650 mg PO Q4H PRN PRN Reason: Pain MILD(1-3)/Fever >100.5/MONTEJO Albuterol (Albuterol 2.5 Mg/3 Ml Nebu) 2.5 mg IH Q4HRT PRN PRN Reason: Shortness Of Breath Hydromorphone HCl (Hydromorphone 1 Mg/1 Ml Inj) 0.25 mg IV Q4H PRN PRN Reason: Pain, Moderate (4-6) Cefazolin Sodium 2 gm/ Sodium (Chloride) 100 mls @ 200 mls/hr IV Q24H [facility]; Protocol Last Admin: 01/04/21 22:10 Dose: 200 mls/hr Documented by: Sodium Chloride (Nacl 0.9% 1000 Ml) 1,000 mls @ 75 mls/hr IV DIRECT ALLEN Last Admin: 01/04/21 14:29 Dose: 75 mls/hr Documented by: Ondansetron HCl (Ondansetron 4 Mg/2 Ml Inj) 4 mg IV Q8H PRN PRN Reason: Nausea And Vomiting Pseudoephedrine/Acetam/Chlorphenir (Guaifenesin/Codeine 100-10mg Oral Liqd 5 Ml) 10 ml PO Q4H PRN PRN Reason: Cough Last Admin: 01/03/21 23:58 Dose: 10 ml Documented by: Sodium Chloride (Sodium Chloride 0.9% 10 Ml Flush Syringe) 10 ml IV BID [facility] Last Admin: 01/05/21 09:17 Dose: 10 ml Documented by: Sodium Chloride (Sodium Chloride 0.9% 10 Ml Flush Syringe) 10 ml IV PRN PRN PRN Reason: LINE FLUSH Review of Systems ROS unobtainable: due to mental status Exam Vital Signs Pulse Pulse Ox 102 H 100 01/03/21 11:56 01/03/21 11:56 - General physical appearance Positive: well developed, well nourished, no distress - Eyes Positive: PERRL, normal occular movement - ENT Positive: normal pinna, normal nares, normal mucosa, no hearing loss, no congestion - Neck Positive: no masses, no bruits, trachea midline, no venous distension - Respiratory Positive: normal expansion, normal respiratory effort, clear to auscultation - Cardiovascular Rhythm: regular Heart Sounds: Present: S1 & S2. Absent: rub, click - Extremities Extremities: no ischemia, pulses symmetrical, No edema - Breasts Breasts: normal, no mass, no skin changes - Abdomen Abdomen: Present: soft, bowel sounds normal. Absent: tender, distended Hernia: none - Genitourinary Male Genitourinary: normal Female Genitourinary: normal - Integumentary no rash, no growths, no abnormal pigmentation, other (See Wound Care nurses notes and photographs.) - Neurologic Neurologic: alert and oriented to time, place and person, motor strength and sensation are grossly intact - Musculoskeletal normal gait, normal posture - Psychiatric Psychiatric: appropriate mood/affect, intact judgment & insight Results - Labs 01/05/21 05:12 01/05/21 05:12 Abnormal lab results 01/04/21 01/04/21 01/04/21 Range/Units 07:25 11:36 15:43 RBC (3.65-5.03) M/mm3 Hgb (11.8-15.2) gm/dl Hct (35.5-45.6) % Chloride (98-107) mmol/L Carbon Dioxide (22-30) mmol/L BUN (9-20) mg/dL Creatinine (0.8-1.3) mg/dL POC Glucose 125 H 109 H (70-105) mg/dL Urine Creatinine 122.1 H (0.1-20.0) mg/dL Urine Total Protein 49 H (5-11.8) mg/dL 01/05/21 01/05/21 Range/Units 05:12 05:12 RBC 3.06 L (3.65-5.03) M/mm3 Hgb 9.3 L (11.8-15.2) gm/dl Hct 27.5 L (35.5-45.6) % Chloride 112.2 H (98-107) mmol/L Carbon Dioxide 15 L (22-30) mmol/L BUN 74 H (9-20) mg/dL Creatinine 4.1 H (0.8-1.3) mg/dL POC Glucose (70-105) mg/dL Urine Creatinine (0.1-20.0) mg/dL Urine Total Protein (5-11.8) mg/dL Diabetes panel 01/05/21 Range/Units 05:12 Sodium 144 (137-145) mmol/L Potassium 4.7 (3.6-5.0) mmol/L Chloride 112.2 H (98-107) mmol/L Carbon Dioxide 15 L (22-30) mmol/L BUN 74 H (9-20) mg/dL Creatinine 4.1 H (0.8-1.3) mg/dL Glucose 91 (75-100) mg/dL Calcium 8.8 (8.4-10.2) mg/dL Calcium panel 01/05/21 Range/Units 05:12 Calcium 8.8 (8.4-10.2) mg/dL Phosphorus 3.90 (2.5-4.5) mg/dL Pituitary panel 01/05/21 Range/Units 05:12 Sodium 144 (137-145) mmol/L Potassium 4.7 (3.6-5.0) mmol/L Chloride 112.2 H (98-107) mmol/L Carbon Dioxide 15 L (22-30) mmol/L BUN 74 H (9-20) mg/dL Creatinine 4.1 H (0.8-1.3) mg/dL Glucose 91 (75-100) mg/dL Calcium 8.8 (8.4-10.2) mg/dL Adrenal panel 01/05/21 Range/Units 05:12 Sodium 144 (137-145) mmol/L Potassium 4.7 (3.6-5.0) mmol/L Chloride 112.2 H (98-107) mmol/L Carbon Dioxide 15 L (22-30) mmol/L BUN 74 H (9-20) mg/dL Creatinine 4.1 H (0.8-1.3) mg/dL Glucose 91 (75-100) mg/dL Calcium 8.8 (8.4-10.2) mg/dL - Imaging Additional studies: I have read Dr. Mccarthy's notes. Assessment and Plan - Patient Problems (1) Ulcer of right heel Current Visit: Yes Status: Acute Plan to address problem: 1) MRI of right foot without contrast 2) I called the pt's daughter and discussed options including right AKA (since pt is non-ambulatory) vs angiographic revascularization (with attendant risks of worsening renal failure) vs local wound therapy only to include local debridement. Pt's daughter only desires to consider local wound therapy with debridement at the present. Consent for debridement of the right heel was obtained. I will debride wound either later today or tomorrow. 3) Wound Care nurse consult
--- NOTE | 2021-01-05 14:03 | Progress Note ---
Assessment and Plan Assessment and plan: - Patient Problems Sepsis Sepsis protocol: IVF resuscitation therapy, IV antibiotic therapy, serial lactic acid level, blood culture, maintain MAP greater than or equal to 65, monitor uop q shift, CBC, CMP, chest x ray, urinalysis, Malnutrition Increased protein intake, dietary supplementation Acute kidney injury Nephrology consulted, IVF resuscitation therapy, monitor uop q shift, Infected ulcer right heel supportive care, vascular surgery consulted, History of CVA with residual deficit antiplatelet therapy, risk factor reduction Diabetes Melitus consistent carbohydrate diet, accu check, DVT prophylaxis SCD to BLE while in bed, prophylactic anticoagulation Advance care planning Pt is full code, diagnoses discussed, prognosis discussed, care plan discussed, Pt daughter acknowledges understanding and agreement with care plan. Sandie Higgins, Daughter . patient was on home hospice with [facility] 01/04 Patient seen and examined today. He has right heel ulcer. Patient was evaluated by [facility] Surgeon who recommends General surgeon to evaluate heel ulcers. Will consult Dr. Salas since he has been seeing him before. His CAMILLE is being managed by Nephrology 01/05 Patient with sepsis, CAMILLE, infected right heel ulcer. Patient was seen by Dr. Salas, Surgeon. He will do local debridement. I discussed with case Management. Patient has home hospice. History Interval history: Patient cannot give history Altered mental status right heel ulcer Hospitalist Physical - Physical exam Narrative exam: Gen: Not in acute distress, lying in bed HEENT: Normochephalic, atraumatic Neck:supple, No JVD Lungs:Clear to auscultation bilaterally, no rales, no wheeze Heart:S1 and S2 reg, no murmurs, rubs or gallop Abd: soft, non tender, non distended, normal bowel sounds Ext: Ulcer right heel Neuro: Lethargic, - Constitutional Vitals: Temp Pulse Resp BP Pulse Ox 98.6 F 92 H 18 136/79 99 01/05/21 07:36 01/05/21 09:00 01/05/21 07:36 01/05/21 07:36 01/05/21 09:10 General appearance: Present: no acute distress HEART Score - HEART Score Troponin: Troponin T 0.088 ng/mL (0.00-0.029) H 01/03/21 12:42 Results - Labs CBC & Chem 7: 01/05/21 05:12 01/05/21 05:12 Labs: Laboratory Last Values WBC 9.0 K/mm3 (4.5-11.0) 01/05/21 05:12 RBC 3.06 M/mm3 (3.65-5.03) L 01/05/21 05:12 Hgb 9.3 gm/dl (11.8-15.2) L 01/05/21 05:12 Hct 27.5 % (35.5-45.6) L 01/05/21 05:12 MCV 90 fl (84-94) 01/05/21 05:12 MCH 30 pg (28-32) 01/05/21 05:12 MCHC 34 % (32-34) 01/05/21 05:12 RDW 13.7 % (13.2-15.2) 01/05/21 05:12 Plt Count 259 K/mm3 (140-440) 01/05/21 05:12 Lymph % (Auto) 11.6 % (13.4-35.0) L 01/04/21 05:22 [place] % (Auto) 12.1 % (0.0-7.3) H 01/04/21 05:22 Eos % (Auto) 0.3 % (0.0-4.3) 01/04/21 05:22 Baso % (Auto) 0.3 % (0.0-1.8) 01/04/21 05:22 Lymph # (Auto) 1.3 K/mm3 (1.2-5.4) 01/04/21 05:22 [place] # (Auto) 1.4 K/mm3 (0.0-0.8) H 01/04/21 05:22 Eos # (Auto) 0.0 K/mm3 (0.0-0.4) 01/04/21 05:22 Baso # (Auto) 0.0 K/mm3 (0.0-0.1) 01/04/21 05:22 Seg Neutrophils % 75.7 % (40.0-70.0) H 01/04/21 05:22 Seg Neutrophils # 8.6 K/mm3 (1.8-7.7) H 01/04/21 05:22 ESR 140 mm/Hr (0-20) 01/03/21 14:33 PT 14.6 Sec. (12.2-14.9) 01/03/21 12:42 INR 1.08 (0.87-1.13) 01/03/21 12:42 APTT 33.2 Sec. (24.2-36.6) 01/03/21 12:42 Sodium 144 mmol/L (137-145) 01/05/21 05:12 Potassium 4.7 mmol/L (3.6-5.0) 01/05/21 05:12 Chloride 112.2 mmol/L (98-107) H 01/05/21 05:12 Carbon Dioxide 15 mmol/L (22-30) L 01/05/21 05:12 Anion Gap 22 mmol/L 01/05/21 05:12 BUN 74 mg/dL (9-20) H 01/05/21 05:12 Creatinine 4.1 mg/dL (0.8-1.3) H 01/05/21 05:12 Estimated GFR 17 ml/min 01/05/21 05:12 BUN/Creatinine Ratio 18 % 01/05/21 05:12 Glucose 91 mg/dL (75-100) 01/05/21 05:12 POC Glucose 88 mg/dL (70-105) 01/05/21 05:23 Lactic Acid 1.50 mmol/L (0.7-2.0) 01/03/21 22:59 Calcium 8.8 mg/dL (8.4-10.2) 01/05/21 05:12 Phosphorus 3.90 mg/dL (2.5-4.5) 01/05/21 05:12 Magnesium 2.20 mg/dL (1.7-2.3) 01/05/21 05:12 Total Bilirubin 0.20 mg/dL (0.1-1.2) 01/04/21 05:22 AST 10 units/L (5-40) 01/04/21 05:22 ALT < 5 units/L (7-56) L 01/04/21 05:22 Alkaline Phosphatase 63 units/L (35-129) 01/04/21 05:22 Total Creatine Kinase 142 units/L (55-170) 01/03/21 12:42 Troponin T 0.088 ng/mL (0.00-0.029) H 01/03/21 12:42 C-Reactive Protein 23.90 mg/dL (0.00-1.30) H 01/03/21 12:42 Total Protein 6.7 g/dL (6.3-8.2) 01/04/21 05:22 Albumin 3.0 g/dL (3.9-5) L 01/04/21 05:22 Albumin/Globulin Ratio 0.8 % 01/04/21 05:22 Triglycerides 77 mg/dL (2-149) 01/03/21 12:42 Cholesterol 120 mg/dL (50-199) 01/03/21 12:42 LDL Cholesterol Direct 60 mg/dL (50-130) 01/03/21 12:42 HDL Cholesterol 46 mg/dL (40-59) 01/03/21 12:42 Cholesterol/HDL Ratio 2.60 % 01/03/21 12:42 TSH 2.560 mlU/mL (0.270-4.200) 01/03/21 12:42 Urine Color Yellow (Yellow) 01/04/21 07:25 Urine Turbidity Cloudy (Clear) 01/04/21 07:25 Urine pH 5.0 (5.0-7.0) 01/04/21 07:25 Ur Specific [place] 1.013 (1.003-1.030) 01/04/21 07:25 Urine Protein 30 mg/dl mg/dL (Negative) 01/04/21 07:25 Urine Glucose (UA) Neg mg/dL (Negative) 01/04/21 07:25 Urine Ketones Tr mg/dL (Negative) 01/04/21 07:25 Urine Blood Mod (Negative) 01/04/21 07:25 Urine Nitrite Neg (Negative) 01/04/21 07:25 Urine Bilirubin Neg (Negative) 01/04/21 07:25 Urine Urobilinogen < 2.0 mg/dL (<2.0) 01/04/21 07:25 Ur Leukocyte Esterase Lg (Negative) 01/04/21 07:25 Urine WBC (Auto) > 182.0 /HPF (0.0-6.0) H 01/04/21 07:25 Urine RBC (Auto) 15.0 /HPF (0.0-6.0) 01/04/21 07:25 U Epithel Cells (Auto) 2.0 /HPF (0-13.0) 01/04/21 07:25 Urine Bacteria (Auto) 2+ /HPF (Negative) 01/04/21 07:25 Urine Creatinine 122.1 mg/dL (0.1-20.0) H 01/04/21 07:25 Urine Sodium 50 mmol/L 01/04/21 07:25 Urine Total Protein 49 mg/dL (5-11.8) H 01/04/21 07:25 Salicylates 0.3 mg/dL (2.8-20.0) L 01/03/21 12:42 Acetaminophen < 5.0 ug/mL (10.0-30.0) L 01/03/21 13:09 Blood Type B POSITIVE 01/03/21 14:33 Antibody Screen Negative 01/03/21 14:33 Microbiology: Microbiology 01/03/21 12:42 Peripheral/Venous Blood Culture - Preliminary NO GROWTH AFTER 48 HOURS 01/03/21 12:42 Peripheral/Venous Blood Culture - Preliminary NO GROWTH AFTER 48 HOURS 01/03/21 Unknown Urine,Catheterized - Straight Catheter Urine Culture - P reliminary [place]/IV: Voiding Method Indwelling Catheter Active Medications - Current Medications Current Medications: Generic Name Dose Route Start Last Admin Trade Name Freq PRN Reason Stop Dose Admin Acetaminophen 650 mg 01/03/21 14:30 Acetaminophen 325 Mg Tab PO Q4H PRN Pain MILD(1-3)/Fever >100.5/MONTEJO Albuterol 2.5 mg 01/03/21 16:00 Albuterol 2.5 Mg/3 Ml Nebu IH Q4HRT PRN Shortness Of Breath Hydromorphone HCl 0.25 mg 01/03/21 15:00 Hydromorphone 1 Mg/1 Ml Inj IV Q4H PRN Pain, Moderate (4-6) Cefazolin Sodium 2 gm/ Sodium 100 mls @ 200 mls/hr 01/04/21 22:00 01/04/21 22 :10 Chloride IV 200 mls/hr Q24H ALLEN Administration Protocol Sodium Chloride 1,000 mls @ 75 mls/hr 01/04/21 11:30 01/04/21 14:29 Nacl 0.9% 1000 Ml IV 75 mls/hr DIRECT ALLEN Administration Ondansetron HCl 4 mg 01/03/21 15:00 Ondansetron 4 Mg/2 Ml Inj IV Q8H PRN Nausea And Vomiting Pseudoephedrine/Acetam/Chlorphenir 10 ml 01/03/21 23:23 01/03/21 23:58 Guaifenesin/Codeine 100-10mg Oral Liqd 5 Ml PO 10 ml Q4H PRN Administration Cough Sodium Chloride 10 ml 01/03/21 22:00 01/05/21 09:17 Sodium Chloride 0.9% 10 Ml Flush Syringe IV 10 ml BID ALLEN Administration Sodium Chloride 10 ml 01/03/21 15:00 Sodium Chloride 0.9% 10 Ml Flush Syringe IV PRN PRN LINE FLUSH Nutrition/Malnutrition Assess - Dietary Evaluation Nutrition/Malnutrition Findings: Nutrition Notes Start: 01/04/21 12:41 Freq: Status: Active Protocol: Document 01/04/21 12:41 SUSU (Rec: 01/04/21 12:51 SUSU [id number]) Nutrition Notes Need for Assessment generated from: 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 Per chart, pt was 70.45kg in 08/2018; 15% wt loss in 2+ years. Weight Status Emaciated Subjective/Other Information MD order for ONS. RN screen for skin risk, MST, and chewing difficulty. Screen for low BMI. Pt has severe muscle and fat wasting. Pt awaiting HATCHERY HELPER re-eval tomorrow. If unable to reach his needs, TF if recommened. Burn Absent Trauma Absent Difficulty In Swallowing,Chewing Current % PO Negligible Minimum of two criteria Yes Body Fat Depletion Moderate depletion (severe) Muscle Mass Moderate Depletion (severe) #2 Nutrition Diagnosis Malnutrition Etiology advanced age, hx of CVA As Evidenced by Signs and Symptoms pt with severe muscle and fat loss #1 Nutrition Diagnosis Inadequate energy intake Etiology swallowing difficulty As Evidenced by Signs and Symptoms pt NPO awaiting swallow eval Is patient on ventilator? No Is Patient Ambulatory and/or Out of Bed No REE-(Stone-St. Jeor-confined to bed) 1656.384 Kcal/Kg value to use for calculation 35 Approximate Energy Requirements Using 2090 kcal/Kg Calculation Used for Recommendations Jojo Rodríguez Additional Notes Protein: (1.25-1.5g/kg) 75-90g Fluid: 1 ml/kcal Nutrition Intervention Change Diet Order: Diet advancement or start TF Goal #1 Diet advancement or TF Anticipated Discharge Needs: Unable to determine at this time Follow-Up By: 01/05/21 Additional Comments FU for plan of care
--- NOTE | 2021-01-05 15:02 | Consultation ---
History of Present Illness - Reason for Consult Consult date: 01/05/21 - History of Present Illness 75 yo M PMhx Dm2, CVA, dysarthria, BLE heel ulcers presented to the [facility] due to altered mental status as noticed by family. Of note the patient is non-verbal at baseline and with limited cognition. His symptoms began 1 week prior to admission. He was evaluated by surgery for potential amputation, however family is refusing despite his bedbound and non-functional status. Afebrile since admission with a white count of 9. Culturs no growth so far. Imaging personally reviewed: Foot XR: Ulceration R heel Past History Past Medical History: diabetes, hypertension, stroke, other Past Surgical History: cataract removal Social history: single, lives with family. denies: smoking, alcohol abuse, prescription drug abuse Family history: diabetes, hypertension Medications and Allergies Allergies Allergy/AdvReac Type Severity Reaction Status Date / Time No Known Allergies Allergy Verified 11/22/19 13:13 Home Medications Medication Instructions Recorded Confirmed Last Taken Type Amlodipine Besylate [Norvasc] 5 mg PO DAILY 08/15/18 11/23/19 08/12/18 09:00 History Atorvastatin Calcium [Lipitor] 40 mg PO DAILY 08/15/18 11/23/19 08/12/18 09:00 History Calcium Carbonate [Ban-Acid 300MG 300 mg PO DAILY 08/15/18 11/23/19 08/12/18 09:00 History CHEW] Lisinopril [Zestril TAB] 2.5 mg PO QDAY 08/15/18 11/23/19 08/12/18 09:00 History metFORMIN [Glucophage] 500 mg PO QDAY 08/15/18 11/23/19 08/12/18 History Acetaminophen [Acetaminophen TAB] 650 mg PO Q4H PRN tablet 08/26/18 11/23/19 Unknown Rx Aspirin EC [Halfprin EC] 81 mg PO QDAY tablet 08/26/18 11/23/19 Unknown Rx Clopidogrel [Plavix] 75 mg PO QDAY tablet 08/26/18 11/23/19 Unknown Rx Active Meds: Active Medications Acetaminophen (Acetaminophen 325 Mg Tab) 650 mg PO Q4H PRN PRN Reason: Pain MILD(1-3)/Fever >100.5/MONTEJO Albuterol (Albuterol 2.5 Mg/3 Ml Nebu) 2.5 mg IH Q4HRT PRN PRN Reason: Shortness Of Breath Hydromorphone HCl (Hydromorphone 1 Mg/1 Ml Inj) 0.25 mg IV Q4H PRN PRN Reason: Pain, Moderate (4-6) Cefazolin Sodium 2 gm/ Sodium (Chloride) 100 mls @ 200 mls/hr IV Q24H ALLEN; Protocol Last Admin: 01/04/21 22:10 Dose: 200 mls/hr Documented by: Sodium Chloride (Nacl 0.9% 1000 Ml) 1,000 mls @ 75 mls/hr IV DIRECT ALLEN Last Admin: 01/04/21 14:29 Dose: 75 mls/hr Documented by: Ondansetron HCl (Ondansetron 4 Mg/2 Ml Inj) 4 mg IV Q8H PRN PRN Reason: Nausea And Vomiting Pseudoephedrine/Acetam/Chlorphenir (Guaifenesin/Codeine 100-10mg Oral Liqd 5 Ml) 10 ml PO Q4H PRN PRN Reason: Cough Last Admin: 01/03/21 23:58 Dose: 10 ml Documented by: Sodium Chloride (Sodium Chloride 0.9% 10 Ml Flush Syringe) 10 ml IV BID [facility] Last Admin: 01/05/21 09:17 Dose: 10 ml Documented by: Sodium Chloride (Sodium Chloride 0.9% 10 Ml Flush Syringe) 10 ml IV PRN PRN PRN Reason: LINE FLUSH Physical Examination - Physical Exam Narrative exam: Physical Exam: Constitutional: Awake, non-verbal Head, Ears, Nose: Normocephalic, atraumatic. External ears, nose normal Eyes: Conjunctivae/corneas clear. No icterus. No ptosis. Neck: Supple, no meningeal signs Oral: dentition fair, no thrush Cardiovascular: S1, S2 normal. Respiratory: Good air entry, clear to auscultation bilaterally GI: Soft, non-tender; bowel sounds normal. No peritoneal signs. Musculoskeletal: R heel necrotic eschar Skin: No rash or abscess Hem/Lymphatic: No palpable cervical or supraclavicular nodes. No lymphangitis Psych: No distress Neurological: Non-verbal - Constitutional Vitals: Vital Signs Temp Pulse Resp BP Pulse Ox 98.6 F 92 H 18 136/79 99 01/05/21 07:36 01/05/21 09:00 01/05/21 07:36 01/05/21 07:36 01/05/21 09:10 Temperature -Last 24 Hours Temperature 98.6 F Temperature 98.0 F Temperature 98.6 F Temperature 98.4 F Temperature 97.6 F Results - Labs CBC & Chem 7: 01/05/21 05:12 01/05/21 05:12 Labs: Abnormal lab results 01/04/21 01/04/21 01/05/21 Range/Units 07:25 15:43 05:12 RBC (3.65-5.03) M/mm3 Hgb (11.8-15.2) gm/dl Hct (35.5-45.6) % Chloride 112.2 H (98-107) mmol/L Carbon Dioxide 15 L (22-30) mmol/L BUN 74 H (9-20) mg/dL Creatinine 4.1 H (0.8-1.3) mg/dL POC Glucose 109 H (70-105) mg/dL Urine Creatinine 122.1 H (0.1-20.0) mg/dL Urine Total Protein 49 H (5-11.8) mg/dL 01/05/21 Range/Units 05:12 RBC 3.06 L (3.65-5.03) M/mm3 Hgb 9.3 L (11.8-15.2) gm/dl Hct 27.5 L (35.5-45.6) % Chloride (98-107) mmol/L Carbon Dioxide (22-30) mmol/L BUN (9-20) mg/dL Creatinine (0.8-1.3) mg/dL POC Glucose (70-105) mg/dL Urine Creatinine (0.1-20.0) mg/dL Urine Total Protein (5-11.8) mg/dL Assessment and Plan Cultures: Blood culture no growth so far. A/P: 75 yo M PMhx Dm2, CVA, dysarthria, BLE heel ulcers admitted with AMS #Bilateral heel ulcers, R>L: Pending MRI to assess for osteomyelitis. Family refusing amputation at present. Pending MRI will determine outpatient antibiotic plan and duration. #AMS: likely secondary to infection, has minimal cognition at baseline and likely limited reserves #Non-verbal status #DM2: tight glycemic control for best outcomes. Recs: -Peviously hs grown Klebsiella, Proteus, MSSA -Stopped Ancef -Start ceftriaxone 2 g every 24 hours -Please obtain cultures from debridement. Thank you for the consult, we will continue to follow. Eliza Guerrero MD [facility] ([facility]) O: [phone] F: [phone]
[2021-01-05] MEDS: SODIUM CHLORIDE 0.9% 1000 ML 1,000 ML IV SCH (18:09)
[2021-01-05] MEDS: cefTRIAXone/NS 2 GM/100 ML 2 GM/100 ML BAG IV SCH (20:52)
[2021-01-06 05:53] LABS: Hematocrit 29.3 % (35.5-45.6); Hemoglobin 9.3 gm/dl (11.8-15.2); Mean Corpuscular HGB Conc 32 % (32-34); Mean Corpuscular Volume 90 fl (84-94); Platelet Count 293 K/mm3 (140-440); Red Blood Count 3.25 M/mm3 (3.65-5.03)
[2021-01-06 06:18] LABS: Calcium 8.9 mg/dL (8.4-10.2)
[2021-01-06] MEDS: SODIUM CHLORIDE 0.9% 1000 ML 1,000 ML IV SCH (06:32)
[2021-01-06] MEDS ORDERED: SODIUM POLYSTYRENE 15 GM/60 ML ORAL LIQD PO NR (08:12)
--- NOTE | 2021-01-06 08:52 | Progress Note ---
Assessment and Plan - Patient Problems (1) Acute renal failure Current Visit: No Status: Acute Plan to address problem: Acute kidney injury present as male versus acute tubular necrosis secondary to hypotension/sepsis. Kidney function is improving. Ultrasound did not show any obstruction. Continue gentle volume expansion but change to hypotonic fluids given the hypernatremia. Follow-up electrolytes and renal function. (2) Hyperkalemia Current Visit: No Status: Acute Plan to address problem: Potassium is again high today. Treat hyperkalemia medically and follow-up levels. (3) Hypernatremia Current Visit: Yes Status: Acute Plan to address problem: Give hypotonic fluid intravenously and follow-up sodium (4) Metabolic acidosis Current Visit: Yes Status: Acute Plan to address problem: Uremic acidosis. Bicarbonate is still low. Patient still not able to take by mouth. We will give bicarbonate intravenously (5) Failure to thrive Current Visit: Yes Status: Acute Plan to address problem: Nutritional support. PT OT ST as Patient improves. (6) Ulcer of right heel Current Visit: Yes Status: Acute Plan to address problem: Wound care consult. Vascular surgery evaluation as appreciated (7) Aspiration pneumonia Current Visit: Yes Status: Acute Plan to address problem: Continue broad-spectrum antibiotics. Follow-up cultures. Needs speech evaluation. (8) Anemia Current Visit: Yes Status: Acute Plan to address problem: Follow-up hemoglobin (9) HTN (hypertension) Current Visit: No Status: Acute Qualifiers: Hypertension type: essential hypertension Qualified Code(s): I10 - Essential (primary) hypertension Plan to address problem: Blood pressure is now better. Continue to monitor patient on follow-up blood pressure (10) History of CVA with residual deficit Current Visit: No Status: Acute Plan to address problem: Continue antiplatelet agents Subjective Date of service: 01/06/21 Principal diagnosis: Acute kidney injury Interval history: Patient seen lying in bed. He is awake today. No complaints. No chest pain or shortness of breath. No nausea or vomiting Objective - Exam Narrative Exam: Elderly -[place] male lying in bed chronically ill looking in no acute distress. Coughing intermittently HEENT: NCAT, irregular pupils Neck: Supple, no venous distention CVS: S1S2 RRR with no murmur, rub or gallop Chest: Diminished breath sounds Abdomen: Scaphoid, soft, nontender, no organomegaly, bowel sounds are present Extremities: No edema, muscle wasting, feet cool with dystrophic nails, right heel ulcer Genitourinary deferred Obando catheter draining clear urine Skin changes as noted above Neuro: Awake, more coherent today - Vital Signs Vital signs: Vital Signs - 12hr 01/05/21 01/06/21 01/06/21 23:20 03:07 07:51 Temperature 97.4 F L 98.0 F 97.5 F L Pulse Rate 93 H 50 L 88 Respiratory 16 16 18 Rate Blood Pressure 143/85 138/78 135/78 O2 Sat by Pulse 100 90 100 Oximetry - Lab 01/06/21 05:20 01/06/21 05:20 Most recent lab results Calcium 8.9 mg/dL (8.4-10.2) 01/06/21 05:20 Phosphorus 3.90 mg/dL (2.5-4.5) 01/05/21 05:12 Magnesium 2.20 mg/dL (1.7-2.3) 01/05/21 05:12 Urine Creatinine 122.1 mg/dL (0.1-20.0) H 01/04/21 07:25 Urine Sodium 50 mmol/L 01/04/21 07:25 Urine Total Protein 49 mg/dL (5-11.8) H 01/04/21 07:25 Medications & Allergies - Medications Allergies/Adverse Reactions: Allergies No Known Allergies Allergy (Verified 11/22/19 13:13) Home Medications: Home Medications Medication Instructions Recorded Confirmed Last Taken Type Amlodipine Besylate [Norvasc] 5 mg PO DAILY 08/15/18 01/05/21 3 Days Ago History ~01/02/21 Atorvastatin Calcium [Lipitor] 40 mg PO DAILY 08/15/18 01/05/21 3 Days Ago History ~01/02/21 Calcium Carbonate [Ban-Acid 300MG 300 mg PO DAILY 08/15/18 01/05/21 3 Days Ago History CHEW] ~01/02/21 Lisinopril [Zestril TAB] 2.5 mg PO QDAY 08/15/18 01/05/21 3 Days Ago History ~01/02/21 metFORMIN [Glucophage] 500 mg PO QDAY 08/15/18 01/05/21 3 Days Ago History ~01/02/21 Acetaminophen [Acetaminophen TAB] 650 mg PO Q4H PRN tablet 08/26/18 01/05/21 Unknown Rx Aspirin EC [Halfprin EC] 81 mg PO QDAY tablet 08/26/18 01/05/21 3 Days Ago Rx ~01/02/21 Clopidogrel [Plavix] 75 mg PO QDAY tablet 08/26/18 01/05/21 3 Days Ago Rx ~01/02/21 Active Medications: Generic Name Dose Route Start Last Admin Trade Name Freq PRN Reason Stop Dose Admin Acetaminophen 650 mg 01/03/21 14:30 Acetaminophen 325 Mg Tab PO Q4H PRN Pain MILD(1-3)/Fever >100.5/MONTEJO Albuterol 2.5 mg 01/03/21 16:00 Albuterol 2.5 Mg/3 Ml Nebu IH Q4HRT PRN Shortness Of Breath Hydromorphone HCl 0.25 mg 01/03/21 15:00 Hydromorphone 1 Mg/1 Ml Inj IV Q4H PRN Pain, Moderate (4-6) Ceftriaxone Sodium 2 gm in 100 mls @ 200 mls/hr 01/05/21 16:00 01/05/21 20:52 Rocephin/Ns 2 Gm/100 Ml IV 200 mls/hr Q24H ALLEN Administration Protocol Sodium Bicarbonate 50 meq/ 1,050 mls @ 100 mls/hr 01/06/21 09:00 Dextrose IV DIRECT ALLEN Ondansetron HCl 4 mg 01/03/21 15:00 Ondansetron 4 Mg/2 Ml Inj IV Q8H PRN Nausea And Vomiting Pseudoephedrine/Acetam/Chlorphenir 10 ml 01/03/21 23:23 01/03/21 23:58 Guaifenesin/Codeine 100-10mg Oral Liqd 5 Ml PO 10 ml Q4H PRN Administration Cough Sodium Chloride 10 ml 01/03/21 22:00 01/05/21 21:18 Sodium Chloride 0.9% 10 Ml Flush Syringe IV 10 ml BID ALLEN Administration Sodium Chloride 10 ml 01/03/21 15:00 Sodium Chloride 0.9% 10 Ml Flush Syringe IV PRN PRN LINE FLUSH Sodium Polystyrene Sulfonate 30 gm 01/06/21 08:12 Sodium Polystyrene 15 Gm/60 Ml Oral Liqd PO 01/06/21 10:00 ONCE NR
[2021-01-06] MEDS ORDERED: SODIUM BICARBONATE IV SCH (09:00)
[2021-01-06] MEDS ORDERED: D5W IV SCH (09:00)
--- NOTE | 2021-01-06 10:22 | Progress Note ---
Assessment and Plan Assessment and plan: - Patient Problems Sepsis Sepsis protocol: IVF resuscitation therapy, IV antibiotic therapy, serial lactic acid level, blood culture, maintain MAP greater than or equal to 65, monitor uop q shift, CBC, CMP, chest x ray, urinalysis, Malnutrition Increased protein intake, dietary supplementation Acute kidney injury Nephrology consulted, IVF resuscitation therapy, monitor uop q shift, Infected ulcer right heel supportive care, vascular surgery consulted, History of CVA with residual deficit antiplatelet therapy, risk factor reduction Diabetes Melitus consistent carbohydrate diet, accu check, DVT prophylaxis SCD to BLE while in bed, prophylactic anticoagulation Advance care planning Pt is full code, diagnoses discussed, prognosis discussed, care plan discussed, Pt daughter acknowledges understanding and agreement with care plan. Sandie Higgins, Daughter . patient was on home hospice with [facility] 01/04 Patient seen and examined today. He has right heel ulcer. Patient was evaluated by [facility] Surgeon who recommends General surgeon to evaluate heel ulcers. Will consult Dr. Salas since he has been seeing him before. His CAMILLE is being managed by Nephrology 01/05 Patient with sepsis, CAMILLE, infected right heel ulcer. Patient was seen by Dr. Salas, Surgeon. He will do local debridement. I discussed with case Management. Patient has home hospice. 01/06 Patient with sepsis, CAMILLE, infected right heel ulcer. Today has hyperkalemia of 5.8. I discussed with Dr. Ortega. Kayexalate ordered. Dr. Salas to do local debridement. Patient on discharge will go back to home hospice. History Interval history: Patient cannot give history Altered mental status right heel ulcer Hospitalist Physical - Physical exam Narrative exam: Gen: Not in acute distress, lying in bed HEENT: Normochephalic, atraumatic Neck:supple, No JVD Lungs:Clear to auscultation bilaterally, no rales, no wheeze Heart:S1 and S2 reg, no murmurs, rubs or gallop Abd: soft, non tender, non distended, normal bowel sounds Ext: Ulcer right heel Neuro: Lethargic, - Constitutional Vitals: Temp Pulse Resp BP Pulse Ox 97.5 F L 88 18 135/78 100 01/06/21 07:51 01/06/21 07:51 01/06/21 07:51 01/06/21 07:51 01/06/21 07:51 General appearance: Present: no acute distress HEART Score - HEART Score Troponin: Troponin T 0.088 ng/mL (0.00-0.029) H 01/03/21 12:42 Results - Labs CBC & Chem 7: 01/06/21 05:20 01/06/21 05:20 Labs: Laboratory Last Values WBC 9.3 K/mm3 (4.5-11.0) 01/06/21 05:20 RBC 3.25 M/mm3 (3.65-5.03) L 01/06/21 05:20 Hgb 9.3 gm/dl (11.8-15.2) L 01/06/21 05:20 Hct 29.3 % (35.5-45.6) L 01/06/21 05:20 MCV 90 fl (84-94) 01/06/21 05:20 MCH 29 pg (28-32) 01/06/21 05:20 MCHC 32 % (32-34) 01/06/21 05:20 RDW 14.0 % (13.2-15.2) 01/06/21 05:20 Plt Count 293 K/mm3 (140-440) 01/06/21 05:20 Lymph % (Auto) 11.6 % (13.4-35.0) L 01/04/21 05:22 Sanborn % (Auto) 12.1 % (0.0-7.3) H 01/04/21 05:22 Eos % (Auto) 0.3 % (0.0-4.3) 01/04/21 05:22 Baso % (Auto) 0.3 % (0.0-1.8) 01/04/21 05:22 Lymph # (Auto) 1.3 K/mm3 (1.2-5.4) 01/04/21 05:22 Sanborn # (Auto) 1.4 K/mm3 (0.0-0.8) H 01/04/21 05:22 Eos # (Auto) 0.0 K/mm3 (0.0-0.4) 01/04/21 05:22 Baso # (Auto) 0.0 K/mm3 (0.0-0.1) 01/04/21 05:22 Seg Neutrophils % 75.7 % (40.0-70.0) H 01/04/21 05:22 Seg Neutrophils # 8.6 K/mm3 (1.8-7.7) H 01/04/21 05:22 ESR 140 mm/Hr (0-20) 01/03/21 14:33 PT 14.6 Sec. (12.2-14.9) 01/03/21 12:42 INR 1.08 (0.87-1.13) 01/03/21 12:42 APTT 33.2 Sec. (24.2-36.6) 01/03/21 12:42 Sodium 150 mmol/L (137-145) H 01/06/21 05:20 Potassium 5.4 mmol/L (3.6-5.0) H 01/06/21 05:20 Chloride 116.5 mmol/L (98-107) H 01/06/21 05:20 Carbon Dioxide 16 mmol/L (22-30) L 01/06/21 05:20 Anion Gap 23 mmol/L 01/06/21 05:20 BUN 73 mg/dL (9-20) H 01/06/21 05:20 Creatinine 3.6 mg/dL (0.8-1.3) H 01/06/21 05:20 Estimated GFR 20 ml/min 01/06/21 05:20 BUN/Creatinine Ratio 20 % 01/06/21 05:20 Glucose 83 mg/dL (75-100) 01/06/21 05:20 POC Glucose 82 mg/dL (70-105) 01/06/21 06:35 Lactic Acid 1.50 mmol/L (0.7-2.0) 01/03/21 22:59 Calcium 8.9 mg/dL (8.4-10.2) 01/06/21 05:20 Phosphorus 3.90 mg/dL (2.5-4.5) 01/05/21 05:12 Magnesium 2.20 mg/dL (1.7-2.3) 01/05/21 05:12 Total Bilirubin 0.20 mg/dL (0.1-1.2) 01/04/21 05:22 AST 10 units/L (5-40) 01/04/21 05:22 ALT < 5 units/L (7-56) L 01/04/21 05:22 Alkaline Phosphatase 63 units/L (35-129) 01/04/21 05:22 Total Creatine Kinase 142 units/L (55-170) 01/03/21 12:42 Troponin T 0.088 ng/mL (0.00-0.029) H 01/03/21 12:42 C-Reactive Protein 23.90 mg/dL (0.00-1.30) H 01/03/21 12:42 Total Protein 6.7 g/dL (6.3-8.2) 01/04/21 05:22 Albumin 3.0 g/dL (3.9-5) L 01/04/21 05:22 Albumin/Globulin Ratio 0.8 % 01/04/21 05:22 Triglycerides 77 mg/dL (2-149) 01/03/21 12:42 Cholesterol 120 mg/dL (50-199) 01/03/21 12:42 LDL Cholesterol Direct 60 mg/dL (50-130) 01/03/21 12:42 HDL Cholesterol 46 mg/dL (40-59) 01/03/21 12:42 Cholesterol/HDL Ratio 2.60 % 01/03/21 12:42 TSH 2.560 mlU/mL (0.270-4.200) 01/03/21 12:42 Urine Color Yellow (Yellow) 01/04/21 07:25 Urine Turbidity Cloudy (Clear) 01/04/21 07:25 Urine pH 5.0 (5.0-7.0) 01/04/21 07:25 Ur Specific Coward 1.013 (1.003-1.030) 01/04/21 07:25 Urine Protein 30 mg/dl mg/dL (Negative) 01/04/21 07:25 Urine Glucose (UA) Neg mg/dL (Negative) 01/04/21 07:25 Urine Ketones Tr mg/dL (Negative) 01/04/21 07:25 Urine Blood Mod (Negative) 01/04/21 07:25 Urine Nitrite Neg (Negative) 01/04/21 07:25 Urine Bilirubin Neg (Negative) 01/04/21 07:25 Urine Urobilinogen < 2.0 mg/dL (<2.0) 01/04/21 07:25 Ur Leukocyte Esterase Lg (Negative) 01/04/21 07:25 Urine WBC (Auto) > 182.0 /HPF (0.0-6.0) H 01/04/21 07:25 Urine RBC (Auto) 15.0 /HPF (0.0-6.0) 01/04/21 07:25 U Epithel Cells (Auto) 2.0 /HPF (0-13.0) 01/04/21 07:25 Urine Bacteria (Auto) 2+ /HPF (Negative) 01/04/21 07:25 Urine Creatinine 122.1 mg/dL (0.1-20.0) H 01/04/21 07:25 Urine Sodium 50 mmol/L 01/04/21 07:25 Urine Total Protein 49 mg/dL (5-11.8) H 01/04/21 07:25 Salicylates 0.3 mg/dL (2.8-20.0) L 01/03/21 12:42 Acetaminophen < 5.0 ug/mL (10.0-30.0) L 01/03/21 13:09 Blood Type B POSITIVE 01/03/21 14:33 Antibody Screen Negative 01/03/21 14:33 Microbiology: Microbiology 01/03/21 12:42 Peripheral/Venous Blood Culture - Preliminary NO GROWTH AFTER 48 HOURS 01/03/21 12:42 Peripheral/Venous Blood Culture - Preliminary NO GROWTH AFTER 48 HOURS 01/03/21 Unknown Urine,Catheterized - Straight Catheter Urine Culture - Preliminary Obando/IV: Voiding Method Condom Catheter Active Medications - Current Medications Current Medications: Generic Name Dose Route Start Last Admin Trade Name Freq PRN Reason Stop Dose Admin Acetaminophen 650 mg 01/03/21 14:30 Acetaminophen 325 Mg Tab PO Q4H PRN Pain MILD(1-3)/Fever >100.5/MONTEJO Albuterol 2.5 mg 01/03/21 16:00 Albuterol 2.5 Mg/3 Ml Nebu IH Q4HRT PRN Shortness Of Breath Hydromorphone HCl 0.25 mg 01/03/21 15:00 Hydromorphone 1 Mg/1 Ml Inj IV Q4H PRN Pain, Moderate (4-6) Ceftriaxone Sodium 2 gm in 100 mls @ 200 mls/hr 01/05/21 16:00 01/05/21 20:52 Rocephin/Ns 2 Gm/100 Ml IV 200 mls/hr Q24H ALLEN Administration Protocol Sodium Bicarbonate 50 meq/ 1,050 mls @ 100 mls/hr 01/06/21 09:00 Dextrose IV DIRECT ALLEN Ondansetron HCl 4 mg 01/03/21 15:00 Ondansetron 4 Mg/2 Ml Inj IV Q8H PRN Nausea And Vomiting Pseudoephedrine/Acetam/Chlorphenir 10 ml 01/03/21 23:23 01/03/21 23:58 Guaifenesin/Codeine 100-10mg Oral Liqd 5 Ml PO 10 ml Q4H PRN Administration Cough Sodium Chloride 10 ml 01/03/21 22:00 01/06/21 10:00 Sodium Chloride 0.9% 10 Ml Flush Syringe IV 10 ml BID ALLEN Administration Sodium Chloride 10 ml 01/03/21 15:00 Sodium Chloride 0.9% 10 Ml Flush Syringe IV PRN PRN LINE FLUSH Nutrition/Malnutrition Assess - Dietary Evaluation Nutrition/Malnutrition Findings: Nutrition Notes Start: 01/04/21 12:41 Freq: Status: Active Protocol: Document 01/05/21 14:16 (Rec: 01/05/21 14:19 [email or web address]) Nutrition Notes Initial or Follow up Brief Note Current Diagnosis Acute Kidney Injury,Diabetes, Hypertension,Malnutrition, Stroke Other Pertinent Diagnosis FTT, R heal ulcer, pneu Current Diet NPO Subjective/Other Information HEAD GOLF COACH recommends NPO with speech therapy treatments. Pt needs nutrition as soon as medically able. Recommend TF if unable to advance diet. Nutrition Intervention Follow-Up By: 01/07/21 Additional Comments FU for diet advancement, TF consult or plan of care
--- NOTE | 2021-01-06 12:48 | Magnetic Resonance Report ---
MR LE joint RT wo con INDICATION / CLINICAL INFORMATION: right heel ulcer. TECHNIQUE: Multiplanar, multisequence MR images were obtained. COMPARISON: None available. FINDINGS: Focal edema seen in the posterior aspect of the calcaneus on both T1 and T2-weighted images. An ulcer is seen in the posterior soft tissues. There is tenosynovitis involving the flexor hallucis longus t endon. The remainder the tendons of the ankle are normal. Visualized ligaments are also intact. No so ft tissue mass is seen. Moderate degenerative changes seen in the tibiotalar joint. IMPRESSION: 1. Abnormal signal on both T1 and T2-weighted images in the posterior calcaneus which is worrisome fo r early osteomyelitis 2. Flexor hallucis tenosynovitis 3. Moderate degenerative change in the tibiotalar joint Signer Name: Eren Amaral MD FACR Signed: 01/06/2021 12:34 PM Workstation Name: [id number]
--- NOTE | 2021-01-06 14:42 | Progress Note ---
Assessment and Plan Cultures: Blood culture no growth so far. A/P: 75 yo M PMhx Dm2, CVA, dysarthria, BLE heel ulcers admitted with AMS #Bilateral heel ulcers, R>L: Pending MRI to assess for osteomyelitis. Family refusing amputation at present. Pending MRI will determine outpatient antibiotic plan and duration. #AMS: likely secondary to infection, has minimal cognition at baseline and likely limited reserves #Non-verbal status #DM2: tight glycemic control for best outcomes. Recs: -Peviously has grown Klebsiella, Proteus, MSSA -Start ceftriaxone 2 g every 24 hours -Please obtain cultures from debridement. Thank you for the consult, we will continue to follow. Eliza Guerrero MD [facility] ([facility]) O: [phone] F: [phone] Subjective Date of service: 01/06/21 Principal diagnosis: Acute kidney injury Interval history: Afebrile, normal white count. cultures remain negative. Imaging personally reviewed: Lower extremity MRI: Concern for early osteomyelitis. Flexor hallucis tenosynovitis Objective - Exam Narrative Exam: Physical Exam: Constitutional: Awake, non-verbal Head, Ears, Nose: Normocephalic, atraumatic. External ears, nose normal Eyes: Conjunctivae/corneas clear. No icterus. No ptosis. Neck: Supple, no meningeal signs Oral: dentition fair, no thrush Cardiovascular: S1, S2 normal. Respiratory: Good air entry, clear to auscultation bilaterally GI: Soft, non-tender; bowel sounds normal. No peritoneal signs. Musculoskeletal: R heel necrotic eschar Skin: No rash or abscess Hem/Lymphatic: No palpable cervical or supraclavicular nodes. No lymphangitis Psych: No distress Neurological: Non-verbal - Constitutional Vitals: Vital Signs Temp Pulse Resp BP Pulse Ox 97.4 F L 92 H 18 132/77 100 01/06/21 10:34 01/06/21 10:34 01/06/21 10:34 01/06/21 10:34 01/06/21 10:34 Temperature -Last 24 Hours Temperature 97.4 F Temperature 97.5 F Temperature 98.0 F Temperature 97.4 F Temperature 97.8 F Temperature 97.9 F - Labs CBC & Chem 7: 01/06/21 05:20 01/06/21 13:40 Labs: Abnormal lab results 01/06/21 01/06/21 01/06/21 Range/Units 05:20 05:20 13:40 RBC 3.25 L (3.65-5.03) M/mm3 Hgb 9.3 L (11.8-15.2) gm/dl Hct 29.3 L (35.5-45.6) % Sodium 150 H (137-145) mmol/L Potassium 5.4 H 5.1 H (3.6-5.0) mmol/L Chloride 116.5 H (98-107) mmol/L Carbon Dioxide 16 L (22-30) mmol/L BUN 73 H (9-20) mg/dL Creatinine 3.6 H (0.8-1.3) mg/dL
--- NOTE | 2021-01-06 18:16 | Progress Note ---
Assessment and Plan - Patient Problems (1) Ulcer of right heel Current Visit: Yes Status: Acute (2) Osteomyelitis of right foot Current Visit: Yes Status: Acute Plan to address problem: 1) Will debride right heel ulcer at bedside tomorrow. 2) Follow ID recommendations for osteomyelitis of right calcaneus 3) Revascularization per Vascular surgery when Cr is appropriate. Subjective Date of service: 01/06/21 Patient Reports: Positive: no new complaints Objective Vital Signs - 12hr 01/06/21 01/06/21 07:51 10:34 Temperature 97.5 F L 97.4 F L Pulse Rate 88 92 H Respiratory 18 18 Rate Blood Pressure 135/78 132/77 O2 Sat by Pulse 100 100 Oximetry - Integumentary other (No change in right heel exam.) - Labs 01/06/21 05:20 01/06/21 13:40 Diabetes panel 01/06/21 01/06/21 Range/Units 05:20 13:40 Sodium 150 H (137-145) mmol/L Potassium 5.4 H 5.1 H (3.6-5.0) mmol/L Chloride 116.5 H (98-107) mmol/L Carbon Dioxide 16 L (22-30) mmol/L BUN 73 H (9-20) mg/dL Creatinine 3.6 H (0.8-1.3) mg/dL Glucose 83 (75-100) mg/dL Calcium 8.9 (8.4-10.2) mg/dL Calcium panel 01/06/21 Range/Units 05:20 Calcium 8.9 (8.4-10.2) mg/dL Pituitary panel 01/06/21 01/06/21 Range/Units 05:20 13:40 Sodium 150 H (137-145) mmol/L Potassium 5.4 H 5.1 H (3.6-5.0) mmol/L Chloride 116.5 H (98-107) mmol/L Carbon Dioxide 16 L (22-30) mmol/L BUN 73 H (9-20) mg/dL Creatinine 3.6 H (0.8-1.3) mg/dL Glucose 83 (75-100) mg/dL Calcium 8.9 (8.4-10.2) mg/dL Adrenal panel 01/06/21 01/06/21 Range/Units 05:20 13:40 Sodium 150 H (137-145) mmol/L Potassium 5.4 H 5.1 H (3.6-5.0) mmol/L Chloride 116.5 H (98-107) mmol/L Carbon Dioxide 16 L (22-30) mmol/L BUN 73 H (9-20) mg/dL Creatinine 3.6 H (0.8-1.3) mg/dL Glucose 83 (75-100) mg/dL Calcium 8.9 (8.4-10.2) mg/dL - Imaging Additional Studies: MRI of right foot reviewed.
[2021-01-07] MEDS: cefTRIAXone/NS 2 GM/100 ML 2 GM/100 ML BAG IV SCH ×2 (05:40→05:44)
[2021-01-07] MEDS: SODIUM BICARBONATE 50 MEQ in DEXTROSE 5% IN WATER 1,000 ML IV SCH ×2 (06:13→23:30)
[2021-01-07 07:36] LABS: Calcium 8.9 mg/dL (8.4-10.2)
--- NOTE | 2021-01-07 10:08 | Progress Note ---
Assessment and Plan Assessment and plan: - Patient Problems Sepsis Sepsis protocol: IVF resuscitation therapy, IV antibiotic therapy, serial lactic acid level, blood culture, maintain MAP greater than or equal to 65, monitor uop q shift, CBC, CMP, chest x ray, urinalysis, Malnutrition Increased protein intake, dietary supplementation Acute kidney injury Nephrology consulted, IVF resuscitation therapy, monitor uop q shift, Infected ulcer right heel supportive care, vascular surgery consulted, History of CVA with residual deficit antiplatelet therapy, risk factor reduction Diabetes Melitus consistent carbohydrate diet, accu check, DVT prophylaxis SCD to BLE while in bed, prophylactic anticoagulation Advance care planning Pt is full code, diagnoses discussed, prognosis discussed, care plan discussed, Pt daughter acknowledges understanding and agreement with care plan. Sandie Higgins, Daughter . patient was on home hospice with [facility] 01/04 Patient seen and examined today. He has right heel ulcer. Patient was evaluated by [facility] Surgeon who recommends General surgeon to evaluate heel ulcers. Will consult Dr. Salas since he has been seeing him before. His CAMILLE is being managed by Nephrology 01/05 Patient with sepsis, CAMILLE, infected right heel ulcer. Patient was seen by Dr. Salas, Surgeon. He will do local debridement. I discussed with case Management. Patient has home hospice. 01/06 Patient with sepsis, CAMILLE, infected right heel ulcer. Today has hyperkalemia of 5.4. I discussed with Dr. Ortega. Kayexalate ordered. Dr. Salas to do local debridement. Patient on discharge will go back to home hospice. 01/07 Patient with sepsis, CAMILLE, infected right heel ulcer. Yesterday had hyperkalemia, now resolved after Kayexalate. Dr. Salas to do local debridement today. History Interval history: Patient cannot give history Altered mental status right heel ulcer Hospitalist Physical - Physical exam Narrative exam: Gen: Not in acute distress, lying in bed HEENT: Normochephalic, atraumatic Neck:supple, No JVD Lungs:Clear to auscultation bilaterally, no rales, no wheeze Heart:S1 and S2 reg, no murmurs, rubs or gallop Abd: soft, non tender, non distended, normal bowel sounds Ext: Ulcer right heel Neuro: Lethargic, - Constitutional Vitals: Temp Pulse Resp BP Pulse Ox 97.7 F 90 19 142/79 100 01/07/21 08:15 01/07/21 08:15 01/07/21 08:15 01/07/21 08:15 01/07/21 08:15 General appearance: Present: no acute distress HEART Score - HEART Score Troponin: Troponin T 0.088 ng/mL (0.00-0.029) H 01/03/21 12:42 Results - Labs CBC & Chem 7: 01/06/21 05:20 01/07/21 06:09 Labs: Laboratory Last Values WBC 9.3 K/mm3 (4.5-11.0) 01/06/21 05:20 RBC 3.25 M/mm3 (3.65-5.03) L 01/06/21 05:20 Hgb 9.3 gm/dl (11.8-15.2) L 01/06/21 05:20 Hct 29.3 % (35.5-45.6) L 01/06/21 05:20 MCV 90 fl (84-94) 01/06/21 05:20 MCH 29 pg (28-32) 01/06/21 05:20 MCHC 32 % (32-34) 01/06/21 05:20 RDW 14.0 % (13.2-15.2) 01/06/21 05:20 Plt Count 293 K/mm3 (140-440) 01/06/21 05:20 Lymph % (Auto) 11.6 % (13.4-35.0) L 01/04/21 05:22 [place] % (Auto) 12.1 % (0.0-7.3) H 01/04/21 05:22 Eos % (Auto) 0.3 % (0.0-4.3) 01/04/21 05:22 Baso % (Auto) 0.3 % (0.0-1.8) 01/04/21 05:22 Lymph # (Auto) 1.3 K/mm3 (1.2-5.4) 01/04/21 05:22 [place] # (Auto) 1.4 K/mm3 (0.0-0.8) H 01/04/21 05:22 Eos # (Auto) 0.0 K/mm3 (0.0-0.4) 01/04/21 05:22 Baso # (Auto) 0.0 K/mm3 (0.0-0.1) 01/04/21 05:22 Seg Neutrophils % 75.7 % (40.0-70.0) H 01/04/21 05:22 Seg Neutrophils # 8.6 K/mm3 (1.8-7.7) H 01/04/21 05:22 ESR 140 mm/Hr (0-20) 01/03/21 14:33 PT 14.6 Sec. (12.2-14.9) 01/03/21 12:42 INR 1.08 (0.87-1.13) 01/03/21 12:42 APTT 33.2 Sec. (24.2-36.6) 01/03/21 12:42 Sodium 148 mmol/L (137-145) H 01/07/21 06:09 Potassium 4.9 mmol/L (3.6-5.0) 01/07/21 06:09 Chloride 117.5 mmol/L (98-107) H 01/07/21 06:09 Carbon Dioxide 15 mmol/L (22-30) L 01/07/21 06:09 Anion Gap 20 mmol/L 01/07/21 06:09 BUN 71 mg/dL (9-20) H 01/07/21 06:09 Creatinine 3.5 mg/dL (0.8-1.3) H 01/07/21 06:09 Estimated GFR 21 ml/min 01/07/21 06:09 BUN/Creatinine Ratio 20 % 01/07/21 06:09 Glucose 166 mg/dL (75-100) H 01/07/21 06:09 POC Glucose 120 mg/dL (70-105) H 01/06/21 21:23 Lactic Acid 1.50 mmol/L (0.7-2.0) 01/03/21 22:59 Calcium 8.9 mg/dL (8.4-10.2) 01/07/21 06:09 Phosphorus 3.90 mg/dL (2.5-4.5) 01/05/21 05:12 Magnesium 2.20 mg/dL (1.7-2.3) 01/05/21 05:12 Total Bilirubin 0.20 mg/dL (0.1-1.2) 01/04/21 05:22 AST 10 units/L (5-40) 01/04/21 05:22 ALT < 5 units/L (7-56) L 01/04/21 05:22 Alkaline Phosphatase 63 units/L (35-129) 01/04/21 05:22 Total Creatine Kinase 142 units/L (55-170) 01/03/21 12:42 Troponin T 0.088 ng/mL (0.00-0.029) H 01/03/21 12:42 C-Reactive Protein 23.90 mg/dL (0.00-1.30) H 01/03/21 12:42 Total Protein 6.7 g/dL (6.3-8.2) 01/04/21 05:22 Albumin 3.0 g/dL (3.9-5) L 01/04/21 05:22 Albumin/Globulin Ratio 0.8 % 01/04/21 05:22 Triglycerides 77 mg/dL (2-149) 01/03/21 12:42 Cholesterol 120 mg/dL (50-199) 01/03/21 12:42 LDL Cholesterol Direct 60 mg/dL (50-130) 01/03/21 12:42 HDL Cholesterol 46 mg/dL (40-59) 01/03/21 12:42 Cholesterol/HDL Ratio 2.60 % 01/03/21 12:42 TSH 2.560 mlU/mL (0.270-4.200) 01/03/21 12:42 Urine Color Yellow (Yellow) 01/04/21 07:25 Urine Turbidity Cloudy (Clear) 01/04/21 07:25 Urine pH 5.0 (5.0-7.0) 01/04/21 07:25 Ur Specific [place] 1.013 (1.003-1.030) 01/04/21 07:25 Urine Protein 30 mg/dl mg/dL (Negative) 01/04/21 07:25 Urine Glucose (UA) Neg mg/dL (Negative) 01/04/21 07:25 Urine Ketones Tr mg/dL (Negative) 01/04/21 07:25 Urine Blood Mod (Negative) 01/04/21 07:25 Urine Nitrite Neg (Negative) 01/04/21 07:25 Urine Bilirubin Neg (Negative) 01/04/21 07:25 Urine Urobilinogen < 2.0 mg/dL (<2.0) 01/04/21 07:25 Ur Leukocyte Esterase Lg (Negative) 01/04/21 07:25 Urine WBC (Auto) > 182.0 /HPF (0.0-6.0) H 01/04/21 07:25 Urine RBC (Auto) 15.0 /HPF (0.0-6.0) 01/04/21 07:25 U Epithel Cells (Auto) 2.0 /HPF (0-13.0) 01/04/21 07:25 Urine Bacteria (Auto) 2+ /HPF (Negative) 01/04/21 07:25 Urine Creatinine 122.1 mg/dL (0.1-20.0) H 01/04/21 07:25 Urine Sodium 50 mmol/L 01/04/21 07:25 Urine Total Protein 49 mg/dL (5-11.8) H 01/04/21 07:25 Salicylates 0.3 mg/dL (2.8-20.0) L 01/03/21 12:42 Acetaminophen < 5.0 ug/mL (10.0-30.0) L 01/03/21 13:09 Blood Type B POSITIVE 01/03/21 14:33 Antibody Screen Negative 01/03/21 14:33 Microbiology: Microbiology 01/03/21 12:42 Peripheral/Venous Blood Culture - Preliminary NO GROWTH AFTER 72 HOURS 01/03/21 12:42 Peripheral/Venous Blood Culture - Preliminary NO GROWTH AFTER 72 HOURS 01/03/21 Unknown Urine,Catheterized - Straight Catheter Urine Culture - Final Obando/IV: Voiding Method Condom Catheter Active Medications - Current Medications Current Medications: Generic Name Dose Route Start Last Admin Trade Name Freq PRN Reason Stop Dose Admin Acetaminophen 650 mg 01/03/21 14:30 Acetaminophen 325 Mg Tab PO Q4H PRN Pain MILD(1-3)/Fever >100.5/MONTEJO Albuterol 2.5 mg 01/03/21 16:00 Albuterol 2.5 Mg/3 Ml Nebu IH Q4HRT PRN Shortness Of Breath Hydromorphone HCl 0.25 mg 01/03/21 15:00 Hydromorphone 1 Mg/1 Ml Inj IV Q4H PRN Pain, Moderate (4-6) Ceftriaxone Sodium 2 gm in 100 mls @ 200 mls/hr 01/05/21 16:00 01/07/21 05:44 Rocephin/Ns 2 Gm/100 Ml IV Not Given Q24H ALLEN Protocol Sodium Bicarbonate 50 meq/ 1,050 mls @ 100 mls/hr 01/06/21 09:00 01/07/21 06:13 Dextrose IV 100 mls/hr DIRECT ALLEN Administration Ondansetron HCl 4 mg 01/03/21 15:00 Ondansetron 4 Mg/2 Ml Inj IV Q8H PRN Nausea And Vomiting Pseudoephedrine/Acetam/Chlorphenir 10 ml 01/03/21 23:23 01/03/21 23:58 Guaifenesin/Codeine 100-10mg Oral Liqd 5 Ml PO 10 ml Q4H PRN Administration Cough Sodium Chloride 10 ml 01/03/21 22:00 01/07/21 09:31 Sodium Chloride 0.9% 10 Ml Flush Syringe IV 10 ml BID ALLEN Administration Sodium Chloride 10 ml 01/03/21 15:00 Sodium Chloride 0.9% 10 Ml Flush Syringe IV PRN PRN LINE FLUSH Nutrition/Malnutrition Assess - Dietary Evaluation Nutrition/Malnutrition Findings: Nutrition Notes Start: 01/04/21 12:41 Freq: Status: Active Protocol: Document 01/05/21 14:16 (Rec: 01/05/21 14:19 [id number]) Nutrition Notes Initial or Follow up Brief Note Current Diagnosis Acute Kidney Injury,Diabetes, Hypertension,Malnutrition, Stroke Other Pertinent Diagnosis FTT, R heal ulcer, pneu Current Diet NPO Subjective/Other Information SERVICE STATION MANAGER recommends NPO with speech therapy treatments. Pt needs nutrition as soon as medically able. Recommend TF if unable to advance diet. Nutrition Intervention Follow-Up By: 01/07/21 Additional Comments FU for diet advancement, TF consult or plan of care
--- NOTE | 2021-01-07 11:14 | Progress Note ---
Assessment and Plan - Patient Problems (1) Acute renal failure Current Visit: No Status: Acute Plan to address problem: Acute kidney injury present as male versus acute tubular necrosis secondary to hypotension/sepsis. Kidney function is improving. Ultrasound did not show any obstruction. Continue gentle volume expansion with hypotonic fluids given the hypernatremia. Follow-up electrolytes and renal function. (2) Hyperkalemia Current Visit: No Status: Acute Plan to address problem: Potassium is normal. Follow-up (3) Hypernatremia Current Visit: Yes Status: Acute Plan to address problem: Sodium is improving. Continue hypotonic fluid intravenously and follow-up sodium (4) Metabolic acidosis Current Visit: Yes Status: Acute Plan to address problem: Uremic acidosis. Bicarbonate is not better. Patient still not able to take by mouth. Continue bicarbonate intravenously (5) Failure to thrive Current Visit: Yes Status: Acute Plan to address problem: Nutritional support. PT OT ST as Patient improves. (6) Ulcer of right heel Current Visit: Yes Status: Acute Plan to address problem: Surgery is following. Vascular surgery evaluation as appreciated (7) Aspiration pneumonia Current Visit: Yes Status: Acute Plan to address problem: Continue broad-spectrum antibiotics. Follow-up cultures. Needs speech evaluation. (8) Anemia Current Visit: Yes Status: Acute Plan to address problem: Follow-up hemoglobin (9) HTN (hypertension) Current Visit: No Status: Acute Qualifiers: Hypertension type: essential hypertension Qualified Code(s): I10 - Essential (primary) hypertension Plan to address problem: Blood pressure is now better. Continue to monitor patient on follow-up blood pressure (10) History of CVA with residual deficit Current Visit: No Status: Acute Plan to address problem: Continue antiplatelet agents Subjective Date of service: 01/07/21 Principal diagnosis: Acute kidney injury Interval history: Patient seen lying in bed. He is awake today. No complaints. No chest pain or shortness of breath. No nausea or vomiting Objective - Exam Narrative Exam: Elderly -[place] male lying in bed chronically ill looking in no acute distress. HEENT: NCAT, irregular pupils Neck: Supple, no venous distention CVS: S1S2 RRR with no murmur, rub or gallop Chest: Diminished breath sounds Abdomen: Scaphoid, soft, nontender, no organomegaly, bowel sounds are present Extremities: No edema, muscle wasting, feet cool with dystrophic nails, right heel ulcer Genitourinary deferred Obando catheter draining clear urine Skin changes as noted above Neuro: Awake, more coherent today - Vital Signs Vital signs: Vital Signs - 12hr 01/06/21 01/07/21 01/07/21 23:45 05:07 08:15 Temperature 97.9 F 98.6 F 97.7 F Pulse Rate 92 H 88 90 Respiratory 17 18 19 Rate Blood Pressure 139/82 143/81 142/79 O2 Sat by Pulse 96 100 100 Oximetry 01/07/21 10:00 Temperature Pulse Rate 88 Respiratory Rate Blood Pressure O2 Sat by Pulse Oximetry - Lab 01/06/21 05:20 01/07/21 06:09 Most recent lab results Calcium 8.9 mg/dL (8.4-10.2) 01/07/21 06:09 Phosphorus 3.90 mg/dL (2.5-4.5) 01/05/21 05:12 Magnesium 2.20 mg/dL (1.7-2.3) 01/05/21 05:12 Urine Creatinine 122.1 mg/dL (0.1-20.0) H 01/04/21 07:25 Urine Sodium 50 mmol/L 01/04/21 07:25 Urine Total Protein 49 mg/dL (5-11.8) H 01/04/21 07:25 Medications & Allergies - Medications Allergies/Adverse Reactions: Allergies No Known Allergies Allergy (Verified 11/22/19 13:13) Home Medications: Home Medications Medication Instructions Recorded Confirmed Last Taken Type Amlodipine Besylate [Norvasc] 5 mg PO DAILY 08/15/18 01/05/21 3 Days Ago History ~01/02/21 Atorvastatin Calcium [Lipitor] 40 mg PO DAILY 08/15/18 01/05/21 3 Days Ago History ~01/02/21 Calcium Carbonate [Ban-Acid 300MG 300 mg PO DAILY 08/15/18 01/05/21 3 Days Ago History CHEW] ~01/02/21 Lisinopril [Zestril TAB] 2.5 mg PO QDAY 08/15/18 01/05/21 3 Days Ago History ~01/02/21 metFORMIN [Glucophage] 500 mg PO QDAY 08/15/18 01/05/21 3 Days Ago History ~01/02/21 Acetaminophen [Acetaminophen TAB] 650 mg PO Q4H PRN tablet 08/26/18 01/05/21 Unknown Rx Aspirin EC [Halfprin EC] 81 mg PO QDAY tablet 08/26/18 01/05/21 3 Days Ago Rx ~01/02/21 Clopidogrel [Plavix] 75 mg PO QDAY tablet 08/26/18 01/05/21 3 Days Ago Rx ~01/02/21 Active Medications: Generic Name Dose Route Start Last Admin Trade Name Freq PRN Reason Stop Dose Admin Acetaminophen 650 mg 01/03/21 14:30 Acetaminophen 325 Mg Tab PO Q4H PRN Pain MILD(1-3)/Fever >100.5/MONTEJO Albuterol 2.5 mg 01/03/21 16:00 Albuterol 2.5 Mg/3 Ml Nebu IH Q4HRT PRN Shortness Of Breath Hydromorphone HCl 0.25 mg 01/03/21 15:00 Hydromorphone 1 Mg/1 Ml Inj IV Q4H PRN Pain, Moderate (4-6) Ceftriaxone Sodium 2 gm in 100 mls @ 200 mls/hr 01/05/21 16:00 01/07/21 05:44 Rocephin/Ns 2 Gm/100 Ml IV Not Given Q24H ALLEN Protocol Sodium Bicarbonate 50 meq/ 1,050 mls @ 100 mls/hr 01/06/21 09:00 01/07/21 06:13 Dextrose IV 100 mls/hr DIRECT ALLEN Administration Ondansetron HCl 4 mg 01/03/21 15:00 Ondansetron 4 Mg/2 Ml Inj IV Q8H PRN Nausea And Vomiting Pseudoephedrine/Acetam/Chlorphenir 10 ml 01/03/21 23:23 01/03/21 23:58 Guaifenesin/Codeine 100-10mg Oral Liqd 5 Ml PO 10 ml Q4H PRN Administration Cough Sodium Chloride 10 ml 01/03/21 22:00 01/07/21 09:31 Sodium Chloride 0.9% 10 Ml Flush Syringe IV 10 ml BID ALLEN Administration Sodium Chloride 10 ml 01/03/21 15:00 Sodium Chloride 0.9% 10 Ml Flush Syringe IV PRN PRN LINE FLUSH
--- NOTE | 2021-01-07 14:20 | Progress Note ---
Assessment and Plan Cultures: Blood culture no growth so far. A/P: 75 yo M PMhx Dm2, CVA, dysarthria, BLE heel ulcers admitted with AMS #Bilateral heel ulcers, R>L with right calcaneal osteomyelitis: Pending MRI to assess for osteomyelitis. Family refusing amputation at present. MRI with early osteo of the calcaneus #AMS: likely secondary to infection, has minimal cognition at baseline and likely limited reserves #Non-verbal status #DM2: tight glycemic control for best outcomes. Recs: -Peviously has grown Klebsiella, Proteus, MSSA -Start ceftriaxone 2 g every 24 hours. Good response inpatient, likely to continue on discharge. 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 Thank you for the consult, we will continue to follow. Dr. soni covering this weekend, Dr. Carmichael taking over Sunday. Eliza Guerrero MD [facility] ([facility]) O: [phone] F: [phone] Subjective Date of service: 01/07/21 Principal diagnosis: Acute kidney injury Interval history: Afebrile, normal white count now. Objective - Exam Narrative Exam: Physical Exam: Constitutional: Awake, non-verbal Head, Ears, Nose: Normocephalic, atraumatic. External ears, nose normal Eyes: Conjunctivae/corneas clear. No icterus. No ptosis. Neck: Supple, no meningeal signs Oral: dentition fair, no thrush Cardiovascular: S1, S2 normal. Respiratory: Good air entry, clear to auscultation bilaterally GI: Soft, non-tender; bowel sounds normal. No peritoneal signs. Musculoskeletal: R heel necrotic eschar, various other minor wounds. Skin: No rash or abscess Hem/Lymphatic: No palpable cervical or supraclavicular nodes. No lymphangitis Psych: No distress Neurological: Non-verbal - Constitutional Vitals: Vital Signs Temp Pulse Resp BP Pulse Ox 97.7 F 88 19 142/79 100 01/07/21 08:15 01/07/21 10:00 01/07/21 08:15 01/07/21 08:15 01/07/21 08:15 Temperature -Last 24 Hours Temperature 97.7 F Temperature 98.6 F Temperature 97.9 F Temperature 97.5 F Temperature 97.4 F - Labs CBC & Chem 7: 01/06/21 05:20 01/07/21 06:09 Labs: Abnormal lab results 01/06/21 01/06/21 01/07/21 Range/Units 13:40 21:23 06:09 Sodium 148 H (137-145) mmol/L Potassium 5.1 H (3.6-5.0) mmol/L Chloride 117.5 H (98-107) mmol/L Carbon Dioxide 15 L (22-30) mmol/L BUN 71 H (9-20) mg/dL Creatinine 3.5 H (0.8-1.3) mg/dL Glucose 166 H (75-100) mg/dL POC Glucose 120 H (70-105) mg/dL 01/07/21 01/07/21 Range/Units 08:15 11:07 Sodium (137-145) mmol/L Potassium (3.6-5.0) mmol/L Chloride (98-107) mmol/L Carbon Dioxide (22-30) mmol/L BUN (9-20) mg/dL Creatinine (0.8-1.3) mg/dL Glucose (75-100) mg/dL POC Glucose 139 H 150 H (70-105) mg/dL
--- NOTE | 2021-01-07 15:00 | Procedure Note ---
Date of procedure: 01/07/21 Pre-op diagnosis: Unstageable right heel pressure ulcer Post-op diagnosis: other (Stage 4 right heel pressure ulcer) Procedure: Debridement of right heel ulcer Description of procedure: Pt was placed right side down. Right heel was prepped and draped. Necrotic skin, SQ tissue, muscle and fascia were surgically, excisionally excised with a #10 scalpel. Bleeding was minimal and was controlled with pressure. Wound was packed with dry 4 X 4's followed by a Kerlix wrap. Pt tolerated the procedure well. Post-debridement measurements: 6.5 X 5.4 X 0.6 cm I again called pt's daughter, Sandie Cross to inform her of the new finding of osteomyelitis on MRI and the operative findings after todays debridement. I told her that I strongly recommended right AKA, especially in light of the pt's mental status and non-ambulatory status. Ms. Cross will discuss my recommendations with other family members and will call me back if she desires to proceed with AKA. Continue local wound care and off-loading. Continue to follow ID recommendations re osteomyelitis. Anesthesia: none Surgeon: JOSE AVILA Estimated blood loss: minimal Pathology: none Specimen disposition: discarded Condition: stable Disposition: no change
--- NOTE | 2021-01-07 18:31 | Electrocardiograph Report ---
[facility] Test Date: 2021-01-03 Test Time: 14:17:20 Pat Name: COOPER BENNETT Department: Room: A477 Gender: M Mill Manager: EMILY FIORE : 1945 Requested By: BERONICA RAMÍREZ Order Number: [id number] Reading MD: Jasvir Rossi Measurements Intervals [place] Rate: 99 P: MA: QRS: 72 QRSD: 109 T: 104 QT: 425 QTc: 546 Interpretive Statements S.R with baseline artifacts noted. Nonspecific T abnormalities, lateral leads Prolonged QT interval No previous ECG available for comparison Electronically Signed On 01-07-2021 18:30:55 EDT by Jasvir Rossi
[2021-01-08] MEDS: cefTRIAXone/NS 2 GM/100 ML 2 GM/100 ML BAG IV SCH ×2 (07:58→16:09)
[2021-01-08] MEDS: SODIUM BICARBONATE 50 MEQ in DEXTROSE 5% IN WATER 1,000 ML IV SCH ×2 (09:41→22:32)
--- NOTE | 2021-01-08 11:03 | Progress Note ---
Assessment and Plan - Patient Problems (1) Acute kidney injury Current Visit: Yes Status: Acute Plan to address problem: Overall renal function is showing steady improvement. Renal US did not show any acute abnormalities. Please avoid all nephrotoxins, and maintain MAP > 65mmHg. (2) Aspiration pneumonia Current Visit: Yes Status: Acute Plan to address problem: Please ensure that anitbiotics are dosed appropriately for decreased renal function. (3) Diabetes Current Visit: Yes Status: Acute Plan to address problem: DM management per primary attending. (4) Failure to thrive Current Visit: Yes Status: Acute Plan to address problem: Continue with nutritional support. (5) Hypernatremia Current Visit: Yes Status: Acute Plan to address problem: Improving at this time time with nutritional support and fluid hydration. (6) Metabolic acidosis Current Visit: Yes Status: Acute Plan to address problem: Continue on current isotonic sodium bicarbonate solution. (7) Ulcer of right heel Current Visit: Yes Status: Acute Plan to address problem: Management per surgery and ID. (8) HTN (hypertension) Current Visit: No Status: Acute Qualifiers: Hypertension type: essential hypertension Qualified Code(s): I10 - Essential (primary) hypertension Plan to address problem: Monitor under current management. Subjective Date of service: 01/08/21 Principal diagnosis: Acute kidney injury Interval history: No acute changes. Objective - Vital Signs Vital signs: Vital Signs - 12hr 01/07/21 01/08/21 01/08/21 23:39 03:42 08:30 Temperature 98.2 F 98.3 F 98.2 F Pulse Rate 93 H 91 H 96 H Respiratory 18 17 18 Rate Blood Pressure 142/85 140/83 146/79 O2 Sat by Pulse 99 100 99 Oximetry - General Appearance General appearance: appears stated age, cachectic, chronically ill, frail EENT: ATNC Neck: no JVD Respiratory: Present: Clear to Ascultation Cardiology: regular Gastrointestinal: normal Integumentary: ulcer Musculoskeletal: deferred Psychiatric: cooperative - Lab 01/06/21 05:20 01/07/21 06:09 Most recent lab results Calcium 8.9 mg/dL (8.4-10.2) 01/07/21 06:09 Phosphorus 3.90 mg/dL (2.5-4.5) 01/05/21 05:12 Magnesium 2.20 mg/dL (1.7-2.3) 01/05/21 05:12 Urine Creatinine 122.1 mg/dL (0.1-20.0) H 01/04/21 07:25 Urine Sodium 50 mmol/L 01/04/21 07:25 Urine Total Protein 49 mg/dL (5-11.8) H 01/04/21 07:25 - Allied health notes Allied health notes reviewed: nursing Medications & Allergies - Medications Allergies/Adverse Reactions: Allergies No Known Allergies Allergy (Verified 11/22/19 13:13) Home Medications: Home Medications Medication Instructions Recorded Confirmed Last Taken Type Amlodipine Besylate [Norvasc] 5 mg PO DAILY 08/15/18 01/05/21 3 Days Ago History ~01/02/21 Atorvastatin Calcium [Lipitor] 40 mg PO DAILY 08/15/18 01/05/21 3 Days Ago History ~01/02/21 Calcium Carbonate [Ban-Acid 300MG 300 mg PO DAILY 08/15/18 01/05/21 3 Days Ago History CHEW] ~01/02/21 Lisinopril [Zestril TAB] 2.5 mg PO QDAY 08/15/18 01/05/21 3 Days Ago History ~01/02/21 metFORMIN [Glucophage] 500 mg PO QDAY 08/15/18 01/05/21 3 Days Ago History ~01/02/21 Acetaminophen [Acetaminophen TAB] 650 mg PO Q4H PRN tablet 08/26/18 01/05/21 Unknown Rx Aspirin EC [Halfprin EC] 81 mg PO QDAY tablet 08/26/18 01/05/21 3 Days Ago Rx ~01/02/21 Clopidogrel [Plavix] 75 mg PO QDAY tablet 08/26/18 01/05/21 3 Days Ago Rx ~01/02/21 Active Medications: Generic Name Dose Route Start Last Admin Trade Name Freq PRN Reason Stop Dose Admin Acetaminophen 650 mg 01/03/21 14:30 Acetaminophen 325 Mg Tab PO Q4H PRN Pain MILD(1-3)/Fever >100.5/MONTEJO Albuterol 2.5 mg 01/03/21 16:00 Albuterol 2.5 Mg/3 Ml Nebu IH Q4HRT PRN Shortness Of Breath Hydromorphone HCl 0.25 mg 01/03/21 15:00 Hydromorphone 1 Mg/1 Ml Inj IV Q4H PRN Pain, Moderate (4-6) Ceftriaxone Sodium 2 gm in 100 mls @ 200 mls/hr 01/05/21 16:00 01/08/21 07:58 Rocephin/Ns 2 Gm/100 Ml IV Not Given Q24H ALLEN Protocol Sodium Bicarbonate 50 meq/ 1,050 mls @ 100 mls/hr 01/06/21 09:00 01/08/21 09:41 Dextrose IV 100 mls/hr DIRECT ALLEN Administration Ondansetron HCl 4 mg 01/03/21 15:00 Ondansetron 4 Mg/2 Ml Inj IV Q8H PRN Nausea And Vomiting Pseudoephedrine/Acetam/Chlorphenir 10 ml 01/03/21 23:23 01/03/21 23:58 Guaifenesin/Codeine 100-10mg Oral Liqd 5 Ml PO 10 ml Q4H PRN Administration Cough Sodium Chloride 10 ml 01/03/21 22:00 01/08/21 09:40 Sodium Chloride 0.9% 10 Ml Flush Syringe IV 10 ml BID ALLEN Administration Sodium Chloride 10 ml 01/03/21 15:00 Sodium Chloride 0.9% 10 Ml Flush Syringe IV PRN PRN LINE FLUSH
--- NOTE | 2021-01-08 13:47 | Progress Note ---
Assessment and Plan Cultures: Blood culture no growth so far. Urine culture 10-100,000 CFU mixed bacteria A/P: 75 yo M PMhx Dm2, CVA, dysarthria, BLE heel ulcers admitted with AMS #Bilateral heel ulcers, R>L with right calcaneal osteomyelitis: MRI shows early calcaneal osteomyelitis and flexor hallucis tenosynovitis, Family refusing amputation at present. #UTI #AMS: likely secondary to infection, has minimal cognition at baseline and like ly limited reserves #Non-verbal status #DM2: tight glycemic control for best outcomes. Recs: -Peviously has grown Klebsiella, Proteus, MSSA -Continue ceftriaxone 2 g every 24 hours. Good response inpatient, likely to continue on discharge. -Please obtain cultures from debridement to guide fpc antibiotics. Diana Mcgarry MD [facility] ([facility]) Office [phone] Subjective Date of service: 01/08/21 Principal diagnosis: Acute kidney injury Interval history: Patient remains nonverbal, no acute events. No fever Objective - Exam Narrative Exam: General appearance: Alert, nonverbal cachectic Eyes: anicteric sclerae, moist conjunctivae; no lid-lag; PERRLA HENT: Normocephalic, Atraumatic; normal external ears, nares open, oropharynx limited Neck: supple, tracheal midline, no JVD Lungs: CTA, with normal respiratory effort and no intercostal retractions CV: RRR no murmur Abdomen: Soft, non-tender Extremities: Right foot with dressing Skin: No rash. Psych: no agitated Neuro: Alert, nonverbal - Constitutional Vitals: Vital Signs Temp Pulse Resp BP Pulse Ox 98.2 F 96 H 18 146/79 99 01/08/21 08:30 01/08/21 08:30 01/08/21 11:00 01/08/21 08:30 01/08/21 08:30 Temperature -Last 24 Hours Temperature 98.2 F Temperature 98.3 F Temperature 98.2 F Temperature 98.1 F Temperature 97.3 F - Labs CBC & Chem 7: 01/06/21 05:20 01/07/21 06:09 Labs: Abnormal lab results 01/07/21 01/08/21 Range/Units 16:51 11:57 POC Glucose 166 H 178 H (70-105) mg/dL
--- NOTE | 2021-01-08 16:41 | Progress Note ---
Assessment and Plan - Patient Problems (1) Ulcer of right heel Current Visit: Yes Status: Acute (2) Osteomyelitis of right foot Current Visit: Yes Status: Acute Plan to address problem: 1) Right AKA on 01/10/21. Subjective Date of service: 01/08/21 Patient Reports: Positive: no new complaints Objective Vital Signs - 12hr 01/08/21 01/08/21 01/08/21 08:30 10:00 11:00 Temperature 98.2 F Pulse Rate 96 H 92 H Respiratory 18 18 Rate Blood Pressure 146/79 O2 Sat by Pulse 99 Oximetry - Integumentary other (No change in right heel exam.) - Labs 01/06/21 05:20 01/07/21 06:09
[2021-01-09 06:27] LABS: Hematocrit 27.7 % (35.5-45.6); Hemoglobin 9.3 gm/dl (11.8-15.2); Mean Corpuscular HGB Conc 34 % (32-34); Mean Corpuscular Volume 89 fl (84-94); Platelet Count 243 K/mm3 (140-440); Red Blood Count 3.12 M/mm3 (3.65-5.03); Red Cell Distribution Width 13.4 % (13.2-15.2)
[2021-01-09 06:48] LABS: Calcium 8.6 mg/dL (8.4-10.2)
--- NOTE | 2021-01-09 07:26 | Progress Note ---
Assessment and Plan - Patient Problems (1) Acute kidney injury Current Visit: Yes Status: Acute Plan to address problem: Overall renal function is showing steady improvement. Renal US did not show any acute abnormalities. Please avoid all nephrotoxins, and maintain MAP > 65mmHg. Renal function has continued to show improvement (2) Aspiration pneumonia Current Visit: Yes Status: Acute Plan to address problem: Please ensure that anitbiotics are dosed appropriately for decreased renal function. (3) Diabetes Current Visit: Yes Status: Acute Plan to address problem: DM management per primary attending. (4) Failure to thrive Current Visit: Yes Status: Acute Plan to address problem: Continue with nutritional support. (5) Hypernatremia Current Visit: Yes Status: Acute Plan to address problem: Improving at this time time with nutritional support and fluid hydration. (6) Metabolic acidosis Current Visit: Yes Status: Acute Plan to address problem: Continue on current isotonic sodium bicarbonate solution. (7) Ulcer of right heel Current Visit: Yes Status: Acute Plan to address problem: Management per surgery and ID. Plan for right AKA per surgery notes (8) HTN (hypertension) Current Visit: No Status: Acute Qualifiers: Hypertension type: essential hypertension Qualified Code(s): I10 - Essential (primary) hypertension Plan to address problem: Monitor under current management. Subjective Date of service: 01/09/21 Principal diagnosis: Acute kidney injury Interval history: No acute events noted, renal function showing improvement. Per surgery notes, plan for right AKA tomorrow. Objective - Vital Signs Vital signs: Vital Signs - 12hr 01/08/21 01/08/21 01/08/21 22:00 23:00 23:36 Temperature 98.0 F Pulse Rate 84 92 H Respiratory 18 18 Rate Blood Pressure 165/93 Blood Pressure [Left] O2 Sat by Pulse 100 Oximetry 01/09/21 04:54 Temperature 98 F Pulse Rate 68 Respiratory Rate Blood Pressure Blood Pressure 148/68 [Left] O2 Sat by Pulse Oximetry - General Appearance General appearance: appears stated age, chronically ill, frail EENT: ATNC Neck: no JVD Respiratory: Present: Clear to Ascultation Cardiology: regular Gastrointestinal: normal Integumentary: ulcer Musculoskeletal: deferred - Lab 01/09/21 05:45 01/09/21 05:45 Most recent lab results Calcium 8.6 mg/dL (8.4-10.2) 01/09/21 05:45 Phosphorus 3.90 mg/dL (2.5-4.5) 01/05/21 05:12 Magnesium 2.20 mg/dL (1.7-2.3) 01/05/21 05:12 Urine Creatinine 122.1 mg/dL (0.1-20.0) H 01/04/21 07:25 Urine Sodium 50 mmol/L 01/04/21 07:25 Urine Total Protein 49 mg/dL (5-11.8) H 01/04/21 07:25 - Allied health notes Allied health notes reviewed: nursing Medications & Allergies - Medications Allergies/Adverse Reactions: Allergies No Known Allergies Allergy (Verified 11/22/19 13:13) Home Medications: Home Medications Medication Instructions Recorded Confirmed Last Taken Type Amlodipine Besylate [Norvasc] 5 mg PO DAILY 08/15/18 01/05/21 3 Days Ago History ~01/02/21 Atorvastatin Calcium [Lipitor] 40 mg PO DAILY 08/15/18 01/05/21 3 Days Ago History ~01/02/21 Calcium Carbonate [Ban-Acid 300MG 300 mg PO DAILY 08/15/18 01/05/21 3 Days Ago History CHEW] ~01/02/21 Lisinopril [Zestril TAB] 2.5 mg PO QDAY 08/15/18 01/05/21 3 Days Ago History ~01/02/21 metFORMIN [Glucophage] 500 mg PO QDAY 08/15/18 01/05/21 3 Days Ago History ~01/02/21 Acetaminophen [Acetaminophen TAB] 650 mg PO Q4H PRN tablet 08/26/18 01/05/21 Unknown Rx Aspirin EC [Halfprin EC] 81 mg PO QDAY tablet 08/26/18 01/05/21 3 Days Ago Rx ~01/02/21 Clopidogrel [Plavix] 75 mg PO QDAY tablet 08/26/18 01/05/21 3 Days Ago Rx ~01/02/21 Active Medications: Generic Name Dose Route Start Last Admin Trade Name Freq PRN Reason Stop Dose Admin Acetaminophen 650 mg 01/03/21 14:30 Acetaminophen 325 Mg Tab PO Q4H PRN Pain MILD(1-3)/Fever >100.5/MONTEJO Albuterol 2.5 mg 01/03/21 16:00 Albuterol 2.5 Mg/3 Ml Nebu IH Q4HRT PRN Shortness Of Breath Hydromorphone HCl 0.25 mg 01/03/21 15:00 Hydromorphone 1 Mg/1 Ml Inj IV Q4H PRN Pain, Moderate (4-6) Ceftriaxone Sodium 2 gm in 100 mls @ 200 mls/hr 01/05/21 16:00 01/08/21 16:09 Rocephin/Ns 2 Gm/100 Ml IV 200 mls/hr Q24H ALLEN Administration Protocol Sodium Bicarbonate 50 meq/ 1,050 mls @ 100 mls/hr 01/06/21 09:00 01/08/21 22:32 Dextrose IV 100 mls/hr DIRECT ALLEN Administration Ondansetron HCl 4 mg 01/03/21 15:00 Ondansetron 4 Mg/2 Ml Inj IV Q8H PRN Nausea And Vomiting Pseudoephedrine/Acetam/Chlorphenir 10 ml 01/03/21 23:23 01/03/21 23:58 Guaifenesin/Codeine 100-10mg Oral Liqd 5 Ml PO 10 ml Q4H PRN Administration Cough Sodium Chloride 10 ml 01/03/21 22:00 01/08/21 21:34 Sodium Chloride 0.9% 10 Ml Flush Syringe IV 10 ml BID ALLEN Administration Sodium Chloride 10 ml 01/03/21 15:00 Sodium Chloride 0.9% 10 Ml Flush Syringe IV PRN PRN LINE FLUSH
--- NOTE | 2021-01-09 07:28 | Progress Note ---
Assessment and Plan Assessment and plan: - Patient Problems Sepsis due to infected right heel ulcer, osteomyelitis Sepsis protocol: IVF resuscitation therapy, IV antibiotic therapy, serial lactic acid level, blood culture, maintain MAP greater than or equal to 65, Malnutrition Increased protein intake, dietary supplementation Acute kidney injury Nephrology consulted following , IVF resuscitation therapy, monitor uop q shift, Infected ulcer right heel supportive care, vascular surgery consulted, Osteomyelitis of calcaneus Surgeon Dr. Salas in discussion with family about amputation History of CVA with residual deficit antiplatelet therapy, risk factor reduction Diabetes Melitus consistent carbohydrate diet, accu check, DVT prophylaxis SCD to BLE while in bed, prophylactic anticoagulation Advance care planning Pt is full code, diagnoses discussed, prognosis discussed, care plan discussed, Pt daughter acknowledges understanding and agreement with care plan. Sandie Higgins, Daughter . patient was on home hospice with [facility] 01/04 Patient seen and examined today. He has right heel ulcer. Patient was evaluated by [facility] Surgeon who recommends General surgeon to evaluate heel ulce rs. Will consult Dr. Salas since he has been seeing him before. His CAMILLE is being managed by Nephrology 01/05/21 Patient with sepsis, CAMILLE, infected right heel ulcer. Patient was seen by Dr. Salas, Surgeon. He will do local debridement. I discussed with case Management. Patient has home hospice. 01/06/21 Patient with sepsis, CAMILLE, infected right heel ulcer. Today has hyperkalemia of 5.4. I discussed with Dr. Ortega. Kayexalate ordered. Dr. Salas to do local debridement. Patient on discharge will go back to home hospice. 01/07/21 Patient with sepsis, CAMILLE, infected right heel ulcer. Yesterday had hyperkalemia, now resolved after Kayexalate. Dr. Salas to do local debridement today. 01/08/21 Patient with CAMILLE, infected right heel ulcer. He had debridement right heel ulcer by Dr. Salas on 01/07. Patient has Osteo of right heel. Family to decide on right AKA. CAMILLE improvimg, managed by Nephrology. History Interval history: Patient cannot give history Altered mental status Right heel ulcer s/p debridement on 01/[address] Salas Hospitalist Physical - Physical exam Narrative exam: Gen: Not in acute distress, lying in bed HEENT: Normochephalic, atraumatic Neck:supple, No JVD Lungs:Clear to auscultation bilaterally, no rales, no wheeze Heart:S1 and S2 reg, no murmurs, rubs or gallop Abd: soft, non tender, non distended, normal bowel sounds Ext: Ulcer right heel Neuro: Lethargic, - Constitutional Vitals: Temp Pulse Resp BP Pulse Ox 98 F 68 18 148/68 100 01/09/21 04:54 01/09/21 04:54 01/08/21 23:36 01/09/21 04:54 01/08/21 23:36 General appearance: Present: no acute distress HEART Score - HEART Score Troponin: Troponin T 0.088 ng/mL (0.00-0.029) H 01/03/21 12:42 Results - Labs CBC & Chem 7: 01/09/21 05:45 01/09/21 05:45 Labs: Laboratory Last Values WBC 7.8 K/mm3 (4.5-11.0) 01/09/21 05:45 RBC 3.12 M/mm3 (3.65-5.03) L 01/09/21 05:45 Hgb 9.3 gm/dl (11.8-15.2) L 01/09/21 05:45 Hct 27.7 % (35.5-45.6) L 01/09/21 05:45 MCV 89 fl (84-94) 01/09/21 05:45 MCH 30 pg (28-32) 01/09/21 05:45 MCHC 34 % (32-34) 01/09/21 05:45 RDW 13.4 % (13.2-15.2) 01/09/21 05:45 Plt Count 243 K/mm3 (140-440) 01/09/21 05:45 Lymph % (Auto) 11.6 % (13.4-35.0) L 01/04/21 05:22 [place] % (Auto) 12.1 % (0.0-7.3) H 01/04/21 05:22 Eos % (Auto) 0.3 % (0.0-4.3) 01/04/21 05:22 Baso % (Auto) 0.3 % (0.0-1.8) 01/04/21 05:22 Lymph # (Auto) 1.3 K/mm3 (1.2-5.4) 01/04/21 05:22 [place] # (Auto) 1.4 K/mm3 (0.0-0.8) H 01/04/21 05:22 Eos # (Auto) 0.0 K/mm3 (0.0-0.4) 01/04/21 05:22 Baso # (Auto) 0.0 K/mm3 (0.0-0.1) 01/04/21 05:22 Seg Neutrophils % 75.7 % (40.0-70.0) H 01/04/21 05:22 Seg Neutrophils # 8.6 K/mm3 (1.8-7.7) H 01/04/21 05:22 ESR 140 mm/Hr (0-20) 01/03/21 14:33 PT 14.6 Sec. (12.2-14.9) 01/03/21 12:42 INR 1.08 (0.87-1.13) 01/03/21 12:42 APTT 33.2 Sec. (24.2-36.6) 01/03/21 12:42 Sodium 145 mmol/L (137-145) 01/09/21 05:45 Potassium 4.8 mmol/L (3.6-5.0) 01/09/21 05:45 Chloride 111.2 mmol/L (98-107) H 01/09/21 05:45 Carbon Dioxide 26 mmol/L (22-30) D 01/09/21 05:45 Anion Gap 13 mmol/L 01/09/21 05:45 BUN 52 mg/dL (9-20) H 01/09/21 05:45 Creatinine 2.8 mg/dL (0.8-1.3) H 01/09/21 05:45 Estimated GFR 27 ml/min 01/09/21 05:45 BUN/Creatinine Ratio 19 % 01/09/21 05:45 Glucose 161 mg/dL (75-100) H 01/09/21 05:45 POC Glucose 186 mg/dL (70-105) H 01/08/21 21:09 Lactic Acid 1.50 mmol/L (0.7-2.0) 01/03/21 22:59 Calcium 8.6 mg/dL (8.4-10.2) 01/09/21 05:45 Phosphorus 3.90 mg/dL (2.5-4.5) 01/05/21 05:12 Magnesium 2.20 mg/dL (1.7-2.3) 01/05/21 05:12 Total Bilirubin 0.20 mg/dL (0.1-1.2) 01/04/21 05:22 AST 10 units/L (5-40) 01/04/21 05:22 ALT < 5 units/L (7-56) L 01/04/21 05:22 Alkaline Phosphatase 63 units/L (35-129) 01/04/21 05:22 Total Creatine Kinase 142 units/L (55-170) 01/03/21 12:42 Troponin T 0.088 ng/mL (0.00-0.029) H 01/03/21 12:42 C-Reactive Protein 23.90 mg/dL (0.00-1.30) H 01/03/21 12:42 Total Protein 6.7 g/dL (6.3-8.2) 01/04/21 05:22 Albumin 3.0 g/dL (3.9-5) L 01/04/21 05:22 Albumin/Globulin Ratio 0.8 % 01/04/21 05:22 Triglycerides 77 mg/dL (2-149) 01/03/21 12:42 Cholesterol 120 mg/dL (50-199) 01/03/21 12:42 LDL Cholesterol Direct 60 mg/dL (50-130) 01/03/21 12:42 HDL Cholesterol 46 mg/dL (40-59) 01/03/21 12:42 Cholesterol/HDL Ratio 2.60 % 01/03/21 12:42 TSH 2.560 mlU/mL (0.270-4.200) 01/03/21 12:42 Urine Color Yellow (Yellow) 01/04/21 07:25 Urine Turbidity Cloudy (Clear) 01/04/21 07:25 Urine pH 5.0 (5.0-7.0) 01/04/21 07:25 Ur Specific [place] 1.013 (1.003-1.030) 01/04/21 07:25 Urine Protein 30 mg/dl mg/dL (Negative) 01/04/21 07:25 Urine Glucose (UA) Neg mg/dL (Negative) 01/04/21 07:25 Urine Ketones Tr mg/dL (Negative) 01/04/21 07:25 Urine Blood Mod (Negative) 01/04/21 07:25 Urine Nitrite Neg (Negative) 01/04/21 07:25 Urine Bilirubin Neg (Negative) 01/04/21 07:25 Urine Urobilinogen < 2.0 mg/dL (<2.0) 01/04/21 07:25 Ur Leukocyte Esterase Lg (Negative) 01/04/21 07:25 Urine WBC (Auto) > 182.0 /HPF (0.0-6.0) H 01/04/21 07:25 Urine RBC (Auto) 15.0 /HPF (0.0-6.0) 01/04/21 07:25 U Epithel Cells (Auto) 2.0 /HPF (0-13.0) 01/04/21 07:25 Urine Bacteria (Auto) 2+ /HPF (Negative) 01/04/21 07:25 Urine Creatinine 122.1 mg/dL (0.1-20.0) H 01/04/21 07:25 Urine Sodium 50 mmol/L 01/04/21 07:25 Urine Total Protein 49 mg/dL (5-11.8) H 01/04/21 07:25 Salicylates 0.3 mg/dL (2.8-20.0) L 01/03/21 12:42 Acetaminophen < 5.0 ug/mL (10.0-30.0) L 01/03/21 13:09 Blood Type B POSITIVE 01/03/21 14:33 Antibody Screen Negative 01/03/21 14:33 Microbiology: Microbiology 01/03/21 12:42 Peripheral/Venous Blood Culture - Final NO GROWTH AFTER 5 DAYS 01/03/21 12:42 Peripheral/Venous Blood Culture - Final NO GROWTH AFTER 5 DAYS [place]/IV: Voiding Method Condom Catheter Active Medications - Current Medications Current Medications: Generic Name Dose Route Start Last Admin Trade Name Freq PRN Reason Stop Dose Admin Acetaminophen 650 mg 01/03/21 14:30 Acetaminophen 325 Mg Tab PO Q4H PRN Pain MILD(1-3)/Fever >100.5/MONTEJO Albuterol 2.5 mg 01/03/21 16:00 Albuterol 2.5 Mg/3 Ml Nebu IH Q4HRT PRN Shortness Of Breath Hydromorphone HCl 0.25 mg 01/03/21 15:00 Hydromorphone 1 Mg/1 Ml Inj IV Q4H PRN Pain, Moderate (4-6) Ceftriaxone Sodium 2 gm in 100 mls @ 200 mls/hr 01/05/21 16:00 01/08/21 16:09 Rocephin/Ns 2 Gm/100 Ml IV 200 mls/hr Q24H ALLEN Administration Protocol Sodium Bicarbonate 50 meq/ 1,050 mls @ 100 mls/hr 01/06/21 09:00 01/08/21 22:32 Dextrose IV 100 mls/hr DIRECT ALLEN Administration Ondansetron HCl 4 mg 01/03/21 15:00 Ondansetron 4 Mg/2 Ml Inj IV Q8H PRN Nausea And Vomiting Pseudoephedrine/Acetam/Chlorphenir 10 ml 01/03/21 23:23 01/03/21 23:58 Guaifenesin/Codeine 100-10mg Oral Liqd 5 Ml PO 10 ml Q4H PRN Administration Cough Sodium Chloride 10 ml 01/03/21 22:00 01/08/21 21:34 Sodium Chloride 0.9% 10 Ml Flush Syringe IV 10 ml BID ALLEN Administration Sodium Chloride 10 ml 01/03/21 15:00 Sodium Chloride 0.9% 10 Ml Flush Syringe IV PRN PRN LINE FLUSH Nutrition/Malnutrition Assess - Dietary Evaluation Nutrition/Malnutrition Findings: Nutrition Notes Start: 01/04/21 12:41 Freq: Status: Active Protocol: Document 01/07/21 11:51 CW (Rec: 01/07/21 11:57 CW [id number]) Nutrition Notes Initial or Follow up Brief Note Current Diagnosis Acute Kidney Injury,Diabetes, Hypertension,Malnutrition, Stroke Other Pertinent Diagnosis FTT, R heal ulcer, pneu Current Diet Dietary Supplements Subjective/Other Information F/U for nutrition support. Pt continue to be NPO. Pt currently undergoing hospice care. TF may or may not be warranted. F/U for POC. Pt is at nutritional risk for lack of nutrition. MD order for supplements d/c'd d/t [employer] evaluation. Percent of energy/protein needs met: 0%/0% Burn Absent Trauma Absent GI Symptoms None Difficulty In Swallowing,Chewing Current % PO Negligible #2 Nutrition Diagnosis Malnutrition Diagnosis Progress(for reassessment Continues documentation) Nutrition Intervention Anticipated Discharge Needs: Unable to determine at this time Follow-Up By: 01/10/21 Additional Comments F/U for POC
--- NOTE | 2021-01-09 09:32 | Progress Note ---
Assessment and Plan Assessment and plan: - Patient Problems Sepsis due to infected right heel ulcer, osteomyelitis Sepsis protocol: IVF resuscitation therapy, IV antibiotic therapy, serial lactic acid level, blood culture, maintain MAP greater than or equal to 65, Malnutrition Increased protein intake, dietary supplementation Acute kidney injury Nephrology consulted following , IVF resuscitation therapy, monitor uop q shift, Infected ulcer right heel supportive care, vascular surgery consulted, Osteomyelitis of calcaneus Surgeon Dr. Salas in discussion with family about amputation History of CVA with residual deficit antiplatelet therapy, risk factor reduction Diabetes Melitus consistent carbohydrate diet, accu check, DVT prophylaxis SCD to BLE while in bed, prophylactic anticoagulation Advance care planning Pt is full code, diagnoses discussed, prognosis discussed, care plan discussed, Pt daughter acknowledges understanding and agreement with care plan. Sandie Higgins, Daughter . patient was on home hospice with [facility] 01/04 Patient seen and examined today. He has right heel ulcer. Patient was evaluated by [facility] Surgeon who recommends General surgeon to evaluate heel ulce rs. Will consult Dr. Salas since he has been seeing him before. His CAMILLE is being managed by Nephrology 01/05/21 Patient with sepsis, CAMILLE, infected right heel ulcer. Patient was seen by Dr. Salas, Surgeon. He will do local debridement. I discussed with case Management. Patient has home hospice. 01/06/21 Patient with sepsis, CAMILLE, infected right heel ulcer. Today has hyperkalemia of 5.4. I discussed with Dr. Ortega. Kayexalate ordered. Dr. Salas to do local debridement. Patient on discharge will go back to home hospice. 01/07/21 Patient with sepsis, CAMILLE, infected right heel ulcer. Yesterday had hyperkalemia, now resolved after Kayexalate. Dr. Slaas to do local debridement today. 01/08/21 Patient with CAMILLE, infected right heel ulcer. He had debridement right heel ulcer by Dr. Salas on 01/07. Patient has Osteo of right heel. Family to decide on right AKA. CAMILLE improving, managed by Nephrology. 01/09/21 Patient with CAMILLE, infected right heel ulcer. He had debridement right heel ulcer by Dr. Salas on 01/07. Patient has Osteomyelitis of right heel. He also has Acute kidney injury managed by Nephrology. For surgery tomorrow. History Interval history: Patient cannot give history Altered mental status Right heel ulcer s/p debridement on 01/[address] Salas Hospitalist Physical - Physical exam Narrative exam: Gen: Not in acute distress, lying in bed HEENT: Normochephalic, atraumatic Neck:supple, No JVD Lungs:Clear to auscultation bilaterally, no rales, no wheeze Heart:S1 and S2 reg, no murmurs, rubs or gallop Abd: soft, non tender, non distended, normal bowel sounds Ext: Ulcer right heel Neuro: Lethargic, - Constitutional Vitals: Temp Pulse Resp BP Pulse Ox 98 F 68 18 148/68 100 01/09/21 04:54 01/09/21 04:54 01/08/21 23:36 01/09/21 04:54 01/08/21 23:36 General appearance: Present: no acute distress HEART Score - HEART Score Troponin: Troponin T 0.088 ng/mL (0.00-0.029) H 01/03/21 12:42 Results - Labs CBC & Chem 7: 01/11/21 05:08 01/11/21 05:08 Labs: Laboratory Last Values WBC 7.8 K/mm3 (4.5-11.0) 01/09/21 05:45 RBC 3.12 M/mm3 (3.65-5.03) L 01/09/21 05:45 Hgb 9.3 gm/dl (11.8-15.2) L 01/09/21 05:45 Hct 27.7 % (35.5-45.6) L 01/09/21 05:45 MCV 89 fl (84-94) 01/09/21 05:45 MCH 30 pg (28-32) 01/09/21 05:45 MCHC 34 % (32-34) 01/09/21 05:45 RDW 13.4 % (13.2-15.2) 01/09/21 05:45 Plt Count 243 K/mm3 (140-440) 01/09/21 05:45 Lymph % (Auto) 11.6 % (13.4-35.0) L 01/04/21 05:22 [place] % (Auto) 12.1 % (0.0-7.3) H 01/04/21 05:22 Eos % (Auto) 0.3 % (0.0-4.3) 01/04/21 05:22 Baso % (Auto) 0.3 % (0.0-1.8) 01/04/21 05:22 Lymph # (Auto) 1.3 K/mm3 (1.2-5.4) 01/04/21 05:22 [place] # (Auto) 1.4 K/mm3 (0.0-0.8) H 01/04/21 05:22 Eos # (Auto) 0.0 K/mm3 (0.0-0.4) 01/04/21 05:22 Baso # (Auto) 0.0 K/mm3 (0.0-0.1) 01/04/21 05:22 Seg Neutrophils % 75.7 % (40.0-70.0) H 01/04/21 05:22 Seg Neutrophils # 8.6 K/mm3 (1.8-7.7) H 01/04/21 05:22 ESR 140 mm/Hr (0-20) 01/03/21 14:33 PT 14.6 Sec. (12.2-14.9) 01/03/21 12:42 INR 1.08 (0.87-1.13) 01/03/21 12:42 APTT 33.2 Sec. (24.2-36.6) 01/03/21 12:42 Sodium 145 mmol/L (137-145) 01/09/21 05:45 Potassium 4.8 mmol/L (3.6-5.0) 01/09/21 05:45 Chloride 111.2 mmol/L (98-107) H 01/09/21 05:45 Carbon Dioxide 26 mmol/L (22-30) D 01/09/21 05:45 Anion Gap 13 mmol/L 01/09/21 05:45 BUN 52 mg/dL (9-20) H 01/09/21 05:45 Creatinine 2.8 mg/dL (0.8-1.3) H 01/09/21 05:45 Estimated GFR 27 ml/min 01/09/21 05:45 BUN/Creatinine Ratio 19 % 01/09/21 05:45 Glucose 161 mg/dL (75-100) H 01/09/21 05:45 POC Glucose 159 mg/dL (70-105) H 01/09/21 07:23 Lactic Acid 1.50 mmol/L (0.7-2.0) 01/03/21 22:59 Calcium 8.6 mg/dL (8.4-10.2) 01/09/21 05:45 Phosphorus 3.90 mg/dL (2.5-4.5) 01/05/21 05:12 Magnesium 2.20 mg/dL (1.7-2.3) 01/05/21 05:12 Total Bilirubin 0.20 mg/dL (0.1-1.2) 01/04/21 05:22 AST 10 units/L (5-40) 01/04/21 05:22 ALT < 5 units/L (7-56) L 01/04/21 05:22 Alkaline Phosphatase 63 units/L (35-129) 01/04/21 05:22 Total Creatine Kinase 142 units/L (55-170) 01/03/21 12:42 Troponin T 0.088 ng/mL (0.00-0.029) H 01/03/21 12:42 C-Reactive Protein 23.90 mg/dL (0.00-1.30) H 01/03/21 12:42 Total Protein 6.7 g/dL (6.3-8.2) 01/04/21 05:22 Albumin 3.0 g/dL (3.9-5) L 01/04/21 05:22 Albumin/Globulin Ratio 0.8 % 01/04/21 05:22 Triglycerides 77 mg/dL (2-149) 01/03/21 12:42 Cholesterol 120 mg/dL (50-199) 01/03/21 12:42 LDL Cholesterol Direct 60 mg/dL (50-130) 01/03/21 12:42 HDL Cholesterol 46 mg/dL (40-59) 01/03/21 12:42 Cholesterol/HDL Ratio 2.60 % 01/03/21 12:42 TSH 2.560 mlU/mL (0.270-4.200) 01/03/21 12:42 Urine Color Yellow (Yellow) 01/04/21 07:25 Urine Turbidity Cloudy (Clear) 01/04/21 07:25 Urine pH 5.0 (5.0-7.0) 01/04/21 07:25 Ur Specific [place] 1.013 (1.003-1.030) 01/04/21 07:25 Urine Protein 30 mg/dl mg/dL (Negative) 01/04/21 07:25 Urine Glucose (UA) Neg mg/dL (Negative) 01/04/21 07:25 Urine Ketones Tr mg/dL (Negative) 01/04/21 07:25 Urine Blood Mod (Negative) 01/04/21 07:25 Urine Nitrite Neg (Negative) 01/04/21 07:25 Urine Bilirubin Neg (Negative) 01/04/21 07:25 Urine Urobilinogen < 2.0 mg/dL (<2.0) 01/04/21 07:25 Ur Leukocyte Esterase Lg (Negative) 01/04/21 07:25 Urine WBC (Auto) > 182.0 /HPF (0.0-6.0) H 01/04/21 07:25 Urine RBC (Auto) 15.0 /HPF (0.0-6.0) 01/04/21 07:25 U Epithel Cells (Auto) 2.0 /HPF (0-13.0) 01/04/21 07:25 Urine Bacteria (Auto) 2+ /HPF (Negative) 01/04/21 07:25 Urine Creatinine 122.1 mg/dL (0.1-20.0) H 01/04/21 07:25 Urine Sodium 50 mmol/L 01/04/21 07:25 Urine Total Protein 49 mg/dL (5-11.8) H 01/04/21 07:25 Salicylates 0.3 mg/dL (2.8-20.0) L 01/03/21 12:42 Acetaminophen < 5.0 ug/mL (10.0-30.0) L 01/03/21 13:09 Blood Type B POSITIVE 01/03/21 14:33 Antibody Screen Negative 01/03/21 14:33 Microbiology: Microbiology 01/03/21 12:42 Peripheral/Venous Blood Culture - Final NO GROWTH AFTER 5 DAYS 01/03/21 12:42 Peripheral/Venous Blood Culture - Final NO GROWTH AFTER 5 DAYS [place]/IV: Voiding Method Condom Catheter Active Medications - Current Medications Current Medications: Generic Name Dose Route Start Last Admin Trade Name Freq PRN Reason Stop Dose Admin Acetaminophen 650 mg 01/03/21 14:30 Acetaminophen 325 Mg Tab PO Q4H PRN Pain MILD(1-3)/Fever >100.5/MONTEJO Albuterol 2.5 mg 01/03/21 16:00 Albuterol 2.5 Mg/3 Ml Nebu IH Q4HRT PRN Shortness Of Breath Hydromorphone HCl 0.25 mg 01/03/21 15:00 Hydromorphone 1 Mg/1 Ml Inj IV Q4H PRN Pain, Moderate (4-6) Ceftriaxone Sodium 2 gm in 100 mls @ 200 mls/hr 01/05/21 16:00 01/08/21 16:09 Rocephin/Ns 2 Gm/100 Ml IV 200 mls/hr Q24H ALLEN Administration Protocol Sodium Bicarbonate 50 meq/ 1,050 mls @ 100 mls/hr 01/06/21 09:00 01/08/21 22:32 Dextrose IV 100 mls/hr DIRECT ALLEN Administration Ondansetron HCl 4 mg 01/03/21 15:00 Ondansetron 4 Mg/2 Ml Inj IV Q8H PRN Nausea And Vomiting Pseudoephedrine/Acetam/Chlorphenir 10 ml 01/03/21 23:23 01/03/21 23:58 Guaifenesin/Codeine 100-10mg Oral Liqd 5 Ml PO 10 ml Q4H PRN Administration Cough Sodium Chloride 10 ml 01/03/21 22:00 01/08/21 21:34 Sodium Chloride 0.9% 10 Ml Flush Syringe IV 10 ml BID ALLEN Administration Sodium Chloride 10 ml 01/03/21 15:00 Sodium Chloride 0.9% 10 Ml Flush Syringe IV PRN PRN LINE FLUSH Nutrition/Malnutrition Assess - Dietary Evaluation Nutrition/Malnutrition Findings: Nutrition Notes Start: 01/04/21 12:41 Freq: Status: Active Protocol: Document 01/07/21 11:51 CW (Rec: 01/07/21 11:57 CW [id number]) Nutrition Notes Initial or Follow up Brief Note Current Diagnosis Acute Kidney Injury,Diabetes, Hypertension,Malnutrition, Stroke Other Pertinent Diagnosis FTT, R heal ulcer, pneu Current Diet Dietary Supplements Subjective/Other Information F/U for nutrition support. Pt continue to be NPO. Pt currently undergoing hospice care. TF may or may not be warranted. F/U for POC. Pt is at nutritional risk for lack of nutrition. MD order for supplements d/c'd d/t WEIGHER AND CHARGER evaluation. Percent of energy/protein needs met: 0%/0% Burn Absent Trauma Absent GI Symptoms None Difficulty In Swallowing,Chewing Current % PO Negligible #2 Nutrition Diagnosis Malnutrition Diagnosis Progress(for reassessment Continues documentation) Nutrition Intervention Anticipated Discharge Needs: Unable to determine at this time Follow-Up By: 01/10/21 Additional Comments F/U for POC
[2021-01-09] MEDS: SODIUM BICARBONATE 50 MEQ in DEXTROSE 5% IN WATER 1,000 ML IV SCH ×2 (11:25→21:47)
[2021-01-09] MEDS: cefTRIAXone/NS 2 GM/100 ML 2 GM/100 ML BAG IV SCH (17:23)
--- NOTE | 2021-01-09 18:49 | Progress Note ---
Assessment and Plan - Patient Problems (1) Ulcer of right heel Current Visit: Yes Status: Acute (2) Osteomyelitis of right foot Current Visit: Yes Status: Acute Plan to address problem: 1) Right AKA tomorrow Subjective Date of service: 01/09/21 Patient Reports: Positive: no new complaints Objective Vital Signs - 12hr 01/09/21 01/09/21 01/09/21 10:00 11:03 16:02 Temperature 98.7 F 98.3 F Pulse Rate 84 85 86 Respiratory 20 20 Rate Blood Pressure 113/73 142/83 O2 Sat by Pulse 99 100 Oximetry - Integumentary other (No change in right heel exam) - Labs 01/09/21 05:45 01/09/21 05:45 Diabetes panel 01/09/21 Range/Units 05:45 Sodium 145 (137-145) mmol/L Potassium 4.8 (3.6-5.0) mmol/L Chloride 111.2 H (98-107) mmol/L Carbon Dioxide 26 D (22-30) mmol/L BUN 52 H (9-20) mg/dL Creatinine 2.8 H (0.8-1.3) mg/dL Glucose 161 H (75-100) mg/dL Calcium 8.6 (8.4-10.2) mg/dL Calcium panel 01/09/21 Range/Units 05:45 Calcium 8.6 (8.4-10.2) mg/dL Pituitary panel 01/09/21 Range/Units 05:45 Sodium 145 (137-145) mmol/L Potassium 4.8 (3.6-5.0) mmol/L Chloride 111.2 H (98-107) mmol/L Carbon Dioxide 26 D (22-30) mmol/L BUN 52 H (9-20) mg/dL Creatinine 2.8 H (0.8-1.3) mg/dL Glucose 161 H (75-100) mg/dL Calcium 8.6 (8.4-10.2) mg/dL Adrenal panel 01/09/21 Range/Units 05:45 Sodium 145 (137-145) mmol/L Potassium 4.8 (3.6-5.0) mmol/L Chloride 111.2 H (98-107) mmol/L Carbon Dioxide 26 D (22-30) mmol/L BUN 52 H (9-20) mg/dL Creatinine 2.8 H (0.8-1.3) mg/dL Glucose 161 H (75-100) mg/dL Calcium 8.6 (8.4-10.2) mg/dL
[2021-01-10 06:03] LABS: Hematocrit 23.6 % (35.5-45.6); Hemoglobin 7.9 gm/dl (11.8-15.2); Mean Corpuscular HGB Conc 34 % (32-34); Mean Corpuscular Volume 89 fl (84-94); Platelet Count 203 K/mm3 (140-440); Red Blood Count 2.66 M/mm3 (3.65-5.03); Red Cell Distribution Width 13.2 % (13.2-15.2)
[2021-01-10 06:09] LABS: Calcium 8.2 mg/dL (8.4-10.2)
[2021-01-10] MEDS: SODIUM BICARBONATE 50 MEQ in DEXTROSE 5% IN WATER 1,000 ML IV SCH (08:28)
--- NOTE | 2021-01-10 09:05 | Progress Note ---
Assessment and Plan - Patient Problems (1) Acute kidney injury Current Visit: Yes Status: Acute Plan to address problem: Overall renal function is showing steady improvement. Renal US did not show any acute abnormalities. Please avoid all nephrotoxins, and maintain MAP > 65mmHg. Renal function has continued to show improvement (2) Aspiration pneumonia Current Visit: Yes Status: Acute Plan to address problem: Please ensure that anitbiotics are dosed appropriately for decreased renal function. (3) Diabetes Current Visit: Yes Status: Acute Plan to address problem: DM management per primary attending. (4) Failure to thrive Current Visit: Yes Status: Acute Plan to address problem: Continue with nutritional support. (5) Hypernatremia Current Visit: Yes Status: Acute Plan to address problem: Improving at this time time with nutritional support and fluid hydration. (6) Metabolic acidosis Current Visit: Yes Status: Acute Plan to address problem: has improved at this time and we will switch his IV fluids over to normal saline. (7) Ulcer of right heel Current Visit: Yes Status: Acute Plan to address problem: Management per surgery and ID. Plan for right AKA per surgery notes (8) HTN (hypertension) Current Visit: No Status: Acute Qualifiers: Hypertension type: essential hypertension Qualified Code(s): I10 - Essential (primary) hypertension Plan to address problem: Monitor under current management. Subjective Date of service: 01/10/21 Principal diagnosis: Acute kidney injury Interval history: no acute events overnight and is pending right [id number] amputation this morning. Renal function is stable and showing improvement. Objective - Vital Signs Vital signs: Vital Signs - 12hr 01/09/21 01/09/21 01/10/21 22:00 22:50 03:52 Temperature 98.8 F 98.0 F Pulse Rate 83 91 H 85 Respiratory 17 16 16 Rate Blood Pressure 133/82 124/82 O2 Sat by Pulse 100 99 Oximetry - General Appearance General appearance: chronically ill, frail EENT: ATNC Neck: no JVD Respiratory: Present: Clear to Ascultation Cardiology: regular Gastrointestinal: normal Integumentary: ulcer Musculoskeletal: deferred Psychiatric: cooperative - Lab 01/10/21 04:53 01/10/21 04:53 Most recent lab results Calcium 8.2 mg/dL (8.4-10.2) L 01/10/21 04:53 Phosphorus 3.90 mg/dL (2.5-4.5) 01/05/21 05:12 Magnesium 2.20 mg/dL (1.7-2.3) 01/05/21 05:12 Urine Creatinine 122.1 mg/dL (0.1-20.0) H 01/04/21 07:25 Urine Sodium 50 mmol/L 01/04/21 07:25 Urine Total Protein 49 mg/dL (5-11.8) H 01/04/21 07:25 - Allied health notes Allied health notes reviewed: nursing Medications & Allergies - Medications Allergies/Adverse Reactions: Allergies No Known Allergies Allergy (Verified 11/22/19 13:13) Home Medications: Home Medications Medication Instructions Recorded Confirmed Last Taken Type Amlodipine Besylate [Norvasc] 5 mg PO DAILY 08/15/18 01/05/21 3 Days Ago History ~01/02/21 Atorvastatin Calcium [Lipitor] 40 mg PO DAILY 08/15/18 01/05/21 3 Days Ago History ~01/02/21 Calcium Carbonate [Ban-Acid 300MG 300 mg PO DAILY 08/15/18 01/05/21 3 Days Ago History CHEW] ~01/02/21 Lisinopril [Zestril TAB] 2.5 mg PO QDAY 08/15/18 01/05/21 3 Days Ago History ~01/02/21 metFORMIN [Glucophage] 500 mg PO QDAY 08/15/18 01/05/21 3 Days Ago History ~01/02/21 Acetaminophen [Acetaminophen TAB] 650 mg PO Q4H PRN tablet 08/26/18 01/05/21 Unknown Rx Aspirin EC [Halfprin EC] 81 mg PO QDAY tablet 08/26/18 01/05/21 3 Days Ago Rx ~01/02/21 Clopidogrel [Plavix] 75 mg PO QDAY tablet 08/26/18 01/05/21 3 Days Ago Rx ~01/02/21 Active Medications: Generic Name Dose Route Start Last Admin Trade Name Freq PRN Reason Stop Dose Admin Acetaminophen 650 mg 01/03/21 14:30 Acetaminophen 325 Mg Tab PO Q4H PRN Pain MILD(1-3)/Fever >100.5/MONTEJO Albuterol 2.5 mg 01/03/21 16:00 Albuterol 2.5 Mg/3 Ml Nebu IH Q4HRT PRN Shortness Of Breath Hydromorphone HCl 0.25 mg 01/03/21 15:00 Hydromorphone 1 Mg/1 Ml Inj IV Q4H PRN Pain, Moderate (4-6) Ceftriaxone Sodium 2 gm in 100 mls @ 200 mls/hr 01/05/21 16:00 01/09/21 17:23 Rocephin/Ns 2 Gm/100 Ml IV 200 mls/hr Q24H ALLEN Administration Protocol Sodium Bicarbonate 50 meq/ 1,050 mls @ 100 mls/hr 01/06/21 09:00 01/10/21 08:28 Dextrose IV 100 mls/hr DIRECT ALLEN Administration Ondansetron HCl 4 mg 01/03/21 15:00 Ondansetron 4 Mg/2 Ml Inj IV Q8H PRN Nausea And Vomiting Pseudoephedrine/Acetam/Chlorphenir 10 ml 01/03/21 23:23 01/03/21 23:58 Guaifenesin/Codeine 100-10mg Oral Liqd 5 Ml PO 10 ml Q4H PRN Administration Cough Sodium Chloride 10 ml 01/03/21 22:00 01/09/21 21:45 Sodium Chloride 0.9% 10 Ml Flush Syringe IV 10 ml BID ALLEN Administration Sodium Chloride 10 ml 01/03/21 15:00 Sodium Chloride 0.9% 10 Ml Flush Syringe IV PRN PRN LINE FLUSH
--- NOTE | 2021-01-10 09:10 | Progress Note ---
Assessment and Plan Assessment and plan: Bilateral heel ulcers, R>L with right calcaneal osteomyelitis: MRI shows early calcaneal osteomyelitis and flexor hallucis tenosynovitis, Family refusing amputation at present. Peviously has grown Klebsiella, Proteus, MSSA. Continue ceftriaxone 2 g every 24 hours. cultures from debridement to guide shelter antibiotics. Surgery reports right AKA today UTI Toxic metabolic encephalopathy. Etiology likely secondary to infection, has minimal cognition at baseline and likely limited reserves Non-verbal status DM2: tight glycemic control for best outcomes. History Interval history: No new issues Hospitalist Physical - Constitutional Vitals: Temp Pulse Resp BP Pulse Ox 98.0 F 85 16 124/82 99 01/10/21 03:52 01/10/21 03:52 01/10/21 03:52 01/10/21 03:52 01/10/21 03:52 General appearance: Present: no acute distress - EENT Eyes: Present: PERRL, EOM intact ENT: hearing intact, clear oral mucosa, dentition normal - Neck Neck: Present: supple, normal ROM - Respiratory Respiratory effort: normal Respiratory: bilateral: CTA - Cardiovascular Rhythm: regular Heart Sounds: Present: S1 & S2. Absent: gallop, rub - Extremities Extremities: no ischemia, No edema, Full ROM - Abdominal General gastrointestinal: soft, non-tender, non-distended, normal bowel sounds - Integumentary Integumentary: Present: clear, warm, dry - Neurologic Neurologic: CNII-XII intact, moves all extremities HEART Score - HEART Score Troponin: Troponin T 0.088 ng/mL (0.00-0.029) H 01/03/21 12:42 Results - Labs CBC & Chem 7: 01/10/21 04:53 01/10/21 04:53 Labs: Laboratory Last Values WBC 6.0 K/mm3 (4.5-11.0) 01/10/21 04:53 RBC 2.66 M/mm3 (3.65-5.03) L 01/10/21 04:53 Hgb 7.9 gm/dl (11.8-15.2) L 01/10/21 04:53 Hct 23.6 % (35.5-45.6) L 01/10/21 04:53 MCV 89 fl (84-94) 01/10/21 04:53 MCH 30 pg (28-32) 01/10/21 04:53 MCHC 34 % (32-34) 01/10/21 04:53 RDW 13.2 % (13.2-15.2) 01/10/21 04:53 Plt Count 203 K/mm3 (140-440) 01/10/21 04:53 Lymph % (Auto) 11.6 % (13.4-35.0) L 01/04/21 05:22 [place] % (Auto) 12.1 % (0.0-7.3) H 01/04/21 05:22 Eos % (Auto) 0.3 % (0.0-4.3) 01/04/21 05:22 Baso % (Auto) 0.3 % (0.0-1.8) 01/04/21 05:22 Lymph # (Auto) 1.3 K/mm3 (1.2-5.4) 01/04/21 05:22 [place] # (Auto) 1.4 K/mm3 (0.0-0.8) H 01/04/21 05:22 Eos # (Auto) 0.0 K/mm3 (0.0-0.4) 01/04/21 05:22 Baso # (Auto) 0.0 K/mm3 (0.0-0.1) 01/04/21 05:22 Seg Neutrophils % 75.7 % (40.0-70.0) H 01/04/21 05:22 Seg Neutrophils # 8.6 K/mm3 (1.8-7.7) H 01/04/21 05:22 ESR 140 mm/Hr (0-20) 01/03/21 14:33 PT 14.6 Sec. (12.2-14.9) 01/03/21 12:42 INR 1.08 (0.87-1.13) 01/03/21 12:42 APTT 33.2 Sec. (24.2-36.6) 01/03/21 12:42 Sodium 141 mmol/L (137-145) 01/10/21 04:53 Potassium 3.9 mmol/L (3.6-5.0) 01/10/21 04:53 Chloride 108.5 mmol/L (98-107) H 01/10/21 04:53 Carbon Dioxide 25 mmol/L (22-30) 01/10/21 04:53 Anion Gap 11 mmol/L 01/10/21 04:53 BUN 43 mg/dL (9-20) H 01/10/21 04:53 Creatinine 2.4 mg/dL (0.8-1.3) H 01/10/21 04:53 Estimated GFR 32 ml/min 01/10/21 04:53 BUN/Creatinine Ratio 18 % 01/10/21 04:53 Glucose 165 mg/dL (75-100) H 01/10/21 04:53 POC Glucose 166 mg/dL (70-105) H 01/10/21 05:57 Lactic Acid 1.50 mmol/L (0.7-2.0) 01/03/21 22:59 Calcium 8.2 mg/dL (8.4-10.2) L 01/10/21 04:53 Phosphorus 3.90 mg/dL (2.5-4.5) 01/05/21 05:12 Magnesium 2.20 mg/dL (1.7-2.3) 01/05/21 05:12 Total Bilirubin 0.20 mg/dL (0.1-1.2) 01/04/21 05:22 AST 10 units/L (5-40) 01/04/21 05:22 ALT < 5 units/L (7-56) L 01/04/21 05:22 Alkaline Phosphatase 63 units/L (35-129) 01/04/21 05:22 Total Creatine Kinase 142 units/L (55-170) 01/03/21 12:42 Troponin T 0.088 ng/mL (0.00-0.029) H 01/03/21 12:42 C-Reactive Protein 23.90 mg/dL (0.00-1.30) H 01/03/21 12:42 Total Protein 6.7 g/dL (6.3-8.2) 01/04/21 05:22 Albumin 3.0 g/dL (3.9-5) L 01/04/21 05:22 Albumin/Globulin Ratio 0.8 % 01/04/21 05:22 Triglycerides 77 mg/dL (2-149) 01/03/21 12:42 Cholesterol 120 mg/dL (50-199) 01/03/21 12:42 LDL Cholesterol Direct 60 mg/dL (50-130) 01/03/21 12:42 HDL Cholesterol 46 mg/dL (40-59) 01/03/21 12:42 Cholesterol/HDL Ratio 2.60 % 01/03/21 12:42 TSH 2.560 mlU/mL (0.270-4.200) 01/03/21 12:42 Urine Color Yellow (Yellow) 01/04/21 07:25 Urine Turbidity Cloudy (Clear) 01/04/21 07:25 Urine pH 5.0 (5.0-7.0) 01/04/21 07:25 Ur Specific [place] 1.013 (1.003-1.030) 01/04/21 07:25 Urine Protein 30 mg/dl mg/dL (Negative) 01/04/21 07:25 Urine Glucose (UA) Neg mg/dL (Negative) 01/04/21 07:25 Urine Ketones Tr mg/dL (Negative) 01/04/21 07:25 Urine Blood Mod (Negative) 01/04/21 07:25 Urine Nitrite Neg (Negative) 01/04/21 07:25 Urine Bilirubin Neg (Negative) 01/04/21 07:25 Urine Urobilinogen < 2.0 mg/dL (<2.0) 01/04/21 07:25 Ur Leukocyte Esterase Lg (Negative) 01/04/21 07:25 Urine WBC (Auto) > 182.0 /HPF (0.0-6.0) H 01/04/21 07:25 Urine RBC (Auto) 15.0 /HPF (0.0-6.0) 01/04/21 07:25 U Epithel Cells (Auto) 2.0 /HPF (0-13.0) 01/04/21 07:25 Urine Bacteria (Auto) 2+ /HPF (Negative) 01/04/21 07:25 Urine Creatinine 122.1 mg/dL (0.1-20.0) H 01/04/21 07:25 Urine Sodium 50 mmol/L 01/04/21 07:25 Urine Total Protein 49 mg/dL (5-11.8) H 01/04/21 07:25 Salicylates 0.3 mg/dL (2.8-20.0) L 01/03/21 12:42 Acetaminophen < 5.0 ug/mL (10.0-30.0) L 01/03/21 13:09 Blood Type B POSITIVE 01/03/21 14:33 Antibody Screen Negative 01/03/21 14:33 [place]/IV: Voiding Method Condom Catheter Active Medications - Current Medications Current Medications: Generic Name Dose Route Start Last Admin Trade Name Freq PRN Reason Stop Dose Admin Acetaminophen 650 mg 01/03/21 14:30 Acetaminophen 325 Mg Tab PO Q4H PRN Pain MILD(1-3)/Fever >100.5/[place]JO Albuterol 2.5 mg 01/03/21 16:00 Albuterol 2.5 Mg/3 Ml Nebu IH Q4HRT PRN Shortness Of Breath Hydromorphone HCl 0.25 mg 01/03/21 15:00 Hydromorphone 1 Mg/1 Ml Inj IV Q4H PRN Pain, Moderate (4-6) Ceftriaxone Sodium 2 gm in 100 mls @ 200 mls/hr 01/05/21 16:00 01/09/21 17:23 Rocephin/Ns 2 Gm/100 Ml IV 200 mls/hr Q24H ALLEN Administration Protocol Sodium Chloride 1,000 mls @ 75 mls/hr 01/10/21 09:15 Nacl 0.9% 1000 Ml IV DIRECT ALLEN Ondansetron HCl 4 mg 01/03/21 15:00 Ondansetron 4 Mg/2 Ml Inj IV Q8H PRN Nausea And Vomiting Pseudoephedrine/Acetam/Chlorphenir 10 ml 01/03/21 23:23 01/03/21 23:58 Guaifenesin/Codeine 100-10mg Oral Liqd 5 Ml PO 10 ml Q4H PRN Administration Cough Sodium Chloride 10 ml 01/03/21 22:00 01/09/21 21:45 Sodium Chloride 0.9% 10 Ml Flush Syringe IV 10 ml BID ALLEN Administration Sodium Chloride 10 ml 01/03/21 15:00 Sodium Chloride 0.9% 10 Ml Flush Syringe IV PRN PRN LINE FLUSH Nutrition/Malnutrition Assess - Dietary Evaluation Nutrition/Malnutrition Findings: Nutrition Notes Start: 01/04/21 12:41 Freq: Status: Active Protocol: Document 01/07/21 11:51 CW (Rec: 01/07/21 11:57 CW [id number]) Nutrition Notes Initial or Follow up Brief Note Current Diagnosis Acute Kidney Injury,Diabetes, Hypertension,Malnutrition, Stroke Other Pertinent Diagnosis FTT, R heal ulcer, pneu Current Diet Dietary Supplements Subjective/Other Information F/U for nutrition support. Pt continue to be NPO. Pt currently undergoing hospice care. TF may or may not be warranted. F/U for POC. Pt is at nutritional risk for lack of nutrition. MD order for supplements d/c'd d/t [employer]NAGER evaluation. Percent of energy/protein needs met: 0%/0% Burn Absent Trauma Absent GI Symptoms None Difficulty In Swallowing,Chewing Current % PO Negligible #2 Nutrition Diagnosis Malnutrition Diagnosis Progress(for reassessment Continues documentation) Nutrition Intervention Anticipated Discharge Needs: Unable to determine at this time Follow-Up By: 01/10/21 Additional Comments F/U for POC
[2021-01-10] MEDS ORDERED: SODIUM CHLORIDE 0.9% 1000 ML 1,000 ML IV SCH (09:15)
--- NOTE | 2021-01-10 09:46 | Anesthesia Consultation ---
<TOYAUMACHUCHO - Last Filed: 01/10/21 09:49> Anesthesia Consult and Med Hx Date of service: 01/10/21 - Airway Anesthetic Teeth Evaluation: Poor (multiple missing teeth) ROM Head & Neck: Adequate Mental/Hyoid Distance: Adequate Mallampati Class: Class II Intubation Access Assessment: Probably Good - Pre-Operative Health Status ASA Pre-Surgery Classification: ASA3 Proposed Anesthetic Plan: General - Cardiovascular System Hx Hypertension: Yes Hx Coronary Artery Disease: Yes Hx Angina: No (high cholesterol) Hx Pacemaker: No Hx Internal Defibrillator: No Hx Peripheral Vascular Disease: Yes (bilateral feet ulcers, right foot osteomyelitis) - Central Nervous System CVA: Yes (2017, residual disarthria) Hx Psychiatric Problems: No - Endocrine Hx Non-Insulin Dependent Diabetes: Yes - Hematic Hx Anemia: Yes - Other Systems Hx Cancer: Yes (Prostate CA) <CHRISTIAN PALMER - Last Filed: 01/10/21 14:35> Anesthesia Consult and Med Hx - Airway Anesthetic Teeth Evaluation: Poor ROM Head & Neck: Adequate Mental/Hyoid Distance: Adequate Mallampati Class: Class II Intubation Access Assessment: Probably Good - Pre-Operative Health Status ASA Pre-Surgery Classification: ASA3 Proposed Anesthetic Plan: General - Pulmonary Hx Pneumonia: Yes (aspiration PNA mentioned in chart review; currently asymptomatic) - Cardiovascular System Hx Hypertension: Yes Hx Peripheral Vascular Disease: Yes - Central Nervous System CVA: Yes (left weakness, nonverbal) - Endocrine Hx Renal Disease: Yes ([place]) Hx Non-Insulin Dependent Diabetes: Yes - Hematic Hx Anemia: Yes - Additional Comments Anesthesia Medical History Comments: Anesthesia and blood consent obtained from daughter. Plan GETA w/ stnd ASA monitors. Starting Hb 7.9 so will plan for intraoperative blood transfusion.
--- NOTE | 2021-01-10 09:50 | Anesthesia Day of Surgery ---
Anesthesia Day of Surgery - Day of Surgery Patient Examined: Yes Patient H&P Reviewed: Yes Patient is NPO: Yes
[2021-01-10] MEDS: D5W/0.45% NACL 1,000 ML IV SCH (11:28)
--- NOTE | 2021-01-10 13:10 | Progress Note ---
Assessment and Plan Cultures: Blood culture no growth so far. Urine culture 10-100,000 CFU mixed bacteria A/P: 75 yo M with DM-2, CVA, dysarthria, BLE heel ulcers admitted with: #Bilateral heel ulcers, R>L with underlying right sided calcaneal osteomyelitis: MRI showed early calcaneal osteomyelitis and flexor hallucis tenosynovitis. #UTI #Acute encephalopathy: likely secondary to infection, has minimal cognition at baseline and likely limited reserve. #Non-verbal status #DM2: tight glycemic control for best outcomes. Recs: -Stop ceftriaxone 24 hours post amputation Thierry Carmichael MD, FACP [facility] ([facility] O: [phone] F: [phone] Subjective Date of service: 01/10/21 Principal diagnosis: Acute kidney injury Interval history: No fever. Awaiting AKA. non verbal. Objective - Exam Narrative Exam: Physical Exam: Constitutional: Awake, nonverbal Head, Ears, Nose: Normocephalic, atraumatic. External ears, nose normal Eyes: Conjunctivae/corneas clear. No icterus. No ptosis. Neck: Supple, no meningeal signs Cardiovascular: S1, S2 normal. Respiratory: Good air entry, clear to auscultation bilaterally GI: Soft, non-tender; bowel sounds normal. No peritoneal signs Musculoskeletal: Cachexia, bilateral feet with dressings skin: No rash or abscess Hem/Lymphatic: No palpable cervical or supraclavicular nodes. No lymphangitis Psych: No agitation Neurological: Awake, alert, nonverbal - Constitutional Vitals: Vital Signs Temp Pulse Resp BP Pulse Ox 98.0 F 74 15 124/82 97 01/10/21 03:52 01/10/21 10:00 01/10/21 08:42 01/10/21 03:52 01/10/21 08:42 Temperature -Last 24 Hours Temperature 98.0 F Temperature 98.8 F Temperature 98.8 F Temperature 98.3 F - Labs CBC & Chem 7: 01/10/21 04:53 01/10/21 04:53 Labs: Abnormal lab results 01/09/21 01/09/21 01/10/21 Range/Units 17:18 23:27 04:53 RBC 2.66 L (3.65-5.03) M/mm3 Hgb 7.9 L (11.8-15.2) gm/dl Hct 23.6 L (35.5-45.6) % Chloride (98-107) mmol/L BUN (9-20) mg/dL Creatinine (0.8-1.3) mg/dL Glucose (75-100) mg/dL POC Glucose 155 H 156 H (70-105) mg/dL Calcium (8.4-10.2) mg/dL Crossmatch 01/10/21 01/10/21 01/10/21 Range/Units 04:53 05:57 10:31 RBC (3.65-5.03) M/mm3 Hgb (11.8-15.2) gm/dl Hct (35.5-45.6) % Chloride 108.5 H (98-107) mmol/L BUN 43 H (9-20) mg/dL Creatinine 2.4 H (0.8-1.3) mg/dL Glucose 165 H (75-100) mg/dL POC Glucose 166 H (70-105) mg/dL Calcium 8.2 L (8.4-10.2) mg/dL Crossmatch See Detail
[2021-01-10] MEDS ORDERED: SUCCINYLCHOLINE CHLORIDE 200 MG/10 ML INJ MDV ONE (13:11)
[2021-01-10] MEDS ORDERED: ROCURONIUM 50 MG/5 ML INJ IV ONE (13:11)
[2021-01-10] MEDS ORDERED: HYDROmorphone 1 MG/1 ML INJ ONE (13:11)
[2021-01-10] MEDS ORDERED: fentaNYL 100 MCG/2 ML INJ ONE (13:11)
[2021-01-10] MEDS ORDERED: ePHEDrine SULFATE 50 MG/1 ML INJ ONE (13:12)
[2021-01-10] MEDS ORDERED: propofoL 200 MG/20 ML VIAL IV ONE (13:12)
[2021-01-10] MEDS ORDERED: HYDROmorphone 1 MG/1 ML INJ IV PRN (14:36)
[2021-01-10] MEDS ORDERED: SODIUM CHLORIDE 0.9% IRR 1,500 ML BOTTLE IR ONE ×2 (14:38)
[2021-01-10] MEDS ORDERED: LIDOCAINE MPF (2%) 20 MG/1 ML VIAL 5 ML ONE (15:00)
[2021-01-10] MEDS ORDERED: PHENYLEPHRINE/NS 1,000 MCG/10 ML SYRINGE (OR USE) IV ONE (15:20)
--- NOTE | 2021-01-10 15:24 | Procedure Note ---
Date of procedure: 01/10/21 Pre-op diagnosis: Osteomyelitis, right heel Post-op diagnosis: same Procedure: Right AKA Description of procedure: Pt was placed supine on the OR table. General anesthesia was administered. RLE was prepped and draped. A fish mouth incision was made about the distal thigh. SQ tissue and muscle was transected with the Bovie. SFA and SFV were isolated, doubly ligated with 0-silk ties and divided. Periosteum was elevated off of the distal femur. Femur was amputated with a bone saw. RLE was passed off the table. Anterior and posterior fascia were approximated with interrupted sutures of 2-0 Vicryl. Skin was approximated with randal. Xeroform gauze and 4 X 4's were applied to the incision and were secured with Kerlix and Coban wraps. Pt tolerated the procedure well. Pt was taken to PACU in stable condition. Anesthesia: BENJIE Surgeon: JOSE AVILA Estimated blood loss: 50-100ml Pathology: list (Right leg and foot) Specimen disposition: to lab Condition: stable Disposition: PACU
[2021-01-10] MEDS ORDERED: dexAMETHasone 20 MG/5 ML VIAL ONE (15:33)
[2021-01-10] MEDS ORDERED: hydrALAZINE 20 MG/1 ML INJ ONE (15:47)
[2021-01-10] MEDS: hydrALAZINE 20 MG/1 ML INJ IV PRN (15:47)
--- NOTE | 2021-01-10 16:20 | Post Anesthesia Evaluation ---
- Post Anesthesia Evaluation Patient Participated: Yes (easily arousable to voice; nonverbal) Airway Patent: Yes Stable Respiratory Function: Yes Nausea/Vomiting: No Temp > 96.8F: Yes Pain Manageable: Yes Adequeate Hydration: Yes Anesthesia Complications: No
[2021-01-10] MEDS: cefTRIAXone/NS 2 GM/100 ML 2 GM/100 ML BAG IV SCH (16:47)
[2021-01-11 05:58] LABS: Basophils % (Auto) 0.2 % (0.0-1.8); Hematocrit 37.4 % (35.5-45.6); Hemoglobin 12.5 gm/dl (11.8-15.2); Lymphocytes # (Auto) 1.2 K/mm3 (1.2-5.4); Lymphocytes % (Auto) 9.3 % (13.4-35.0); Mean Corpuscular HGB Conc 33 % (32-34); Mean Corpuscular Volume 91 fl (84-94); Monocytes % (Auto) 7.6 % (0.0-7.3); Platelet Count 209 K/mm3 (140-440); Red Blood Count 4.11 M/mm3 (3.65-5.03); Red Cell Distribution Width 13.9 % (13.2-15.2)
[2021-01-11 06:06] LABS: Calcium 8.5 mg/dL (8.4-10.2)
[2021-01-11] MEDS: D5W/0.45% NACL 1,000 ML IV SCH ×2 (06:33→17:03)
--- NOTE | 2021-01-11 10:33 | Progress Note ---
Assessment and Plan - Patient Problems (1) Acute kidney injury Current Visit: Yes Status: Acute Plan to address problem: Overall renal function is showing steady improvement. Renal US did not show any acute abnormalities. Please avoid all nephrotoxins, and maintain MAP > 65mmHg. Renal function has continued to show improvement (2) Aspiration pneumonia Current Visit: Yes Status: Acute Plan to address problem: Please ensure that anitbiotics are dosed appropriately for decreased renal function. (3) Diabetes Current Visit: Yes Status: Acute Plan to address problem: DM management per primary attending. (4) Failure to thrive Current Visit: Yes Status: Acute Plan to address problem: Continue with nutritional support. (5) Hypernatremia Current Visit: Yes Status: Acute Plan to address problem: Improving at this time time with nutritional support and fluid hydration. (6) Metabolic acidosis Current Visit: Yes Status: Acute Plan to address problem: has improved at this time and we will switch his IV fluids over to normal saline. (7) Ulcer of right heel Current Visit: Yes Status: Acute Plan to address problem: Management per surgery and ID. s/p right AKA POD 1 (8) HTN (hypertension) Current Visit: No Status: Acute Qualifiers: Hypertension type: essential hypertension Qualified Code(s): I10 - Essential (primary) hypertension Plan to address problem: Monitor under current management. Subjective Date of service: 01/11/21 Principal diagnosis: Acute kidney injury Interval history: patient underwent right [id number] amputation without any complications or issues. Renal function reviewed this morning and did remain stable. Objective - Vital Signs Vital signs: Vital Signs - 12hr 01/11/21 01/11/21 01/11/21 00:17 03:39 07:59 Temperature 97.5 F L 98.5 F Pulse Rate 90 87 Respiratory 18 20 18 Rate Blood Pressure 139/85 145/83 O2 Sat by Pulse 100 100 98 Oximetry 01/11/21 08:06 Temperature 98.5 F Pulse Rate 86 Respiratory 19 Rate Blood Pressure 174/90 O2 Sat by Pulse 100 Oximetry - General Appearance General appearance: appears stated age, chronically ill EENT: ATNC Neck: no JVD Respiratory: Present: Clear to Ascultation Cardiology: regular Gastrointestinal: normal Integumentary: no rash Neurologic: no focal deficit Musculoskeletal: other (right [id number] amputation with a dressing in place) Psychiatric: cooperative - Lab 01/11/21 05:08 01/11/21 05:08 Most recent lab results Calcium 8.5 mg/dL (8.4-10.2) 01/11/21 05:08 Phosphorus 3.90 mg/dL (2.5-4.5) 01/05/21 05:12 Magnesium 2.20 mg/dL (1.7-2.3) 01/05/21 05:12 Urine Creatinine 122.1 mg/dL (0.1-20.0) H 01/04/21 07:25 Urine Sodium 50 mmol/L 01/04/21 07:25 Urine Total Protein 49 mg/dL (5-11.8) H 01/04/21 07:25 - Allied health notes Allied health notes reviewed: nursing Medications & Allergies - Medications Allergies/Adverse Reactions: Allergies No Known Allergies Allergy (Verified 11/22/19 13:13) Home Medications: Home Medications Medication Instructions Recorded Confirmed Last Taken Type Amlodipine Besylate [Norvasc] 5 mg PO DAILY 08/15/18 01/05/21 3 Days Ago History ~01/02/21 Atorvastatin Calcium [Lipitor] 40 mg PO DAILY 08/15/18 01/05/21 3 Days Ago History ~01/02/21 Calcium Carbonate [Ban-Acid 300MG 300 mg PO DAILY 08/15/18 01/05/21 3 Days Ago History CHEW] ~01/02/21 Lisinopril [Zestril TAB] 2.5 mg PO QDAY 08/15/18 01/05/21 3 Days Ago History ~01/02/21 metFORMIN [Glucophage] 500 mg PO QDAY 08/15/18 01/05/21 3 Days Ago History ~01/02/21 Acetaminophen [Acetaminophen TAB] 650 mg PO Q4H PRN tablet 08/26/18 01/05/21 Unknown Rx Aspirin EC [Halfprin EC] 81 mg PO QDAY tablet 08/26/18 01/05/21 3 Days Ago Rx ~01/02/21 Clopidogrel [Plavix] 75 mg PO QDAY tablet 08/26/18 01/05/21 3 Days Ago Rx ~01/02/21 Active Medications: Generic Name Dose Route Start Last Admin Trade Name Freq PRN Reason Stop Dose Admin Acetaminophen 650 mg 01/03/21 14:30 Acetaminophen 325 Mg Tab PO Q4H PRN Pain MILD(1-3)/Fever >100.5/[place]TEJO Albuterol 2.5 mg 01/03/21 16:00 Albuterol 2.5 Mg/3 Ml Nebu IH Q4HRT PRN Shortness Of Breath Hydralazine HCl 5 mg 01/10/21 15:47 01/10/21 15:47 Hydralazine 20 Mg/1 Ml Inj IV 5 mg Q20M PRN Administration Hypertension Hydromorphone HCl 0.25 mg 01/03/21 15:00 Hydromorphone 1 Mg/1 Ml Inj IV Q4H PRN Pain, Moderate (4-6) Ceftriaxone Sodium 2 gm in 100 mls @ 200 mls/hr 01/05/21 16:00 01/10/21 16:47 Rocephin/Ns 2 Gm/100 Ml IV 01/11/21 23:59 200 mls/hr Q24H ALLEN Administration Protocol Dextrose/Sodium Chloride 1,000 mls @ 75 mls/hr 01/10/21 11:00 01/11/21 06:33 D5/0.45ns IV 75 mls/hr DIRECT ALLEN Administration Ondansetron HCl 4 mg 01/03/21 15:00 Ondansetron 4 Mg/2 Ml Inj IV Q8H PRN Nausea And Vomiting Pseudoephedrine/Acetam/Chlorphenir 10 ml 01/03/21 23:23 01/03/21 23:58 Guaifenesin/Codeine 100-10mg Oral Liqd 5 Ml PO 10 ml Q4H PRN Administration Cough Sodium Chloride 10 ml 01/03/21 22:00 01/11/21 09:36 Sodium Chloride 0.9% 10 Ml Flush Syringe IV 10 ml BID ALLEN Administration Sodium Chloride 10 ml 01/03/21 15:00 Sodium Chloride 0.9% 10 Ml Flush Syringe IV PRN PRN LINE FLUSH
--- NOTE | 2021-01-11 12:54 | Progress Note ---
Assessment and Plan Cultures: Blood culture no growth so far. Urine culture 10-100,000 CFU mixed bacteria A/P: 75 yo M with DM-2, CVA, dysarthria, BLE heel ulcers admitted with: #Bilateral heel ulcers, R>L with underlying right sided calcaneal osteomyelitis: MRI showed early calcaneal osteomyelitis and flexor hallucis tenosynovitis. 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 #UTI #Acute encephalopathy: likely secondary to infection, has minimal cognition at baseline and likely limited reserve. #Non-verbal status #DM2: tight glycemic control for best outcomes. Recs: -Stop ceftriaxone after today's dose -leucocytosis is likely reactive due to surgery -continue wound care and offloading Thierry Carmichael MD, FACP [facility] [place] O: [phone] F: [phone] Subjective Date of service: 01/11/21 Principal diagnosis: Acute kidney injury Interval history: No fever. Underwent AKA yesterday. Non verbal. Objective - Exam Narrative Exam: Physical Exam: Constitutional: Awake, nonverbal Head, Ears, Nose: Normocephalic, atraumatic. External ears, nose normal Eyes: Conjunctivae/corneas clear. No icterus. No ptosis. Neck: Supple, no meningeal signs Cardiovascular: S1, S2 normal. Respiratory: Good air entry, clear to auscultation bilaterally GI: Soft, non-tender; bowel sounds normal. No peritoneal signs Musculoskeletal: Cachexia, R AKA with dressing. Skin: No rash or abscess Hem/Lymphatic: No palpable cervical or supraclavicular nodes. No lymphangitis Psych: No agitation Neurological: Awake, alert, nonverbal - Constitutional Vitals: Vital Signs Temp Pulse Resp BP Pulse Ox 98.5 F 86 19 174/90 100 01/11/21 08:06 01/11/21 08:06 01/11/21 08:06 01/11/21 08:06 01/11/21 08:06 Temperature -Last 24 Hours Temperature 98.5 F Temperature 98.5 F Temperature 97.5 F Temperature 97.9 F Temperature 97.3 F Temperature 98.1 F Temperature 97.0 F Temperature 97.1 F - Labs CBC & Chem 7: 01/11/21 05:08 01/11/21 05:08 Labs: Abnormal lab results 01/10/21 01/10/21 01/10/21 Range/Units 10:31 12:33 15:55 WBC (4.5-11.0) K/mm3 Lymph % (Auto) (13.4-35.0) % [place] % (Auto) (0.0-7.3) % [place] # (Auto) (0.0-0.8) K/mm3 Seg Neutrophils % (40.0-70.0) % Seg Neutrophils # (1.8-7.7) K/mm3 BUN (9-20) mg/dL Creatinine (0.8-1.3) mg/dL Glucose (75-100) mg/dL POC Glucose 140 H 158 H (70-105) mg/dL Crossmatch See Detail 01/10/21 01/10/21 01/11/21 Range/Units 18:21 23:46 05:08 WBC 12.6 H (4.5-11.0) K/mm3 Lymph % (Auto) 9.3 L (13.4-35.0) % [place] % (Auto) 7.6 H (0.0-7.3) % [place] # (Auto) 1.0 H (0.0-0.8) K/mm3 Seg Neutrophils % 82.9 H (40.0-70.0) % Seg Neutrophils # 10.4 H (1.8-7.7) K/mm3 BUN (9-20) mg/dL Creatinine (0.8-1.3) mg/dL Glucose (75-100) mg/dL POC Glucose 154 H 201 H (70-105) mg/dL Crossmatch 01/11/21 01/11/21 Range/Units 05:08 06:23 WBC (4.5-11.0) K/mm3 Lymph % (Auto) (13.4-35.0) % [place] % (Auto) (0.0-7.3) % [place] # (Auto) (0.0-0.8) K/mm3 Seg Neutrophils % (40.0-70.0) % Seg Neutrophils # (1.8-7.7) K/mm3 BUN 39 H (9-20) mg/dL Creatinine 2.3 H (0.8-1.3) mg/dL Glucose 212 H (75-100) mg/dL POC Glucose 177 H (70-105) mg/dL Crossmatch
--- NOTE | 2021-01-11 14:06 | Progress Note ---
Assessment and Plan Assessment and plan: Bilateral heel ulcers, R>L with right calcaneal osteomyelitis: MRI shows early calcaneal osteomyelitis and flexor hallucis tenosynovitis, Family refusing amputation at present. Peviously has grown Klebsiella, Proteus, MSSA. Continue ceftriaxone 2 g every 24 hours. cultures from debridement to guide chcf antibiotics. Surgery reports right AKA today UTI Toxic metabolic encephalopathy. Etiology likely secondary to infection, has minimal cognition at baseline and likely limited reserves Non-verbal status DM2: tight glycemic control for best outcomes. 01/11/21. Pt. s/p Right AKA yesterday. PT/OT. Wound care. ID to stop abx today. History Interval history: No new issues Hospitalist Physical - Constitutional Vitals: Temp Pulse Resp BP Pulse Ox 98.5 F 86 19 174/90 100 01/11/21 08:06 01/11/21 08:06 01/11/21 08:06 01/11/21 08:06 01/11/21 08:06 General appearance: Present: no acute distress - EENT Eyes: Present: PERRL, EOM intact ENT: hearing intact, clear oral mucosa, dentition normal - Neck Neck: Present: supple, normal ROM - Respiratory Respiratory effort: normal Respiratory: bilateral: CTA - Cardiovascular Rhythm: regular Heart Sounds: Present: S1 & S2. Absent: gallop, rub - Extremities Extremities: no ischemia, No edema, Full ROM - Abdominal General gastrointestinal: soft, non-tender, non-distended, normal bowel sounds - Integumentary Integumentary: Present: clear, warm, dry - Neurologic Neurologic: CNII-XII intact, moves all extremities HEART Score - HEART Score Troponin: Troponin T 0.088 ng/mL (0.00-0.029) H 01/03/21 12:42 Results - Labs CBC & Chem 7: 01/11/21 05:08 01/11/21 05:08 Labs: Laboratory Last Values WBC 12.6 K/mm3 (4.5-11.0) H 01/11/21 05:08 RBC 4.11 M/mm3 (3.65-5.03) 01/11/21 05:08 Hgb 12.5 gm/dl (11.8-15.2) D 01/11/21 05:08 Hct 37.4 % (35.5-45.6) D 01/11/21 05:08 MCV 91 fl (84-94) 01/11/21 05:08 MCH 30 pg (28-32) 01/11/21 05:08 MCHC 33 % (32-34) 01/11/21 05:08 RDW 13.9 % (13.2-15.2) 01/11/21 05:08 Plt Count 209 K/mm3 (140-440) 01/11/21 05:08 Lymph % (Auto) 9.3 % (13.4-35.0) L 01/11/21 05:08 [place] % (Auto) 7.6 % (0.0-7.3) H 01/11/21 05:08 Eos % (Auto) 0.0 % (0.0-4.3) 01/11/21 05:08 Baso % (Auto) 0.2 % (0.0-1.8) 01/11/21 05:08 Lymph # (Auto) 1.2 K/mm3 (1.2-5.4) 01/11/21 05:08 [place] # (Auto) 1.0 K/mm3 (0.0-0.8) H 01/11/21 05:08 Eos # (Auto) 0.0 K/mm3 (0.0-0.4) 01/11/21 05:08 Baso # (Auto) 0.0 K/mm3 (0.0-0.1) 01/11/21 05:08 Seg Neutrophils % 82.9 % (40.0-70.0) H 01/11/21 05:08 Seg Neutrophils # 10.4 K/mm3 (1.8-7.7) H 01/11/21 05:08 ESR 140 mm/Hr (0-20) 01/03/21 14:33 PT 14.6 Sec. (12.2-14.9) 01/03/21 12:42 INR 1.08 (0.87-1.13) 01/03/21 12:42 APTT 33.2 Sec. (24.2-36.6) 01/03/21 12:42 Sodium 139 mmol/L (137-145) 01/11/21 05:08 Potassium 4.8 mmol/L (3.6-5.0) D 01/11/21 05:08 Chloride 104.7 mmol/L (98-107) 01/11/21 05:08 Carbon Dioxide 24 mmol/L (22-30) 01/11/21 05:08 Anion Gap 15 mmol/L 01/11/21 05:08 BUN 39 mg/dL (9-20) H 01/11/21 05:08 Creatinine 2.3 mg/dL (0.8-1.3) H 01/11/21 05:08 Estimated GFR 34 ml/min 01/11/21 05:08 BUN/Creatinine Ratio 17 % 01/11/21 05:08 Glucose 212 mg/dL (75-100) H 01/11/21 05:08 POC Glucose 177 mg/dL (70-105) H 01/11/21 06:23 Lactic Acid 1.50 mmol/L (0.7-2.0) 01/03/21 22:59 Calcium 8.5 mg/dL (8.4-10.2) 01/11/21 05:08 Phosphorus 3.90 mg/dL (2.5-4.5) 01/05/21 05:12 Magnesium 2.20 mg/dL (1.7-2.3) 01/05/21 05:12 Total Bilirubin 0.20 mg/dL (0.1-1.2) 01/04/21 05:22 AST 10 units/L (5-40) 01/04/21 05:22 ALT < 5 units/L (7-56) L 01/04/21 05:22 Alkaline Phosphatase 63 units/L (35-129) 01/04/21 05:22 Total Creatine Kinase 142 units/L (55-170) 01/03/21 12:42 Troponin T 0.088 ng/mL (0.00-0.029) H 01/03/21 12:42 C-Reactive Protein 23.90 mg/dL (0.00-1.30) H 01/03/21 12:42 Total Protein 6.7 g/dL (6.3-8.2) 01/04/21 05:22 Albumin 3.0 g/dL (3.9-5) L 01/04/21 05:22 Albumin/Globulin Ratio 0.8 % 01/04/21 05:22 Triglycerides 77 mg/dL (2-149) 01/03/21 12:42 Cholesterol 120 mg/dL (50-199) 01/03/21 12:42 LDL Cholesterol Direct 60 mg/dL (50-130) 01/03/21 12:42 HDL Cholesterol 46 mg/dL (40-59) 01/03/21 12:42 Cholesterol/HDL Ratio 2.60 % 01/03/21 12:42 TSH 2.560 mlU/mL (0.270-4.200) 01/03/21 12:42 Urine Color Yellow (Yellow) 01/04/21 07:25 Urine Turbidity Cloudy (Clear) 01/04/21 07:25 Urine pH 5.0 (5.0-7.0) 01/04/21 07:25 Ur Specific [place] 1.013 (1.003-1.030) 01/04/21 07:25 Urine Protein 30 mg/dl mg/dL (Negative) 01/04/21 07:25 Urine Glucose (UA) Neg mg/dL (Negative) 01/04/21 07:25 Urine Ketones Tr mg/dL (Negative) 01/04/21 07:25 Urine Blood Mod (Negative) 01/04/21 07:25 Urine Nitrite Neg (Negative) 01/04/21 07:25 Urine Bilirubin Neg (Negative) 01/04/21 07:25 Urine Urobilinogen < 2.0 mg/dL (<2.0) 01/04/21 07:25 Ur Leukocyte Esterase Lg (Negative) 01/04/21 07:25 Urine WBC (Auto) > 182.0 /HPF (0.0-6.0) H 01/04/21 07:25 Urine RBC (Auto) 15.0 /HPF (0.0-6.0) 01/04/21 07:25 U Epithel Cells (Auto) 2.0 /HPF (0-13.0) 01/04/21 07:25 Urine Bacteria (Auto) 2+ /HPF (Negative) 01/04/21 07:25 Urine Creatinine 122.1 mg/dL (0.1-20.0) H 01/04/21 07:25 Urine Sodium 50 mmol/L 01/04/21 07:25 Urine Total Protein 49 mg/dL (5-11.8) H 01/04/21 07:25 Salicylates 0.3 mg/dL (2.8-20.0) L 01/03/21 12:42 Acetaminophen < 5.0 ug/mL (10.0-30.0) L 01/03/21 13:09 Blood Type B POSITIVE 01/10/21 10:31 Antibody Screen Negative 01/10/21 10:31 Crossmatch See Detail 01/10/21 10:31 [place]/IV: Voiding Method Condom Catheter Active Medications - Current Medications Current Medications: Generic Name Dose Route Start Last Admin Trade Name Freq PRN Reason Stop Dose Admin Acetaminophen 650 mg 01/03/21 14:30 Acetaminophen 325 Mg Tab PO Q4H PRN Pain MILD(1-3)/Fever >100.5/MONTEJO Albuterol 2.5 mg 01/03/21 16:00 Albuterol 2.5 Mg/3 Ml Nebu IH Q4HRT PRN Shortness Of Breath Hydralazine HCl 5 mg 01/10/21 15:47 01/10/21 15:47 Hydralazine 20 Mg/1 Ml Inj IV 5 mg Q20M PRN Administration Hypertension Hydromorphone HCl 0.25 mg 01/03/21 15:00 Hydromorphone 1 Mg/1 Ml Inj IV Q4H PRN Pain, Moderate (4-6) Ceftriaxone Sodium 2 gm in 100 mls @ 200 mls/hr 01/05/21 16:00 01/10/21 16:47 Rocephin/Ns 2 Gm/100 Ml IV 01/11/21 23:59 200 mls/hr Q24H ALLEN Administration Protocol Dextrose/Sodium Chloride 1,000 mls @ 75 mls/hr 01/10/21 11:00 01/11/21 06:33 D5/0.45ns IV 75 mls/hr DIRECT ALLEN Administration Ondansetron HCl 4 mg 01/03/21 15:00 Ondansetron 4 Mg/2 Ml Inj IV Q8H PRN Nausea And Vomiting Pseudoephedrine/Acetam/Chlorphenir 10 ml 01/03/21 23:23 01/03/21 23:58 Guaifenesin/Codeine 100-10mg Oral Liqd 5 Ml PO 10 ml Q4H PRN Administration Cough Sodium Chloride 10 ml 01/03/21 22:00 01/11/21 09:36 Sodium Chloride 0.9% 10 Ml Flush Syringe IV 10 ml BID ALLEN Administration Sodium Chloride 10 ml 01/03/21 15:00 Sodium Chloride 0.9% 10 Ml Flush Syringe IV PRN PRN LINE FLUSH Nutrition/Malnutrition Assess - Dietary Evaluation Nutrition/Malnutrition Findings: Nutrition Notes Start: 01/04/21 12:41 Freq: Status: Active Protocol: Document 01/11/21 12:34 MK (Rec: 01/11/21 12:35 MK [id number]) Nutrition Notes Initial or Follow up Brief Note Current Diet NPO Subjective/Other Information 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 Informed RN importance of starting TF or diet advancement if family/pt wants to continue with care. Nutrition Intervention Follow-Up By: 01/12/21 Additional Comments FU for plan for care
--- NOTE | 2021-01-11 15:06 | Post Anesthesia Evaluation ---
- Post Anesthesia Evaluation Patient Participated: Yes Airway Patent: Yes Stable Respiratory Function: Yes Nausea/Vomiting: No Temp > 96.8F: Yes Pain Manageable: Yes Adequeate Hydration: Yes Anesthesia Complications: No Block Receding Appropriately: No Patient on Ventilator: No Other Comments: Patient able to verbalize responses to provider's questions. He denies any anesthesia complications.
[2021-01-11] MEDS: cefTRIAXone/NS 2 GM/100 ML 2 GM/100 ML BAG IV SCH (16:59)
[2021-01-11] MEDS: hydrALAZINE 20 MG/1 ML INJ IV PRN (21:12)
[2021-01-12] MEDS: hydrALAZINE 20 MG/1 ML INJ IV PRN ×2 (05:07→21:55)
--- NOTE | 2021-01-12 09:00 | Progress Note ---
Assessment and Plan Assessment and plan: Bilateral heel ulcers, R>L with right calcaneal osteomyelitis: MRI shows early calcaneal osteomyelitis and flexor hallucis tenosynovitis, Family refusing amputation at present. Peviously has grown Klebsiella, Proteus, MSSA. Continue ceftriaxone 2 g every 24 hours. cultures from debridement to guide detention antibiotics. Surgery reports right AKA today UTI Toxic metabolic encephalopathy. Etiology likely secondary to infection, has minimal cognition at baseline and likely limited reserves Non-verbal status DM2: tight glycemic control for best outcomes. 01/11/21. Pt. s/p Right AKA yesterday. PT/OT. Wound care. ID to stop abx today. 01/12/2021. Await PT evaluation for s/p right AKA. Continue wound care. ID discontinued antibiotics. History Interval history: No new issues Hospitalist Physical - Constitutional Vitals: Temp Pulse Resp BP Pulse Ox 98.1 F 104 H 18 178/99 98 01/12/21 04:14 01/11/21 22:22 01/12/21 04:14 01/12/21 05:07 01/11/21 22:22 General appearance: Present: no acute distress - EENT Eyes: Present: PERRL, EOM intact ENT: hearing intact, clear oral mucosa, dentition normal - Neck Neck: Present: supple, normal ROM - Respiratory Respiratory effort: normal Respiratory: bilateral: CTA - Cardiovascular Rhythm: regular Heart Sounds: Present: S1 & S2. Absent: gallop, rub - Extremities Extremities: no ischemia, No edema, Full ROM - Abdominal General gastrointestinal: soft, non-tender, non-distended, normal bowel sounds - Integumentary Integumentary: Present: clear, warm, dry - Neurologic Neurologic: CNII-XII intact, moves all extremities HEART Score - HEART Score Troponin: Troponin T 0.088 ng/mL (0.00-0.029) H 01/03/21 12:42 Results - Labs CBC & Chem 7: 01/11/21 05:08 01/11/21 05:08 Labs: Laboratory Last Values WBC 12.6 K/mm3 (4.5-11.0) H 01/11/21 05:08 RBC 4.11 M/mm3 (3.65-5.03) 01/11/21 05:08 Hgb 12.5 gm/dl (11.8-15.2) D 01/11/21 05:08 Hct 37.4 % (35.5-45.6) D 01/11/21 05:08 MCV 91 fl (84-94) 01/11/21 05:08 MCH 30 pg (28-32) 01/11/21 05:08 MCHC 33 % (32-34) 01/11/21 05:08 RDW 13.9 % (13.2-15.2) 01/11/21 05:08 Plt Count 209 K/mm3 (140-440) 01/11/21 05:08 Lymph % (Auto) 9.3 % (13.4-35.0) L 01/11/21 05:08 [place] % (Auto) 7.6 % (0.0-7.3) H 01/11/21 05:08 Eos % (Auto) 0.0 % (0.0-4.3) 01/11/21 05:08 Baso % (Auto) 0.2 % (0.0-1.8) 01/11/21 05:08 Lymph # (Auto) 1.2 K/mm3 (1.2-5.4) 01/11/21 05:08 [place] # (Auto) 1.0 K/mm3 (0.0-0.8) H 01/11/21 05:08 Eos # (Auto) 0.0 K/mm3 (0.0-0.4) 01/11/21 05:08 Baso # (Auto) 0.0 K/mm3 (0.0-0.1) 01/11/21 05:08 Seg Neutrophils % 82.9 % (40.0-70.0) H 01/11/21 05:08 Seg Neutrophils # 10.4 K/mm3 (1.8-7.7) H 01/11/21 05:08 ESR 140 mm/Hr (0-20) 01/03/21 14:33 PT 14.6 Sec. (12.2-14.9) 01/03/21 12:42 INR 1.08 (0.87-1.13) 01/03/21 12:42 APTT 33.2 Sec. (24.2-36.6) 01/03/21 12:42 Sodium 139 mmol/L (137-145) 01/11/21 05:08 Potassium 4.8 mmol/L (3.6-5.0) D 01/11/21 05:08 Chloride 104.7 mmol/L (98-107) 01/11/21 05:08 Carbon Dioxide 24 mmol/L (22-30) 01/11/21 05:08 Anion Gap 15 mmol/L 01/11/21 05:08 BUN 39 mg/dL (9-20) H 01/11/21 05:08 Creatinine 2.3 mg/dL (0.8-1.3) H 01/11/21 05:08 Estimated GFR 34 ml/min 01/11/21 05:08 BUN/Creatinine Ratio 17 % 01/11/21 05:08 Glucose 212 mg/dL (75-100) H 01/11/21 05:08 POC Glucose 151 mg/dL (70-105) H 01/12/21 00:55 Lactic Acid 1.50 mmol/L (0.7-2.0) 01/03/21 22:59 Calcium 8.5 mg/dL (8.4-10.2) 01/11/21 05:08 Phosphorus 3.90 mg/dL (2.5-4.5) 01/05/21 05:12 Magnesium 2.20 mg/dL (1.7-2.3) 01/05/21 05:12 Total Bilirubin 0.20 mg/dL (0.1-1.2) 01/04/21 05:22 AST 10 units/L (5-40) 01/04/21 05:22 ALT < 5 units/L (7-56) L 01/04/21 05:22 Alkaline Phosphatase 63 units/L (35-129) 01/04/21 05:22 Total Creatine Kinase 142 units/L (55-170) 01/03/21 12:42 Troponin T 0.088 ng/mL (0.00-0.029) H 01/03/21 12:42 C-Reactive Protein 23.90 mg/dL (0.00-1.30) H 01/03/21 12:42 Total Protein 6.7 g/dL (6.3-8.2) 01/04/21 05:22 Albumin 3.0 g/dL (3.9-5) L 01/04/21 05:22 Albumin/Globulin Ratio 0.8 % 01/04/21 05:22 Triglycerides 77 mg/dL (2-149) 01/03/21 12:42 Cholesterol 120 mg/dL (50-199) 01/03/21 12:42 LDL Cholesterol Direct 60 mg/dL (50-130) 01/03/21 12:42 HDL Cholesterol 46 mg/dL (40-59) 01/03/21 12:42 Cholesterol/HDL Ratio 2.60 % 01/03/21 12:42 TSH 2.560 mlU/mL (0.270-4.200) 01/03/21 12:42 Urine Color Yellow (Yellow) 01/04/21 07:25 Urine Turbidity Cloudy (Clear) 01/04/21 07:25 Urine pH 5.0 (5.0-7.0) 01/04/21 07:25 Ur Specific [place] 1.013 (1.003-1.030) 01/04/21 07:25 Urine Protein 30 mg/dl mg/dL (Negative) 01/04/21 07:25 Urine Glucose (UA) Neg mg/dL (Negative) 01/04/21 07:25 Urine Ketones Tr mg/dL (Negative) 01/04/21 07:25 Urine Blood Mod (Negative) 01/04/21 07:25 Urine Nitrite Neg (Negative) 01/04/21 07:25 Urine Bilirubin Neg (Negative) 01/04/21 07:25 Urine Urobilinogen < 2.0 mg/dL (<2.0) 01/04/21 07:25 Ur Leukocyte Esterase Lg (Negative) 01/04/21 07:25 Urine WBC (Auto) > 182.0 /HPF (0.0-6.0) H 01/04/21 07:25 Urine RBC (Auto) 15.0 /HPF (0.0-6.0) 01/04/21 07:25 U Epithel Cells (Auto) 2.0 /HPF (0-13.0) 01/04/21 07:25 Urine Bacteria (Auto) 2+ /HPF (Negative) 01/04/21 07:25 Urine Creatinine 122.1 mg/dL (0.1-20.0) H 01/04/21 07:25 Urine Sodium 50 mmol/L 01/04/21 07:25 Urine Total Protein 49 mg/dL (5-11.8) H 01/04/21 07:25 Salicylates 0.3 mg/dL (2.8-20.0) L 01/03/21 12:42 Acetaminophen < 5.0 ug/mL (10.0-30.0) L 01/03/21 13:09 Blood Type B POSITIVE 01/10/21 10:31 Antibody Screen Negative 01/10/21 10:31 Crossmatch See Detail 01/10/21 10:31 [place]/IV: Voiding Method Condom Catheter Active Medications - Current Medications Current Medications: Generic Name Dose Route Start Last Admin Trade Name Freq PRN Reason Stop Dose Admin Acetaminophen 650 mg 01/03/21 14:30 Acetaminophen 325 Mg Tab PO Q4H PRN Pain MILD(1-3)/Fever >100.5/MONTEJO Albuterol 2.5 mg 01/03/21 16:00 Albuterol 2.5 Mg/3 Ml Nebu IH Q4HRT PRN Shortness Of Breath Hydralazine HCl 5 mg 01/10/21 15:47 01/12/21 05:07 Hydralazine 20 Mg/1 Ml Inj IV 5 mg Q20M PRN Administration Hypertension Hydromorphone HCl 0.25 mg 01/03/21 15:00 Hydromorphone 1 Mg/1 Ml Inj IV Q4H PRN Pain, Moderate (4-6) Dextrose/Sodium Chloride 1,000 mls @ 75 mls/hr 01/10/21 11:00 01/11/21 17:03 D5/0.45ns IV 75 mls/hr DIRECT ALLEN Administration Ondansetron HCl 4 mg 01/03/21 15:00 Ondansetron 4 Mg/2 Ml Inj IV Q8H PRN Nausea And Vomiting Pseudoephedrine/Acetam/Chlorphenir 10 ml 01/03/21 23:23 01/03/21 23:58 Guaifenesin/Codeine 100-10mg Oral Liqd 5 Ml PO 10 ml Q4H PRN Administration Cough Sodium Chloride 10 ml 01/03/21 22:00 01/11/21 21:13 Sodium Chloride 0.9% 10 Ml Flush Syringe IV 10 ml BID ALLEN Administration Sodium Chloride 10 ml 01/03/21 15:00 01/12/21 05:08 Sodium Chloride 0.9% 10 Ml Flush Syringe IV 10 ml PRN PRN Administration LINE FLUSH Nutrition/Malnutrition Assess - Dietary Evaluation Nutrition/Malnutrition Findings: Nutrition Notes Start: 01/04/21 12:41 Freq: Status: Active Protocol: Document 01/11/21 12:34 MK (Rec: 01/11/21 12:35 MK [id number]) Nutrition Notes Initial or Follow up Brief Note Current Diet NPO Subjective/Other Information Pt remains NPO for CONTACT CENTER CONSULTANT eval. Informed RN importance of starting TF or diet advancement if family/pt wants to continue with care. Nutrition Intervention Follow-Up By: 01/12/21 Additional Comments FU for plan for care
--- NOTE | 2021-01-12 10:09 | Progress Note ---
Assessment and Plan - Patient Problems (1) Acute kidney injury Current Visit: Yes Status: Acute Plan to address problem: Overall renal function is showing steady improvement. Renal US did not show any acute abnormalities. Please avoid all nephrotoxins, and maintain MAP > 65mmHg. Renal function has continued to show improvement (2) Aspiration pneumonia Current Visit: Yes Status: Acute Plan to address problem: Please ensure that anitbiotics are dosed appropriately for decreased renal function. (3) Diabetes Current Visit: Yes Status: Acute Plan to address problem: DM management per primary attending. (4) Failure to thrive Current Visit: Yes Status: Acute Plan to address problem: Continue with nutritional support. (5) Hypernatremia Current Visit: Yes Status: Acute Plan to address problem: Improving at this time time with nutritional support and fluid hydration. (6) Metabolic acidosis Current Visit: Yes Status: Acute Plan to address problem: has improved at this time and we will switch his IV fluids over to normal saline. (7) Ulcer of right heel Current Visit: Yes Status: Acute Plan to address problem: Management per surgery and ID. s/p right AKA POD 2 (8) HTN (hypertension) Current Visit: No Status: Acute Qualifiers: Hypertension type: essential hypertension Qualified Code(s): I10 - Essential (primary) hypertension Plan to address problem: Monitor under current management. Subjective Date of service: 01/12/21 Principal diagnosis: Acute kidney injury Interval history: No acute changes. Right AKA POD 2. Objective - Vital Signs Vital signs: Vital Signs - 12hr 01/11/21 01/12/21 01/12/21 22:22 04:14 05:07 Temperature 98.4 F 98.1 F Pulse Rate 104 H Respiratory 18 18 Rate Blood Pressure 158/88 178/99 178/99 O2 Sat by Pulse 98 Oximetry - General Appearance General appearance: chronically ill, frail EENT: ATNC Neck: no JVD Cardiology: regular Gastrointestinal: normal Neurologic: no focal deficit Psychiatric: cooperative - Lab 01/11/21 05:08 01/11/21 05:08 Most recent lab results Calcium 8.5 mg/dL (8.4-10.2) 01/11/21 05:08 Phosphorus 3.90 mg/dL (2.5-4.5) 01/05/21 05:12 Magnesium 2.20 mg/dL (1.7-2.3) 01/05/21 05:12 Urine Creatinine 122.1 mg/dL (0.1-20.0) H 01/04/21 07:25 Urine Sodium 50 mmol/L 01/04/21 07:25 Urine Total Protein 49 mg/dL (5-11.8) H 01/04/21 07:25 Medications & Allergies - Medications Allergies/Adverse Reactions: Allergies No Known Allergies Allergy (Verified 11/22/19 13:13) Home Medications: Home Medications Medication Instructions Recorded Confirmed Last Taken Type Amlodipine Besylate [Norvasc] 5 mg PO DAILY 08/15/18 01/05/21 3 Days Ago History ~01/02/21 Atorvastatin Calcium [Lipitor] 40 mg PO DAILY 08/15/18 01/05/21 3 Days Ago History ~01/02/21 Calcium Carbonate [Ban-Acid 300MG 300 mg PO DAILY 08/15/18 01/05/21 3 Days Ago History CHEW] ~01/02/21 Lisinopril [Zestril TAB] 2.5 mg PO QDAY 08/15/18 01/05/21 3 Days Ago History ~01/02/21 metFORMIN [Glucophage] 500 mg PO QDAY 08/15/18 01/05/21 3 Days Ago History ~01/02/21 Acetaminophen [Acetaminophen TAB] 650 mg PO Q4H PRN tablet 08/26/18 01/05/21 Unknown Rx Aspirin EC [Halfprin EC] 81 mg PO QDAY tablet 08/26/18 01/05/21 3 Days Ago Rx ~01/02/21 Clopidogrel [Plavix] 75 mg PO QDAY tablet 08/26/18 01/05/21 3 Days Ago Rx ~01/02/21 Active Medications: Generic Name Dose Route Start Last Admin Trade Name Freq PRN Reason Stop Dose Admin Acetaminophen 650 mg 01/03/21 14:30 Acetaminophen 325 Mg Tab PO Q4H PRN Pain MILD(1-3)/Fever >100.5/[place] Albuterol 2.5 mg 01/03/21 16:00 Albuterol 2.5 Mg/3 Ml Nebu IH Q4HRT PRN Shortness Of Breath Hydralazine HCl 5 mg 01/10/21 15:47 01/12/21 05:07 Hydralazine 20 Mg/1 Ml Inj IV 5 mg Q20M PRN Administration Hypertension Hydromorphone HCl 0.25 mg 01/03/21 15:00 Hydromorphone 1 Mg/1 Ml Inj IV Q4H PRN Pain, Moderate (4-6) Dextrose/Sodium Chloride 1,000 mls @ 75 mls/hr 01/10/21 11:00 01/11/21 17:03 D5/0.45ns IV 75 mls/hr DIRECT ALLEN Administration Ondansetron HCl 4 mg 01/03/21 15:00 Ondansetron 4 Mg/2 Ml Inj IV Q8H PRN Nausea And Vomiting Pseudoephedrine/Acetam/Chlorphenir 10 ml 01/03/21 23:23 01/03/21 23:58 Guaifenesin/Codeine 100-10mg Oral Liqd 5 Ml PO 10 ml Q4H PRN Administration Cough Sodium Chloride 10 ml 01/03/21 22:00 01/11/21 21:13 Sodium Chloride 0.9% 10 Ml Flush Syringe IV 10 ml BID ALLEN Administration Sodium Chloride 10 ml 01/03/21 15:00 01/12/21 05:08 Sodium Chloride 0.9% 10 Ml Flush Syringe IV 10 ml PRN PRN Administration LINE FLUSH
--- NOTE | 2021-01-12 12:57 | Progress Note ---
Assessment and Plan Cultures: Blood culture no growth so far. Urine culture 10-100,000 CFU mixed bacteria A/P: 75 yo M with DM-2, CVA, dysarthria, BLE heel ulcers admitted with: #Bilateral heel ulcers, R>L with underlying right sided calcaneal osteomyelitis: MRI showed early calcaneal osteomyelitis and flexor hallucis tenosynovitis. 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 #UTI #Acute encephalopathy: likely secondary to infection, has minimal cognition at baseline and likely limited reserve. #Non-verbal status #DM2: tight glycemic control for best outcomes. Recs: -completed abx -continue offloading and wound care for other decubiti Thierry Carmichael MD, FACP [facility] ([facility] O: [phone] F: [phone] Subjective Date of service: 01/12/21 Principal diagnosis: Acute kidney injury Interval history: No fever. No complaints, able to speak few words. Objective - Exam Narrative Exam: Physical Exam: Constitutional: Awake, no distress Head, Ears, Nose: Normocephalic, atraumatic. External ears, nose normal Eyes: Conjunctivae/corneas clear. No icterus. No ptosis. Neck: Supple, no meningeal signs Cardiovascular: S1, S2 normal. Respiratory: Good air entry, clear to auscultation bilaterally GI: Soft, non-tender; bowel sounds normal. No peritoneal signs Musculoskeletal: Cachexia, R AKA with dressing. Skin: No rash or abscess Hem/Lymphatic: No palpable cervical or supraclavicular nodes. No lymphangitis Psych: No agitation Neurological: Awake, alert, speaks few words - Constitutional Vitals: Vital Signs Temp Pulse Resp BP Pulse Ox 98.1 F 104 H 18 178/99 98 01/12/21 04:14 01/11/21 22:22 01/12/21 04:14 01/12/21 05:07 01/11/21 22:22 Temperature -Last 24 Hours Temperature 98.1 F Temperature 98.4 F Temperature 99.1 F Temperature 99.3 F - Labs CBC & Chem 7: 01/11/21 05:08 01/11/21 05:08 Labs: Abnormal lab results 01/10/21 01/11/21 01/12/21 Range/Units 10:31 12:21 00:55 POC Glucose 143 H 151 H (70-105) mg/dL Crossmatch See Detail
--- NOTE | 2021-01-12 14:21 | Fluoroscopy Report ---
Modified barium swallow Indication: dysphagia Technique: Swallowing was evaluated in the lateral position under direct fluoroscopy. Findings: The patient was evaluated with puree, thin, and nectar consistencies. There was early spill with all consistencies. The patient experienced an episode of deep penetration reaching the level the cords with thin liquid. No cough was elicited. The other consistencies were be tter tolerated. There was no episode of aspiration during the exam. Impression: Abnormal exam as above. Fluoroscopic time: 1.9 minutes Number of fluoroscopic images: 0 Signer Name: Teofilo Simpson MD Signed: 01/12/2021 2:17 PM Workstation Name: [id number]
[2021-01-12] MEDS: D5W/0.45% NACL 1,000 ML IV SCH (16:26)
[2021-01-13] MEDS: hydrALAZINE 20 MG/1 ML INJ IV PRN (05:37)
--- NOTE | 2021-01-13 07:57 | Discharge Summary ---
Providers - Providers Date of Admission: 01/03/21 13:52 Date of discharge: 01/13/21 Attending physician: RAFITA GIORDANO 01/03/21 12:20 Consult to Physician [CONS] Urgent Comment: Consulting Provider: QUINTON ARRIAZA Physician Instructions: Reason For Exam: pad, infected wound 01/03/21 13:28 Consult to Physician [CONS] Urgent Comment: Consulting Provider: PETAR VARGAS Physician Instructions: Reason For Exam: renal insufficiency 01/04/21 06:28 Speech Therapy Evaluation and Treat [CONS] Routine Reason For Exam: swallow evaluation 01/04/21 12:40 Consult to Physician [CONS] Routine Comment: Consulting Provider: JOSE AVILA Physician Instructions: Reason For Exam: Heel ulcer 01/04/21 12:54 Consult to Physician [CONS] Routine Comment: Consulting Provider: YOLIE MOHAN Physician Instructions: Reason For Exam: Infected heel ulcer 01/04/21 16:41 Consult to Wound/ET Nurse [CONS] Routine Reason For Exam: wound eval 01/10/21 19:20 Speech Therapy Evaluation and Treat [CONS] Routine Reason For Exam: swallow re-evaluation 01/11/21 18:37 Occupational Therapy Evaluate and Treat [CONS] Urgent Comment: Reason For Exam: Debility Physical Therapy Evaluation and Treat [CONS] Urgent Comment: Reason For Exam: s/p Right AKA 01/12/21 07:25 Physical Therapy Evaluation and Treat [CONS] Routine Comment: Reason For Exam: s/p right AKA Primary care physician: ADMISSIONS CLERK Hospitalization Reason for admission: encephalopathy Condition: Poor Hospital course: 75 yo M PMhx Dm2, CVA, dysarthria, BLE heel ulcers presented to [facility] due to altered mental status as noticed by family. Of note the patient is non- verbal at baseline and with limited cognition. His symptoms began 1 week prior to admission. He was evaluated by surgery for potential amputation, however family initially refused despite his bedbound and non-functional status. The patient was also seen by ID in consultation who began IV antibiotics of ceftriaxone. MRI revealed early calcaneal osteomyelitis and flexor hallucis tenosynovitis. The patient is worsening mental status with secondary to toxic metabolic encephalopathy from osteomyelitis, UTI. Eventually the family opted for amputation and patient underwent right AKA by surgery on 01/10/2021. Patient completed antibiotics. Case management was consulted and reported daughter wanted to continue with home hospice services which is now arranged for discharge. Patient is felt to receive maximal hospital benefit and will be discharged with home hospice. Dedicated discharge time 35 minutes. Disposition: DC-01 TO HOME OR SELFCARE Final Discharge Diagnosis (Prints w/discharge instructions): Osteomyelitis right heel, s/p right AKA, flexor hallucis tenosynovitis, UTI Core Measure Documentation - Palliative Care Palliative Care/ Comfort Measures: Hospice Care - Core Measures Any of the following diagnoses?: none Exam - Constitutional Vitals: Temp Pulse Resp BP Pulse Ox 97.9 F 102 H 18 130/90 98 01/13/21 07:32 01/13/21 07:32 01/13/21 07:32 01/13/21 07:32 01/13/21 07:32 General appearance: Present: no acute distress, well-nourished - EENT Eyes: Present: PERRL ENT: hearing intact, clear oral mucosa - Neck Neck: Present: supple, normal ROM - Respiratory Respiratory effort: normal Respiratory: bilateral: CTA - Cardiovascular Heart Sounds: Present: S1 & S2. Absent: rub, click - Extremities Extremities: pulses symmetrical, No edema Extremity abnormal: other (Right AKA) Peripheral Pulses: within normal limits - Abdominal General gastrointestinal: Present: soft, non-tender, non-distended, normal bowel sounds Male genitourinary: Present: normal - Integumentary Integumentary: Present: clear, warm, dry - Musculoskeletal Musculoskeletal: gait normal, strength equal bilaterally - Psychiatric Psychiatric: appropriate mood/affect, intact judgment & insight - Neurologic Neurologic: CNII-XII intact, moves all extremities Plan Activity: advance as tolerated Weight Bearing Status: Weight Bear as Tolerated Diet: diabetic Wound: per your surgeon's advice Follow up with: PRIMARY CARE, [Primary Care Provider] - 3-5 Days Prescriptions: metFORMIN [Glucophage] 500 mg PO QDAY #30 Aspirin EC [Halfprin EC] 81 mg PO QDAY #30 tablet Amlodipine Besylate [Norvasc] 5 mg PO DAILY #30 Clopidogrel [Plavix] 75 mg PO QDAY #30 tablet Lisinopril [Zestril TAB] 2.5 mg PO QDAY #30
--- NOTE | 2021-01-13 10:00 | Progress Note ---
Assessment and Plan - Patient Problems (1) Acute kidney injury Current Visit: Yes Status: Acute Plan to address problem: Overall renal function is showing steady improvement. Renal US did not show any acute abnormalities. Please avoid all nephrotoxins, and maintain MAP > 65mmHg. Renal function has continued to show improvement Per primary notes, plan is for discharge to home hospice today. (2) Aspiration pneumonia Current Visit: Yes Status: Acute Plan to address problem: Please ensure that anitbiotics are dosed appropriately for decreased renal f unction. (3) Diabetes Current Visit: Yes Status: Acute Plan to address problem: DM management per primary attending. (4) Failure to thrive Current Visit: Yes Status: Acute Plan to address problem: Continue with nutritional support. (5) Hypernatremia Current Visit: Yes Status: Acute Plan to address problem: Improving at this time time with nutritional support and fluid hydration. (6) Metabolic acidosis Current Visit: Yes Status: Acute Plan to address problem: has improved at this time (7) Ulcer of right heel Current Visit: Yes Status: Acute Plan to address problem: Management per surgery and ID. s/p right AKA POD 3 (8) HTN (hypertension) Current Visit: No Status: Acute Qualifiers: Hypertension type: essential hypertension Qualified Code(s): I10 - Essential (primary) hypertension Plan to address problem: Monitor under current management. Subjective Date of service: 01/13/21 Principal diagnosis: Acute kidney injury Interval history: No acute changes. Plans for DC to home hospice care. Objective - Vital Signs Vital signs: Vital Signs - 12hr 01/12/21 01/13/21 01/13/21 23:00 03:24 05:37 Temperature 98.1 F 99.7 F H Pulse Rate 104 H 103 H 99 H Respiratory 20 20 Rate Blood Pressure 144/84 171/84 171/84 O2 Sat by Pulse 98 98 Oximetry 01/13/21 07:32 Temperature 97.9 F Pulse Rate 102 H Respiratory 18 Rate Blood Pressure 130/90 O2 Sat by Pulse 98 Oximetry - General Appearance General appearance: chronically ill, frail EENT: ATNC Neck: no JVD Respiratory: Present: Clear to Ascultation Cardiology: regular Gastrointestinal: normal Integumentary: no rash Musculoskeletal: other (Right AKA) - Lab 01/11/21 05:08 01/11/21 05:08 Most recent lab results Calcium 8.5 mg/dL (8.4-10.2) 01/11/21 05:08 Phosphorus 3.90 mg/dL (2.5-4.5) 01/05/21 05:12 Magnesium 2.20 mg/dL (1.7-2.3) 01/05/21 05:12 Urine Creatinine 122.1 mg/dL (0.1-20.0) H 01/04/21 07:25 Urine Sodium 50 mmol/L 01/04/21 07:25 Urine Total Protein 49 mg/dL (5-11.8) H 01/04/21 07:25 - Allied health notes Allied health notes reviewed: nursing Medications & Allergies - Medications Allergies/Adverse Reactions: Allergies No Known Allergies Allergy (Verified 11/22/19 13:13) Home Medications: Home Medications Medication Instructions Recorded Confirmed Last Taken Type Atorvastatin Calcium [Lipitor] 40 mg PO DAILY 08/15/18 01/05/21 3 Days Ago History ~01/02/21 Calcium Carbonate [Ban-Acid 300MG 300 mg PO DAILY 08/15/18 01/05/21 3 Days Ago History CHEW] ~01/02/21 Acetaminophen [Acetaminophen TAB] 650 mg PO Q4H PRN tablet 08/26/18 01/05/21 Unknown Rx Amlodipine Besylate [Norvasc] 5 mg PO DAILY #30 01/13/21 Unknown Rx Aspirin EC [Halfprin EC] 81 mg PO QDAY #30 tablet 01/13/21 Unknown Rx Clopidogrel [Plavix] 75 mg PO QDAY #30 tablet 01/13/21 Unknown Rx Lisinopril [Zestril TAB] 2.5 mg PO QDAY #30 01/13/21 Unknown Rx metFORMIN [Glucophage] 500 mg PO QDAY #30 01/13/21 Unknown Rx Active Medications: Generic Name Dose Route Start Last Admin Trade Name Freq PRN Reason Stop Dose Admin Acetaminophen 650 mg 01/03/21 14:30 Acetaminophen 325 Mg Tab PO Q4H PRN Pain MILD(1-3)/Fever >100.5/MONTEJO Albuterol 2.5 mg 01/03/21 16:00 Albuterol 2.5 Mg/3 Ml Nebu IH Q4HRT PRN Shortness Of Breath Hydralazine HCl 5 mg 01/10/21 15:47 01/13/21 05:37 Hydralazine 20 Mg/1 Ml Inj IV 5 mg Q20M PRN Administration Hypertension Hydromorphone HCl 0.25 mg 01/03/21 15:00 Hydromorphone 1 Mg/1 Ml Inj IV Q4H PRN Pain, Moderate (4-6) Dextrose/Sodium Chloride 1,000 mls @ 75 mls/hr 01/10/21 11:00 01/12/21 16:26 D5/0.45ns IV 75 mls/hr DIRECT ALLEN Administration Ondansetron HCl 4 mg 01/03/21 15:00 Ondansetron 4 Mg/2 Ml Inj IV Q8H PRN Nausea And Vomiting Pseudoephedrine/Acetam/Chlorphenir 10 ml 01/03/21 23:23 01/03/21 23:58 Guaifenesin/Codeine 100-10mg Oral Liqd 5 Ml PO 10 ml Q4H PRN Administration Cough Sodium Chloride 10 ml 01/03/21 22:00 01/12/21 21:55 Sodium Chloride 0.9% 10 Ml Flush Syringe IV 10 ml BID ALLEN Administration Sodium Chloride 10 ml 01/03/21 15:00 01/12/21 05:08 Sodium Chloride 0.9% 10 Ml Flush Syringe IV 10 ml PRN PRN Administration LINE FLUSH
[2021-01-13 11:56] VITALS: BP 131/81
--- NOTE | 2021-01-13 12:19 | Progress Note ---
Assessment and Plan Cultures: Blood culture no growth so far. Urine culture 10-100,000 CFU mixed bacteria A/P: 75 yo M with DM-2, CVA, dysarthria, BLE heel ulcers admitted with: #Bilateral heel ulcers, R>L with underlying right sided calcaneal osteomyelitis: MRI showed early calcaneal osteomyelitis and flexor hallucis tenosynovitis. 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 #UTI #Acute encephalopathy: likely secondary to infection, has minimal cognition at baseline and likely limited reserve. #Non-verbal status #DM2: tight glycemic control for best outcomes. Recs: -Off abx. Noted plans for home hospice, agree ID will sign off. Please call with questions. Thierry Carmichael MD, FACP [facility] ([facility] O: [phone] F: [phone] Subjective Date of service: 01/13/21 Principal diagnosis: Acute kidney injury Interval history: No fever. Noted plans for home hospice. Objective - Exam Narrative Exam: Physical Exam: Constitutional: Awake, no distress Head, Ears, Nose: Normocephalic, atraumatic. External ears, nose normal Eyes: Conjunctivae/corneas clear. No icterus. No ptosis. Neck: Supple, no meningeal signs Cardiovascular: S1, S2 normal. Respiratory: Good air entry, clear to auscultation bilaterally GI: Soft, non-tender; bowel sounds normal. No peritoneal signs Musculoskeletal: Cachexia, R AKA with dressing. Skin: No rash or abscess Hem/Lymphatic: No palpable cervical or supraclavicular nodes. No lymphangitis Psych: No agitation - Constitutional Vitals: Vital Signs Temp Pulse Resp BP Pulse Ox 98.3 F 96 H 18 131/81 99 01/13/21 11:55 01/13/21 11:55 01/13/21 11:55 01/13/21 11:55 01/13/21 11:55 Temperature -Last 24 Hours Temperature 98.3 F Temperature 97.9 F Temperature 99.7 F Temperature 98.1 F Temperature 99.2 F Temperature 99.1 F - Labs CBC & Chem 7: 01/11/21 05:08 01/11/21 05:08 Labs: Abnormal lab results 01/12/21 01/12/21 01/12/21 Range/Units 06:44 08:01 11:28 POC Glucose 150 H 155 H 151 H (70-105) mg/dL 01/12/21 01/12/21 01/13/21 Range/Units 17:20 20:39 06:48 POC Glucose 140 H 138 H 166 H (70-105) mg/dL 01/13/21 Range/Units 11:08 POC Glucose 178 H (70-105) mg/dL
== END 2021-01-13 14:39 | disposition hospice, home (50) | DRG 853 ==
LOC: ED 11:31 → 4A 13:52 → EEVIPCON 13:52 → 4A 19:27
PROVIDERS: ADMIT Internal Medicine; ATTEND Hospitalist
PROC: 0KBV0ZZ Excision of Right Foot Muscle, Open Approach (ICD-10-PCS; 2021-01-07)
PROC: 0Y6C0Z1 Detachment at Right Upper Leg, High, Open Approach (ICD-10-PCS; principal; 2021-01-10)
PROC: 30233N1 Transfusion of Nonautologous Red Blood Cells into Peripheral Vein, Percutaneous Approach (ICD-10-PCS; 2021-01-10)
DX: A41.9 Sepsis, unspecified organism (principal); L89.614 Pressure ulcer of right heel, stage 4; J69.0 Pneumonitis due to inhalation of food and vomit; E43 Unspecified severe protein-calorie malnutrition; G92 Toxic encephalopathy; Z68.1 Body mass index [BMI] 19.9 or less, adult; E87.0 Hyperosmolality and hypernatremia; E87.2 Acidosis; L98.498 Non-pressure chronic ulcer of skin of other sites with other specified severity; M86.8X7 Other osteomyelitis, ankle and foot; L97.429 Non-pressure chronic ulcer of left heel and midfoot with unspecified severity; I69.354 Hemiplegia and hemiparesis following cerebral infarction affecting left non-dominant side; N39.0 Urinary tract infection, site not specified; N17.9 Acute kidney failure, unspecified; D64.9 Anemia, unspecified; I10 Essential (primary) hypertension; E11.51 Type 2 diabetes mellitus with diabetic peripheral angiopathy without gangrene; E87.5 Hyperkalemia; R47.1 Dysarthria and anarthria; E11.69 Type 2 diabetes mellitus with other specified complication; E11.621 Type 2 diabetes mellitus with foot ulcer; Z82.49 Family history of ischemic heart disease and other diseases of the circulatory system; Z83.3 Family history of diabetes mellitus; Z79.899 Other long term (current) drug therapy; Z79.82 Long term (current) use of aspirin; M65.9 Synovitis and tenosynovitis, unspecified; Z98.49 Cataract extraction status, unspecified eye; Z85.46 Personal history of malignant neoplasm of prostate
CPT/HCPCS: 36415; 70450; 71045; 71250; 73721; 74230; 76770; 80048; 80053; 80061; 80320; 81001; 82140; 82550; 82570; 82962; 83735; 84100; 84132; 84156; 84300; 84443; 84484; 85025; 85027; 85610; 85652; 85730; 86140; 86850; 86900; 86901; 86920; 87040; 87086; 88307; 88311; 88312; 93005; 93925; 96365; 96367; 96375; G0378; G0480; J0330; J0360; J0690; J0692; J0696; J1100; J1170; J2370; J2704; J3010; J7030; J7070; J7120; P9016